=== PATIENT | male | born 1990 | race Caucasian/White ===

== ENCOUNTER 2025-08-14 14:52 | Outpatient (BNV) | payer OTHER, SELFPAY | END 2025-08-14 18:47 | PROVIDERS: Admitting Provider Psychiatry & Neurology Psychiatry; Visit Provider Internal Medicine Cardiovascular Disease | DX: R00.0 Tachycardia, unspecified (principal) | CPT/HCPCS: 93010 ==

== ENCOUNTER 2025-08-14 14:52 | Inpatient (IN) | payer OTHER, SELFPAY ==
--- OUTSIDE RECORDS SUMMARY | 2025-08-06 14:00 | XMS_ITS | Encounter Summary ---
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) Procedures ADMIT TO INPATIENT Surekha Hernandez MD [address] [place] [address] Phone: tel: fax: Referral ID Status Reason Start Date Expiration Date Visits Re quested Visits Authorized [id number] 1 1 Encounter Details Date Type Department Care Team (Late st Contact Info) Description 08/06/2025 3:00 PM EDT - 08/13/2025 1:00 PM [facility] [place] Hospital Encounter [facility] [address] [place] [phone] Americo Allred, [address] [place] [id number] Surekha Hernandez MD [address] [place] [address] Divina Mercer MD [address] [address] Shaquille Brooks MD [address] [place] [phone] Alcohol withdrawal (CMS/HCC) (Primary Dx); 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CMS/HCC) Discharge Disposition: Home or Self Care Social History Tobacco Use Types Packs/Day Years Used Date Smoking Tobacco: Every Day Cigarettes Tobacco Cessation:Ready to Q uit: Not Asked; Counseling Given: Not Answered Alcohol Use Standard Drinks/Week Comments Yes 0 (1 standard drink = 0.6 oz pur e alcohol) Vodka 1 L a day [facility] When You Wishities Answer Date Recorded In the past 12 months has e Lee Silber, oil, or water Thename.is threatened to shut off services in your home? Patient unable to answer 08/14/2025 Humiliation, Afraid, Rape, and Kick questionnair e Answer Date Recorded Within the last year, have y ou been afraid of your partner or ex-partner? No 08/14/2025 Emotionally Abused Not on file 08/14/2025 Physically Abused Not on file 08/14/2025 Sexually Abused Not on file 08/14/2025 AUDIT-C Answer Date Recorded Q1: How often do you have a drink containing alcohol? 4 or more times a week 08/07/2025 Q2: How many drinks containi ng alcohol do you have on a typical day when you are drinking? 10 or more Q3: How often do you have si x or more drinks on one occasion? Daily or almost daily 08/07/2025 Overall Financial Resource Strain (CARDIA) Answe r Date Recorded How hard is it for you to pa y for the very basics like food, housing, medical care, and heating? Hard 08/14/2025 PHQ-2 Answer Date Recorded Patient Health Questionnaire-2 Score for SDOH 2 08/07/2025 [facility] Occupat ional [facility] - Occupational Stress Questionnaire Answer Date Recorded Do you feel stress - tense, restless, nervous, or anxious, or unable to sleep at night because your mind is troubled all the time - these days? Patient declined 08/07/2025 Hunger Vital Sign Answer Date Recorded Within the past 12 months, y ou worried that your food would run out before you got the money to buy more. Often true 08/14/20 25 Ran Out of Food in the Last Year Not on file 08/14/2025 PRAPARE - Transportation Answer Date Re corded In the past 12 months, has l ack of transportation kept you from medical appointments or from getting medications? Yes 01/2025 In the past 12 months, has l ack of transportation kept you from meetings, work, or from getting things needed for daily living? Yes 08/14/2025 Housing Stability Vital Sign Answer Chaz e Recorded Unable to Pay for Housing in the Last Year Not o n file 08/14/2025 Number of Times Moved in the Last Year Not on fi le 08/14/2025 At any time in the past 12 m [facility], were you homeless or living in a care home (including now)? Yes 08/14/2025 Substance Use Answer Date Recorded Do you use marijuana, cannabis, or THC-containin g products? Yes 08/07/2025 Do you use medicine not pres cribed to you, or any other types of drugs (such as cocaine, heroin, fentanyl, or meth)? Yes Sex and Gender Information Value Date Recorded Sex Assigned at Not on file Legal Sex Male 5:29 PM EDT Gender Identity Not on file Sexual Orientation Not on file documented as of this encounter Last Filed Vital Signs Vital Sign Reading Time Taken Comments Blood Pressure 100/69 08/13/2025 8:42 AM EST Pulse 89 08/13/2025 8:41 AM EST Temperature 36.4 C (97.5 F) 08/13/2025 8:41 AM EST Respiratory Rate 20 08/13/2025 8:41 AM EST Oxygen Saturation 97% 08/13/2025 8:41 AM EST Inhaled Oxygen Concentration - - Weight 90.7 kg (200 lb) 08/06/2025 3:07 PM EDT Height 175.3 cm (5' 9 ) 08/06/2025 3:07 PM EDT Body Mass Index 29.53 08/06/2025 3:07 PM EDT documented in this encounter Mental Status * Question Answer Entry Date Author Patient Health Questionnaire -2 Score for SDOH 2 08/07/2025 12:13 AM EDT Traci Olmedo RN * Methodology and Total Score Answer Entry Date Author PHQ-2 2 08/07/2025 12:13 AM EDT Thanh Olmedo RN * Methodology and Total Score Answer Entry Date Author PHQ-2 2 08/07/2025 12:13 AM FABIANOT Thanh Olmedo RN documented in this encounter Discharge Summaries * Shaquille Brooks MD - 08/13/2025 10:16 AM EST Images from the original note were not included. 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 Anthony Fernandes is a 35 y.o. year old male with past medical history of EtOH abuse, seizures, anxiety, PTSD, depression, polysubstance abuse (cocaine and heroin in the past, meth and amphetamine), history of suicide and homicide ideation, he had a warrant over him, he claimed he had a seizure activity today when the police arrived and checked on him. He claims this is his first time use amphetamine, mistakenly given by acquaintance, he admitted he drinks alcohol daily, 1 L of vodka, last drink was a day and a half ago. He also has alcohol withdrawal seizure in the past. Currently he seems to hallucinating, says he sees black dots on the ceiling. He also claims he wants to kill himself, planning to cut himself, showed me a cut scar on his leg from before. I am called to admit this patient, because he is agitated, tremulous, concern for alcohol withdrawal. Urine toxic screen is positive for amphetamine, benzodiazepine, Buprenorphine and cannabinoids, he got 1 dose of benzo in ED, urine sample obtained afterward. He reports severe headache, feeling nausea, chills and abdominal pain. He also smokes 1-1/2 to 2 packs daily, has been smoking for a long time. He is a homeless, lives in the [facility]. Past Medical History: Diagnosis Date ADHD ADHD Asthma Bipolar disorder, unspecified (CMS/HCC) Depression Generalized anxiety disorder PTSD (post-traumatic stress disorder) Suicidal ideation Transaminitis WPW (Ayuya-Qprfmsnsr-Zqmcu syndrome) CARDIAC ELECTROPHYSIOLOGY MAPPING AND ABLATION No past surgical history on file. Social History Socioeconomic History Marital status: Single Spouse name: Not on file Number of children: Not on file Years of education: Not on file Highest education level: Not on file Occupational History Not on file Tobacco Use Smoking status: Every Day Current packs/day: 1.50 Types: Cigarettes Smokeless tobacco: Not on file Substance and Sexual Activity Alcohol use: Yes Comment: Vodka 1 L a day Drug use: Yes Types: Amphetamines, Methamphetamines, Cocaine, Heroin Comment: Cocaine and heroin in the past Sexual activity: Not on file Other Topics Concern Not on file Social History Narrative Not on file Social Drivers of Health Financial Resource Strain: High Risk (08/07/2025) Overall Financial Resource Strain (CARDIA) Difficulty of Paying Living Expenses: Very hard Food Insecurity: Food Insecurity Present (08/07/2025) Hunger Vital Sign Worried About Running Out of Food in the Last Year: Often true Ran Out of Food in the Last Year: Not on file Transportation Needs: Unmet Transportation Needs (08/07/2025) PRAPARE - Transportation Lack of Transportation (Medical): Yes Lack of Transportation (Non-Medical): Yes Physical Activity: Not on file Stress: Patient Declined (08/07/2025) [facility] [employer]ational Health - Occupational Stress Questionnaire Feeling of Stress : Patient declined Social Connections: Not on file Housing Stability: High Risk (08/07/2025) Housing Stability Vital Sign Unable to Pay for Housing in the Last Year: Not on file Number of Times Moved in the Last Year: Not on file Homeless in the Last Year: Yes Allergies Allergen Reactions Fish Containing Products Anaphylaxis Anaphylaxis Capsaicin Rash Quetiapine Rash and Swelling Anaphylaxis Hospital Course Anthony Fernandes is a 35 y.o. male with past medical history of EtOH abuse, seizures, anxiety, PTSD, depression, polysubstance abuse (cocaine and heroin in the past, meth and amphetamine), history of suicide and homicide ideation, he had a warrant over him, he claimed he had a seizure activity today when the police arrived and checked on him. He claims this is his first time use amphetamine, mistakenly given by acquaintance, he admitted he drinks alcohol daily, 1 L of vodka, last drink was a day and a half ago. He also has alcohol withdrawal seizure in the past , however verbalized suicidal ideation and hence was admitted to the hospitalist team with a sitter at bedside intractable headaches = Noncontrast CT head done during this admission negative for any intracranial hemorrhage focal mass or midline shift Neurology services consulted MRI brain ordered but the patient went down but MRI could not be completed in spite of him receiving premedication They recommended adding on Depacon IF HEADACHE WORSE PT IMPROVED NOT ADDED Tachycardia with history of WPW = Cardiology consulted They feel that episodes of tachycardia are likely related to alcohol withdrawal symptoms Suggest outpatient cardiology follow-up with his primary developer advocate Dr. Miller and primary manager stone at [facility] postdischarge Off telemetry History of seizure disorder He is on Keppra 500 mg twice a day which we are continuing per home regimen No breakthrough seizures reported in the hospital Suicidal ideation Seen by psychiatry, continue one-to-one observation Alcohol abuse with alcohol withdrawal OFF CIWA Reinforced the importance of complete EtOH abstinence again during bedside rounds Cigarette smoking Reinforced the importance of complete smoking cessation, he does not want nicotine patch but wants to use nicotine gum, he wants it every 1 hourly, Marijuana use disorder, mild Recommended complete marijuana abstinence Polysubstance abuse Urine drug screen positive for benzodiazepines amphetamine buprenorphine and cannabinoids Counseled regarding complete abstinence from illicit drugs during bedside rounds Bipolar disorder. Anxiety NOS. Polysubstance abuse. Alcohol abuse PER PSYCH Mr. Fernandes has been continuously denying any suicidal or assaultive ideation in hospital. I do not feel he is of imminent risk of suicide at this time. One-to-one may be discontinued. Suggest social work assist him with referral for partial hospital program for dual diagnosis treatment of his substance abuse and mood and anxiety disorder. He is interested in this referral. Suggest also social work assist with referral for outpatient psychiatry and psychotherapy for dual diagnosis treatment. Please reconsult psychiatry as needed. PT MEDICALLY CLEARED Pertinent Test Results: No results found for: [id number] , [id number] , TROPTHSBASE , TROPTHSRAN Results from last 7 days Lab Units 08/07/25 0209 CK TOTAL IU/L 155 Results from last 7 days Lab Units 08/12/25 0610 08/11/25 0725 08/10/25 0608 08/09/25 0830 08/08/25 0831 08/07/25 0556 08/06/25 1606 SODIUM mEq/L 138 142 140 < > 139 136 137 POTASSIUM mEq/L 3.9 4.1 4.0 < > 4.2 3.9 4.4 CHLORIDE mEq/L 103 107 103 < > 106 103 99 CO2 mEq/L 27 27 25 < > 24 24 25 BUN MG/DL 10 11 11 < > 11 12 14 CREATININE MG/DL 1.00 1.10 1.10 < > 1.00 0.80 1.00 CALCIUM MG/DL 8.3* 8.3* 8.3* < > 8.2* 8.4 9.1 BILIRUBIN TOTAL mg/dL -- -- -- -- <0.2 0.3 <0.2 ALK PHOS U/L -- -- -- -- 84 87 96 ALT U/L -- -- -- -- 48 52 63 AST U/L -- -- -- -- 60* 62* 79* < > = values in this interval not displayed. Results from last 7 days Lab Units 08/13/25 0830 08/12/25 0610 08/11/25 0725 WBC [id number]/L 7.7 5.8 6.3 HEMOGLOBIN g/dL 12.3* 11.8* 11.7* HEMATOCRIT % 37.2* 36.0* 36.4* PLATELETS [id number]/L 216 204 221 Physical Exam at Discharge Heart Rate: 89 Resp: 20 BP: 100/69 Temp: 97.5 ??F (36.4 ??C) Weight: 90.7 kg (200 lb) Body mass index is 29.53 kg/m??. General Appearance: Alert, cooperative, not in acute distress. Head: Normocephalic, without obvious abnormality, atraumatic Eyes: PERRL, conjunctiva/corneas clear, EOM's intact Back: Symmetric, no curvature, ROM normal, no CVA tenderness Lungs: Clear to auscultation bilaterally, respirations unlabored Chest wall: No tenderness or deformity Heart: Regular rate and rhythm, S1 and S2 normal, no murmur, rub or gallop Abdomen: Soft, non-tender, bowel sounds active all four quadrants, no masses, no organomegaly Extremities: atraumatic, no cyanosis or edema; Pulses: 2+ and symmetric all extremities Skin: Skin color, texture, turgor normal, no rashes or lesions Neurologic: CNII-XII intact. Imaging: ECG 12 Lead Result Date: 08/10/2025 SR Sinus rhythm normal P axis, V-rate 60-99 MRI Brain WO IV Contrast Result Date: 08/10/2025 HISTORY: Headache, new or worsening, neuro deficit (Age 18-49y) A brain MRI examination was performed without intravenous contrast according to standard departmental protocol. FINDINGS: There is no evidence of acute infarct, intracranial hemorrhage, mass or mass effect. Parsons-white matter differentiation is preserved. The ventricles and extra-axial spaces are within normal limits for patient age. The paranasal sinuses and mastoid air cells are normally pneumatized. Normal vascular flow voids are identified the skull base. The midline structures are normal. IMPRESSION: No MR evidence of acute intracranial process Signing Doctor: Damian Ghosh Contributing Doctor: Date Signed:08/10/2025 8:42 AM Patient DOS:08/09/2025 6:46 PM Exam:[id number] MRI BRAIN WO IV CONTRAST [facility] CT Brain WO IV Contrast Result Date: 08/06/2025 PROCEDURE INFORMATION: Exam: CT Head Without Contrast Exam date and time: 08/06/2025 5:48 PM Age: 35 years old Clinical indication: Pain; Seizure; Headache TECHNIQUE: Imaging protocol: Computed tomography of the head without contrast. Radiation optimization: All CT scans at this facility use at least one of these dose optimization techniques: automated exposure control; mA and/or kV adjustment per patient size (includes targeted exams where dose is matched to clinical indication); or iterative reconstruction. COMPARISON: CT head/brain wo con 01/14/2024 6:33 AM FINDINGS: Brain: Unremarkable for the patient's age. No hemorrhage or mass effect. Cerebral ventricles: No ventriculomegaly. Paranasal sinuses: Small retention cysts or polyps are noted within the maxillary sinuses. No fluid levels. Mastoid air cells: Visualized mastoid air cells are well aerated. Teeth: There appears to be an impacted upper left canine tooth. Bones: No acute bony pathology. Soft tissues: Unremarkable. IMPRESSION: No acute intracranial pathology. THIS DOCUMENT HAS BEEN ELECTRONICALLY SIGNED BY CATALINA MILLS MD on 08/06/2025 06:51 PM Micro: No results found for: BLOODCX1 , BLOODCX2 , BLOODCX3 , BLOODCX4 ECHO Results for orders placed or performed during the Hospital Encounter of 08/06/25. ECG 12-LEAD Medications on Discharge: Medication List START taking these medications nicotine 21 mg/24 hr 24 hr Patch Commonly known as: NICODERM CQ Place 1 (one) patch (21 mg total) on the skin once daily. CONTINUE taking these medications albuterol 90 mcg/actuation HFA inhaler Commonly known as: PROVENTIL HFA;VENTOLIN HFA;PROAIR HFA Buprenorphine-naloxone 8-2 mg sublingual film Commonly known as: SUBOXONE chlorproMAZINE 100 MG tablet Commonly known as: THORAZINE cloNIDine HCL 0.1 MG tablet Commonly known as: CATAPRES folic acid 1 MG tablet Commonly known as: FOLVITE gabapentin 400 MG capsule Commonly known as: NEURONTIN levETIRAcetam 500 MG tablet Commonly known as: KEPPRA melatonin 5 mg Cap multivitamin tablet Commonly known as: THERAGRAN nicotine polacrilex 4 MG gum Commonly known as: NICORETTE ondansetron 4 MG tablet Commonly known as: ZOFRAN pantoprazole 40 MG delayed release tablet Commonly known as: PROTONIX * prazosin 2 MG capsule Commonly known as: MINIPRESS * prazosin 1 MG capsule Commonly known as: MINIPRESS senna 8.6 mg tablet Commonly known as: SENOKOT Senna Plus 8.6-50 mg tablet Generic drug: senna-docusate thiamine HCl (vitamin B-1) 100 MG tablet * This list has 2 medication(s) that are the same as other medications prescribed for you. Read thedirections carefully, and ask your doctor or other care provider to review them with you. Where to Get Your Medications These medications were sent to [facility]/pharmacy #[id number] - [place], [place] - [address] [facility] [facility] [facility] [id number] nicotine 21 mg/24 hr 24 hr Patch Things you need to do Schedule an appointment with Maru Church NP as soon as possible for a visit in 1 week Where: [address] [facility] [address] Follow up with Maru Church NP in 1 week Where: [address] [facility] [address] I have sent a clinical message via tiger text to the patient's PCP, Maru Church NP for update. Time Spent for discharge and coordination of care is: 35 mintues Disclaimer: Please note that speech recognition angiography technologist software was used to create portions of this document. An attempt at proofreading has been made to minimize errors. Please call with any questions. documented in this encounter Discharge Instructions * Attachments The following attachments cannot be sent through Care Everywhere. * Alcohol Withdrawal Syndrome [employer]ev[place]-[employer] (Bangladeshi) documented in this encounter Medications at Time of Discharge albuterol (PROVENTIL HFA;VENTOLIN HFA;PROAIR HFA) 90 mcg/actuation HFA inhaler Inhale 1 (one) puff to 2 (two) puffs by mouth every 4 (four) hours as needed. 07/31/2025 Buprenorphine-nal oxone (SUBOXONE) 8-[address] 1 (one) Film (8 mg total) under the tongue 3 (three) times a day. 07/14/2024 chlorproMAZINE (THORAZINE) 100 MG tablet Take 3 (three) tablets (300 mg total) by mouth at bedtime. 12/06/2024 cloNIDine HCL (CATAPRES) 0.1 MG tablet Take 1 (one) tablet (0.1 mg total) by mouth 2 (two) times a day. 07/31/2025 folic acid (FOLVITE) 1 MG tablet Take 1 (one) tablet (1 mg total) by mouth once daily. 08/01/2025 gabapentin (NEURONTIN) 400 MG capsule Take 1 (one) capsule (400 mg total) by mouth 3 (three) times a day. 12/06/2024 levETIRAcetam (KEPPRA) 500 MG tablet Take 1 (one) tablet (500 mg total) by mouth 2 (two) times a day. 12/06/2024 melatonin 5 mg cap Take 1 capsule by mouth at bedtime. 02/20/2025 multivitamin (THERAGRAN) tablet Take 1 (one) tablet by mouth every morning. 08/01/2025 nicotine (NICODERM CQ) 21 mg/24 [address] 1 (one) patch (21 mg total) on the skin once daily. 14 patch 08/13/2025 nicotine polacrilex (NICORETTE) 4 MG gum Apply 2 mg to cheek every 2 (two) hours. 12/06/2024 ondansetron (ZOFRAN) 4 MG tablet Take 1 (one) tablet (4 mg total) by mouth every 8 (eight) hours as needed. pantoprazole (PROTONIX) 40 MG delayed release tablet Take 1 (one) tablet (40 mg total) by mouth once daily every morning before breakfast. 08/01/2025 prazosin (MINIPRESS) 1 MG capsule Take 1 (one) capsule (1 mg total) by mouth at bedtime. 12/06/2024 prazosin (MINIPRESS) 2 MG capsule Take 1 (one) capsule (2 mg total) by mouth at bedtime. senna (SENOKOT) 8.6 mg tablet Take 2 (two) tablets by mouth at bedtime. SENNA PLUS 8.6-50 mg tablet Take 2 (two) tablets by mouth at bedtime. 02/01/2025 thiamine HCl, vitamin B-1, 100 MG tablet Take 1 (one) tablet (100 mg total) by mouth once daily. 08/01/2025 documented as of this encounter Progress Notes Only the most recent of 9 notes is shown. * Shaquille Brooks MD - 08/12/2025 12:11 PM EST Interval hx Admitted 08/06/2025 3:00 PM Today is day 6 of hospital stay. Subjective: Patient sitting comfortably no complaints overnight no events Current Meds: Current Facility-Administered Medications Medication Dose Route Frequency albuterol (PROVENTIL) nebulizer solution 2.5 mg 2.5 mg Nebulization Q6H PRN Buprenorphine-naloxone (SUBOXONE) 8-2 mg SL film 8 mg 8 mg Sublingual 3 times daily qguvbkknkf-tatnejvryzqjd-gnjzfssc (FIORICET) 50-325-40 mg tablet 1 tablet 1 tablet Oral Q6H PRN calcium carbonate (dose based on calcium) (TUMS) chewable tablet 200 mg 1 tablet Oral 3 times dailyPRN chlorproMAZINE (THORAZINE) tablet 300 mg 300 mg Oral Bedtime cloNIDine HCL (CATAPRES) tablet 0.1 mg 0.1 mg Oral 2 times daily cyclobenzaprine (FLEXERIL) tablet 5 mg 5 mg Oral 2 times daily PRN diazePAM (VALIUM) tablet 10 mg 10 mg Oral Q2 H PRN Or diazePAM (VALIUM) injection 10 mg 10 mg Intravenous Q2 H PRN diazePAM (VALIUM) tablet 20 mg 20 mg Oral Q1H PRN Or diazePAM (VALIUM) injection 20 mg 20 mg Intravenous Q1H PRN diazePAM (VALIUM) tablet 5 mg 5 mg Oral Q2 H PRN Or diazePAM (VALIUM) injection 5 mg 5 mg Intravenous Q2 H PRN dicyclomine (BENTYL) tablet 10 mg 10 mg Oral 3 times daily PRN gabapentin (NEURONTIN) capsule 400 mg 400 mg Oral 3 times daily levETIRAcetam (KEPPRA) tablet 500 mg 500 mg Oral 2 times daily nicotine (NICODERM CQ) 21 mg/24 hr 1 patch 1 patch Transdermal Once Daily nicotine polacrilex (NICORETTE) gum 2 mg 2 mg Buccal Q1H PRN ondansetron (ZOFRAN) injection 4 mg 4 mg Intravenous Q6H PRN pantoprazole (PROTONIX) DR tablet 40 mg 40 mg Oral Daily before breakfast polyethylene glycol (MIRALAX) packet 17 g 1 packet Oral Once Daily prazosin (MINIPRESS) capsule 1 mg 1 mg Oral Bedtime prazosin (MINIPRESS) capsule 2 mg 2 mg Oral Bedtime senna-docusate (PERICOLACE) 8.6-50 mg 2 tablet 2 tablet Oral 2 times daily Intake/Output Summary (Last 24 hours) at 08/12/2025 1211 Last data filed at 08/12/2025 0254 Gross per 24 hour Intake 716 ml Output -- Net 716 ml Physical Exam Vital Signs: Vitals: 08/12/25 0820 BP: 141/77 Pulse: 100 Resp: 18 Temp: 97.8 ??F (36.6 ??C) SpO2: 95% Body mass index is 29.53 kg/m??. Gen: Alert, oriented, no distress HEENT: Anicteric sclera, MMM, no JVD, no conjunctival pallor Cardio: RRR, normal S1S2, no murmurs, rubs, or gallops Resp: CTAB, no wheezing, crackles or rhonchi GI: Nontender, nondistended, normoactive bowel sounds Ext: No cyanosis, clubbing or edema : No flank tenderness Neuro: CN II-XII grossly intact, 5/5 motor throughout, normal sensation throughout Skin: No rash Psych: Normal affect Labs: No results found for: [id number] , [id number] , TROPTHSBASE , TROPTHSRAN Results from last 7 days Lab Units 08/07/25 0209 CK TOTAL IU/L 155 Results from last 7 days Lab Units 08/12/25 0610 08/11/25 0725 08/10/25 0608 08/09/25 0830 08/08/25 0831 08/07/25 0556 08/06/25 1606 SODIUM mEq/L 138 142 140 < > 139 136 137 POTASSIUM mEq/L 3.9 4.1 4.0 < > 4.2 3.9 4.4 CHLORIDE mEq/L 103 107 103 < > 106 103 99 CO2 mEq/L 27 27 25 < > 24 24 25 BUN MG/DL 10 11 11 < > 11 12 14 CREATININE MG/DL 1.00 1.10 1.10 < > 1.00 0.80 1.00 CALCIUM MG/DL 8.3* 8.3* 8.3* < > 8.2* 8.4 9.1 BILIRUBIN TOTAL mg/dL -- -- -- -- <0.2 0.3 <0.2 ALK PHOS U/L -- -- -- -- 84 87 96 ALT U/L -- -- -- -- 48 52 63 AST U/L -- -- -- -- 60* 62* 79* < > = values in this interval not displayed. Results from last 7 days Lab Units 08/12/25 0610 08/11/25 0725 08/10/25 0608 WBC [id number] 5.8 6.3 5.7 HEMOGLOBIN g/dL 11.8* 11.7* 12.1* HEMATOCRIT % 36.0* 36.4* 37.2* PLATELETS [id number] 204 221 212 Imaging: ECG 12 Lead Result Date: 08/10/2025 SR Sinus rhythm normal P axis, V-rate 60-99 MRI Brain WO IV Contrast Result Date: 08/10/2025 HISTORY: Headache, new or worsening, neuro deficit (Age 18-49y) A brain MRI examination was performed without intravenous contrast according to standard departmental protocol. FINDINGS: There is no evidence of acute infarct, intracranial hemorrhage, mass or mass effect. Parsons-white matter differentiation is preserved. The ventricles and extra-axial spaces are within normal limits for patient age. The paranasal sinuses and mastoid air cells are normally pneumatized. Normal vascular flow voids are identified the skull base. The midline structures are normal. IMPRESSION: No MR evidence of acute intracranial process Signing Doctor: Damian Ghosh Contributing Doctor: Date Signed:08/10/2025 8:42 AM Patient DOS:08/09/2025 6:46 PM Exam:[id number] MRI BRAIN WO IV CONTRAST [facility] CT Brain WO IV Contrast Result Date: 08/06/2025 PROCEDURE INFORMATION: Exam: CT Head Without Contrast Exam date and time: 08/06/2025 5:48 PM Age: 35 years old Clinical indication: Pain; Seizure; Headache TECHNIQUE: Imaging protocol: Computed tomography of the head without contrast. Radiation optimization: All CT scans at this facility use at least one of these dose optimization techniques: automated exposure control; mA and/or kV adjustment per patient size (includes targeted exams where dose is matched to clinical indication); or iterative reconstruction. COMPARISON: CT head/brain wo con 01/14/2024 6:33 AM FINDINGS: Brain: Unremarkable for the patient's age. No hemorrhage or mass effect. Cerebral ventricles: No ventriculomegaly. Paranasal sinuses: Small retention cysts or polyps are noted within the maxillary sinuses. No fluid levels. Mastoid air cells: Visualized mastoid air cells are well aerated. Teeth: There appears to be an impacted upper left canine tooth. Bones: No acute bony pathology. Soft tissues: Unremarkable. IMPRESSION: No acute intracranial pathology. THIS DOCUMENT HAS BEEN ELECTRONICALLY SIGNED BY CATALINA MILLS MD on 08/06/2025 06:51 PM Micro: No results found for: BLOODCX1 , BLOODCX2 , BLOODCX3 , BLOODCX4 Patient's Hospital Problems There is no problem list on file for this patient. Assessment/Plan: Anthony Fernandes is a 35 y.o. male with past medical history of EtOH abuse, seizures, anxiety, PTSD, depression, polysubstance abuse (cocaine and heroin in the past, meth and amphetamine), history of suicide and homicide ideation, he had a warrant over him, he claimed he had a seizure activity today when the police arrived and checked on him. He claims this is his first time use amphetamine, mistakenly given by acquaintance, he admitted he drinks alcohol daily, 1 L of vodka, last drink was a day and a half ago. He also has alcohol withdrawal seizure in the past , however verbalized suicidal ideation and hence was admitted to the hospitalist team with a sitter at bedside Agitation/combativeness Continue one-to-one Symptomatic treatment Psych following intractable headaches = Noncontrast CT head done during this admission negative for any intracranial hemorrhage focal mass or midline shift Neurology services consulted MRI brain ordered but the patient went down but MRI could not be completed in spite of him receiving premedication They recommended adding on Depacon to his regimen however given the patient's on and off grogginessI will hold off on initiation of Depacon for now Tachycardia with history of WPW = Cardiology consulted They feel that episodes of tachycardia are likely related to alcohol withdrawal symptoms Suggest outpatient cardiology follow-up with his primary developer advocate Dr. Miller and primary manager stone at [facility] postdischarge Off telemetry History of seizure disorder He is on Keppra 500 mg twice a day which we are continuing per home regimen No breakthrough seizures reported in the hospital Suicidal ideation Seen by psychiatry, continue one-to-one observation Alcohol abuse with alcohol withdrawal CIWA's are today is day #5 of hospitalization, anticipate slow improvement in CIWA's Reinforced the importance of complete EtOH abstinence again during bedside rounds Cigarette smoking Reinforced the importance of complete smoking cessation, he does not want nicotine patch but wants to use nicotine gum, he wants it every 1 hourly, Generalized on wellbeing, abdominal cramps, muscle pains Improved with supportive therapy, continue as needed Bentyl for abdominal cramps Marijuana use disorder, mild Recommended complete marijuana abstinence Polysubstance abuse Urine drug screen positive for benzodiazepines amphetamine buprenorphine and cannabinoids Counseled regarding complete abstinence from illicit drugs during bedside rounds Nausea Ordered Zofran 4 mg IV every 6 as needed Patient does not want any information to be given to anybody including his sister/ hcp without his permission CODE STATUS full Signature: Shaquille Brooks MD Electronic Signature documented in this encounter H&P Notes * Surekha Hernandez MD - 08/06/2025 7:26 PM EDT Name: Anthony Fernandes Chief Complaint Patient presents with Psychiatric Evaluation HPI: Mr. Anthony Fernandes is a 35 y.o. year old male with past medical history of EtOH abuse, seizures, anxiety, PTSD, depression, polysubstance abuse (cocaine and heroin in the past, meth and amphetamine), history of suicide and homicide ideation, he had a warrant over him, he claimed he had a seizure activity today when the police arrived and checked on him. He claims this is his first time use amphetamine, mistakenly given by acquaintance, he admitted he drinks alcohol daily, 1 L of vodka, last drink was a day and a half ago. He also has alcohol withdrawal seizure in the past. Currently he seems to hallucinating, says he sees black dots on the ceiling. He also claims he wants to kill himself, planning to cut himself, showed me a cut scar on his leg from before. I am called to admit this patient, because he is agitated, tremulous, concern for alcohol withdrawal. Urine toxic screen is positive for amphetamine, benzodiazepine, Buprenorphine and cannabinoids, he got 1 dose of benzo in ED, urine sample obtained afterward. He reports severe headache, feeling nausea, chills and abdominal pain. He also smokes 1-1/2 to 2 packs daily, has been smoking for a long time. He is a homeless, lives in the [facility]. Past Medical / Past Surgical History: Past Medical History: Diagnosis Date ADHD Asthma Bipolar disorder, unspecified (CMS/HCC) Depression Generalized anxiety disorder PTSD (post-traumatic stress disorder) Suicidal ideation Transaminitis WPW (Qafcy-Icdruohaq-Vxhuz syndrome) CARDIAC ELECTROPHYSIOLOGY MAPPING AND ABLATION No past surgical history on file. ROS: 14 point review of systems otherwise negative except as stated in the HPI. Medications: Prior to Admission medications Medication Sig Dispense Refill albuterol (PROVENTIL HFA;VENTOLIN HFA;PROAIR HFA) 90 mcg/actuation HFA inhaler Inhale 1 (one) puff to 2 (two) puffs by mouth every 4 (four) hours as needed. Buprenorphine-naloxone (SUBOXONE) 8-[address] 1 (one) Film (8 mg total) under the tongue 3 (three) times a day. chlorproMAZINE (THORAZINE) 100 MG tablet Take 3 (three) tablets (300 mg total) by mouth at bedtime. cloNIDine HCL (CATAPRES) 0.1 MG tablet Take 1 (one) tablet (0.1 mg total) by mouth 2 (two) times a day. folic acid (FOLVITE) 1 MG tablet Take 1 (one) tablet (1 mg total) by mouth once daily. gabapentin (NEURONTIN) 400 MG capsule Take 1 (one) capsule (400 mg total) by mouth 3 (three) times a day. levETIRAcetam (KEPPRA) 500 MG tablet Take 1 (one) tablet (500 mg total) by mouth 2 (two) times a day. melatonin 5 mg cap Take 1 capsule by mouth at bedtime. multivitamin (THERAGRAN) tablet Take 1 (one) tablet by mouth every morning. nicotine polacrilex (NICORETTE) 4 MG gum Apply 2 mg to cheek every 2 (two) hours. pantoprazole (PROTONIX) 40 MG delayed release tablet Take 1 (one) tablet (40 mg total) by mouth once daily every morning before breakfast. prazosin (MINIPRESS) 1 MG capsule Take 1 (one) capsule (1 mg total) by mouth at bedtime. SENNA PLUS 8.6-50 mg tablet Take 2 (two) tablets by mouth at bedtime. thiamine HCl, vitamin B-1, 100 MG tablet Take 1 (one) tablet (100 mg total) by mouth once daily. prazosin (MINIPRESS) 2 MG capsule Take 1 (one) capsule (2 mg total) by mouth at bedtime. Current Facility-Administered Medications: [START ON 08/07/2025] folic acid 1 mg Oral Once Daily [START ON 08/07/2025] multivitamin w/minerals 1 tablet Oral Once Daily [START ON 08/07/2025] nicotine 1 patch Transdermal Once Daily [START ON 08/07/2025] polyethylene glycol 1 packet Oral Once Daily senna-docusate 2 tablet Oral 2 times daily [START ON 08/07/2025] thiamine mononitrate (vitamin B-1) 100 mg Oral Once Daily Or [START ON 08/07/2025] Thiamine IV 100 mg Intravenous Once Daily Allergies: Fish containing products, Capsaicin, and Quetiapine Social / Family Histories: Social History Tobacco Use Smoking status: Every Day Current packs/day: 1.50 Types: Cigarettes Smokeless tobacco: Not on file Substance Use Topics Alcohol use: Yes Comment: Vodka 1 L a day Family History Problem Relation Age of Onset Suicide Mother 35 Heart attack Father 60 Suicide Brother 45 Drug abuse Brother Physical Exam Vitals: 08/06/252001 BP: 135/82 Pulse: (!) 121 Resp: 22 Temp: 98.5 ??F (36.9 ??C) SpO2: 95% Gen: Alert, oriented x 3, appears quite anxious and jittery, obese, tremulous HEENT: PERRL, EOMI, anicteric sclera, no conjunctival pallor, MMM Neck: supple, no JVD, no LAD or thyromegaly Cardio: Regular, tachycardia, normal S1S2, no murmurs, rubs, or gallops Resp: Good effort, normal breathing sounds, CTAB GI: Nontender, nondistended, normoactive bowel sounds, no palpable mass, no guarding or rebound Ext: No cyanosis, clubbing or edema, DP(+) @B/L : No flank tenderness, deferred for inspection today Neuro: CN II-XII grossly intact, no focal deficit, speech clear, moves bilateral upper and lower extremities freely Skin: No rash, jaundice or pallor; low /normal turgor Psych: Anxious affect, cooperative Labs No results found for: CK , BNP No results found for: BNP , PROBNP No components found for: ALEXIS , TNI No results found for: CK , CKMB Lab Results Component Value Date WBC 8.2 08/06/2025 HGB 13.1 (L) 08/06/2025 HCT 41.2 08/06/2025 PLT 227 08/06/2025 Lab Results Component Value Date NA 137 08/06/2025 K 4.4 08/06/2025 CL 99 08/06/2025 CO2 25 08/06/2025 BUN 14 08/06/2025 Lab Results Component Value Date CALCIUM 9.1 08/06/2025 Lab Results Component Value Date AST 79 (H) 08/06/2025 ALT 63 08/06/2025 ALKPHOS 96 08/06/2025 BILITOT <0.2 08/06/2025 ALBUMIN 4.1 08/06/2025 Lab Results Component Value Date ALBUMIN 4.1 08/06/2025 Lab Results Component Value Date CALCIUM 9.1 08/06/2025 No results found for: MG No results found for: PHOS No results found for: PTT , LABPROT , INR Lab Results Component Value Date PHUA 7.5 08/06/2025 PROTEINUA negative 08/06/2025 BLOODUA negative 08/06/2025 UROBILINOGEN 0.2 08/06/2025 No results found for: HGBA1C No results found for: TSH No results found for: BEART , O2SAT No results found for: CHOL , TRIG , HDL No results found for: AMPHTQTU , COCAINE , OXYCODONE , PCP , LABPROP Urinalysis Lab Results Component Value Date KETONESU negative 08/06/2025 UROBILINOGEN 0.2 08/06/2025 No results found for: URNCX1 , URNCX2 , URNCX3 , URNCX4 Blood Cultures No results found for: BLOODCX1 , BLOODCX2 , BLOODCX3 , BLOODCX4 Imaging: CT Brain WO IV Contrast Result Date: 08/06/2025 IMPRESSION: No acute intracranial pathology. THIS DOCUMENT HAS BEEN ELECTRONICALLY SIGNED BY CATALINA MILLS MD on 08/06/2025 06:51 PM EKG: normal sinus rhythm, sinus tachycardia, HR 133, TN 133 ms No results found for this or any previous visit. Assessment and Plan: Mr. Anthony Fernandes is a 35 y.o. year old male with past medical history of EtOH abuse, seizures, anxiety, PTSD, depression, polysubstance abuse (cocaine and heroin in the past, meth and amphetamine currently), history of suicide and homicide ideation, claims he had a seizure activity today, apparently he smoked amphetamine, here he appears to be going through withdrawal, agitated, hallucination and tremulous. #. Alcohol abuse with impending withdrawal - Reportedly last drink was 2 days ago of 1 L of vodka, alcohol level 0 in ED this evening - Start patient with CIWA protocol and nutritional replacement, MVI/thiamine/folic acid - He has no known liver cirrhosis and portal hypertension, will place him/her on diazepam p.o. or IV withdrawal protocol #. Polysubstance abuse - Urine tox screen is positive for amphetamine - Supportive care #. Nicotine dependence - Monitor vital signs and for SOB - Importance of complete nicotine abstinence was discussed with him in detail - Smoking cessation counseling was done at bedside, time 3 minutes, offered nicotine replacement - Agrees with nicotine gum and patch replacement therapy #. Suicidal ideation - One-to-one observation - Psychiatrist evaluation DVT prophylaxis: Low risk GI prophylaxis: Continue PPI CODE STATUS: Full code/ Inpatient admission Patient declined having family called to discuss plan of care at this time. bisque brusher: Anthony Barnard DO Referring MD: No ref. provider found Phone: N/A Signature: Surekha Hernandez MD Electronic Signature documented in this encounter Consult Notes Only the most recent of 4 notes is shown. * Daiana Arreola NP - 08/10/2025 9:28 AM EDTAssociated Order(s): IP CONSULT TO CARDIOLOGY CARDIOLOGY CONSULTATION Date: 08/10/25 @ 9:28 AM Primary Care Physician: Maru Church NP Attending Physician: Divina Mercer MD Dictated By: Daiana Arreola NP Outpatient Building Contractor: Previously followed by Dr. Hathaway last seen 2018 Reason for Consult: Tachycardia, history of WPW with history of ablation HPI: Anthony Fernandes is an 35 y.o. male with past medical history of WPW status post bypass tract ablation in 2013 at [facility], SI, HI, seizures, anxiety, PTSD, depression polysubstance abuse (EtOH, cocaine, heroin, meth, amphetamine, marijuana), current smoker 1.5-2 packs per day. Presented on 08/06 to emergency room from a hotel he was staying at after someone called 911 due towatching patient buy meth. 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 Endorses drinking 1 L of vodka daily with last drink 1.5 days LOOP SEWER. Noted to be in sinus tachycardia and tremulous in the emergency room and complaint of headache.Twelve-lead EKG showed sinus tachycardia 133 bpm, no acute ST-T wave abnormalities. He was given IVVersed with improvement in heart rate. He was also scoring on CIWA protocol at that time. He was evaluated by psychiatry and later admitted to telemetry unit with one-to-one observation and being followed by adult psychiatry. Upon arrival labs significant for salicylate level 1.0, urine toxicology positive for amphetamines,benzodiazepine, buprenorphine, cannabinoid. TSH yesterday WNL. Review of Systems Constitutional: Negative. HENT: Negative. Eyes: Negative. Cardiovascular: Positive for palpitations. Respiratory: Negative. Endocrine: Negative. Skin: Negative. Musculoskeletal: Negative. Gastrointestinal: Negative. Genitourinary: Negative. Neurological: Negative. Medical / Surgical Problems: Active Problems: * No active hospital problems. * Past Medical History: Diagnosis Date ADHD ADHD Asthma Bipolar disorder, unspecified (CMS/HCC) Depression Generalized anxiety disorder PTSD (post-traumatic stress disorder) Suicidal ideation Transaminitis WPW (Hyues-Dnywwyxyu-Tezws syndrome) CARDIAC ELECTROPHYSIOLOGY MAPPING AND ABLATION No past surgical history on file. Prior to Admission medications Medication Sig Dispense Refill albuterol (PROVENTIL HFA;VENTOLIN HFA;PROAIR HFA) 90 mcg/actuation HFA inhaler Inhale 1 (one) puff to 2 (two) puffs by mouth every 4 (four) hours as needed. Buprenorphine-naloxone (SUBOXONE) 8-[address] 1 (one) Film (8 mg total) under the tongue 3 (three) times a day. chlorproMAZINE (THORAZINE) 100 MG tablet Take 3 (three) tablets (300 mg total) by mouth at bedtime. cloNIDine HCL (CATAPRES) 0.1 MG tablet Take 1 (one) tablet (0.1 mg total) by mouth 2 (two) times a day. folic acid (FOLVITE) 1 MG tablet Take 1 (one) tablet (1 mg total) by mouth once daily. gabapentin (NEURONTIN) 400 MG capsule Take 1 (one) capsule (400 mg total) by mouth 3 (three) times a day. levETIRAcetam (KEPPRA) 500 MG tablet Take 1 (one) tablet (500 mg total) by mouth 2 (two) times a day. melatonin 5 mg cap Take 1 capsule by mouth at bedtime. multivitamin (THERAGRAN) tablet Take 1 (one) tablet by mouth every morning. nicotine polacrilex (NICORETTE) 4 MG gum Apply 2 mg to cheek every 2 (two) hours. pantoprazole (PROTONIX) 40 MG delayed release tablet Take 1 (one) tablet (40 mg total) by mouth once daily every morning before breakfast. prazosin (MINIPRESS) 1 MG capsule Take 1 (one) capsule (1 mg total) by mouth at bedtime. SENNA PLUS 8.6-50 mg tablet Take 2 (two) tablets by mouth at bedtime. thiamine HCl, vitamin B-1, 100 MG tablet Take 1 (one) tablet (100 mg total) by mouth once daily. ondansetron (ZOFRAN) 4 MG tablet Take 1 (one) tablet (4 mg total) by mouth every 8 (eight) hours asneeded. prazosin (MINIPRESS) 2 MG capsule Take 1 (one) capsule (2 mg total) by mouth at bedtime. senna (SENOKOT) 8.6 mg tablet Take 2 (two) tablets by mouth at bedtime. albuterol Buprenorphine-naloxone rphqatqmki-soyjizzdzeurg-zbyjlpax chlorproMAZINE cloNIDine HCL cyclobenzaprine diazePAM OR diazePAM diazePAM OR diazePAM diazePAM OR diazePAM dicyclomine gabapentin levETIRAcetam nicotine nicotine polacrilex ondansetron pantoprazole polyethylene glycol prazosin prazosin senna-docusate Allergies Allergen Reactions Fish Containing Products Anaphylaxis Anaphylaxis Capsaicin Rash Quetiapine Rash and Swelling Anaphylaxis Family History Problem Relation Age of Onset Suicide Mother 35 Heart attack Father 60 Suicide Brother 45 Drug abuse Brother Social History Socioeconomic History Marital status: Single Spouse name: Not on file Number of children: Not on file Years of education: Not on file Highest education level: Not on file Occupational History Not on file Tobacco Use Smoking status: Every Day Current packs/day: 1.50 Types: Cigarettes Smokeless tobacco: Not on file Substance and Sexual Activity Alcohol use: Yes Comment: Vodka 1 L a day Drug use: Yes Types: Amphetamines, Methamphetamines, Cocaine, Heroin Comment: Cocaine and heroin in the past Sexual activity: Not on file Other Topics Concern Not on file Social History Narrative Not on file Social Drivers of Health Financial Resource Strain: High Risk (08/07/2025) Overall Financial Resource Strain (CARDIA) Difficulty of Paying Living Expenses: Very hard Food Insecurity: Food Insecurity Present (08/07/2025) Hunger Vital Sign Worried About Running Out of Food in the Last Year: Often true Ran Out of Food in the Last Year: Not on file Transportation Needs: Unmet Transportation Needs (08/07/2025) PRAPARE - Transportation Lack of Transportation (Medical): Yes Lack of Transportation (Non-Medical): Yes Physical Activity: Not on file Stress: Patient Declined (08/07/2025) [employer] - Occupational Stress Questionnaire Feeling of Stress : Patient declined Social Connections: Not on file Intimate Partner Violence: Unknown (08/07/2025) Humiliation, Afraid, Rape, and Kick questionnaire Fear of Current or Ex-Partner: Patient declined Emotionally Abused: Not on file Physically Abused: Not on file Sexually Abused: Not on file Housing Stability: High Risk (08/07/2025) Housing Stability Vital Sign Unable to Pay for Housing in the Last Year: Not on file Number of Times Moved in the Last Year: Not on file Homeless in the Last Year: Yes BP (!) 124/96 (BP Location: Left upper arm, Patient Position: Lying) Pulse 95 Temp 97.5 ??F (36.4 ??C) (Oral) Resp 18 Ht 1.753 m (5' 9 ) Wt 90.7 kg (200 lb) SpO2 97% BMI 29.53 kg/m?? Weight change: Ht Readings from Last 1 Encounters: 08/06/25 1.753 m (5' 9 ) Wt Readings from Last 1 Encounters: 08/06/25 90.7 kg (200 lb) Intake/Output Summary (Last 24 hours) at 08/10/2025 0928 Last data filed at 08/09/2025 1349 Gross per 24 hour Intake 2075 ml Output -- Net 2075 ml Body mass index is 29.53 kg/m??. Physical Exam Vitals reviewed. Constitutional: General: He is awake. He is not in acute distress. Cardiovascular: Rate and Rhythm: Regular rhythm. Heart sounds: Heart sounds not distant. No murmur heard. No friction rub. Comments: NSR Pulmonary: Effort: Pulmonary effort is normal. Breath sounds: Normal breath sounds. No decreased air movement. No decreased breath sounds, wheezing, rhonchi or rales. Musculoskeletal: Right lower leg: No edema. Left lower leg: No edema. Skin: General: Skin is warm and dry. Neurological: General: No focal deficit present. Mental Status: He is alert and oriented to person, place, and time. Mental status is at baseline. Psychiatric: Attention and Perception: Attention normal. Mood and Affect: Mood normal. Speech: Speech normal. Behavior: Behavior is cooperative. BP (!) 124/96 (BP Location: Left upper arm, Patient Position: Lying) Pulse 95 Temp 97.5 ??F (36.4 ??C) (Oral) Resp 18 Ht 1.753 m (5' 9 ) Wt 90.7 kg (200 lb) SpO2 97% BMI 29.53 kg/m?? LABS: Results from last 7 days Lab Units 08/07/25 0209 CK TOTAL IU/L 155 Results from last 7 days Lab Units 08/10/25 0608 08/09/25 0830 08/08/25 0831 08/07/25 0556 08/06/25 1606 SODIUM mEq/L 140 139 139 136 137 POTASSIUM mEq/L 4.0 4.2 4.2 3.9 4.4 CHLORIDE mEq/L 103 106 106 103 99 CO2 mEq/L 25 24 24 24 25 BUN MG/DL 11 10 11 12 14 CREATININE MG/DL 1.10 1.10 1.00 0.80 1.00 CALCIUM MG/DL 8.3* 8.1* 8.2* 8.4 9.1 BILIRUBIN TOTAL mg/dL -- -- <0.2 0.3 <0.2 ALK PHOS U/L -- -- 84 87 96 ALT U/L -- -- 48 52 63 AST U/L -- -- 60* 62* 79* Results from last 7 days Lab Units 08/10/25 0608 08/09/25 0830 08/08/25 0831 WBC [id number] 5.7 6.0 5.2 HEMOGLOBIN g/dL 12.1* 12.3* 11.7* HEMATOCRIT % 37.2* 36.8* 36.2* PLATELETS [id number] 212 204 204 Imaging MRI Brain WO IV Contrast Result Date: 08/10/2025 HISTORY: Headache, new or worsening, neuro deficit (Age 18-49y) A brain MRI examination was performed without intravenous contrast according to standard departmental protocol. FINDINGS: There is no evidence of acute infarct, intracranial hemorrhage, mass or mass effect. Parsons-white matter differentiation is preserved. The ventricles and extra-axial spaces are within normal limits for patient age. The paranasal sinuses and mastoid air cells are normally pneumatized. Normal vascular flow voids are identified the skull base. The midline structures are normal. IMPRESSION: No MR evidence of acute intracranial process Signing Doctor: Damian Ghosh Contributing Doctor: Date Signed:08/10/2025 8:42 AM Patient DOS:08/09/2025 6:46 PM Exam:[id number] MRI BRAIN WO IV CONTRAST [facility] CT Brain WO IV Contrast Result Date: 08/06/2025 PROCEDURE INFORMATION: Exam: CT Head Without Contrast Exam date and time: 08/06/2025 5:48 PM Age: 35 years old Clinical indication: Pain; Seizure; Headache TECHNIQUE: Imaging protocol: Computed tomography of the head without contrast. Radiation optimization: All CT scans at this facility use at least one of these dose optimization techniques: automated exposure control; mA and/or kV adjustment per patient size (includes targeted exams where dose is matched to clinical indication); or iterative reconstruction. COMPARISON: CT head/brain wo con 01/14/2024 6:33 AM FINDINGS: Brain: Unremarkable for the patient's age. No hemorrhage or mass effect. Cerebral ventricles: No ventriculomegaly. Paranasal sinuses: Small retention cysts or polyps are noted within the maxillary sinuses. No fluid levels. Mastoid air cells: Visualized mastoid air cells are well aerated. Teeth: There appears to be an impacted upper left canine tooth. Bones: No acute bony pathology. Soft tissues: Unremarkable. IMPRESSION: No acute intracranial pathology. THIS DOCUMENT HAS BEEN ELECTRONICALLY SIGNED BY CATALINA MILLS MD on 08/06/2025 06:51 PM Echocardiogram: Echocardiogram 2014: LVEF 60%, no significant structural abnormalities ASSESSMENT AND PLAN: # Tachycardia -Telemetry review shows sinus rhythm with one epeisode overnight of sinus tachycardia with HR as high as 130's. -Twelve-lead EKG upon arrival showed sinus tachycardia 133 bpm, no acute ST-T wave abnormalities. Did not appreciate short TN, wide QRS, secondary ST-T wave changes, or delta wave to support featuresof WPW on EKG. -Episodes of tachycardia most likely related to withdrawal symptoms -Please arrange for patient to follow-up with his outpatient developer advocate, Dr. Hathaway post discharge -No further inpatient cardiac testing or recommendations at this time # Polysubstance abuse -Ongoing use of multiple substances -Recommend cessation of EtOH, cannabis, amphetamines -Continue to monitor for withdrawal signs and continue CIWA protocol -Continue further management per hospitalist and psychiatry team #Tobacco abuse -Recommend complete cessation of tobacco products Cardiology will sign off Plan of care discussed with attending developer advocate Daiana Arreola NP Code Status: Full Code Please remember that medical charts are intended for communication between medical providers and may contain language that could be confusing and even alarming when taken out of context. The best source of information regarding your condition comes from direct communication with your providers. Please feel free to ask me should you have questions regarding your cardiac care. Please also note thatthe conditions, diagnoses and plans for patients who are hospitalized can change very quickly and this note may not reflect the most up to date information. Cosigned by Adrienne Harris MD at 08/10/2025 5:00 PM EDT Associated attestation - Adrienne Harris MD - 08/10/2025 5:00 PM EDT I personally saw the patient. I performed all aspects of the history, the exam, and the medical decision making. I have discussed and confirmed the physical exam findings and the evaluation, plan of care and disposition of the patient with the assigned BESSY. I agree with the BESSY's documented findings and plan of care for the patient. documented in this encounter ED Notes Only the most recent of 5 notes is shown. * Veronica Deshpande RN - 08/06/2025 10:26 PM EDT Exit of care, pt admitted to [facility] at this time Veronica Deshpande RN 08/06/252225 documented in this encounter Miscellaneous Notes Only the most recent note of each type is shown. * Plan of Care - Gregor Mosqueda - 08/13/2025 2:28 PM ESTOnly the most recent of 16 notes of type Plan of Care is shown. Problem: Discharge Planning Goal: Discharge to next level of care Outcome: Adequate for Discharge Note: Final discharge plan determined and confirmed. Discharge Planning Primary Caregiver: Self Living Arrangements: Other (Comment) (Homeless) Support Systems: Family members Final Discharge Info Patient Being Discharged To: 1 - Discharged to home/self care Discharge transportation method:: Walk Cost of Transport Discussed with Patient/Family (If applicable): No Patient/Family Notified and in Agreement with Discharge Plan: Yes DC Notification Details: Patient and family/personal chef notified and in agreement Medicare Discharge IM Signed: Not Applicable Pt discharged home self care. * Discharge Note - Ronda Solis RN - 08/13/2025 12:50 PM ESTOnly the most recent of 2 notes of type Discharge Note is shown. Patient discharged today. INSTRUCTIONS REVIEWED WITH PATIENT AND SIGNED THOUGH HE REFUSED TO TAKE INSTRUCTIONS UPON DISCHARGE. Large bag of home meds sealed handed back to patient upon leaving unit. Wheelchair transport refused and patient ambulated independently [facility] * Consult Followup - Siva Christine MD - 08/13/2025 9:33 AM EST Psychiatric Consult Follow Up Patient Name: Anthony Fernandes : 1990 Date of Consult: 08/13/25 Consulting MD: Christofer Christine MD Reason for Follow-Up Consult / HPI: Mr. Fernandes has been in good behavioral control. He has been denying any suicidal ideation with nursing staff. He is currently found resting. He awakens easily. He is oriented to person, place, and to situation. He denies depressed mood. He states he still has anxiety. He denies any suicidal or assaultive ideation. He is hopeful for the future. He reports good sleep and good appetite. He denies hallucinations and there are no delusions noted. His recent and remote memory appear intact. His grossattention and concentration appear intact. He has a flat affect. Speech is of normal rate, tone, and volume and is goal-directed. There are no abnormal movements or tremor noted. Lab: Lab Results Component Value Date NA 138 08/12/2025 K 3.9 08/12/2025 CO2 27 08/12/2025 CL 103 08/12/2025 BUN 10 08/12/2025 CREATININE 1.00 08/12/2025 Lab Results Component Value Date CALCIUM 8.3 (L) 08/12/2025 PHOS 3.7 08/08/2025 Lab Results Component Value Date WBC 7.7 08/13/2025 HGB 12.3 (L) 08/13/2025 HCT 37.2 (L) 08/13/2025 MCV 88.2 08/13/2025 PLT 216 08/13/2025 Lab Results Component Value Date ALT 48 08/08/2025 AST 60 (H) 08/08/2025 ALKPHOS 84 08/08/2025 BILITOT <0.2 08/08/2025 Medications: Inpatient Medications: Current Facility-Administered Medications Medication Dose Route Frequency albuterol (PROVENTIL) nebulizer solution 2.5 mg 2.5 mg Nebulization Q6H PRN Buprenorphine-naloxone (SUBOXONE) 8-2 mg SL film 8 mg 8 mg Sublingual 3 times daily idaguhzyzv-yljcpvjnxnuis-azcxhnmt (FIORICET) 50-325-40 mg tablet 1 tablet 1 tablet Oral Q6H PRN calcium carbonate (dose based on calcium) (TUMS) chewable tablet 200 mg 1 tablet Oral 3 times dailyPRN chlorproMAZINE (THORAZINE) tablet 300 mg 300 mg Oral Bedtime cloNIDine HCL (CATAPRES) tablet 0.1 mg 0.1 mg Oral 2 times daily cyclobenzaprine (FLEXERIL) tablet 5 mg 5 mg Oral 2 times daily PRN diazePAM (VALIUM) tablet 10 mg 10 mg Oral Q2 H PRN Or diazePAM (VALIUM) injection 10 mg 10 mg Intravenous Q2 H PRN diazePAM (VALIUM) tablet 20 mg 20 mg Oral Q1H PRN Or diazePAM (VALIUM) injection 20 mg 20 mg Intravenous Q1H PRN diazePAM (VALIUM) tablet 5 mg 5 mg Oral Q2 H PRN Or diazePAM (VALIUM) injection 5 mg 5 mg Intravenous Q2 H PRN dicyclomine (BENTYL) tablet 10 mg 10 mg Oral 3 times daily PRN gabapentin (NEURONTIN) capsule 400 mg 400 mg Oral 3 times daily levETIRAcetam (KEPPRA) tablet 500 mg 500 mg Oral 2 times daily nicotine (NICODERM CQ) 21 mg/24 hr 1 patch 1 patch Transdermal Once Daily nicotine polacrilex (NICORETTE) gum 2 mg 2 mg Buccal Q1H PRN ondansetron (ZOFRAN) injection 4 mg 4 mg Intravenous Q6H PRN pantoprazole (PROTONIX) DR tablet 40 mg 40 mg Oral Daily before breakfast polyethylene glycol (MIRALAX) packet 17 g 1 packet Oral Once Daily prazosin (MINIPRESS) capsule 1 mg 1 mg Oral Bedtime prazosin (MINIPRESS) capsule 2 mg 2 mg Oral Bedtime senna-docusate (PERICOLACE) 8.6-50 mg 2 tablet 2 tablet Oral 2 times daily traZODone (DESYREL) tablet 50 mg 50 mg Oral Once Allergies: Allergies Allergen Reactions Fish Containing Products Anaphylaxis Anaphylaxis Capsaicin Rash Quetiapine Rash and Swelling Anaphylaxis Vital Sign Ranges: Vitals: 08/13/25 0842 BP: 100/69 Pulse: Resp: Temp: SpO2: Patient's Hospital Problems: Active Problems: * No active hospital problems. * Assessment & Plan: Bipolar disorder. Anxiety NOS. Polysubstance abuse. Alcohol abuse Mr. Fernandes has been continuously denying any suicidal or assaultive ideation in hospital. I do not feel he is of imminent risk of suicide at this time. One-to-one may be discontinued. Suggest social work assist him with referral for partial hospital program for dual diagnosis treatment of his substance abuse and mood and anxiety disorder. He is interested in this referral. Suggest also social work assist with referral for outpatient psychiatry and psychotherapy for dual diagnosis treatment. Please reconsult psychiatry as needed. I spent > 35 minutes in otkl-wu-gbga and msg-pzuh-lh-face time addressing issues of neuropsychiatric (and related medical-surgical) diagnosis and treament during today's visit. Reviewed and discussed interval history and exam with the treatment team. Patient examined. Dx impressions and recommendations as above. Reviewed all relevant interval labwork, imaging, studies. Discussed with treatment team. Yours in Service, Christofer Christine M.D. Consultation Liaison Psychiatry Electronic Signature This note has been dictated using voice recognition software. Although an effort is made to correct any typographical errors, please forgive any that remain and recognize they may occasionally incorrectly change the apparent meaning of what is recorded. documented in this encounter Plan of Treatment Pending Results Name Type Priority Associated Diagnoses Date /Time ECG 12 Lead ECG STAT 08/06/2025 3: 49 PM EDT documented as of this encounter Procedures Procedure Name Priority Date/Time Associated Diagnosis Comments COMPREHENSIVE METABOLIC PANEL Routine 08/13/2025 8:30 AM EST CBC WITH DIFF Routine 08/13/2025 8:30 AM EST BASIC METABOLIC PANEL Routine 08/12/2025 6:10 AM EST HC AUTO CBC WITH DIFF Routine 08/12/2025 6:10 AM EST BASIC METABOLIC PANEL Routine 08/11/2025 7:25 AM EDT HC AUTO CBC WITH DIFF Routine 08/11/2025 7:25 AM EDT MAGNESIUM LEVEL, BLOOD Routine 6:08 AM EDT BASIC METABOLIC PANEL Routine 08/10/2025 6:08 AM EDT HC AUTO CBC WITH DIFF Routine 08/10/2025 6:08 AM EDT SED RATE Routine 08/10/2025 6:08 AM EDT ECG 12-LEAD Routine 08/10/2025 MRI BRAIN WO IV CONTRAST Routine 08/09/2025 7:38 PM EDT AMMONIA Routine 08/09/2025 5:05 PM EDT VITAMIN B12 Routine 08/09/2025 5:05 PM EDT BASIC METABOLIC PANEL Routine 08/09/2025 8:30 AM EDT HC AUTO CBC WITH DIFF Routine 08/09/2025 8:30 AM EDT TSH REFLEX Routine 08/09/2025 8:30 AM EDT MAGNESIUM LEVEL, BLOOD Routine 8:31 AM EDT COMPREHENSIVE METABOLIC PANEL Routine 08/08/2025 8:31 AM EDT HC AUTO CBC WITH DIFF Routine 08/08/2025 8:31 AM EDT PHOSPHORUS LEVEL Routine 08/08/2025 8:31 AM EDT MAGNESIUM LEVEL, BLOOD Routine 5:56 AM EDT COMPREHENSIVE METABOLIC PANEL Routine 08/07/2025 5:56 AM EDT HC AUTO CBC WITH DIFF Routine 08/07/2025 5:56 AM EDT PHOSPHORUS LEVEL Routine 08/07/2025 5:56 AM EDT CK Routine 08/07/2025 2:[address] BRAIN WO IV CONTRAST STAT 08/06/2025 5:53 PM EDT URINALYSIS WITH REFLEX TO CULTURE Routine 08/06/2025 5:16 PM EDT URINE DRUG SCREEN STAT 08/06/2025 5:1 6 PM EDT CONVERSION BUPRENORPHINE SUBOXONE SCREEN Routine 08/06/2025 5:16 PM EDT COMPREHENSIVE METABOLIC PANEL STAT 08/06/2025 4:06 PM EDT HC AUTO CBC WITH DIFF STAT 08/06/2025 4:06 PM EDT ETHANOL LEVEL STAT 08/06/2025 4:06 PM EDT ACETAMINOPHEN LEVEL STAT 08/06/2025 4 :06 PM EDT SALICYLATE LEVEL STAT 08/06/2025 4:06 PM EDT ECG 12-LEAD STAT 08/06/2025 3:49 PM EDT documented in this encounter Results * (ABNORMAL) Comprehensive Metabolic Panel (08/13/2025 8:30 AM EST) Glucose 112(H) 67 - 99 MG/DL 08/13/2025 1:21 PM [facility] BUN 9 6 - 24 MG/DL 08/13/2025 1:21 PM [facility] Creat Level 1.00 0.64 - 1.27 MG/DL 08/13/2025 1:21 PM [facility] eGFR 101 >90 mL/min/1.7 3m exp2 08/13/2025 1:21 PM [facility] Comment:Calculated using the CKD-epi 2020 race-free equation. BUN Creatinine Ratio 9 08/13/2025 1:21 PM [facility] Sodium 139 135 - 145 mEq/L 08/13/2025 1:21 PM [facility] Potassium 4.1 3.6 - 5.1 mEq/L 08/13/2025 1:21 PM [facility] Chloride 102 98 - 110 mEq/L 08/13/2025 1:21 PM [facility] CO2 24 20 - 29 mEq/L 08/13/2025 1:21 PM [facility] Anion Gap 13 3 - 13 08/13/2025 1:21 PM [facility] Albumin 3.6 3.4 - 5.1 G/DL 08/13/2025 1:21 PM [facility] Alkaline Phosphatase 97 40 - 129 U/L 08/13/2025 1:21 PM EST [facility] ALT 35 14 - 63 U/L 08/13/2025 1:21 PM [facility] AST (SGOT) 52(H) 15 - 41 U/L 08/13/2025 1:21 PM [facility] Bilirubin, Total <0.2 0.1 - 1.2 mg/dL 08/13/2025 1:21 PM [facility] Calcium 8.6 8.4 - 10.2 MG/DL 08/13/2025 1:21 PM [facility] Protein, Total 6.1 6.1 - 8.3 g/dL 08/13/2025 1:21 PM [facility] Blood 08/13/2025 8:30 AM EST 08/13/2025 9:09 AM EST us Shaquille Brooks MD LAB BLOOD ORDERABLES Final Resul t Performing Organization Address City/State/[facility] Co de Phone Number [facility] [address] [place] [id number], [facility] [address] [place] [address] * (ABNORMAL) CBC with Diff (08/13/2025 8:30 AM EST) WBC 7.7 4.2 - 10.0 o30kvd3/L 08/13/2025 9:16 AM [facility] RBC 4.22(L) 4.50 - 5.60 b37jvh86/ L 08/13/2025 9:16 AM [facility] Hemoglobin 12.3(L) 13.4 - 16.0 g/dL 08/13/2025 9:16 AM [facility] Hematocrit 37.2(L) 41.2 - 51.0 % 08/13/2025 9:16 AM [facility] MCV 88.2 85.2 - 100.2 fL 08/13/2025 9:16 AM [facility] MCH 29.1 27.0 - 32.4 pg 08/13/2025 9:16 AM [facility] MCHC 33.1 29.5 - 34.2 g/dL 08/13/2025 9:16 AM [facility] RDW 12.9 11.8 - 14.4 % 08/13/2025 9:16 AM [facility] Platelets 216 168 - 382 l46pwd9/L 08/13/2025 9:16 AM [facility] MPV 10.5 9.6 - 12.5 fL 08/13/2025 9:16 AM [facility] NRBC % 0.0 -1.0 - 0.0 % 08/13/2025 9:16 AM [facility] NRBC (absolute) 0.0 x03lss5/L 9:16 AM [facility] Immature Granulocytes % 0.4 % 08/13/2025 9:16 AM [facility] Immature Granulocytes (absolute) 0.0 0.0 - 0.1 w28tuz6/L 08/13/2025 9:16 AM [facility] Seg Neutrophil % 59.1 % 08/13/20 9:16 AM [facility] Seg Neutrophil (absolute) 4.5 1.9 - 6.7 r61net2/L 08/13/2025 9:16 AM [facility] Lymphocyte % 27.3 % 08/13/2025 9:16 AM [facility] Lymphocyte (absolute) 2.1 1.0 - 3.3 t74mgr9/L 08/13/2025 9:16 AM [facility] Monocyte % 6.5 % 08/13/2025 9:16 AM [facility] Monocyte (absolute) 0.5 0.3 - 0.9 t26pnk4/L 08/13/2025 9:16 AM [facility] Eosinophil % 6.3 % 08/13/2025 9:16 AM [facility] Eosinophil (absolute) 0.5(H) 0.0 - 0.4 c56jty3/L 08/13/2025 9:16 AM [facility] Basophil % 0.4 % 08/13/2025 9:16 AM [facility] Basophil (absolute) 0.0 0.0 - 0.1 o53mmo9/L 08/13/2025 9:16 AM [facility] 08/13/2025 8:30 AM EST 08/13/2025 9:07 AM EST us Shaquille Brooks MD LAB BLOOD ORDERABLES Final Resul t [facility] [address] [place] [address], [facility] [address] [place] [address] * (ABNORMAL) Basic Metabolic Panel (08/12/2025 6:10 AM EST) Glucose 123(H) 67 - 99 MG/DL 08/12/2025 8:02 AM [facility] BUN 10 6 - 24 MG/DL 08/12/2025 8:02 AM [facility] Creat Level 1.00 0.64 - 1.27 MG/DL 08/12/2025 8:02 AM [facility] eGFR 101 >90 mL/min/1.7 3m exp2 08/12/2025 8:02 AM [facility] Comment:Calculated using the CKD-epi 2020 race-free equation. BUN Creatinine Ratio 10 08/12/2025 8:02 AM [facility] Sodium 138 135 - 145 mEq/L 08/12/2025 8:02 AM [facility] Potassium 3.9 3.6 - 5.1 mEq/L 08/12/2025 8:02 AM [facility] Chloride 103 98 - 110 mEq/L 08/12/2025 8:02 AM [facility] CO2 27 20 - 29 mEq/L 08/12/2025 8:02 AM [facility] Anion Gap 8 3 - 13 08/12/2025 8:02 AM [facility] Calcium 8.3(L) 8.4 - 10.2 MG/DL 08/12/2025 8:02 AM [facility] Blood 08/12/2025 6:10 AM EST 08/12/2025 7:04 AM EST us Shaquille Brooks MD LAB BLOOD ORDERABLES Final Resul t [facility] [address] [place] [address], [facility] [address] [facility] [place] [address] * (ABNORMAL) CBC with Diff (08/12/2025 6:10 AM EST) WBC 5.8 4.2 - 10.0 e02dvq1/L 08/12/2025 7:34 AM [facility] RBC 4.10(L) 4.50 - 5.60 e20hgi60/ L 08/12/2025 7:34 AM [facility] Hemoglobin 11.8(L) 13.4 - 16.0 g/dL 08/12/2025 7:34 AM [facility] Hematocrit 36.0(L) 41.2 - 51.0 % 08/12/2025 7:34 AM [facility] MCV 87.8 85.2 - 100.2 fL 08/12/2025 7:34 AM [facility] MCH 28.8 27.0 - 32.4 pg 08/12/2025 7:34 AM [facility] MCHC 32.8 29.5 - 34.2 g/dL 08/12/2025 7:34 AM [facility] RDW 12.8 11.8 - 14.4 % 08/12/2025 7:34 AM [facility] Platelets 204 168 - 382 n59fwo7/L 08/12/2025 7:34 AM [facility] MPV 10.4 9.6 - 12.5 fL 08/12/2025 7:34 AM [facility] NRBC % 0.0 -1.0 - 0.0 % 08/12/2025 7:34 AM [facility] NRBC (absolute) 0.0 r32dve3/L 7:34 AM [facility] Immature Granulocytes % 0.7 % 08/12/2025 7:34 AM [facility] Immature Granulocytes (absolute) 0.0 0.0 - 0.1 h13did5/L 08/12/2025 7:34 AM [facility] Seg Neutrophil % 49.5 % 08/12/20 7:34 AM [facility] Seg Neutrophil (absolute) 2.9 1.9 - 6.7 m59jwn4/L 08/12/2025 7:34 AM [facility] Lymphocyte % 35.6 % 08/12/2025 7:34 AM [facility] Lymphocyte (absolute) 2.1 1.0 - 3.3 j67zpv2/L 08/12/2025 7:34 AM [facility] Monocyte % 6.6 % 08/12/2025 7:34 AM [facility] Monocyte (absolute) 0.4 0.3 - 0.9 y47bvk0/L 08/12/2025 7:34 AM [facility] Eosinophil % 7.3 % 08/12/2025 7:34 AM [facility] Eosinophil (absolute) 0.4 0.0 - 0.4 a05cbc8/L 08/12/2025 7:34 AM [facility] Basophil % 0.3 % 08/12/2025 7:34 AM [facility] Basophil (absolute) 0.0 0.0 - 0.1 n83jok5/L 08/12/2025 7:34 AM [facility] 08/12/2025 6:10 AM EST 08/12/2025 7:05 AM EST us Shaquille Brooks MD LAB BLOOD ORDERABLES Final Resul t [facility] [address] [place] [address], [facility] [address] [place] [address] * (ABNORMAL) Basic Metabolic Panel (08/11/2025 7:25 AM EDT) Pathologist [facility] Glucose 87 67 - 99 MG/DL 08/11/2025 8:29 AM EDT [facility] BUN 11 6 - 24 MG/DL 08/11/2025 8:29 AM EDT [facility] Creat Level 1.10 0.64 - 1.27 MG/DL 08/11/2025 8:29 AM EDT [facility] eGFR 90 >90 mL/min/1.7 3m exp2 08/11/2025 8:29 AM EDT [facility] Comment:Calculated using the CKD-epi 2020 race-free equation. BUN Creatinine Ratio 10 08/11/2025 8:29 AM EDT [facility] Sodium 142 135 - 145 mEq/L 08/11/2025 8:29 AM EDT [facility] Potassium 4.1 3.6 - 5.1 mEq/L 08/11/2025 8:29 AM EDT [facility] Comment:Specimen hemolyzed, results affected Chloride 107 98 - 110 mEq/L 08/11/2025 8:29 AM EDT [facility] CO2 27 20 - 29 mEq/L 08/11/2025 8:29 AM EDT [facility] Anion Gap 8 3 - 13 08/11/2025 8:29 AM EDT [facility] Calcium 8.3(L) 8.4 - 10.2 MG/DL 08/11/2025 8:29 AM EDT [facility] Blood 08/11/2025 7:25 AM EDT 08/11/2025 8:02 AM EDT Divina Mercer MD LAB BLOOD ORDERABLES Final Re sult [facility] [address] [place] [address], [facility] [address] [place] [address] * (ABNORMAL) CBC with Diff (08/11/2025 7:25 AM EDT) WBC 6.3 4.2 - 10.0 m46pib3/L 08/11/2025 8:14 AM EDT [facility] RBC 4.09(L) 4.50 - 5.60 e45ica97/ L 08/11/2025 8:14 AM EDT [facility] Hemoglobin 11.7(L) 13.4 - 16.0 g/dL 08/11/2025 8:14 AM EDT [facility] Hematocrit 36.4(L) 41.2 - 51.0 % 08/11/2025 8:14 AM EDT [facility] MCV 89.0 85.2 - 100.2 fL 08/11/2025 8:14 AM EDT [facility] MCH 28.6 27.0 - 32.4 pg 08/11/2025 8:14 AM EDT [facility] MCHC 32.1 29.5 - 34.2 g/dL 08/11/2025 8:14 AM EDT [facility] RDW 13.1 11.8 - 14.4 % 08/11/2025 8:14 AM EDT [facility] Platelets 221 168 - 382 o22crw3/L 08/11/2025 8:14 AM EDT [facility] MPV 10.4 9.6 - 12.5 fL 08/11/2025 8:14 AM EDT [facility] NRBC % 0.0 -1.0 - 0.0 % 08/11/2025 8:14 AM EDT [facility] NRBC (absolute) 0.0 k54fvd7/L 8:14 AM EDT [facility] Immature Granulocytes % 0.3 % 08/11/2025 8:14 AM EDT [facility] Immature Granulocytes (absolute) 0.0 0.0 - 0.1 n14kag9/L 08/11/2025 8:14 AM EDT [facility] Seg Neutrophil % 46.1 % 08/11/20 25 8:14 AM EDT [facility] Seg Neutrophil (absolute) 2.9 1.9 - 6.7 c79jej6/L 08/11/2025 8:14 AM EDT [facility] Lymphocyte % 37.6 % 08/11/2025 8:14 AM EDT [facility] Lymphocyte (absolute) 2.4 1.0 - 3.3 a54mpm7/L 08/11/2025 8:14 AM EDT [facility] Monocyte % 7.9 % 08/11/2025 8:14 AM EDT [facility] Monocyte (absolute) 0.5 0.3 - 0.9 f91itj8/L 08/11/2025 8:14 AM EDT [facility] Eosinophil % 7.6 % 08/11/2025 8:14 AM EDT [facility] Eosinophil (absolute) 0.5(H) 0.0 - 0.4 g36jjk0/L 08/11/2025 8:14 AM EDT [facility] Basophil % 0.5 % 08/11/2025 8:14 AM EDT [facility] Basophil (absolute) 0.0 0.0 - 0.1 p44iqp3/L 08/11/2025 8:14 AM EDT [facility] 08/11/2025 7:25 AM EDT 08/11/2025 8:02 AM EDT Divina Mercer MD LAB BLOOD ORDERABLES Final Re sult Performing Organization Address City/[facility]/ZIP Co de Phone Number [facility] [address] [place] [address], [facility] [address] [place] [address] * Erythrocyte Sedimentation Rate (ESR) (08/10/2025 6:08 AM EDT) Sed Rate 14 0 - 15 mm/h 08/10/2025 2:27 PM EDT [facility] 08/10/2025 6:08 AM EDT 08/10/2025 7:21 AM EDT Divina Mercer MD LAB BLOOD ORDERABLES Final Re sult [facility] [address] [place] [address], [facility] [address] [place] [address] * MAGNESIUM LEVEL, BLOOD (08/10/2025 6:08 AM EDT) MAGNESIUM LEVEL, BLOOD 1.9 1.6 - 2.3 mg/dL 08/10/2025 8:07 AM EDT [facility] 08/10/2025 6:08 AM EDT 08/10/2025 7:27 AM EDT Divina Mercer MD LAB BLOOD ORDERABLES Final Re sult [facility] [address] [place] [address], [facility] [address] [place] [address] * (ABNORMAL) Basic Metabolic Panel (08/10/2025 6:08 AM EDT) Pathologist [facility] Glucose 123(H) 67 - 99 MG/DL 08/10/2025 8:07 AM EDT [facility] BUN 11 6 - 24 MG/DL 08/10/2025 8:07 AM EDT [facility] Creat Level 1.10 0.64 - 1.27 MG/DL 08/10/2025 8:07 AM EDT [facility] eGFR 90 >90 mL/min/1.7 3m exp2 08/10/2025 8:07 AM EDT [facility] Comment:Calculated using the CKD-epi 2020 race-free equation. BUN Creatinine Ratio 10 08/10/2025 8:07 AM EDT [facility] Sodium 140 135 - 145 mEq/L 08/10/2025 8:07 AM EDT [facility] Potassium 4.0 3.6 - 5.1 mEq/L 08/10/2025 8:07 AM EDT [facility] Chloride 103 98 - 110 mEq/L 08/10/2025 8:07 AM EDT [facility] CO2 25 20 - 29 mEq/L 08/10/2025 8:07 AM EDT [facility] Anion Gap 12 3 - 13 08/10/2025 8:07 AM EDT [facility] Calcium 8.3(L) 8.4 - 10.2 MG/DL 08/10/2025 8:07 AM EDT [facility] Blood 08/10/2025 6:08 AM EDT 08/10/2025 7:27 AM EDT Divina Mercer MD LAB BLOOD ORDERABLES Final Re sult [facility] [address] [place] [address], [facility] [address] [place] [address] * (ABNORMAL) CBC with Diff (08/10/2025 6:08 AM EDT) WBC 5.7 4.2 - 10.0 b40ubr1/L 08/10/2025 7:39 AM EDT [facility] RBC 4.21(L) 4.50 - 5.60 j20nlf13/ L 08/10/2025 7:39 AM EDT [facility] Hemoglobin 12.1(L) 13.4 - 16.0 g/dL 08/10/2025 7:39 AM EDT [facility] Hematocrit 37.2(L) 41.2 - 51.0 % 08/10/2025 7:39 AM EDT [facility] MCV 88.4 85.2 - 100.2 fL 08/10/2025 7:39 AM EDT [facility] MCH 28.7 27.0 - 32.4 pg 08/10/2025 7:39 AM EDT [facility] MCHC 32.5 29.5 - 34.2 g/dL 08/10/2025 7:39 AM EDT [facility] RDW 12.9 11.8 - 14.4 % 08/10/2025 7:39 AM EDT [facility] Platelets 212 168 - 382 x05yjp5/L 08/10/2025 7:39 AM EDT [facility] MPV 10.3 9.6 - 12.5 fL 08/10/2025 7:39 AM EDT [facility] NRBC % 0.0 -1.0 - 0.0 % 08/10/2025 7:39 AM EDT [facility] NRBC (absolute) 0.0 j29wkf4/L 7:39 AM EDT [facility] Immature Granulocytes % 0.4 % 08/10/2025 7:39 AM EDT [facility] Immature Granulocytes (absolute) 0.0 0.0 - 0.1 r03qgn7/L 08/10/2025 7:39 AM EDT [facility] Seg Neutrophil % 52.5 % 08/10/20 7:39 AM EDT [facility] Seg Neutrophil (absolute) 3.0 1.9 - 6.7 z68dng0/L 08/10/2025 7:39 AM EDT [facility] Lymphocyte % 32.3 % 08/10/2025 7:39 AM EDT [facility] Lymphocyte (absolute) 1.8 1.0 - 3.3 s57pva1/L 08/10/2025 7:39 AM EDT [facility] Monocyte % 5.3 % 08/10/2025 7:39 AM EDT [facility] Monocyte (absolute) 0.3 0.3 - 0.9 o47irn2/L 08/10/2025 7:39 AM EDT [facility] Eosinophil % 8.8 % 08/10/2025 7:39 AM EDT [facility] Eosinophil (absolute) 0.5(H) 0.0 - 0.4 j04njg8/L 08/10/2025 7:39 AM EDT [facility] Basophil % 0.7 % 08/10/2025 7:39 AM EDT [facility] Basophil (absolute) 0.0 0.0 - 0.1 u37uij4/L 08/10/2025 7:39 AM EDT [facility] 08/10/2025 6:08 AM EDT 08/10/2025 7:21 AM EDT us Divina Mercer MD LAB BLOOD ORDERABLES Final Re sult [facility] [address] [place] [address], [facility] [address] [place] [address] * ECG 12 Lead (08/10/2025) RR Interval 760 ms [facility] Atrial Rate 79 ms [facility] P-R Interval 131 ms [facility] QRSD Interval 101 ms [facility] QT Interval 29 deg [facility] QTC Interval 33 deg [facility] P [place] 500 ms [facility] QRS [place] 92 ms [facility] T Wave [place] 379 ms [facility] QTcB 435 ms [facility] QTcF 415 ms [facility] QRS Horizontal [place] -25 deg [facility] QRS [place] 58 deg [facility] I-40 Horizontal [place] 69 deg [facility] C[facility] I-40 Front [place] 87 deg [facility] T-40 Horizontal [place] -51 deg [facility] C[facility] T-40 Front [place] 57 deg [facility] T Horizontal [place] 72 deg [facility] T Wave [place] 56 deg [facility] S-T Horizontal [place] 79 deg [facility] S-T Front [place] 59 deg [facility] ECG Impression - NORMAL ECG - [facility] 08/10/2025 Impressions [facility] - 08/10/2025 12:26 PM EDT SR Sinus rhythm normal P axis, V-rate 60-99 Narrative Procedure Note Adrienne Harris MD - 08/10/2025 SR Sinus rhythm normal P axis, V-rate 60-99 Daiana Arreola [employer] ECG ORDERABLES Edited Res ult - Final [facility] * MRI Brain WO IV Contrast (08/09/2025 7:38 PM EDT) Anatomical Region Laterality Modality Magnetic Resonan ce Impressions 08/10/2025 8:42 AM EDT IMPRESSION: No MR evidence of acute intracranial process Signing Doctor: Damian Ghosh Contributing Doctor: Date Signed:08/10/2025 8:42 AM Patient DOS:08/09/2025 6:46 PM Exam:[id number] MRI BRAIN WO IV CONTRAST [facility] Narrative 08/10/2025 8:42 AM EDT HISTORY: Headache, new or worsening, neuro deficit (Age 18-49y) A brain MRI examination was performed without intravenous contrast according to standard departmental protocol. FINDINGS: There is no evidence of acute infarct, intracranial hemorrhage, mass or mass effect. Parsons-white matter differentiation is preserved. The ventricles and extra-axial spaces are within normal limits for patient age. The paranasal sinuses and mastoid air cells are normally pneumatized. Normal vascular flow voids are identified the skull base. The midline structures are normal. Procedure Note Damian Ghosh MD - 08/10/2025 HISTORY: Headache, new or worsening, neuro deficit (Age 18-49y) A brain MRI examination was performed without intravenous contrastaccording to standard departmental protocol. FINDINGS: There is no evidence of acute infarct, intracranial hemorrhage, mass ormass effect. Parsons-white matter differentiation is preserved. The ventricles and extra-axial spaces are within normal limits for patientage. The paranasal sinuses and mastoid air cells are normally pneumatized. Normal vascular flow voids are identified the skull base. The midline structures are normal. IMPRESSION: No MR evidence of acute intracranial process Signing Doctor: Damian Ghosh Contributing Doctor:Date Signed:08/10/2025 8:42 AM Patient DOS:08/09/2025 6:46 PM Exam:[id number] MRI BRAIN WO IV CONTRAST [facility] us David Rajan MD IMG MRI ORDERABLES Final Resu lt * Ammonia (08/09/2025 5:05 PM EDT) NH3 Ammonia 57 16 - 60 umol/L 08/09/2025 5:43 PM EDT [facility] Blood 08/09/2025 5:05 PM EDT 08/09/2025 5:10 PM EDT us David Rajan MD LAB BLOOD ORDERABLES Final Re sult [facility] [address] [place] [address], [facility] [address] [place] [address] * Vitamin B12 (08/09/2025 5:05 PM EDT) Vitamin B-12 470 232 - 1,245 pg/mL 08/10/2025 8:53 AM EDT [facility] Blood 08/09/2025 5:05 PM EDT 08/09/2025 5:42 PM EDT David Rajan MD LAB BLOOD ORDERABLES Final Re sult Performing Organization Address City/[facility]/ZIP Co de Phone Number [facility] [address] [place] [address], [facility] [address] [place] [address] * TSH Reflex (08/09/2025 8:30 AM EDT) TSH, High Sensitivity 3.990 0.330 - 4.120 uIU/ML 08/09/2025 6:57 PM EDT [facility] 08/09/2025 8:30 AM EDT 08/09/2025 8:52 AM EDT Divina Mercer MD LAB BLOOD ORDERABLES Final Re sult Performing Organization Address City/[facility]/ZIP Co de Phone Number [facility] [address] [place] [address], [facility] [address] [place] [address] * (ABNORMAL) Basic Metabolic Panel (08/09/2025 8:30 AM EDT) Glucose 90 67 - 99 MG/DL 08/09/2025 9:23 AM EDT [facility] BUN 10 6 - 24 MG/DL 08/09/2025 9:23 AM EDT [facility] Creat Level 1.10 0.64 - 1.27 MG/DL 08/09/2025 9:23 AM EDT [facility] eGFR 90 >90 mL/min/1.7 3m exp2 08/09/2025 9:23 AM EDT [facility] Comment:Calculated using the CKD-epi 2020 race-free equation. BUN Creatinine Ratio 9 08/09/2025 9:23 AM EDT [facility] Sodium 139 135 - 145 mEq/L 08/09/2025 9:23 AM EDT [facility] Potassium 4.2 3.6 - 5.1 mEq/L 08/09/2025 9:23 AM EDT [facility] Chloride 106 98 - 110 mEq/L 08/09/2025 9:23 AM EDT [facility] CO2 24 20 - 29 mEq/L 08/09/2025 9:23 AM EDT [facility] Anion Gap 9 3 - 13 08/09/2025 9:23 AM EDT [facility] Calcium 8.1(L) 8.4 - 10.2 MG/DL 08/09/2025 9:23 AM EDT [facility] Blood 08/09/2025 8:30 AM EDT 08/09/2025 8:52 AM EDT us Divina Mercer MD LAB BLOOD ORDERABLES Final Re sult [facility] [address] [place] [address], [facility] [address] [place] [address] * (ABNORMAL) CBC with Diff (08/09/2025 8:30 AM EDT) WBC 6.0 4.2 - 10.0 m19bop9/L 08/09/2025 8:54 AM EDT [facility] RBC 4.20(L) 4.50 - 5.60 l93ogr69/ L 08/09/2025 8:54 AM EDT [facility] Hemoglobin 12.3(L) 13.4 - 16.0 g/dL 08/09/2025 8:54 AM EDT [facility] Hematocrit 36.8(L) 41.2 - 51.0 % 08/09/2025 8:54 AM EDT [facility] MCV 87.6 85.2 - 100.2 fL 08/09/2025 8:54 AM EDT [facility] MCH 29.3 27.0 - 32.4 pg 08/09/2025 8:54 AM EDT [facility] MCHC 33.4 29.5 - 34.2 g/dL 08/09/2025 8:54 AM EDT [facility] RDW 12.8 11.8 - 14.4 % 08/09/2025 8:54 AM EDT [facility] Platelets 204 168 - 382 u05bky5/L 08/09/2025 8:54 AM EDT [facility] MPV 10.2 9.6 - 12.5 fL 08/09/2025 8:54 AM EDT [facility] NRBC % 0.0 -1.0 - 0.0 % 08/09/2025 8:54 AM EDT [facility] NRBC (absolute) 0.0 d64thp7/L 8:54 AM EDT [facility] Immature Granulocytes % 0.3 % 08/09/2025 8:54 AM EDT [facility] Immature Granulocytes (absolute) 0.0 0.0 - 0.1 t62glk5/L 08/09/2025 8:54 AM EDT [facility] Seg Neutrophil % 45.6 % 08/09/20 8:54 AM EDT [facility] Seg Neutrophil (absolute) 2.7 1.9 - 6.7 i13qtp0/L 08/09/2025 8:54 AM EDT [facility] Lymphocyte % 38.0 % 08/09/2025 8:54 AM EDT [facility] Lymphocyte (absolute) 2.3 1.0 - 3.3 x96klb6/L 08/09/2025 8:54 AM EDT [facility] Monocyte % 7.8 % 08/09/2025 8:54 AM EDT [facility] Monocyte (absolute) 0.5 0.3 - 0.9 g75uyk2/L 08/09/2025 8:54 AM EDT [facility] Eosinophil % 8.0 % 08/09/2025 8:54 AM EDT [facility] Eosinophil (absolute) 0.5(H) 0.0 - 0.4 k69qbv7/L 08/09/2025 8:54 AM EDT [facility] Basophil % 0.3 % 08/09/2025 8:54 AM EDT [facility] Basophil (absolute) 0.0 0.0 - 0.1 d59awc8/L 08/09/2025 8:54 AM EDT [facility] 08/09/2025 8:30 AM EDT 08/09/2025 8:51 AM EDT us Divina Mercer MD LAB BLOOD ORDERABLES Final Re sult [facility] [address] [place] [address], [facility] [address] [place] [address] * MAGNESIUM LEVEL, BLOOD (08/08/2025 8:31 AM EDT) MAGNESIUM LEVEL, BLOOD 1.9 1.6 - 2.3 mg/dL 08/08/2025 9:02 AM EDT [facility] 08/08/2025 8:31 AM EDT 08/08/2025 8:37 AM EDT us Divina Mercer MD LAB BLOOD ORDERABLES Final Re sult [facility] [address] [place] [address], [facility] [address] [place] [address] * Phosphorus Level (08/08/2025 8:31 AM EDT) Phosphorus 3.7 2.4 - 4.8 MG/DL 08/08/2025 9:02 AM EDT [facility] Blood 08/08/2025 8:31 AM EDT 08/08/2025 8:37 AM EDT us Divina Mercer MD LAB BLOOD ORDERABLES Final Re sult [facility] [address] [place] [address], [facility] [address] [place] [address] * (ABNORMAL) CBC with Diff (08/08/2025 8:31 AM EDT) WBC 5.2 4.2 - 10.0 w57nlb9/L 08/08/2025 8:42 AM EDT [facility] RBC 4.06(L) 4.50 - 5.60 q65mau27/ L 08/08/2025 8:42 AM EDT [facility] Hemoglobin 11.7(L) 13.4 - 16.0 g/dL 08/08/2025 8:42 AM EDT [facility] Hematocrit 36.2(L) 41.2 - 51.0 % 08/08/2025 8:42 AM EDT [facility] MCV 89.2 85.2 - 100.2 fL 08/08/2025 8:42 AM EDT [facility] MCH 28.8 27.0 - 32.4 pg 08/08/2025 8:42 AM EDT [facility] MCHC 32.3 29.5 - 34.2 g/dL 08/08/2025 8:42 AM EDT [facility] RDW 13.0 11.8 - 14.4 % 08/08/2025 8:42 AM EDT [facility] Platelets 204 168 - 382 n96zoj8/L 08/08/2025 8:42 AM EDT [facility] MPV 9.9 9.6 - 12.5 fL 08/08/2025 8:42 AM EDT [facility] NRBC % 0.0 -1.0 - 0.0 % 08/08/2025 8:42 AM EDT [facility] NRBC (absolute) 0.0 y30gzc7/L 8:42 AM EDT [facility] Immature Granulocytes % 0.4 % 08/08/2025 8:42 AM EDT [facility] Immature Granulocytes (absolute) 0.0 0.0 - 0.1 z55uwd6/L 08/08/2025 8:42 AM EDT [facility] Seg Neutrophil % 45.1 % 08/08/20 8:42 AM EDT [facility] Seg Neutrophil (absolute) 2.3 1.9 - 6.7 s31wvg3/L 08/08/2025 8:42 AM EDT [facility] Lymphocyte % 39.7 % 08/08/2025 8:42 AM EDT [facility] Lymphocyte (absolute) 2.1 1.0 - 3.3 y73uyq9/L 08/08/2025 8:42 AM EDT [facility] Monocyte % 6.8 % 08/08/2025 8:42 AM EDT [facility] Monocyte (absolute) 0.4 0.3 - 0.9 r84bta8/L 08/08/2025 8:42 AM EDT [facility] Eosinophil % 7.4 % 08/08/2025 8:42 AM EDT [facility] Eosinophil (absolute) 0.4 0.0 - 0.4 q74rzd6/L 08/08/2025 8:42 AM EDT [facility] Basophil % 0.6 % 08/08/2025 8:42 AM EDT [facility] Basophil (absolute) 0.0 0.0 - 0.1 d81hhk6/L 08/08/2025 8:42 AM EDT [facility] 08/08/2025 8:31 AM EDT 08/08/2025 8:37 AM EDT us Divina Mercer MD LAB BLOOD ORDERABLES Final Re sult [facility] [address] [place] [address], [facility] [address] [place] [address] * (ABNORMAL) Comprehensive Metabolic Panel (08/08/2025 8:31 AM EDT) Glucose 107(H) 67 - 99 MG/DL 08/08/2025 9:02 AM EDT [facility] BUN 11 6 - 24 MG/DL 08/08/2025 9:02 AM EDT [facility] Creat Level 1.00 0.64 - 1.27 MG/DL 08/08/2025 9:02 AM EDT [facility] eGFR 101 >90 mL/min/1.7 3m exp2 08/08/2025 9:02 AM EDT [facility] Comment:Calculated using the CKD-epi 2020 race-free equation. BUN Creatinine Ratio 11 08/08/2025 9:02 AM EDT [facility] Sodium 139 135 - 145 mEq/L 08/08/2025 9:02 AM EDT [facility] Potassium 4.2 3.6 - 5.1 mEq/L 08/08/2025 9:02 AM EDT [facility] Chloride 106 98 - 110 mEq/L 08/08/2025 9:02 AM EDT [facility] CO2 24 20 - 29 mEq/L 08/08/2025 9:02 AM EDT [facility] Anion Gap 9 3 - 13 08/08/2025 9:02 AM EDT [facility] Albumin 3.3(L) 3.4 - 5.1 G/DL 08/08/2025 9:02 AM EDT [facility] Alkaline Phosphatase 84 40 - 129 U/L 08/08/2025 9:02 AM EDT [facility] ALT 48 14 - 63 U/L 08/08/2025 9:02 AM EDT [facility] AST (SGOT) 60(H) 15 - 41 U/L 08/08/2025 9:02 AM EDT [facility] Bilirubin, Total <0.2 0.1 - 1.2 mg/dL 08/08/2025 9:02 AM EDT [facility] Calcium 8.2(L) 8.4 - 10.2 MG/DL 08/08/2025 9:02 AM EDT [facility] Protein, Total 5.8(L) 6.1 - 8.3 g/dL 08/08/2025 9:02 AM EDT [facility] Blood 08/08/2025 8:31 AM EDT 08/08/2025 8:37 AM EDT Divina Mercer MD LAB BLOOD ORDERABLES Final Re sult [facility] [address] [place] [address], [facility] [address] [place] [address] * (ABNORMAL) CBC WITH DIFF (08/07/2025 5:56 AM EDT) [facility] WBC 7.5 4.2 - 10.0 h91aum1/L 08/07/2025 6:56 AM EDT [facility] RBC 4.22(L) 4.50 - 5.60 v69npb86/ L 08/07/2025 6:56 AM EDT [facility] Hemoglobin 11.9(L) 13.4 - 16.0 g/dL 08/07/2025 6:56 AM EDT [facility] Hematocrit 36.9(L) 41.2 - 51.0 % 08/07/2025 6:56 AM EDT [facility] MCV 87.4 85.2 - 100.2 fL 08/07/2025 6:56 AM EDT [facility] MCH 28.2 27.0 - 32.4 pg 08/07/2025 6:56 AM EDT [facility] MCHC 32.2 29.5 - 34.2 g/dL 08/07/2025 6:56 AM EDT [facility] RDW 13.2 11.8 - 14.4 % 08/07/2025 6:56 AM EDT [facility] Platelets 223 168 - 382 d33uvg5/L 08/07/2025 6:56 AM EDT [facility] MPV 10.4 9.6 - 12.5 fL 08/07/2025 6:56 AM EDT [facility] NRBC % 0.0 -1.0 - 0.0 % 08/07/2025 6:56 AM EDT [facility] NRBC (absolute) 0.0 i04ulo7/L 6:56 AM EDT [facility] Immature Granulocytes % 0.3 % 08/07/2025 6:56 AM EDT [facility] Immature Granulocytes (absolute) 0.0 0.0 - 0.1 z08rkf8/L 08/07/2025 6:56 AM EDT [facility] Seg Neutrophil % 64.6 % 08/07/20 6:56 AM EDT [facility] Seg Neutrophil (absolute) 4.9 1.9 - 6.7 n29zvu0/L 08/07/2025 6:56 AM EDT [facility] Lymphocyte % 25.2 % 08/07/2025 6:56 AM EDT [facility] Lymphocyte (absolute) 1.9 1.0 - 3.3 b42ejg8/L 08/07/2025 6:56 AM EDT [facility] Monocyte % 7.6 % 08/07/2025 6:56 AM EDT [facility] Monocyte (absolute) 0.6 0.3 - 0.9 g43smx9/L 08/07/2025 6:56 AM EDT [facility] Eosinophil % 2.0 % 08/07/2025 6:56 AM EDT [facility] Eosinophil (absolute) 0.2 0.0 - 0.4 g41iik4/L 08/07/2025 6:56 AM EDT [facility] Basophil % 0.3 % 08/07/2025 6:56 AM EDT [facility] Basophil (absolute) 0.0 0.0 - 0.1 b22haw7/L 08/07/2025 6:56 AM EDT [facility] 08/07/2025 5:56 AM EDT 08/07/2025 6:06 AM EDT us Surekha Hernandez MD LAB BLOOD ORDERABLES Final Resu lt [address] [address], [facility] [address] [place] [address] * Phosphorus (08/07/2025 5:56 AM EDT) Phosphorus 3.4 2.4 - 4.8 MG/DL 08/07/2025 6:32 AM EDT [facility] Blood 08/07/2025 5:56 AM EDT 08/07/2025 6:06 AM EDT us Surekha Hernandez MD LAB BLOOD ORDERABLES Final Resu lt [facility] [address] [place] [address], [facility] [address] [place] [address] * Magnesium Level, Blood (08/07/2025 5:56 AM EDT) MAGNESIUM LEVEL, BLOOD 2.1 1.6 - 2.3 mg/dL 08/07/2025 6:32 AM EDT [facility] 08/07/2025 5:56 AM EDT 08/07/2025 6:06 AM EDT us Surekha Hernandez MD LAB BLOOD ORDERABLES Final Resu lt [facility] [address] [place] [address], [facility] [address] [place] [address] * (ABNORMAL) Comprehensive Metabolic Panel (08/07/2025 5:56 AM EDT) Glucose 111(H) 67 - 99 MG/DL 08/07/2025 6:32 AM EDT [facility] BUN 12 6 - 24 MG/DL 08/07/2025 6:32 AM EDT [facility] Creat Level 0.80 0.64 - 1.27 MG/DL 08/07/2025 6:32 AM EDT [facility] eGFR 119 >90 mL/min/1.7 3m exp2 08/07/2025 6:32 AM EDT [facility] Comment:Calculated using the CKD-epi 2020 race-free equation. BUN Creatinine Ratio 15 08/07/2025 6:32 AM EDT [facility] Sodium 136 135 - 145 mEq/L 08/07/2025 6:32 AM EDT [facility] Potassium 3.9 3.6 - 5.1 mEq/L 08/07/2025 6:32 AM EDT [facility] Chloride 103 98 - 110 mEq/L 08/07/2025 6:32 AM EDT [facility] CO2 24 20 - 29 mEq/L 08/07/2025 6:32 AM EDT [facility] Anion Gap 9 3 - 13 08/07/2025 6:32 AM EDT [facility] Albumin 3.6 3.4 - 5.1 G/DL 08/07/2025 6:32 AM EDT [facility] Alkaline Phosphatase 87 40 - 129 U/L 08/07/2025 6:32 AM EDT [facility] ALT 52 14 - 63 U/L 08/07/2025 6:32 AM EDT [facility] AST (SGOT) 62(H) 15 - 41 U/L 08/07/2025 6:32 AM EDT [facility] Bilirubin, Total 0.3 0.1 - 1.2 mg/dL 08/07/2025 6:32 AM EDT [facility] Calcium 8.4 8.4 - 10.2 MG/DL 08/07/2025 6:32 AM EDT [facility] Protein, Total 6.2 6.1 - 8.3 g/dL 08/07/2025 6:32 AM EDT [facility] Blood 08/07/2025 5:56 AM EDT 08/07/2025 6:06 AM EDT us Surekha Hernandez MD LAB BLOOD ORDERABLES Final Resu lt [facility] [address] [place] [address], [facility] [address] [place] [address] * CK (08/07/2025 2:09 AM EDT) CK Total 155 22 - 247 IU/L 08/07/2025 2:57 AM EDT [facility] Blood 08/07/2025 2:09 AM EDT 08/07/2025 2:31 AM EDT us Surekha Hernandez MD LAB BLOOD ORDERABLES Final Resu lt [facility] [address] [place] [address], [facility] [address] [place] [address] * CT Brain WO IV Contrast (08/06/2025 5:53 PM EDT) Anatomical Region Laterality Modality Computed Tomogra phy 08/06/2025 5:48 PM EDT Impressions 08/06/2025 6:51 PM EDT IMPRESSION: No acute intracranial pathology. THIS DOCUMENT HAS BEEN ELECTRONICALLY SIGNED BY CATALINA MILLS MD on 08/06/2025 06:51 PM Narrative 08/06/2025 6:51 PM EDT PROCEDURE INFORMATION: Exam: CT Head Without Contrast Exam date and time: 08/06/2025 5:48 PM Age: 35 years old Clinical indication: Pain; Seizure; Headache TECHNIQUE: Imaging protocol: Computed tomography of the head without contrast. Radiation optimization: All CT scans at this facility use at least one of these dose optimization techniques: automated exposure control; mA and/or kV adjustment per patient size (includes targeted exams where dose is matched to clinical indication); or iterative reconstruction. COMPARISON: CT head/brain wo con 01/14/2024 6:33 AM FINDINGS: Brain: Unremarkable for the patient's age. No hemorrhage or mass effect. Cerebral ventricles: No ventriculomegaly. Paranasal sinuses: Small retention cysts or polyps are noted within the maxillary sinuses. No fluid levels. Mastoid air cells: Visualized mastoid air cells are well aerated. Teeth: There appears to be an impacted upper left canine tooth. Bones: No acute bony pathology. Soft tissues: Unremarkable. Procedure Note Catalina Mills - 08/06/2025 PROCEDURE INFORMATION: Exam: CT Head Without Contrast Exam date and time: 08/06/2025 5:48 PM Age: 35 years old Clinical indication: Pain; Seizure; Headache TECHNIQUE: Imaging protocol: Computed tomography of the head without contrast. Radiation optimization: All CT scans at this facility use at least one ofthese dose optimization techniques: automated exposure control; mA and/or kV adjustment per patient size (includes targeted exams where dose is matchedto clinical indication); or iterative reconstruction. COMPARISON: CT head/brain wo con 01/14/2024 6:33 AM FINDINGS: Brain: Unremarkable for the patient's age. No hemorrhage or mass effect. Cerebral ventricles: No ventriculomegaly. Paranasal sinuses: Small retention cysts or polyps are noted within the maxillary sinuses. No fluid levels. Mastoid air cells: Visualized mastoid air cells are well aerated. Teeth: There appears to be an impacted upper left canine tooth. Bones: No acute bony pathology. Soft tissues: Unremarkable. IMPRESSION: No acute intracranial pathology. THIS DOCUMENT HAS BEEN ELECTRONICALLY SIGNED BY CATALINA MILLS MD on08/06/2025 06:51 PM us Americo Allred DO IMG CT ORDERABLES Final Result * Urinalysis with reflex to culture (08/06/2025 5:16 PM EDT) Color, Ur Yellow yellow 08/06/2025 5:56 PM EDT [facility] Appearance, Ur Clear slightly cloudy 08/06/2025 5:56 PM EDT [facility] Glucose, Ur negative negative mg/dL 08/06/2025 5:56 PM EDT [facility] Bilirubin, Ur negative negative mg/dL 08/06/2025 5:56 PM EDT [facility] Ketones, Ur negative negative mg/dL 08/06/2025 5:56 PM EDT [facility] Specific [place], Ur 1.015 1.010 - 1.030 08/06/2025 5:56 PM EDT [facility] Blood, Ur negative negative mg/dL 08/06/2025 5:56 PM EDT [facility] pH, Ur 7.5 5.0 - 8.0 08/06/2025 5:56 PM EDT [facility] Protein, Ur negative negative mg/dL 08/06/2025 5:56 PM EDT [facility] Urobilinogen, Ur 0.2 normal E.U./dL 08/06/2025 5:56 PM EDT [facility] Nitrite Level, Ur negative negative 08/06/2025 5:56 PM EDT [facility] Leukocytes Est, Ur negative negative mg/dL 08/06/2025 5:56 PM EDT [facility] 08/06/2025 5:16 PM EDT 08/06/2025 5:20 PM EDT us Americo Allred DO URINE ORDERABLES Final Result Performing Organization Address City/[facility]/ZIP Co de Phone Number [facility] [address] [place] [address], [facility] [address] [place] [phone] * (ABNORMAL) Buprenorphine Suboxone Screen (08/06/2025 5:16 PM EDT) Buprenorphine Suboxone Scrn POSITIVE SCREEN(A) 08/06/2025 5:41 PM EDT [facility] 08/06/2025 5:16 PM EDT 08/06/2025 5:20 PM EDT Americo Allred DO LAB BLOOD ORDERABLES Final Res ult Performing Organization Address [facility]/ZIP Co de Phone Number [facility] [address] [place] [phone], [facility] [address] [place] [phone] * (ABNORMAL) Urine Drug Screen (08/06/2025 5:16 PM EDT) Amphetamine Scrn, Ur POSITIVE SCREEN(A) 08/06/2025 5:41 PM EDT [facility] Benzodiazepine Screen, Urine POSITIVE SCREEN(A) 08/06/2025 5:41 PM EDT [facility] Cannabinoid Screen, Urine POSITIVE SCREEN(A) 08/06/2025 5:41 PM EDT [facility] Cocaine Screen, Ur None Detected 08/06/2025 5:41 PM EDT [facility] Fentanyl Screen, Urine None Detected 08/06/2025 5:41 PM EDT [facility] Comment: This test was developed and its performance characteristics determined by the Clinical Biochemistry Lab. It has not been cleared or approved by the [place] Food and Drug Administration but the [place] regulations permit its development under the laboratory license. This test and method is defined in the clinical lab guide and should not be regarded as investigational or research use only. Methadone Screen, Urine None Detected 08/06/2025 5:41 PM EDT [facility] Opiate Screen, Urine None Detected 08/06/2025 5:41 PM EDT [facility] Comment: Note: Drug of abuse immunoassay results are from screening methods. Positive screening results that are not confirmed are reported as POSITIVE SCREEN. If confirmatory testing is desired, it must be requested as a separate order to the Toxicology Lab WITHIN 5 DAYS of sample collection. Unconfirmed screening results should only be used for medical purposes. Toxicology Drug Specimen Rec'd 08/06/2025 5:41 PM EDT [facility] Oxycodone Scrn, Ur None Detected 08/06/2025 5:41 PM EDT [facility] Urine 08/06/2025 5:16 PM EDT 08/06/2025 5:20 PM EDT Americo Allred DO URINE ORDERABLES Final Result Performing Organization Address City/[facility]/ZIP Co de Phone Number [facility] [address] [place] [address], [facility] [address] [place] [address] [place] [address] * Acetaminophen Level (08/06/2025 4:06 PM EDT) Acetaminophen Level <5 0 - 5 ug/mL 08/06/2025 4:47 PM EDT [facility] Comment:Acetaminophen Refere nce Range: Negative <5 ug/mL Blood 08/06/2025 4:06 PM EDT 08/06/2025 4:09 PM EDT Americo Allred DO LAB BLOOD ORDERABLES Final Res ult [facility] [address] [place] [phone], [facility] [address] [place] [phone] * (ABNORMAL) Salicylate Level (08/06/2025 4:06 PM EDT) Salicylate Level 1.0(A) MG/DL 08/06/2025 4:47 PM EDT [facility] Comment: Salicylate Reference Range: Negative <1.0 mg/dL Therapeutic Range: 2.0-20.0 mg/dL Blood 08/06/2025 4:06 PM EDT 08/06/2025 4:09 PM [facility] Final Res ult [facility] [address] [place] [phone], [facility] [address] [place] [address] * Ethanol Level (08/06/2025 4:06 PM EDT) Ethanol Level Not Detected Not Detected MG/DL 08/06/2025 4:47 PM EDT [facility] Blood 08/06/2025 4:06 PM EDT 08/06/2025 4:09 PM EDT Americo [facility] LAB BLOOD ORDERABLES Final Res ult Performing Organization Address City/[facility]/ZIP Co de Phone Number [facility] [address] [place] [phone], [facility] [address] [place] [phone] * (ABNORMAL) Comprehensive Metabolic Panel (08/06/2025 4:06 PM EDT) Glucose 175(H) 67 - 99 MG/DL 08/06/2025 4:47 PM EDT [facility] BUN 14 6 - 24 MG/DL 08/06/2025 4:47 PM EDT [facility] Creat Level 1.00 0.64 - 1.27 MG/DL 08/06/2025 4:47 PM EDT [facility] eGFR 101 >90 mL/min/1.7 3m exp2 08/06/2025 4:47 PM EDT [facility] Comment:Calculated using the CKD-epi 2020 race-free equation. BUN Creatinine Ratio 14 08/06/2025 4:47 PM EDT [facility] Sodium 137 135 - 145 mEq/L 08/06/2025 4:47 PM EDT [facility] Potassium 4.4 3.6 - 5.1 mEq/L 08/06/2025 4:47 PM EDT [facility] Comment:Specimen hemolyzed, results affected Chloride 99 98 - 110 mEq/L 08/06/2025 4:47 PM EDT [facility] CO2 25 20 - 29 mEq/L 08/06/2025 4:47 PM EDT [facility] Anion Gap 13 3 - 13 08/06/2025 4:47 PM EDT [facility] Albumin 4.1 3.4 - 5.1 G/DL 08/06/2025 4:47 PM EDT [facility] Alkaline Phosphatase 96 40 - 129 U/L 08/06/2025 4:47 PM EDT [facility] ALT 63 14 - 63 U/L 08/06/2025 4:47 PM EDT [facility] AST (SGOT) 79(H) 15 - 41 U/L 08/06/2025 4:47 PM EDT [facility] Bilirubin, Total <0.2 0.1 - 1.2 mg/dL 08/06/2025 4:47 PM EDT [facility] Calcium 9.1 8.4 - 10.2 MG/DL 08/06/2025 4:47 PM EDT [facility] Protein, Total 7.1 6.1 - 8.3 g/dL 08/06/2025 4:47 PM EDT [facility] Blood 08/06/2025 4:06 PM EDT 08/06/2025 4:09 PM EDT us Americo Chalino DO LAB BLOOD ORDERABLES Final Res ult [facility] [address] [place] [address], [facility] [address] [place] [address] * (ABNORMAL) CBC with Diff (08/06/2025 4:06 PM EDT) WBC 8.2 4.2 - 10.0 t47vnp4/L 08/06/2025 4:24 PM EDT [facility] RBC 4.63 4.50 - 5.60 q50rof99/ L 08/06/2025 4:24 PM EDT [facility] Hemoglobin 13.1(L) 13.4 - 16.0 g/dL 08/06/2025 4:24 PM EDT [facility] Hematocrit 41.2 41.2 - 51.0 % 08/06/2025 4:24 PM EDT [facility] MCV 89.0 85.2 - 100.2 fL 08/06/2025 4:24 PM EDT [facility] MCH 28.3 27.0 - 32.4 pg 08/06/2025 4:24 PM EDT [facility] MCHC 31.8 29.5 - 34.2 g/dL 08/06/2025 4:24 PM EDT [facility] RDW 13.0 11.8 - 14.4 % 08/06/2025 4:24 PM EDT [facility] Platelets 227 168 - 382 u20azm7/L 08/06/2025 4:24 PM EDT [facility] MPV 10.5 9.6 - 12.5 fL 08/06/2025 4:24 PM EDT [facility] NRBC % 0.0 -1.0 - 0.0 % 08/06/2025 4:24 PM EDT [facility] NRBC (absolute) 0.0 r91nsm1/L 4:24 PM EDT [facility] Immature Granulocytes % 0.4 % 08/06/2025 4:24 PM EDT [facility] Immature Granulocytes (absolute) 0.0 0.0 - 0.1 j63pbf9/L 08/06/2025 4:24 PM EDT [facility] Seg Neutrophil % 79.5 % 08/06/20 4:24 PM EDT [facility] Seg Neutrophil (absolute) 6.5 1.9 - 6.7 p17epo0/L 08/06/2025 4:24 PM EDT [facility] Lymphocyte % 13.6 % 08/06/2025 4:24 PM EDT [facility] Lymphocyte (absolute) 1.1 1.0 - 3.3 j89myw3/L 08/06/2025 4:24 PM EDT [facility] Monocyte % 4.9 % 08/06/2025 4:24 PM EDT [facility] Monocyte (absolute) 0.4 0.3 - 0.9 a57gbo2/L 08/06/2025 4:24 PM EDT [facility] Eosinophil % 1.2 % 08/06/2025 4:24 PM EDT [facility] Eosinophil (absolute) 0.1 0.0 - 0.4 w84gbv4/L 08/06/2025 4:24 PM EDT [facility] Basophil % 0.4 % 08/06/2025 4:24 PM EDT [facility] Basophil (absolute) 0.0 0.0 - 0.1 r94dgi7/L 08/06/2025 4:24 PM EDT [facility] 08/06/2025 4:06 PM EDT 08/06/2025 4:09 PM EDT Americo Allred DO LAB BLOOD ORDERABLES Final Res ult [facility] [address] [place] [address], [facility] [address] [place] [address] documented in this encounter Visit Diagnoses Diagnosis Alcohol withdrawal (CMS/HCC)- Primary Alcohol withdrawal 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CMS/HCC) documented in this encounter Administered Medications Inactive Administered Medications - up to 3 most recent administrations Medication Order MAR Action Action Date Dose Rate Site acetaminophen (TYLENOL) tablet 650 mg 650 mg, Oral, Once, On Wed08/06/25 at 1745, 1 dose, If ordered PRN for pain control, patient may request to receive this medication even if experiencing higher pain levels. Yes Given 08/06/2025 5:40 PM EDT 650 mg Buprenorphine-naloxone (SUBOXONE) 8-2 mg SL film 8 mg 8 mg, Sublingual, 3 times daily, First dose on Wed08/06/25 at 2315, Until Discontinued, Dose based on mg of buprenorphine component. Once film has fully dissolved, patient should be instructed to take a large sip of water, swish gently around teeth and gums, and swallow. Have patient wait one hour before brushing teeth. LOOK-ALIKE/SOUND-ALIKE MEDICATION: Use caution and follow appropriate policies for medication prescribing, dispensing and administration. Given 08/13/2025 8:42 AM EST 8 mg Given 08/12/2025 9:38 PM EST 8 mg Given 08/12/2025 5:28 PM EST 8 mg epnspvzpwi-xctydwlotogqo-tuogweyj (FIORICET) 50-325-40 mg tablet 1 tablet 1 tablet, Oral, Every 6 hours PRN, headaches, migraine, Starting on Wed08/09/25 at 1135, Until Wed08/13/25 at 1900, NTE 6 tablets per day. Given 08/12/2025 5:28 PM EST 1 tablet Given 08/12/2025 10:57 AM EST 1 tablet Given 08/11/2025 8:47 PM EDT 1 tablet icdwrbpibg-rgohvsndvszqx-vflkveqt (FIORICET) 50-325-40 mg tablet 2 tablet 2 tablet, Oral, Once, On Wed08/07/25 at 1700, 1 dose, NTE 6 tablets per day. Given 08/07/2025 5:10 PM EDT 2 table ts calcium carbonate (dose based on calcium) (TUMS) chewable tablet 200 mg 200 mg (1 tablet), Oral, 3 times daily PRN, indigestion, heartburn, Starting on Wed08/10/25 at 1059, Until Wed08/13/25 at 1900, 1 dgrbwe=803 mg elemental ptumnfb=905 mg calcium carbonate Given 08/10/2025 12:06 PM EDT 200 mg chlorproMAZINE (THORAZINE) tablet 300 mg 300 mg, Oral, Bedtime, First dose on Wed08/07/25 at 0015, Until Discontinued Given 08/12/2025 8:05 PM EST 300 mg Given 08/11/2025 9:28 PM EDT 300 mg Given 08/10/2025 11:30 PM EDT 300 mg cloNIDine HCL (CATAPRES) tablet 0.1 mg 0.1 mg, Oral, 2 times daily, Indications: anxiety, First dose on Wed08/06/25 at 2315, Until Discontinued, LOOK-ALIKE/SOUND-ALIKE MEDICATION: Use caution and follow appropriate policies for medication prescribing, dispensing and administration., CAUTION L ook-Alike/Sound-Alike risk acknowledged and confirm that I have made an accurate medication selection. YesIndications:anxiety Given 08/13/2025 8:42 AM EST 0.1 mg Given 08/12/2025 8:05 PM EST 0.1 mg Given 08/12/2025 8:20 AM EST 0.1 mg cyclobenzaprine (FLEXERIL) tablet 5 mg 5 mg, Oral, 2 times daily PRN, muscle spasms, Starting on Wed08/07/25 at 1736, Until Wed08/13/25 at 1900 Given 08/07/2025 5:44 PM EDT 5 mg diazePAM (VALIUM) injection 10 mg 10 mg, Intravenous, ORDER SET ONLY - every 2 hours PRN, CIWA-AR 15-19, Starting on Wed08/06/25 at 1957, Until Wed08/13/25 at 1012, If unable to take PO. Hold for RR < 10 Administer undiluted by slow IV push; do not mix with other solutions or medications. Rapid injection may cause respiratory depression or hypotension. In adults, maximum infusion rate is 5 mg/minute. Do not administer through small veins (eg, dorsum of hand/wrist). Avoid intra-arterial administration. Given 08/07/2025 8:24 PM EDT 10 mg Given 08/07/2025 1:24 AM EDT 10 mg diazePAM (VALIUM) injection 20 mg 20 mg, Intravenous, ORDER SET ONLY - every 1 hour prn, CIWA-AR 20 or greater, Starting on Wed08/06/25 at 1957, Until Wed08/13/25 at 1012, If unable to take PO. Hold for RR < 10 Administer undiluted by slow IV push; do not mix with other solutions or medications. Rapid injection may cause respiratory depression or hypotension. In adults, maximum infusion rate is 5 mg/minute. Do not administer through small veins (eg, dorsum of hand/wrist). Avoid intra-arterial administration. Given 08/06/2025 10:44 PM EDT 20 mg diazePAM (VALIUM) injection 5 mg 5 mg, Intravenous, ORDER SET ONLY - every 2 hours PRN, CIWA-AR 9-14, Starting on Wed08/06/25 at 1957, Until Wed08/13/25 at 1012, If unable to take PO. Hold for RR < 10 Administer undiluted by slow IV push; do not mix with other solutions or medications. Rapid injection may cause respiratory depression or hypotension. In adults, maximum infusion rate is 5 mg/minute. Do not administer through small veins (eg, dorsum of hand/wrist). Avoid intra-arterial administration. Given 08/10/2025 6:31 AM EDT 5 mg Given 08/09/2025 7:09 PM EDT 5 mg diazePAM (VALIUM) tablet 10 mg 10 mg, Oral, Once, On Wed08/06/25 at 2015, 1 dose Given 08/06/2025 8:20 PM EDT 10 mg diazePAM (VALIUM) tablet 10 mg 10 mg, Oral, ORDER SET ONLY - every 2 hours PRN, CIWA-AR 15-19, Starting on Wed08/06/25 at 1957, Until Wed08/13/25 at 1012, Hold for RR < 10 Given 08/11/2025 10:25 PM EDT 10 mg Given 08/11/2025 8:01 PM EDT 10 mg Given 08/11/2025 12:37 AM EDT 10 mg diazePAM (VALIUM) tablet 5 mg 5 mg, Oral, ORDER SET ONLY - every 2 hours PRN, CIWA -AR 9-14, Starting on Wed08/06/25 at 1957, Until Wed08/13/25 at 1012, Hold for RR < 10 Given 08/11/2025 2:48 PM EDT 5 mg Given 08/11/2025 8:38 AM EDT 5 mg Given 08/09/2025 3:49 PM EDT 5 mg dicyclomine (BENTYL) tablet 10 mg 10 mg, Oral, 3 times daily PRN, Abdominal cramps, Starting on Wed08/07/25 at 1736, Until Wed08/13/25 at 1900 Given 08/10/2025 1:21 PM EDT 10 mg Given 08/10/2025 8:21 AM EDT 10 mg Given 08/09/2025 2:13 PM EDT 10 mg folic acid (FOLVITE) tablet 1 mg 1 mg, Oral, Once Daily, First dose on Wed08/07/25 at 0800, 3 doses, Last dose on Wed08/09/25 at 0800 Given 08/09/2025 8:03 AM EDT 1 mg Given 08/08/2025 8:22 AM EDT 1 mg Given 08/07/2025 8:53 AM EDT 1 mg gabapentin (NEURONTIN) capsule 400 mg 400 mg, Oral, 3 times daily, First dose on Wed08/06/25 at 2315, Until Discontinued Given 08/13/2025 8:42 AM EST 400 mg Given 08/12/2025 9:38 PM EST 400 mg Given 08/12/2025 5:28 PM EST 400 mg ibuprofen (MOTRIN) tablet 400 mg 400 mg, Oral, Every 4 hours PRN, mild pain, Starting on Wed08/06/25 at 1959, Until Peggy 08/09/25 at 1135, If ordered PRN for pain control, patient may request to receive this medication even if experiencing higher pain levels. Yes Given 08/09/2025 8:03 AM EDT 400 mg Given 08/08/2025 7:45 PM EDT 400 mg Given 08/08/2025 11:08 AM EDT 400 mg lactated Ringers infusion 125 mL/hr, Intravenous, Continuous, Starting on Wed08/06/25 at 2015, Until Peggy 08/09/25 at 1135 Rate/Dose Verify 08/09/2025 6:33 AM EDT 125 mL/hr 125 mL/hr Rate/Dose Verify 08/09/2025 2:21 AM EDT 125 mL/hr 125 mL/ hr Rate/Dose Verify 08/08/2025 10:24 PM EDT 125 mL/hr 125 mL /hr levETIRAcetam (KEPPRA) injection 1,000 mg 1,000 mg, Intravenous, Once, On Wed08/06/25 at 1545, 1 dose, For all patients 18 years or older, give undiluted IV Push over 2-5 minutes. LOOK-ALIKE/SOUND-ALIKE MEDICATION: Use caution and follow appropriate policies for medication prescribing, dispensing and administration. Given 08/06/2025 4:05 PM EDT 1,000 mg levETIRAcetam (KEPPRA) tablet 500 mg 500 mg, Oral, 2 times daily, First dose on Wed08/06/25 at 2315, Until Discontinued, LOOK-ALIKE/SOUND-ALIKE MEDICATION: Use caution and follow appropriate policies for medication prescribing, dispensing and administration. Given 08/13/2025 8:42 AM EST 500 mg Given 08/12/2025 8:05 PM EST 500 mg Given 08/12/2025 8:20 AM EST 500 mg LORazepam (ATIVAN) tablet 0.5 mg 0.5 mg, Oral, Every 8 hours PRN, anxiety, agitation, Starting on Wed08/13/25 at 1014, Until Wed08/13/25 at 1900 midazolam (PF) 1 mg/mL injection 4 mg 4 mg, Intravenous, Once, On Wed08/06/25 at 1545, 1 dose Given 08/06/2025 3:58 PM EDT 4 mg midazolam (PF) 1 mg/mL injection 4 mg 4 mg, Intravenous, Once, On Wed08/06/25 at 1700, 1 dose Given 08/06/2025 5:04 PM EDT 4 mg multivitamin w/minerals (CENTRUM COMPLETE) tablet 1 tablet 1 tablet, Oral, Once Daily, First dose on Wed08/07/25 at 0800, 3 doses, Last dose on Wed08/09/25 at 0800, Crush tablet for patients with an ileostomy or history of bariatric surgery. Given 08/09/2025 8:02 AM EDT 1 tablet Given 08/08/2025 8:22 AM EDT 1 tablet Given 08/07/2025 8:53 AM EDT 1 tablet nicotine (NICODERM CQ) 21 mg/24 hr 1 patch 1 patch, Transdermal, Administer over 24 Hours, Once Daily, First dose on Wed08/07/25 at 0800, Until Discontinued, Do not cut patch. Apply a new patch every 24 hours to a clean, dry, hairless site on the upper arm or hip. nicotine polacrilex (NICORETTE) gum 2 mg 2 mg, Buccal, Every 2 hours scheduled, First dose on Wed08/06/25 at 2200, Until Discontinued, Chew slowly until tingle, then park gum between cheek and gum until tingle is gone; repeat process until most of tingle is gone (~30 minutes). Given 08/07/2025 6:13 AM EDT 2 mg Given 08/07/2025 1:18 AM EDT 2 mg Given 08/06/2025 11:31 PM EDT 2 mg nicotine polacrilex (NICORETTE) gum 2 mg 2 mg, Buccal, Every 2 hours PRN, smoking cessation, Starting on Wed08/07/25 at 0815, Until Wed08/10/25 at 2221, Chew slowly until tingle, then park gum between cheek and gum until tingle is gone; repeat process until most of tingle is gone (~30 minutes). Given 08/10/2025 10:10 PM EDT 2 mg Given 08/10/2025 6:22 PM EDT 2 mg Given 08/10/2025 5:05 PM EDT 2 mg nicotine polacrilex (NICORETTE) gum 2 mg 2 mg, Buccal, Every 1 hour prn, smoking cessation, Starting on Wed08/10/25 at 2221, Until Wed08/13/25 at 1900, Chew slowly until tingle, then park gum between cheek and gum until tingle is gone; repeat process until most of tingle is gone (~30 minutes). Given 08/13/2025 8:43 AM EST 2 mg Given 08/13/2025 5:44 AM EST 2 mg Given 08/12/2025 11:13 PM EST 2 mg ondansetron (ZOFRAN) injection 4 mg 4 mg, Intravenous, Every 6 hours PRN, nausea/vomiting (first line), Starting on Wed08/07/25 at 1633, Until Wed08/13/25 at 1900, For IM use, administer undiluted; for IV push, undiluted over 2 to 5 minutes; for IV infusion, dilute and administer over 15 to 30 minutes. Given 08/12/2025 7:47 PM EST 4 mg Given 08/11/2025 8:48 PM EDT 4 mg Given 08/11/2025 2:47 PM EDT 4 mg ondansetron (ZOFRAN) injection 4 mg 4 mg, Intravenous, Once, On Wed08/10/25 at 2230, 1 dose, For IM use, administer undiluted; for IV push, undiluted over 2 to 5 minutes; for IV infusion, dilute and administer over 15 to 30 minutes. Given 08/10/2025 10:48 PM EDT 4 mg oxyCODONE (ROXICODONE) immediate release tablet 5 mg 5 mg, Oral, Every 8 hours PRN, moderate pain, severe pain, Starting on Wed08/07/25 at 2025, Until Peggy 08/09/25 at 1135, LOOK-ALIKE/SOUND-ALIKE MEDICATION: Use caution and follow appropriate policies for medication prescribing, dispensing and administration., If ordered PRN for pain control, patient may request to receive this medication even if experiencing higher pain levels. Yes, Indications: pain, HeadacheIndications:pain,Headache Given 08/09/2025 10:23 AM EDT 5 mg Given 08/09/2025 1:32 AM EDT 5 mg Given 08/08/2025 5:28 PM EDT 5 mg pantoprazole (PROTONIX) DR tablet 40 mg 40 mg, Oral, Daily before breakfast, First dose on Wed08/07/25 at 0730, Until Discontinued, Do not crush/split/chew tablet. Given 08/13/2025 8:4 2 AM EST 40 mg Given 08/12/2025 8:20 AM EST 40 mg Given 08/11/2025 8:25 AM EDT 40 mg polyethylene glycol (MIRALAX) packet 17 g 17 g (1 packet), Oral, Once Daily, First dose on Wed08/07/25 at 0800, Until Discontinued, Occasional constipation: Stir powder in 4-8 ounces of water, juice, soda, coffee, or tea until dissolved and drink. prazosin (MINIPRESS) capsule 1 mg 1 mg, Oral, Bedtime, First dose on Wed08/06/25 at 2315, Until Discontinued Given 08/12/2025 8:04 PM EST 1 mg Given 08/11/2025 9:29 PM EDT 1 mg Given 08/10/2025 11:01 PM EDT 1 mg prazosin (MINIPRESS) capsule 2 mg 2 mg, Oral, Bedtime, First dose on Wed08/06/25 at 2315, Until Discontinued Given 08/12/2025 8:04 PM EST 2 mg Given 08/11/2025 9:27 PM EDT 2 mg Given 08/10/2025 10:50 PM EDT 2 mg prochlorperazine (COMPAZINE) injection 10 mg 10 mg, Intravenous, Every 6 hours PRN, nausea/vomiting (second line), Starting on Wed08/08/25 at 1904, 4 doses, Until Wed08/09/25 at 2037 Given 08/09/2025 8:37 PM EDT 10 mg Given 08/09/2025 12:47 PM EDT 10 mg Given 08/09/2025 6:29 AM EDT 10 mg senna-docusate (PERICOLACE) 8.6-50 mg 2 tablet 2 tablet, Oral, 2 times daily, First dose on Wed08/06/25 at 2015, Until Discontinued Given 08/13/2025 8:42 AM EST 2 tablets Given 08/12/2025 8:04 PM EST 2 tablets Given 08/12/2025 8:20 AM EST 2 tablets sodium chloride 0.9% bolus (NS) 1,000 mL 1,000 mL, Intravenous, Administer over 30 Minutes, Once, On Wed08/06/25 at 1700, 1 dose New Bag 08/06/2025 5:04 PM EDT 1,000 mL 2000 mL/hr thiamine mononitrate (vitamin B-1) tablet 100 mg 100 mg, Oral, Once Daily, First dose on Wed08/07/25 at 0800, 3 doses, Last dose on Wed08/09/25 at 0800 Given 08/09/2025 8:01 AM EDT 100 mg Given 08/08/2025 8:22 AM EDT 100 mg Given 08/07/2025 8:53 AM EDT 100 mg documented in this encounter Active and Recently Administered Medications Due to Daylight Saving Time, this section may contain times in both EDT and EST. Scheduled Medication Order 08/11/2025 08/12/2025 08/13/2025 Buprenorphine-naloxone (SUBOXONE) 8-2 mg SL film 8 mg 8 mg, Sublingual, 3 times daily, First dose on Wed08/06/25 at 2315, Until Discontinued, Dose based on mg of buprenorphine component. Once film has fully dissolved, patient should be instructed to take a large sip of water, swish gently around teeth and gums, and swallow. Have patient wait one hour before brushing teeth. LOOK-ALIKE/SOUND-ALIKE MEDICATION: Use caution and follow appropriate policies for medication prescribing, dispensing and administration. 0824 (Given - Provider: Idania Galindo RN)1644 (Given - Provider: Idania Galindo RN)2126 (Given - Provider: Dafne Boyer RN) 08 (Given - Provider: Idania Galindo RN)172 (Given - Provider: Idania Galindo RN)2137 (Given - Provider: More Chavez RN) 841 (Given - Provider: Idania Galindo RN) chlorproMAZINE (THORAZINE) tablet 300 mg 300 mg, Oral, Bedtime, First dose on Wed08/07/25 at 0015, Until Discontinued 2127 (Given - Provider: Dafne Boyer RN) 2004 (Given - Provider: More Chavez, RN) cloNIDine HCL (CATAPRES) tablet 0.1 mg 0.1 mg, Oral, 2 times daily, Indications: anxiety, First dose on Wed08/06/25 at 2315, Until Discontinued, LOOK-ALIKE/SOUND-ALIKE MEDICATION: Use caution and follow appropriate policies for medication prescribing, dispensing and administration., CAUTION L ook-Alike/Sound-Alike risk acknowledged and confirm that I have made an accurate medication selection. Yes 824 (Given - Provider: Idania Galindo RN)2028 (Given - Provider: Dafne Boyer RN) 08 (Given - Provider: Idania Galindo RN)2004 (Given - Provider: More Chavez RN) 08 (Given - Provider: Idania Galindo RN) gabapentin (NEURONTIN) capsule 400 mg 400 mg, Oral, 3 times daily, First dose on Wed08/06/25 at 2315, Until Discontinued 824 (Given - Provider: Idania Galindo RN)1644 (Given - Provider: Idania Galindo RN)2127 (Given - Provider: Dafne Boyer RN) 819 (Given - Provider: Idania Galindo RN)172 (Given - Provider: Idania Galindo RN)2137 (Given - Provider: More Chavze RN) 08 (Given - Provider: Idania Galindo RN) levETIRAcetam (KEPPRA) tablet 500 mg 500 mg, Oral, 2 times daily, First dose on Wed08/06/25 at 2315, Until Discontinued, LOOK-ALIKE/SOUND-ALIKE MEDICATION: Use caution and follow appropriate policies for medication prescribing, dispensing and administration. 08 (Given - Provider: Idania Galindo RN)2099 (Given - Provider: Dafne Boyer RN) 819 (Given - Provider: Idania Galindo RN)2004 (Given - Provider: More Chavez RN) 0842 (Given - Provider: Idania Galindo RN) nicotine (NICODERM CQ) 21 mg/24 hr 1 patch 1 patch, Transdermal, Administer over 24 Hours, Once Daily, First dose on Wed08/07/25 at 0800, Until Discontinued, Do not cut patch. Apply a new patch every 24 hours to a clean, dry, hairless site on the upper arm or hip. 0827 (Not Given - Provider: Idania Galindo RN - Reason: Patient refused ordered dose) 0821 (Not Given - Provider: Idania Galindo RN - Reason: Patient refused ordered dose) 0843 (Not Given - Provider: Idania Galindo RN - Reason: Patient refused ordered dose) pantoprazole (PROTONIX) DR tablet 40 mg 40 mg, Oral, Daily before breakfast, First dose on Wed08/07/25 at 0730, Until Discontinued, Do not crush/split/chew tablet. 0825 (Given - Provider: Idania Galindo RN) 0820 (Given - Provider: Idania Galindo RN) 0842 (Given - Provider: Idania Galindo RN) polyethylene glycol (MIRALAX) packet 17 g 17 g (1 packet), Oral, Once Daily, First dose on Wed08/07/25 at 0800, Until Discontinued, Occasional constipation: Stir powder in 4-8 ounces of water, juice, soda, coffee, or tea until dissolved and drink. 0826 (Not Given - Provider: Idania Galindo RN - Reason: Patient refused ordered dose) 0821 (Not Given - Provider: Idania Galindo RN - Reason: Patient refused ordered dose) 0843 (Not Given - Provider: Idania Galindo RN - Reason: Patient refused ordered dose) prazosin (MINIPRESS) capsule 1 mg 1 mg, Oral, Bedtime, First dose on Wed08/06/25 at 2315, Until Discontinued 2128 (Given - Provider: Dafne Boyer RN) 2003 (Given - Provider: More Chavez, JUVENTINO) prazosin (MINIPRESS) capsule 2 mg 2 mg, Oral, Bedtime, First dose on Wed08/06/25 at 2315, Until Discontinued 2126 (Given - Provider: Dafne Boyer, RN) 2003 (Given - Provider: More Chavez, JUVENTINO) senna-docusate (PERICOLACE) 8.6-50 mg 2 tablet 2 tablet, Oral, 2 times daily, First dose on Wed08/06/25 at 2015, Until Discontinued 08 (Given - Provider: Idania Galindo RN)2100 (Given - Provider: Dafne Boyer RN) 08 (Given - Provider: Idania Galindo RN)2003 (Given - Provider: More Chavez, RN) 0842 (Given - Provider: Idania Galindo RN) traZODone (DESYREL) tablet 50 mg 50 mg, Oral, Once, On Wed08/12/25 at 2145, 1 dose 2155 (Not Given - Provider: More Chavez, JUVENTINO - Reason: Patient refused ordered dose) PRN Medication Order 08/11/2025 08/12/2025 08/13/2025 albuterol (PROVENTIL) nebulizer solution 2.5 mg 2.5 mg, Nebulization, Every 6 hours PRN, wheezing, Starting on Wed08/06/25 at 2303, Until Wed08/13/25 at 1900, Respiratory to Administer? Yes butalbital-acetaminoph en-caffeine (FIORICET) 50-325-40 mg tablet 1 tablet 1 tablet, Oral, Every 6 hours PRN, headaches, migraine, Starting on Wed08/09/25 at 1135, Until Wed08/13/25 at 1900, NTE 6 tablets per day. 0838 (Given - Provider: Idania Galindo RN)1448 (Given - Provider: Idania Galindo RN)2047 (Given - Provider: Dafne Boyer RN) 1057 (Given - Provider: Idania Galindo RN)1728 (Given - Provider: Idania Galindo RN) calcium carbonate (dose based on calcium) (TUMS) chewable tablet 200 mg 200 mg (1 tablet), Oral, 3 times daily PRN, indigestion, heartburn, Starting on Wed08/10/25 at 1059, Until Wed08/13/25 at 1900, 1 [id number]=618 mg elemental whdtqcs=582 mg calcium carbonate cyclobenzaprine (FLEXERIL) tablet 5 mg 5 mg, Oral, 2 times daily PRN, muscle spasms, Starting on Wed08/07/25 at 1736, Until Wed08/13/25 at 1900 diazePAM (VALIUM) tablet 10 mg (CANCELED)(Linked Group 1) 10 mg, Oral, ORDER SET ONLY - every 2 hours PRN, CIWA-AR 15-19, Starting on Wed08/06/25 at 1957, Until Wed08/13/25 at 1012, Hold for RR < 10 0037 (Given - Provider: Dafne Boyer RN)2000 (Given - Provider: Dafne Boyer RN)222 (Given - Provider: Dafne Boyer RN) diazePAM (VALIUM) tablet 5 mg (CANCELED)(Linked Group 2) 5 mg, Oral, ORDER SET ONLY - every 2 hours PRN, CIWA -AR 9-14, Starting on Wed08/06/25 at 1957, Until Wed08/13/25 at 1012, Hold for RR < 10 0838 (Given - Provider: Idania Galindo RN)1448 (Given - Provider: Idania Galindo RN) dicyclomine (BENTYL) tablet 10 mg 10 mg, Oral, 3 times daily PRN, Abdominal cramps, Starting on Wed08/07/25 at 1736, Until Wed08/13/25 at 1900 LORazepam (ATIVAN) tablet 0.5 mg 0.5 mg, Oral, Every 8 hours PRN, anxiety, agitation, Starting on Wed08/13/25 at 1014, Until Wed08/13/25 at 1900 nicotine polacrilex (NICORETTE) gum 2 mg 2 mg, Buccal, Every 1 hour prn, smoking cessation, Starting on Wed08/10/25 at 2221, Until Wed08/13/25 at 1900, Chew slowly until tingle, then park gum between cheek and gum until tingle is gone; repeat process until most of tingle is gone (~30 minutes). 0028 (Given - Provider: Dafne Boyer RN)0839 (Given - Provider: Idanai Galindo RN)1117 (Given - Provider: Idania Galindo RN)1448 (Given - Provider: Idania Galindo RN)1644 (Given - Provider: Idania Galindo RN)1819 (Given - Provider: Idania Galindo RN)195 (Given - Provider: Dafne Boyer RN)2100 (Given - Provider: Dafne Boyer RN)2224 (Given - Provider: Dafne Boyer RN) 0018 (Given - Provider: Emily Klein RN)0145 (Given - Provider: More Chavez RN)0419 (Given - Provider: Emily Klein RN)0820 (Given - Provider: Idania Galindo RN)1057 (Given - Provider: Idania Galindo RN)1312 (Given - Provider: Idania Galindo RN)1447 (Given - Provider: Idania Galindo RN)1728 (Given - Provider: Idania Galindo RN)194 (Given - Provider: More Chavez RN)2204 (Given - Provider: More Chavez RN)2313 (Given - Provider: More Chavez RN) 0544 (Given - Provider: More Chavez RN)0843 (Given - Provider: Idania Galindo RN) ondansetron (ZOFRAN) injection 4 mg 4 mg, Intravenous, Every 6 hours PRN, nausea/vomiting (first line), Starting on Wed08/07/25 at 1633, Until Wed08/13/25 at 1900, For IM use, administer undiluted; for IV push, undiluted over 2 to 5 minutes; for IV infusion, dilute and administer over 15 to 30 minutes. 0838 (Given - Provider: Idania Galindo RN)1447 (Given - Provider: Idania Galindo RN)2048 (Given - Provider: Dafne Boyer RN) 1947 (Given - Provider: More Chavez RN) Linked Groups Order Group 1: diazePAM (VALIUM) tablet 10 mg (CANCELED)Jump to med 10 mg, Oral, ORDER SET ONLY - every 2 hours PRN, CIWA-AR 15-19, Starting on Wed08/06/25 at 1957, Until Wed08/13/25 at 1012, Hold for RR < 10 Or diazePAM (VALIUM) injection 10 mg (CANCELED) 10 mg, Intravenous, ORDER SET ONLY - every 2 hours PRN, CIWA-AR 15-19, Starting on Wed08/06/25 at 1957, Until Wed08/13/25 at 1012, If unable to take PO. Hold for RR < 10 Administer undiluted by slow IV push; do not mix with other solutions or medications. Rapid injection may cause respiratory depression or hypotension. In adults, maximum infusion rate is 5 mg/minute. Do not administer through small veins (eg, dorsum of hand/wrist). Avoid intra-arterial administration. Group 2: diazePAM (VALIUM) tablet 5 mg (CANCELED)Jump to med 5 mg, Oral, ORDER SET ONLY - every 2 hours PRN, CIWA -AR 9-14, Starting on Wed08/06/25 at 1957, Until Wed08/13/25 at 1012, Hold for RR < 10 Or diazePAM (VALIUM) injection 5 mg (CANCELED) 5 mg, Intravenous, ORDER SET ONLY - every 2 hours PRN, CIWA-AR 9-14, Starting on Wed08/06/25 at 1957, Until Wed08/13/25 at 1012, If unable to take PO. Hold for RR < 10 Administer undiluted by slow IV push; do not mix with other solutions or medications. Rapid injection may cause respiratory depression or hypotension. In adults, maximum infusion rate is 5 mg/minute. Do not administer through small veins (eg, dorsum of hand/wrist). Avoid intra-arterial administration. documented in this encounter Care Teams Zipper Trimmer Relationship Specialty Start Date End Date Anthony Barnard DO PCP - General 02/08/25 08/08/25 Maru Church NP [address] [place] [id number] PCP - General Family Medicine 08/09/25 documented as of this encounter
--- NOTE | 2025-08-14 | ECG_ITS ---
Test Reason : QTc monitoring Blood Pressure : */* mmHG Vent. Rate : 101 BPM Atrial Rate : 101 BPM P-R Int : 128 ms QRS Dur : 84 ms QT Int : 368 ms P-R-T Axes : * 152 122 degrees QTcB Int : 477 ms Suspect limb lead reversal, interpretation assumes no reversal Sinus tachycardia Right axis deviation Abnormal ECG No previous ECGs available Referred By: Wandy Thomas Electronically Signed By: Braulio Julian
--- OUTSIDE RECORDS SUMMARY | 2025-08-14 00:20 | XMS_ITS | Encounter Summary ---
Author Organization [facility] Address [address] [place] [address] Care Team Providers Care Chimney Construction Supervisor Name Role Phone RanjitCarmenMaru [place] WRITING MANAGER Primary Care Provider [phone] Reason for Visit * Reason Comments Suicidal Encounter Details Date Type Department Care Team (Late st Contact Info) Description 08/14/2025 12:20 AM EST - 08/14/2025 12:48 PM EST Emergency [facility] Emergency Medicine [address] [place] [id number] Sina Vizcaino MD [address] [place] [phone] Americo Allred [address] [address] Terrance Og [address] [address] Discharge Disposition: Discharged/Transferre d to a Designated Disaster Alternative Care Site Social History Tobacco Use Types Packs/Day Years Used Date Smoking Tobacco: Every Day Cigarettes Alcohol Use Standard Drinks/Week Comments Yes 0 (1 standard drink = 0.6 oz pur e alcohol) Vodka 1 L a day [facility] Utilities Answer Date Recorded In the past 12 months has [employer], gas, oil, or water [employer] threatened to shut off services in your [...] Health Questionnaire-2 Score for SDOH 2 08/07/2025 [facility] - Occupational Stress [...] any time in the past 12 m [facility], were you homeless or living in a group home (including now)? Yes 08/14/2025 Substance Use [...] Sign Reading Time Taken Comments Blood Pressure 124/87 08/14/2025 7:47 AM EST Pulse 93 08/14/2025 7:47 AM EST Temperature 36.4 C (97.5 F) 08/14/2025 7:47 AM EST Respiratory Rate 17 08/14/2025 7:47 AM EST Oxygen Saturation 98% 08/14/2025 7:47 AM EST Inhaled Oxygen Concentration - - Weight 81.6 kg (180 lb) 08/13/2025 11:57 PM EST Height 175.3 cm (5' 9 ) 08/13/2025 11:57 PM EST Body Mass Index 26.58 08/13/2025 11:57 PM EST documented in this encounter Medications at Time [...] Progress Notes Only the most recent of 2 notes is shown. * Aleja Hunter - 08/14/2025 9:05 AM EST [facility] requesting EKG and Utox EKG faxed at this time RN notified of need for utox, reports pt sleeping at this time will request when pt is awake. documented in this encounter ED Notes Only the most recent of 10 notes is shown. * Leda Zhu RN - 08/14/2025 12:47 PM EST Pt was transferred to [place] w/ all personal belongings and home medications. Report was given to JUVENTINO Bone. NAD Noted upon exit of ED. Leda Zhu RN 08/14/25 1248 Leda Zhu RN 08/14/25 1339 documented in this encounter Miscellaneous Notes * Discharge Note - Terrance Og DO - 08/14/2025 11:49 AM EST ED PROFESSIONAL / OBSERVATION DISCHARGE NOTE Anthony Fernandes is a 35 y.o. male who was placed into observation. Please refer to H&P from the date of observation initiation. ED Events Date/Time Event User Comments 08/14/25 0332 Behavioral Health Observation SINA VIZCAINO Place in ED Behavioral Health Observation - [[id number]] Family History Problem Relation Age of Onset Suicide Mother 35 Heart attack Father 60 Suicide Brother 45 Drug abuse Brother Discharge assessment: Resting comfortably in bed, no acute concerns Discharge exam: No acute distress, normal exam Plan: Follow-up instructions and findings during the observation stay have been communicated to thepatient. Based on the patient's assessment and response to treatment, arrangements have been made for the patient following the observation period as per selected ED disposition. Time spent managing discharge: 30 minutes or less. Patient will be transferred to [facility] * Admission - Aleja Hunter - 08/14/2025 10:54 AM EST Pt is accepted to [facility], unit M3, located at [address] in [place], [place] He is accepted by Dr. Thomas for 1:30PM arrival Facility will call [facility] for nurse to nurse shortly Please send on S12 * ED Professional Obs. Progress Note - Americo Allred DO - 08/14/2025 8:20 AM EST ED Professional / Observation Reassessment Note Anthony Fernandes is a 35 y.o. male who was placed into observation. Please refer to H&P from the date of observation initiation. ED Events Date/Time Event User Comments 08/14/25 0332 Behavioral Health Observation SINA VIZCAINO Place in ED Behavioral Health Observation - [[id number]] Family History Problem Relation Age of Onset Suicide Mother 35 Heart attack Father 60 Suicide Brother 45 Drug abuse Brother Patient reassessment: This patient was seen and assessed at bedside during morning psychiatric rounds. They are resting comfortably in no acute distress. No changes overnight per nursing staff. No acute complaints at the time of my examination. Labs and vitals reviewed. The patient has reconciliation of home medications and dietary orders in place. The patient was requesting nicotine gum. Orders have been placed for this. Reassessment exam: Constitutional: Alert, no acute distress Respiratory: No respiratory distress, breathing nonlabored Abdomen: Nondistended Psych: Calm Skin: [place], dry Plan: Patient continues to have diagnostic and dispositional uncertainty. We will continue monitoring in observation status. * Initial Evaluation - Aleja Hunter - 08/14/2025 7:39 AM EST Initial Evaluation [facility] Patient Name: Anthony Fernandes : 1990 Assessment Date: 08/14/25 Language: Guinean Means of Arrival: private/public transport Present in Session: patient Communication Factors: none Referral Source: Patient Referral Source Contact: Additional Sources of Information: EMR Chief Complaint: Pt presents to the ED several hours after being discharged from the medical floorendorsing SI, plan to OD. Daily ETOH. 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 Patient states that he was discharged from this hospital yesterday and reports feeling suicidal. He reports a plan to overdose and states that he has a past suicidal attempt. He states that he is currently homeless. He denies HI/AH/VH. He denies access to firearms. He reports mild abdominal pain for the last 2 days. He reports associated nausea, vomiting, and diarrhea. He denies known fevers or chills. He denies cough, shortness of breath, chest pain, or sore t hroat. He endorses drinking alcohol after leaving the hospital with last use being this evening. Hereports using cocaine today. Patient denies any other medical complaints at this time. On chart review, the patient was hospitalized from 08/06 until 08/13 in the setting of seizure activity and suicidal ideation. CT head was negative. Attempted to obtain a MRI of the brain but the patient was unable to tolerate the machine. Patient was tachycardic which was thought to be due to alcohol withdrawal. Patient was kept on his home Keppra medication for seizure disorder. Patient was seenby psychiatry for SI. There was a plan for a possible outpatient partial hospitalization and dual diagnosis treatment. Date Call Received: 08/14/25 Time Call Received: 0700 Date Call Responded To: 08/14/25 Time Call Responded To: 3359 Telepsych Eval?: Yes Did the patient engage in any behaviors that either had potential to, or did harm to themselves or someone else?: No Danger to Others Danger to Others: No Risk Event Assessment Plan Based on the SHREYA, has risk to self or others been identified?: Yes Patient agrees to engage in a plan to maintain safety?: Yes Interventions: Restriction to unit, Continuous supervision (EPB Only), Removal of objects which maybe used for self-harm, Safety linens/tear resistant coverlet, Search of patient's belongings/room, Suicide/self-injury precaution diet Name of Provider Notified: Dr. Allred Date Provider Notified: 08/14/25 Time Provider Notified: 0738 Risk Profile Risk Profile: Suicide/ Self Injury Precautions Precautions Initiated/Maintained: Suicide/self-injury, Moderate fall risk At any time in the past 12 months, were you homeless or living in a group home (including now)?: Yes Within the past 12 months, you worried that your food would run out before you got the money to buymore.: Often true How hard is it for you to pay for the very basics like food, housing, medical care, and heating?: Hard In the past 12 months, has lack of transportation kept you from medical appointments or from getting medications?: Yes In the past 12 months, has lack of transportation kept you from meetings, work, or from getting things needed for daily living?: Yes In the past 12 months has the electric, gas, oil, or water company threatened to shut off services in your home?: Patient unable to answer Intervention: Psychoeducation, Develop/enhance/review coping skills [place] Screen (C-SSRS) Risk Level: C-SSRS Risk Level: 15.5 Low Risk (0.5-1.5) Moderate Risk (2-4.5) High Risk (5+) Suicide Inquiry: Suicidal Thoughts (Frequency, Duration, Intensity/Controllability): Yes Suicide Plan (timing, location): Yes - plan to OD on a bunch of drugs Availability of Means: Yes Preparatory Acts/Behaviors: No Intent (lethality): Yes History of Attempts: Yes If Yes, Describe (type of attempt including interrupted, self-interrupted, when, precipitants, means, level of impulsivity, intent, outcome): Hx of suicidal gestures with street drugs Risk Behaviors: Past and Current Risk/Safety Assessment Behaviors Risk History and Active Aggressive/Assaultive Not active and denies history Homicidal Ideation/Attempts Past - 08/07 pt stated he wanted to kill the people who called police on him. He denies HI today. Self-Injurious Behavior Past cutting per EMR Sexualized Behavior Not active and denies history Elopement Not active and denies history Fire Setting Not active and denies history Property Destruction Not active and denies history Cruelty to Animals Not active and denies history Pica/Swallowing objects Not active and denies history Somatic Functioning Sleep: Decreased Weight: no change Appetite: decreased Eating Behaviors: unremarkable Energy: decreased Additional History Past Psychiatric Care Inpatient substance detox and treatment at [facility] a few months previous. Past inpatient psychiatric hospitalizations with substance abuse and suicidal ideation. Current Treatment for Psychiatric Care No ongoing Psychiatric care at this time. Trauma History Not discussed Social History Lives with: Homeless x2-3 years. Sister lives in [place], has been able to stay with her brieflyin the past. 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 Developmental History: Not discussed Preferred Learning Style: Unk Legal Issues: Pt was arrested on 08/06 when seen by a bystander at a hotel purchasing methamphetamines. He was supposed to be appear in court yesterday but reports I couldn't make it . Significant Substance Use History Pt admits to daily ETOH - approx 1 liter of vodka and some beers. He reports relapsing after 7 years of sobriety around 2020. Pt admits to using methamphetamines, cannabis, and he is prescribed suboxone. Reports cocaine, fentanyl, heroin in the past. Pt reports a hx of withdrawal seizures with last one reported on 08/06. Family Psychiatric History: Mother has history of depression and suicided. Brother suicided. Aunt attempted to jump from a bridge. Cousin suicided. Cousin overdosed. Sister has history of schizophrenia and bipolar disorder. Family History Problem Relation Age of Onset Suicide Mother 35 Heart attack Father 60 Suicide Brother 45 Drug abuse Brother Current Facility-Administered Medications Medication Dose Route Frequency Provider Last Rate Last Admin diazePAM (VALIUM) tablet 10 mg 10 mg Oral Q2 H PRN Sina Vizcaino MD Or diazePAM (VALIUM) injection 10 mg 10 mg Intravenous Q2 H PRN Sina Vizcaino MD diazePAM (VALIUM) tablet 20 mg 20 mg Oral Q1H PRN Sina Vizcaino MD Or diazePAM (VALIUM) injection 20 mg 20 mg Intravenous Q1H PRN Sina Vizcaino MD diazePAM (VALIUM) tablet 5 mg 5 mg Oral Q2 H PRN Sina Vizcaino MD Or diazePAM (VALIUM) injection 5 mg 5 mg Intravenous Q2 H PRN Sina Vizcaino MD folic acid (FOLVITE) tablet 1 mg 1 mg Oral Once Daily Sina Vizcaino MD multivitamin w/minerals (CENTRUM COMPLETE) tablet 1 tablet 1 tablet Oral Once Daily Sina Vizcaino MD 1 tablet at 08/14/25 0739 potassium chloride (K-DUR) CR tablet 30 mEq 30 mEq Oral Once Sina Vizcaino MD sodium chloride flush 3 mL 3 mL intra-catheter PRN Sina Vizcaino MD thiamine mononitrate (vitamin B-1) tablet 100 mg 100 mg Oral Once Daily Sina Vizcaino MD 100 mg at110/14/24 0739 Or thiamine (VITAMIN B-1) injection 100 mg 100 mg Intravenous Once Daily Sina Vizcaino MD Current Outpatient Medications Medication Sig Dispense Refill albuterol (PROVENTIL HFA;VENTOLIN [...] (one) tablet by mouth every morning. nicotine (NICODERM CQ) 21 mg/24 [address] 1 (one) patch (21 mg total) on the skin once daily. 14 patch 0 nicotine polacrilex (NICORETTE) 4 MG gum Apply 2 mg to cheek every 2 (two) hours. ondansetron (ZOFRAN) 4 MG tablet Take 1 (one) tablet (4 mg total) by mouth every 8 (eight) hours asneeded. pantoprazole (PROTONIX) 40 MG delayed release tablet Take 1 (one) tablet (40 mg total) by mouth once daily every morning before breakfast. prazosin (MINIPRESS) 1 MG capsule Take 1 (one) capsule (1 mg total) by mouth at bedtime. prazosin (MINIPRESS) 2 MG capsule Take 1 (one) capsule (2 mg total) by mouth at bedtime. senna (SENOKOT) 8.6 mg tablet Take 2 (two) tablets by mouth at bedtime. SENNA PLUS 8.6-50 mg tablet Take 2 (two) tablets by mouth at bedtime. thiamine HCl, vitamin B-1, 100 MG tablet Take 1 (one) tablet (100 mg total) by mouth once daily. Allergies: Allergies Allergen Reactions Fish Containing Products Anaphylaxis Anaphylaxis Fish Capsaicin Rash Quetiapine Rash and Swelling Anaphylaxis PCP: Maru Church NP There is no problem list on file for this patient. Past Medical History: Diagnosis Date ADHD ADHD Asthma Bipolar disorder, unspecified (CMS/HCC) Depression Generalized anxiety disorder PTSD (post-traumatic stress disorder) Suicidal ideation Transaminitis WPW (Cqkwr-Lnpqxkdpg-Hjhan syndrome) CARDIAC ELECTROPHYSIOLOGY MAPPING AND ABLATION Mental Status Examination Appearance/behavior: Appears stated age. Poor eye contact. Unkempt. Manner: Calm. Cooperative. Orientation: Oriented x 3. Musculoskeletal: Gait and station normal. Motor: Unremarkable. Speech: Normal volume. Normal rhythm Normal rate Language: Able to repeat words Able to name objects Mood: Suicidal Affect: Depressed. Flat. Thought process: Linear. Logical. Associations: Intact. Thought content: Suicidal ideation Perception: No hallucinations. Suicidal ideation: Active. Plan. Homicide ideation: Denies. Insight: Poor. Judgement: Poor. Recent and remote memory: Intact long and short term memory. Attention and concentration: Fair. Fund of knowledge: Limited. Risk/Protective Factors: General: Male, Active Substance Abuse, and homelessness Access to a Gun: No Psychiatric Symptoms: Depressed mood Suicidal Behavior: Lethal means available* and Family history of suicide or peer suicide Harm to Others: None Elopement Risk: None Protective Factors: None Adequacy of evaluation and feedback: Have you interviewed informant other than patient?: No* Are supportive adults available to watch carefully for 24 hours and ensure a follow-up appointment?: No* Is family prepared to remove or secure pills, guns, and other weapons from the home?: No* Suicide Risk Level: High Aggression Risk Level: Low Elopement Risk Level: Low Formulation/Rationale for Level of Care: Pt is a 35 year old male with history of ADHD, asthma, bipolar disorder, depression, anxiety, PTSD,seizure disorder, and WPW who presents to the ED for SI with a plan to OD several hours after beingdischarged from the medical floor. Pt had been admitted from 08/06-08/13 in the setting of seizure activity and suicidal ideation. CT head was negative. Attempted to obtain a MRI of the brain but the patient was unable to tolerate the machine. Pt was tachycardic which was thought to be due to alcohol withdrawal. Pt was kept on his home Keppra medication for seizure disorder and was seen by psychiatry for SI. There was a plan for a possible outpatient partial hospitalization and pt was discharged 08/13. Upon evaluation this morning pt is A&Ox3. He presents with depressed mood and he continues to endorse SI. He reports a plan to OD on a bunch of drugs . He reports drinking alcohol immediately upon leaving the hospital yesterday afternoon. He states he did not have anywhere to go after discharge and was on the street. He says he was still feeling suicidal at the time of discharge but chose to not report it. He acknowledges receipt of [facility] resource guide but did not follow up forany support or services after discharge. He denies HI/AH/VH at this time. Pt is not able to engage in safety planning at this time and will be referred for inpatient dual diagnosis treatment. *If you have picked any of the starred items above, and you plan to discharge patient, explain the reasons for your decision: N/A *I attest that in my suicide assessment of this patient I identified suicide risk and protective factors, conducted a suicide inquiry, determined the level of suicide risk and the intervention(s) to best address this risk: Yes Diagnoses: F33.2 Major depression, recurrent, severe F10.20 Alcohol use disorder, sev F19.20 Polysubstance abuse Initial Plan: Client meets level of care Pt will remain in the ED to await placement for further psychiatric evaluation, support, safety andstabilization. Disposition: ED board for inpatient psych, , Legal Status: Section 12 Authorization: none I have counseled the patient/family about: the need for supervision until the follow up Disposition and treatment plan options discussed with patient, parent, and/or legal guardian: Yes. Does the patient have any Advanced Psychiatric Directives? No Case, disposition and treatment plan discussed with supervisor garage: Yes, Dr. Allred Total Time: 1 hour Signature: Aleja Hunter Electronic Signature documented in this encounter Plan of Treatment Pending Results Name Type Priority Associated Diagnoses Date /Time ECG 12 Lead ECG STAT 08/14/2025 2: 11 AM EST Scheduled Orders Name Type Priority Associated Diagnoses Orde r Schedule Urine Drug Screen Lab Routine Once fo r 1 Occurrences starting 08/14/2025 until 08/14/2025 documented as of this encounter Procedures Procedure Name Priority Date/Time Associated Diagnosis Comments POTASSIUM LEVEL Routine 08/14/2025 2:51 AM EST COVID-19,INFLUENZA A/B & RSV,PCR STAT 08/14/2025 2:15 AM EST ECG 12-LEAD STAT 08/14/2025 2:11 AM EST MAGNESIUM LEVEL, BLOOD STAT 1:43 AM EST BASIC METABOLIC PANEL STAT 08/14/2025 1:43 AM EST CBC WITH DIFF STAT 08/14/2025 1:43 AM EST PHOSPHORUS LEVEL STAT 08/14/2025 1:43 AM EST LIPASE LEVEL STAT 08/14/2025 1:43 AM EST ETHANOL LEVEL STAT 08/14/2025 1:43 AM EST ACETAMINOPHEN LEVEL STAT 08/14/2025 1 :43 AM EST SALICYLATE LEVEL STAT 08/14/2025 1:43 AM EST HEPATIC FUNCTION PANEL STAT 1:43 AM EST documented in this encounter Results * (ABNORMAL) Potassium Level (08/14/2025 2:51 AM EST) Potassium 3.2(L) 3.6 - 5.1 mEq/L 08/14/2025 3:21 AM EST [facility] Comment:Specimen hemolyzed, results affected 08/14/2025 2:51 AM EST 08/14/2025 3:13 AM EST us Sina Vizcaino MD LAB BLOOD ORDERABLES Final Resu lt [facility] [address] [place] [address], [facility] [address] [place] [address] * COVID-19,Influenza A/B & RSV,PCR - 1hr turnaround time, limited testing supply: should be used only when rapid result is clinically necessary (08/14/2025 2:15 AM EST) Influenza-A PCR Not Detected 08/14/2025 3:10 AM EST [facility] Influenza-B PCR Not Detected 08/14/2025 3:10 AM EST [facility] RSV PCR Not Detected 08/14/2025 3:10 AM EST [facility] SARS-CoV-2 Not Detected 08/14/2025 3:10 AM EST [facility] COVID-19,Influenza A/B RSV Comment Footnote 08/14/2025 3:10 AM EST [facility] Comment: The COVID-19, Influenza A/B & RSV, PCR assay is only for use under a Food and Drug Administration Emergency Use Authorization. The performance characteristics of the assay were verified by the Clinical Microbiology Laboratory at [facility]. Results should be used in conjunction with the patient's clinical symptoms, medical history and other clinical/laboratory findings to determine an overall clinical diagnosis. Negative results do not preclude infection with SARS-CoV-2, Influenza A/B or RSV. Test parameters have not been validated for screening in asymptomatic patients. Swab NASOPHARYNGEAL STRUCTURE / Unknown 08/14/2025 2:15 AM EST 08/14/2025 2:22 AM EST Sina Vizcaino MD BODY FLUIDS AND STOOLS ORDERABL ES Final Result [facility] [address] [place] [phone], [facility] [address] [place] [phone] * (ABNORMAL) Hepatic Function Panel (08/14/2025 1:43 AM EST) Albumin 4.2 3.4 - 5.1 G/DL 08/14/2025 2:26 AM EST [facility] Bilirubin, Total 0.3 0.1 - 1.2 mg/dL 08/14/2025 2:26 AM Merged with [facility] Bilirubin, Direct <0.1 0.0 - 0.4 MG/DL 08/14/2025 2:26 AM Merged with [facility] Comment:Specimen hemolyzed, results affected, evaluate with caution. Alkaline Phosphatase 93 40 - 129 U/L 08/14/2025 2:26 AM Merged with [facility] Comment:Gross hemolysis, miguel angel luate with caution Protein, Total 7.7 6.1 - 8.3 g/dL 08/14/2025 2:26 AM Merged with [facility] ALT 51 14 - 63 U/L 08/14/2025 2:26 AM Merged with [facility] Comment:Gross hemolysis, miguel angel luate with caution AST (SGOT) 124(H) 15 - 41 U/L 08/14/2025 2:26 AM Merged with [facility] Blood 08/14/2025 1:43 AM EST 08/14/2025 1:48 AM EST us Sina Vizcaino MD LAB BLOOD ORDERABLES Final Resu lt [facility] [address] [place] [address], [facility] [address] [place] [phone] * Lipase Level (08/14/2025 1:43 AM EST) Lipase 24 13 - 55 IU/L 08/14/2025 2:26 AM Merged with [facility] Blood 08/14/2025 1:43 AM EST 08/14/2025 1:48 AM EST us Sina Vizcaino MD LAB BLOOD ORDERABLES Final Resu lt [facility] [address] [place] [address], [facility] [address] [place] [phone] * (ABNORMAL) Salicylate Level (08/14/2025 1:43 AM EST) Salicylate Level 1.0(A) MG/DL 08/14/2025 2:26 AM EST [facility] Comment: Salicylate Reference Range: Negative <1.0 mg/dL Therapeutic Range: 2.0-20.0 mg/dL Blood 08/14/2025 1:43 AM EST 08/14/2025 1:48 AM EST us Sina Vizcaino MD LAB BLOOD ORDERABLES Final Resu lt Performing Organization Address City/[facility]/ZIP Co de Phone Number [facility] [address] [place] [phone], [facility] [address] [place] [phone] * Acetaminophen Level (08/14/2025 1:43 AM EST) Acetaminophen Level <5 0 - 5 ug/mL 08/14/2025 2:26 AM EST [facility] Comment:Acetaminophen Refere nce Range: Negative <5 ug/mL Blood 08/14/2025 1:43 AM EST 08/14/2025 1:48 AM EST us Sina Vizcaino MD LAB BLOOD ORDERABLES Final Resu lt Performing Organization Address [facility] Co de Phone Number [facility] [address] [place] [phone], [facility] [address] [place] [phone] * (ABNORMAL) Ethanol Level (08/14/2025 1:43 AM EST) Ethanol Level 65(H) Not Detected MG/DL 08/14/2025 2:26 AM EST [facility] Comment:Gross hemolysis, miguel angel luate with caution Blood 08/14/2025 1:43 AM EST 08/14/2025 1:48 AM EST us Sina Vizcaino MD LAB BLOOD ORDERABLES Final Resu lt Performing Organization Address City/[facility]/ZIP Co de Phone Number [facility] [address] [place] [phone], [facility] [address] [place] [phone] * Phosphorus Level (08/14/2025 1:43 AM EST) Phosphorus 3.3 2.4 - 4.8 MG/DL 08/14/2025 2:26 AM EST [facility] Blood 08/14/2025 1:43 AM EST 08/14/2025 1:48 AM EST us Sina Vizcaino MD LAB BLOOD ORDERABLES Final Resu lt Performing Organization Address City/[facility]/ZIP Co de Phone Number [facility] [address] [place] [phone], [facility] [address] [place] [phone] * Magnesium Level, Blood (08/14/2025 1:43 AM EST) Pathologist [facility] MAGNESIUM LEVEL, BLOOD 1.8 1.6 - 2.3 mg/dL 08/14/2025 2:26 AM EST [facility] 08/14/2025 1:43 AM EST 08/14/2025 1:48 AM EST us Sina Vizcaino MD LAB BLOOD ORDERABLES Final Resu lt Performing Organization Address [facility] Co de Phone Number [facility] [address] [place] [phone], [facility] [address] [place] [phone] * (ABNORMAL) CBC WITH DIFF (08/14/2025 1:43 AM EST) Pathologist [facility] WBC 15.2(H) 4.2 - 10.0 [id number]/L 08/14/2025 1:56 AM Merged with [facility] RBC 4.63 4.50 - 5.60 [id number]/ L 08/14/2025 1:56 AM Merged with [facility] Hemoglobin 13.3(L) 13.4 - 16.0 g/dL 08/14/2025 1:56 AM Merged with [facility] Hematocrit 40.5(L) 41.2 - 51.0 % 08/14/2025 1:56 AM Merged with [facility] MCV 87.5 85.2 - 100.2 fL 08/14/2025 1:56 AM Merged with [facility] MCH 28.7 27.0 - 32.4 pg 08/14/2025 1:56 AM Merged with [facility] MCHC 32.8 29.5 - 34.2 g/dL 08/14/2025 1:56 AM Merged with [facility] RDW 13.3 11.8 - 14.4 % 08/14/2025 1:56 AM Merged with [facility] Platelets 238 168 - 382 [id number]/L 08/14/2025 1:56 AM Merged with [facility] MPV 10.6 9.6 - 12.5 fL 08/14/2025 1:56 AM Merged with [facility] NRBC % 0.0 -1.0 - 0.0 % 08/14/2025 1:56 AM Merged with [facility] NRBC (absolute) 0.0 [id number]/L 1:56 AM Merged with [facility] Immature Granulocytes % 0.8 % 08/14/2025 1:56 AM Merged with [facility] Immature Granulocytes (absolute) 0.1 0.0 - 0.1 [id number]/L 08/14/2025 1:56 AM Merged with [facility] Seg Neutrophil % 82.7 % 08/14/20 1:56 AM Merged with [facility] Seg Neutrophil (absolute) 12.5(H) 1.9 - 6.7 [id number]/L 08/14/2025 1:56 AM Merged with [facility] Lymphocyte % 9.3 % 08/14/2025 1:56 AM Merged with [facility] Lymphocyte (absolute) 1.4 1.0 - 3.3 [id number]/L 08/14/2025 1:56 AM Merged with [facility] Monocyte % 6.8 % 08/14/2025 1:56 AM Merged with [facility] Monocyte (absolute) 1.0(H) 0.3 - 0.9 c12miq7/L 08/14/2025 1:56 AM Merged with [facility] Eosinophil % 0.2 % 08/14/2025 1:56 AM Merged with [facility] Eosinophil (absolute) 0.0 0.0 - 0.4 f45yoo2/L 08/14/2025 1:56 AM Merged with [facility] Basophil % 0.2 % 08/14/2025 1:56 AM EST [facility] Basophil (absolute) 0.0 0.0 - 0.1 [id number]/L 08/14/2025 1:56 AM Merged with [facility] 08/14/2025 1:43 AM EST 08/14/2025 1:48 AM EST us Sina Vzicaino MD LAB BLOOD ORDERABLES Final Resu lt [facility] [address] [place] [phone], [facility] [address] [place] [address] * (ABNORMAL) Basic Metabolic Panel (08/14/2025 1:43 AM EST) Glucose 96 67 - 99 MG/DL 08/14/2025 2:26 AM Merged with [facility] BUN 12 6 - 24 MG/DL 08/14/2025 2:26 AM Merged with [facility] Creat Level 1.10 0.64 - 1.27 MG/DL 08/14/2025 2:26 AM Merged with [facility] eGFR 90 >90 mL/min/1. 73m exp2 08/14/2025 2:26 AM Merged with [facility] Comment:Calculated using the CKD-epi 2020 race-free equation. BUN Creatinine Ratio 11 08/14/2025 2:26 AM Merged with [facility] Sodium 134(L) 135 - 145 mEq/L 08/14/2025 2:26 AM Merged with [facility] Potassium HEMOLYZED 3.6 - 5.1 mEq/L 08/14/2025 2:26 AM Merged with [facility] Chloride 96(L) 98 - 110 mEq/L 08/14/2025 2:26 AM Merged with [facility] CO2 18(L) 20 - 29 mEq/L 08/14/2025 2:26 AM Merged with [facility] Anion Gap 20(H) 3 - 13 08/14/2025 2:[address] [facility] Calcium 9.3 8.4 - 10.2 MG/DL 08/14/2025 2:26 AM EST [facility] Blood 08/14/2025 1:43 AM EST 08/14/2025 1:48 AM EST Sina Vizcaino MD LAB BLOOD ORDERABLES Final Resu lt [facility] [address] [place] [address], [facility] [address] [place] [address] documented in this encounter Visit Diagnoses Not on filedocumented in this encounter Administered Medications Active Administered Medications - up to 3 most recent administrations Medication Order MAR Action Action Date Dose Rate Site diazePAM (VALIUM) injection 10 mg 10 mg, Intravenous, ORDER SET ONLY - every 2 hours PRN, CIWA-AR 15-19, Starting on Wed08/14/25 at 0138, Until Discontinued, If unable to take PO. Hold for RR < 10 Administer undiluted by slow IV push; do not mix with other solutions or medications. Rapid injection may cause respiratory depression or hypotension. In adults, maximum infusion rate is 5 mg/minute. Do not administer through small veins (eg, dorsum of hand/wrist). Avoid intra-arterial administration. diazePAM (VALIUM) injection 20 mg 20 mg, Intravenous, ORDER SET ONLY - every 1 hour prn, CIWA-AR 20 or greater, Starting on Wed08/14/25 at 0138, Until Discontinued, If unable to take PO. Hold for RR < 10 Administer undiluted by slow IV push; do not mix with other solutions or medications. Rapid injection may cause respiratory depression or hypotension. In adults, maximum infusion rate is 5 mg/minute. Do not administer through small veins (eg, dorsum of hand/wrist). Avoid intra-arterial administration. diazePAM (VALIUM) injection 5 mg 5 mg, Intravenous, ORDER SET ONLY - every 2 hours PRN, CIWA-AR 9-14, Starting on Wed08/14/25 at 0138, Until Discontinued, If unable to take PO. Hold for RR < 10 Administer undiluted by slow IV push; do not mix with other solutions or medications. Rapid injection may cause respiratory depression or hypotension. In adults, maximum infusion rate is 5 mg/minute. Do not administer through small veins (eg, dorsum of hand/wrist). Avoid intra-arterial administration. diazePAM (VALIUM) tablet 10 mg 10 mg, Oral, ORDER SET ONLY - every 2 hours PRN, CIWA-AR 15-19, Starting on Wed08/14/25 at 0138, Until Discontinued, Hold for RR < 10 Given 08/14/2025 7:43 AM EST 10 mg diazePAM (VALIUM) tablet 20 mg 20 mg, Oral, ORDER SET ONLY - every 1 hour prn, CIWA-AR 20 or greater, Starting on Wed08/14/25 at 0138, Until Discontinued, Hold for RR < 10 diazePAM (VALIUM) tablet 5 mg 5 mg, Oral, ORDER SET ONLY - every 2 hours PRN, CIWA -AR 9-14, Starting on Wed08/14/25 at 0138, Until Discontinued, Hold for RR < 10 Given 08/14/2025 12:10 PM EST 5 mg folic acid (FOLVITE) tablet 1 mg 1 mg, Oral, Once Daily, First dose on Wed08/14/25 at 0800, 3 doses, Last dose on Wed08/16/25 at 0800 Given 08/14/2025 7:39 AM EST 1 mg multivitamin w/minerals (CENTRUM COMPLETE) tablet 1 tablet 1 tablet, Oral, Once Daily, First dose on Wed08/14/25 at 0800, 3 doses, Last dose on Wed08/16/25 at 0800, Crush tablet for patients with an ileostomy or history of bariatric surgery. Given 08/14/2025 7:39 AM EST 1 tablet nicotine polacrilex (NICORETTE) gum 2 mg 2 mg, Buccal, Every 2 hours PRN, smoking cessation, Starting on Wed08/14/25 at 1220, Until Discontinued, May provide clinical reference handout on nicotine gum for education. Chew slowly until tingle, then park gum between cheek and gum until tingle is gone; repeat process until most of tingle is gone (~30 minutes). sodium chloride flush 3 mL 3 mL, intra-catheter, As needed, line care, Starting on Wed08/14/25 at 0120, Until Discontinued thiamine (VITAMIN B-1) injection 100 mg 100 mg, Intravenous, Once Daily, First dose on Wed08/14/25 at 0800, 3 doses, Last dose on Wed08/16/25 at 0800, IV push over 2 minutes, Indications: if NPOIndications:if NPO thiamine mononitrate (vitamin B-1) tablet 100 mg 100 mg, Oral, Once Daily, First dose on Wed08/14/25 at 0800, 3 doses, Last dose on Wed08/16/25 at 0800 Given 08/14/2025 7:39 AM EST 100 mg Inactive Administered Medications - up to 3 most recent administrations Medication Order MAR Action Action Date Dose Rate Site potassium chloride (K-DUR) CR tablet 30 mEq 30 mEq, Oral, Once, On Wed08/14/25 at 0345, 1 dose Given 08/14/2025 7:39 AM EST 30 mEq sodium chloride 0.9% bolus (NS) 1,000 mL 1,000 mL, Intravenous, Administer over 30 Minutes, Once, On Wed08/14/25 at 0130, 1 dose New Bag 08/14/2025 2:01 AM EST 1,000 mL 2000 mL/hr documented in this encounter Active and Recently Administered Medications Due to Daylight Saving Time, this section may contain times in both EDT and EST. Scheduled Medication Order 08/12/2025 08/13/2025 08/14/2025 folic acid (FOLVITE) tablet 1 mg 1 mg, Oral, Once Daily, First dose on Wed08/14/25 at 0800, 3 doses, Last dose on Wed08/16/25 at 0800 0739 (Given - Provid er: Leda Zhu RN) multivitamin w/minerals (CENTRUM COMPLETE) tablet 1 tablet 1 tablet, Oral, Once Daily, First dose on Wed08/14/25 at 0800, 3 doses, Last dose on Wed08/16/25 at 0800, Crush tablet for patients with an ileostomy or history of bariatric surgery. 0739 (Given - Provid er: Leda Zhu RN) potassium chloride (K-DUR) CR tablet 30 mEq (COMPLETED) 30 mEq, Oral, Once, On Wed08/14/25 at 0345, 1 dose 0739 (Given - Provid er: Leda Zhu RN - Comment: pt refused at the time) sodium chloride 0.9% bolus (NS) 1,000 mL (COMPLETED) 1,000 mL, Intravenous, Administer over 30 Minutes, Once, On Wed08/14/25 at 0130, 1 dose 0201 (New Bag - Prov ider: Nida Paz RN)0325 (Stopped - Provider: My Monten[place] RN) thiamine (VITAMIN B-1) injection 100 mg(Linked Group 1) 100 mg, Intravenous, Once Daily, First dose on Wed08/14/25 at 0800, 3 doses, Last dose on Wed08/16/25 at 0800, IV push over 2 minutes, Indications: if NPO 0739 (See Alternativ e - Provider: Leda Zhu RN) thiamine mononitrate (vitamin B-1) tablet 100 mg(Linked Group 1) 100 mg, Oral, Once Daily, First dose on Wed08/14/25 at 0800, 3 doses, Last dose on Wed08/16/25 at 0800 0739 (Given - Provid er: Leda Zhu RN) PRN Medication Order 08/12/2025 08/13/2025 08/14/2025 diazePAM (VALIUM) injection 10 mg(Linked Group 2) 10 mg, Intravenous, ORDER SET ONLY - every 2 hours PRN, CIWA-AR 15-19, Starting on Wed08/14/25 at 0138, Until Discontinued, If unable to take PO. Hold for RR < 10 Administer undiluted by slow IV push; do not mix with other solutions or medications. Rapid injection may cause respiratory depression or hypotension. In adults, maximum infusion rate is 5 mg/minute. Do not administer through small veins (eg, dorsum of hand/wrist). Avoid intra-arterial administration. 0743 (See Alternativ e - Provider: Leda Zhu RN) diazePAM (VALIUM) injection 20 mg(Linked Group 3) 20 mg, Intravenous, ORDER SET ONLY - every 1 hour prn, CIWA-AR 20 or greater, Starting on Wed08/14/25 at 0138, Until Discontinued, If unable to take PO. Hold for RR < 10 Administer undiluted by slow IV push; do not mix with other solutions or medications. Rapid injection may cause respiratory depression or hypotension. In adults, maximum infusion rate is 5 mg/minute. Do not administer through small veins (eg, dorsum of hand/wrist). Avoid intra-arterial administration. diazePAM (VALIUM) injection 5 mg(Linked Group 4) 5 mg, Intravenous, ORDER SET ONLY - every 2 hours PRN, CIWA-AR 9-14, Starting on Wed08/14/25 at 0138, Until Discontinued, If unable to take PO. Hold for RR < 10 Administer undiluted by slow IV push; do not mix with other solutions or medications. Rapid injection may cause respiratory depression or hypotension. In adults, maximum infusion rate is 5 mg/minute. Do not administer through small veins (eg, dorsum of hand/wrist). Avoid intra-arterial administration. 1210 (See Alternativ e - Provider: Leda Zhu RN) diazePAM (VALIUM) tablet 10 mg(Linked Group 2) 10 mg, Oral, ORDER SET ONLY - every 2 hours PRN, CIWA-AR 15-19, Starting on Wed08/14/25 at 0138, Until Discontinued, Hold for RR < 10 0743 (Given - Provid er: Leda Zhu RN) diazePAM (VALIUM) tablet 20 mg(Linked Group 3) 20 mg, Oral, ORDER SET ONLY - every 1 hour prn, CIWA-AR 20 or greater, Starting on Wed08/14/25 at 0138, Until Discontinued, Hold for RR < 10 diazePAM (VALIUM) tablet 5 mg(Linked Group 4) 5 mg, Oral, ORDER SET ONLY - every 2 hours PRN, CIWA -AR 9-14, Starting on Wed08/14/25 at 0138, Until Discontinued, Hold for RR < 10 1210 (Given - Provid er: Leda Zhu RN - Comment: CIWA score 12) nicotine polacrilex (NICORETTE) gum 2 mg 2 mg, Buccal, Every 4 hours PRN, smoking cessation, Starting on Wed08/14/25 at 0820, Until Discontinued, May provide clinical reference handout on nicotine gum for education. Chew slowly until tingle, then park gum between cheek and gum until tingle is gone; repeat process until most of tingle is gone (~30 minutes). nicotine polacrilex (NICORETTE) gum 2 mg 2 mg, Buccal, Every 2 hours PRN, smoking cessation, Starting on Wed08/14/25 at 1220, Until Discontinued, May provide clinical reference handout on nicotine gum for education. Chew slowly until tingle, then park gum between cheek and gum until tingle is gone; repeat process until most of tingle is gone (~30 minutes). sodium chloride flush 3 mL(Linked Group 5) 3 mL, intra-catheter, As needed, line care, Starting on Wed08/14/25 at 0120, Until Discontinued Linked Groups Order Group 1: thiamine mononitrate (vitamin B-1) tablet 100 mgJump to med 100 mg, Oral, Once Daily, First dose on Wed08/14/25 at 0800, 3 doses, Last dose on Wed08/16/25 at 0800 Or thiamine (VITAMIN B-1) injection 100 mgJump to med 100 mg, Intravenous, Once Daily, First dose on Wed08/14/25 at 0800, 3 doses, Last dose on Wed08/16/25 at 0800, IV push over 2 minutes, Indications: if NPO Group 2: diazePAM (VALIUM) tablet 10 mgJump to med 10 mg, Oral, ORDER SET ONLY - every 2 hours PRN, CIWA-AR 15-19, Starting on Wed08/14/25 at 0138, Until Discontinued, Hold for RR < 10 Or diazePAM (VALIUM) injection 10 mgJump to med 10 mg, Intravenous, ORDER SET ONLY - every 2 hours PRN, CIWA-AR 15-19, Starting on Wed08/14/25 at 0138, Until Discontinued, If unable to take PO. Hold for RR < 10 Administer undiluted by slow IV push; do not mix with other solutions or medications. Rapid injection may cause respiratory depression or hypotension. In adults, maximum infusion rate is 5 mg/minute. Do not administer through small veins (eg, dorsum of hand/wrist). Avoid intra-arterial administration. Group 3: diazePAM (VALIUM) tablet 20 mgJump to med 20 mg, Oral, ORDER SET ONLY - every 1 hour prn, CIWA-AR 20 or greater, Starting on Wed08/14/25 at 0138, Until Discontinued, Hold for RR < 10 Or diazePAM (VALIUM) injection 20 mgJump to med 20 mg, Intravenous, ORDER SET ONLY - every 1 hour prn, CIWA-AR 20 or greater, Starting on Wed08/14/25 at 0138, Until Discontinued, If unable to take PO. Hold for RR < 10 Administer undiluted by slow IV push; do not mix with other solutions or medications. Rapid injection may cause respiratory depression or hypotension. In adults, maximum infusion rate is 5 mg/minute. Do not administer through small veins (eg, dorsum of hand/wrist). Avoid intra-arterial administration. Group 4: diazePAM (VALIUM) tablet 5 mgJump to med 5 mg, Oral, ORDER SET ONLY - every 2 hours PRN, CIWA -AR 9-14, Starting on Wed08/14/25 at 0138, Until Discontinued, Hold for RR < 10 Or diazePAM (VALIUM) injection 5 mgJump to med 5 mg, Intravenous, ORDER SET ONLY - every 2 hours PRN, CIWA-AR 9-14, Starting on Wed08/14/25 at 0138, Until Discontinued, If unable to take PO. Hold for RR < 10 Administer undiluted by slow IV push; do not mix with other solutions or medications. Rapid injection may cause respiratory depression or hypotension. In adults, maximum infusion rate is 5 mg/minute. Do not administer through small veins (eg, dorsum of hand/wrist). Avoid intra-arterial administration. Group 5: Insert peripheral IV (COMPLETED) STAT, Once, On Wed08/14/25 at 0121, For 1 occurrence And Maintain IV access STAT, Until discontinued, Starting on Wed08/14/25 at 0121, Until Specified And Saline lock IV STAT, Once, On Wed08/14/25 at 0121, For 1 occurrence, INT once pt tolerating PO and with adequate urine output (300cc q8 hours minimum) And sodium chloride flush 3 mLJump to med 3 mL, intra-catheter, As needed, line care, Starting on Wed08/14/25 at 0120, Until Discontinued documented in this encounter Care Teams [employer] Supervisor Relationship Specialty Start Date End Date Maru Church NP [address] [place] [phone] PCP - General Family Medicine 08/09/25 documented as of this encounter
[2025-08-14 15:10] VITALS: BMI 32.1
[2025-08-14 15:11] VITALS: BP 134/102; PULSE 117; RESP 20; TEMP 36.9; O2SAT 99
--- NOTE | 2025-08-14 15:38 | P.HPPS_ITS ---
HPI Date of Service: 08/14/25 Chief Complaint: F33.2 Major depression recurrent severe F10.20; SI Sources of Information: patient interviewed, chart reviewed and crisis/core team assessment reviewed HPI Subjective Notes: Conditional Voluntary Narrative: Mr. Fernandes is a 35 yo M wit h/o ADHD, previous bipolar dx, anxiety, PTSD, epilepsy, ETOH use d/o, h/o ETOH w/d seizures, cocaine use d/o, opioid use d/o in remission on maintenance tx and WPW who presented to the [facility] ED due to SI. Per Crisis eval -pt was admitted to [facility] from 08/06-08/13/25 due to seizure activity and SI. -CT head was neg. Pt was unable to tolerate the MRI machine to get a brain MRI. - Had anion gap of 20 and was felt to be in alcoholic ketoacidosis. He had mild hypokalemia, which was repleted. BAL was 65 -He was tachycardic, thought to be in ETOH w/d. He was continued on his home Keppra for seizure d/o. -He was evaluated by psychiatry due to SI and potential referrals to PHP and dual dx tx were discussed -He presented back to the ED several hrs after d/c from the medical floor endorsing SI with plan to o/d. He reported that he had nowhere to go after d/c and was on the street. He was unable to engage in safety planning. -Pt was arrested on 08/06/25 after seen by a bystander purchasing methamphetamines. He was supposed to appear in court yesterday but reported 'I couldn't make it'. Pt reports that after the recent medical admission- I was with these people in a hotel. I left them in and smoked with them. I thought it was dabs but it was meth. I never smoked meth and had a seizure . He reports that the seizure was different than previous seizures-- he was still but his eyes were twitching. He reports that he's had a stomach ache, GALLARDO, blurry vision and increased anxiety since then. He reports that he also drank almost a handle of vodka that night and snorted 1 gram of cocaine. He reports that he had been medically admitted for tx of ETOH w/d seizures and that his friends snuck in alcohol at night when the nurses weren't around. Reports drinking 1 L of vodka/day in the hospital. Endorses depressed mood 'for a while in setting of homelessness and extensive trauma hx. He reportedly lived w/ his family until they could no longer take his ETOH two years ago. He endorses SI with a plan to overdose on aspirin prior to admission. Endorses ongoing SI but feels like he can keep himself safe here. Endorses anhedonia, poor appetite, feelings of hopelessness/helplessness Psychiatric ROS: -Denies HI/violent ideation. Reports h/o violence only when I needed to be . -Denies h/o AHVH, DTs -Reports being dx'd with bipolar d/o but unable to say if he's had episodes that looked like kei w/o influence of drugs -Endorses extensive trauma hx, flashbacks, chronic insomnia, nightmares, hypervigilance. Triggered by loud noises/yelling Current psychotropic meds: chlorpromazine 300 mg qhs- helps w/ sleep clonidine 0.1 mg bid- helps somewhat w/ anxiety gabapentin 400 mg tid melatonin 5 mg qhs prazosin 3 mg qhs- helps somewhat w/ nightmares buprenorphine-naloxone 8/2 mg tid (confirmed on [employer] and [facility] d/c summary) Past Psychiatric History: reportedly has an outpatient psychiatrist but doesn't remember her name. No current tx, saw therapists in the past h/o multiple inpt psych admissions for substance use and SI reports h/o multiple suicide attempts, most recently by overdosing on aspirin or tylenol 6-12 mos ago Prior Med Trials Clonazepam (last filled 05/24/25 per [employer]) and Ritalin (last filled in February 2025 per [employer]). He reports that he has a psych appt coming up and they are planning to refill these meds. Medical Evaluation Reviewed: Hospitalist Deborah Pending [facility] Narrative: ETOH w/d seizures Smith Parkinson White Syndrome Epilepsy Family History: Mother- committed suicide in front of pt and his siblings when he was young Brother committed suicide Other brother from drug o/d maternal aunt committed suicide by jumping from a bridge Cousin committed suicide Sister has h/o schizophrenia and bipolar d/o Other sister has depression Social History: single, no children currently homeless completed 9th grade Substance History: h/o multiple inpt detox admissions at [facility]- most recently a few months ago 1 L of vodka and some beers q day. Methamphetamines, cannabis use recently smokes 2 ppd H/O cocaine, fentanyl, heroin in the past. Relapsed on ETOH in 2019 after 7 yrs of sobriety. H/O ETOH w/d seizures, most recently 08/06 Trauma History: Loss of multiple family members to suicide Diagnostics Vital Signs (24Hr): Vital Signs - 24 hr 08/14/25 15:11 Temperature 98.5 F Pulse Rate 117 H Respiratory Rate 20 Blood Pressure 134/102 H Pulse Oximetry 99 Oxygen Delivery Method Room Air BMI result Body Mass Index 32.1 Meds/Allergies Meds Home Medications ?Medication ?Instructions ?Recorded ?Confirmed ?Type albuterol 90 mcg/actuation aerosol 2 mcg inhalation Q4 H PRN Shortness 08/14/25 08/14/25 History inhaler Of Breath Or Wheezing buprenorphine 8 mg-naloxone 2 mg 1 film buccal TID 02/0208/14/25 History sublingual film chlorpromazine 100 mg tablet 300 mg PO BEDTIME 5 08/14/25 History clonidine HCl 0.1 mg tablet 0.1 mg PO BID 08/14/2502/02 History folic acid 1 mg tablet 1 mg PO DAILY 08/14/2508/14 History gabapentin 400 mg capsule 400 mg PO TID 08/14/2508/14 History levetiracetam 500 mg tablet 500 mg PO BID 08/14/2502/02 History melatonin 5 mg tablet 5 mg PO BEDTIME 08/14/2502/02 History multivitamin 1 tab PO DAILY 08/14/2502/02 History nicotine (polacrilex) 4 mg gum 4 mg buccal Q2H 5 08/14/25 History (Nicorette) ondansetron 4 mg disintegrating 4 mg PO Q8H PRN Nausea And Vomiting 08/14/25 08/14/25 History tablet pantoprazole 40 mg tablet,delayed 40 mg PO DAILY 08/1408/14/25 History release prazosin 1 mg capsule 1 mg PO BEDTIME 08/14/2502/02 History prazosin 2 mg capsule 2 mg PO BEDTIME 08/14/2502/02 History sennosides 8.6 mg tablet (senna) 8.6 mg PO BEDTIME 02/0208/14/25 History thiamine HCl (vitamin B1) 100 mg 100 mg PO DAILY 08/1408/14/25 History tablet Allergies Allergies Allergy/AdvReac Type Severity Reaction Status Date / Time No Known Allergies Allergy Verified 08/14/25 16:11 Mental Status Exam Mental Status Exam Narrative: Appearance: Casually dressed. Grooming/hygiene wnl. Good eye contact Attitude:Cooperative Speech: Fluent and wnl in regard to volume, tone, prosody Motor activity: Calm and without any tics, tremors or dyskinesias. Steady gait Mood: as noted above Affect: appropriate, reactive, generally bright Thought process: goal directed and without evidence of formal thought disorder Thought content: as noted above. Future oriented Perception: Denies AH/VH and does not appear to respond to internal stimuli Alert/oriented in all spheres Cognition grossly intact Insight: intact Judgment: intact Assessment & Plan Assessment & Plan (1) Other bipolar disorder: Status: Acute Code(s): F31.89 - Other bipolar disorder (2) Alcohol use disorder, severe, dependence: Status: Acute Code(s): F10.20 - Alcohol dependence, uncomplicated (3) PTSD (post-traumatic stress disorder): Status: Acute Code(s): F43.10 - Post-traumatic stress disorder, unspecified (4) Opioid use disorder, severe, on maintenance therapy: Status: Acute Code(s): F11.20 - Opioid dependence, uncomplicated (5) Cocaine use disorder: Status: Acute Code(s): F14.10 - Cocaine abuse, uncomplicated (6) Methamphetamine abuse: Status: Acute Code(s): F15.10 - Other stimulant abuse, uncomplicated (7) Nicotine use disorder: Status: Acute Code(s): F17.200 - Nicotine dependence, unspecified, uncomplicated Plan Mr. Fernandes is a 35 yo M wit h/o ADHD, previous bipolar dx, anxiety, PTSD, epilepsy, ETOH use d/o, h/o ETOH w/d seizures, cocaine use d/o, opioid use d/o in remission on maintenance tx and WPW who presented to the [facility] ED due to SI. He was transferred to [facility] for tx of depression and SI. Pt was recently tx'd for ETOH w/d seizure activity per Crisis eval prior to re- presenting to the ED w/ SI one day later. Per his report, his friends brought in ETOH and he consumed 1 L of vodka every night in the hospital. It seems unlikely that this actually occurred in the hospital but will place on CIWA as a precaution, given that he has a h/o seizures. He also admits to smoking meth and cocaine use prior to admission. He reports a previous bipolar dx but was unable to say if he's had manic episodes w/o the influence of drug use. Plan: Admitted to [facility] for safety and stabilization Legal Status: CV 15 min safety checks CIWA monitoring, lorazepam prn per protocol Labs and EKG ordered Hospitalist consult pending for admission H&P Continue regular medications: Buprenorphine-Naloxone 8/2 mg TID Thorazine 300 mg qhs Clonidine 0.1 mg bid Gabapentin 400 mg tid Prazosin 3 mg qhs Keppra 500 mg bid Melatonin 6 mg qhs Zofran 4 mg q 8 hrs prn for nausea Thiamine, MVI Senna prn for constipation Albuterol inhaler prn for SOB Patient educated on: diagnosis, medication risk/benefits, substance abuse and medical condition Informed Consent: understands Reason for continued inpatient stay Substantial Risk for: harm to self and med/psych decompensation Statement Statement: I have reviewed the history and physical and performed a pertinent examination on my patient. No changes have occurred unless specified. If the History and Physical was not performed prior to admission, the Hospitalist's service will be consulted for completing the admission physical. Time Spent With Patient Time: Total time managing care of this patient today ____ minutes.
--- OUTSIDE RECORDS SUMMARY | 2025-08-14 17:58 | XMS_ITS | Encounter Summary ---
Author Organization [facility] Address [address] [place] [address] Care Team Providers Care Molecular Technologist Name Role Phone Maru Church NP Primary Care Provider [phone] Encounter Details Date Type Department Care Team (Latest Contact Info) Description 12/12/2024 Lab Requisition [address] [id number] Wes Chaney MD [address] [place] [phone] Alcohol abuse, uncomplicated; Bipolar disorder, unspecified (HCC); Opioid abuse, uncomplicated (HCC) Social History Tobacco Use Types Packs/Day Years Used Date Smoking Tobacco: Every Day Cigarettes 0.5 4 Smokeless Tobacco: Former Alcohol Use Standard Drinks/Week Comments Yes 0 (1 standard drink = 0.6 oz pur e alcohol) Sex and Gender Information Value Date Recorded Sex Assigned at Male 02/17/2023 8:17 PM EDT Legal Sex Male 11:04 AM EDT Gender Identity Male 02/17/2023 8:17 PM EDT Sexual Orientation Straight 12/17/2023 9: 17 PM EST documented as of this encounter Plan of Treatment Not on file documented as of this encounter Procedures Procedure Name Priority Date/Time Associated Diagnosis Comments COMP METABOLIC PANEL W/ LIPASE Routine 12/12/2024 6:35 AM EST CBC (NO DIFFERENTIAL) Routine 12/12/2024 6:35 AM EST Alcohol abuse, uncomplicated Bipolar disorder, unspecified (HCC) Opioid abuse, uncomplicated (HCC) documented in this encounter Results * (ABNORMAL) Comp Metabolic Panel W/ Lipase (12/12/2024 6:35 AM EST) Sodium 139 136 - 145 mEq/L 12/12/2024 10:58 AM [facility] Potassium 3.9 3.5 - 5.1 mEq/L 12/12/2024 10:58 AM [facility] Chloride 105 98 - 109 mEq/L 12/12/2024 10:58 AM [facility] CO2 31 20 - 31 mEq/L 12/12/2024 10:58 AM [facility] Anion Gap 3(L) 4 - 15 mEq/L 12/12/2024 10:58 AM [facility] Glucose 105(H) 70 - 100 mg/dL 12/12/2024 10:58 AM [facility] Creatinine 0.86 0.60 - 1.10 mg/dL 12/12/2024 10:58 AM [facility] eGFR (Male) >60 60 - 115 mL/min 12/12/2024 10:58 AM [facility] BUN <5(L) 9 - 23 mg/dL 12/12/2024 10:58 AM [facility] Calcium 8.0(L) 8.3 - 10.6 mg/dL 12/12/2024 10:58 AM [facility] Albumin 3.7 3.2 - 4.8 g/dL 12/12/2024 10:58 AM [facility] A/G Ratio 2.1 1.0 - 2.3 12/12/2024 10:58 AM [facility] Total Bilirubin 0.2 0.2 - 1.0 mg/dL 12/12/2024 10:58 AM [facility] AST 20 13 - 40 U/L 12/12/2024 10:58 AM [facility] Alkaline Phosphatase 75 46 - 116 IU/L 12/12/2024 10:58 AM [facility] ALT 18 7 - 40 U/L 12/12/2024 10:58 AM [facility] Lipase 26 12 - 53 U/L 12/12/2024 10:58 AM [facility] Total Protein 5.5(L) 5.7 - 8.2 g/dL 12/12/2024 10:58 AM [facility] Blood Venipuncture / Unknown 12/12/2024 6:35 AM EST 12/12/2024 10:20 AM EST [facility] - 12/12/2024 10:58 AM EST The calcium reference range has been changed as of 09/05/2024. us Wes Chaney MD LAB BLOOD ORDERABLES Final Resul t [facility] [address] [place] [address] * (ABNORMAL) CBC (No Differential) (12/12/2024 6:35 AM EST) WBC 5.1 4.8 - 11.2 10*3/ L 12/12/2024 10:52 AM [facility] RBC 4.08 4.00 - 5.90 10*6/ L 12/12/2024 10:52 AM [facility] HGB 12.3(L) 14.0 - 17.2 g/dL 12/12/2024 10:52 AM [facility] HCT 36.3(L) 40.0 - 52.0 % 12/12/2024 10:52 AM [facility] MCV 89.1 82.0 - 98.0 fL 12/12/2024 10:52 AM [facility] MCH 30.1 27.0 - 35.0 pg 12/12/2024 10:52 AM [facility] MCHC 33.8 32.0 - 37.0 g/dL 12/12/2024 10:52 AM [facility] RDW 13.0 12.0 - 15.0 % 12/12/2024 10:52 AM [facility] PLT 174 150 - 400 10*3/ L 12/12/2024 10:52 AM [facility] MPV 9.5 7.0 - 14.0 fL 12/12/2024 10:52 AM EST [facility] Blood Venipuncture / Unknown 12/12/2024 6:35 AM EST 12/12/2024 10:20 AM EST us Wes Chaney MD LAB BLOOD ORDERABLES Final Resul t [facility] [address] [place] [address] documented in this encounter Visit Diagnoses Diagnosis Alcohol abuse, uncomplicated Bipolar disorder, unspecified (HCC) Bipolar disorder, unspecified Opioid abuse, uncomplicated (HCC) documented in this encounter Care Teams Molecular Technologist Relationship Specialty Start Date End Date Maru Church YOUTH DIRECTOR [address] [place] [phone] PCP - General Pain Medicine 05/24/18 documented as of this encounter
--- OUTSIDE RECORDS SUMMARY | 2025-08-14 17:58 | XMS_ITS | Clinical Summary ---
Author Organization [facility] Address [address] [place] [address] Care Team Providers Care [employer] Specialist Name Role Phone Maru Church NP Primary Care Provider [phone] Allergies Active Allergy Reactions Criticality Noted Date Comments Capsaicin Rash Low 12/06/2024 Fish 08/13/2025 Fish Containing Products Anaphylaxis High 07/31/2025 Anaphylaxis Quetiapine Rash,Swelling Low 05/25/2018 Anaphylaxis Medications gabapentin (NEURONTIN) 400 MG capsule Take 1 (one) capsule (400 mg total) by mouth 3 (three) times a day. 12/06/2024 Active albuterol (PROVENTIL HFA;VENTOLIN HFA;PROAIR HFA) 90 mcg/actuation HFA inhaler Inhale 1 (one) puff to 2 (two) puffs by mouth every 4 (four) hours as needed. 07/31/2025 Active melatonin 5 mg cap Take 1 capsule by mouth at bedtime. 02/20/2025 Active prazosin (MINIPRESS) 2 MG capsule Take 1 (one) capsule (2 mg total) by mouth at bedtime. Active prazosin (MINIPRESS) 1 MG capsule Take 1 (one) capsule (1 mg total) by mouth at bedtime. 12/06/2024 Active SENNA PLUS 8.6-50 mg tablet Take 2 (two) tablets by mouth at bedtime. 02/01/2025 Active chlorproMAZINE (THORAZINE) 100 MG tablet Take 3 (three) tablets (300 mg total) by mouth at bedtime. 12/06/2024 Active folic acid (FOLVITE) 1 MG tablet Take 1 (one) tablet (1 mg total) by mouth once daily. 08/01/2025 Active multivitamin (THERAGRAN) tablet Take 1 (one) tablet by mouth every morning. 08/01/2025 Active levETIRAcetam (KEPPRA) 500 MG tablet Take 1 (one) tablet (500 mg total) by mouth 2 (two) times a day. 12/06/2024 Active nicotine polacrilex (NICORETTE) 4 MG gum Apply 2 mg to cheek every 2 (two) hours. 12/06/2024 Active thiamine HCl, vitamin B-1, 100 MG tablet Take 1 (one) tablet (100 mg total) by mouth once daily. 08/01/2025 Active pantoprazole (PROTONIX) 40 MG delayed release tablet Take 1 (one) tablet (40 mg total) by mouth once daily every morning before breakfast. 08/01/2025 Active cloNIDine HCL (CATAPRES) 0.1 MG tablet Take 1 (one) tablet (0.1 mg total) by mouth 2 (two) times a day. 07/31/2025 Active Buprenorphine-n aloxone (SUBOXONE) 8-[address] 1 (one) Film (8 mg total) under the tongue 3 (three) times a day. 07/14/2024 Active senna (SENOKOT) 8.6 mg tablet Take 2 (two) tablets by mouth at bedtime. Active ondansetron (ZOFRAN) 4 MG tablet Take 1 (one) tablet (4 mg total) by mouth every 8 (eight) hours as needed. Active nicotine (NICODERM CQ) 21 mg/24 [address] 1 (one) patch (21 mg total) on the skin once daily. 14 patch 08/13/2025 Active Encounters Date Type Department Care Team Description 08/14/2025 12:20 AM EST - 08/14/2025 12:48 PM EST Emergency [facility] Emergency Medicine [address] [place] [phone] Sina Franco MD Furtado, Curtis, DO Kratochvil, Matthew, DO Discharge Disposition: Discharged/Transferr ed to a Designated Disaster Alternative Care Site 08/06/2025 3:00 PM EDT - 08/13/2025 1:00 PM EST Hospital Encounter [address] [phone] Americo Allred DO Zhang, Lydia J, MD Dorai, Jaiganesh, MD Singla, Raju, MD Alcohol withdrawal ([facility]) (Primary Dx); 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[facility]) Discharge Disposition: Home or Self Care from Last 3 Months Family History Medical History Relation Name Comments Suicide Brother 1 Drug abuse Brother 2 Heart attack Father Suicide Mother Relation Name Status Comments Brother 1 Brother 2 Father Mother Social History Tobacco Use Types Packs/Day Years Used Date Smoking Tobacco: Every Day Cigarettes Tobacco Cessation:Ready to Q uit: Not Asked; Counseling Given: Not Answered Alcohol Use Standard Drinks/Week Comments Yes 0 (1 standard drink = 0.6 oz pur e alcohol) Vodka 1 L a day [facility] [employer] Answer Date Recorded In the past 12 months has th e ADTZ, gas, oil, or water [employer] threatened to shut off services in your [...] Health Questionnaire-2 Score for SDOH 2 08/07/2025 [facility] [place] of Occupat ional Health - Occupational Stress [...] any time in the past 12 m [facility], were you homeless or living in [...] on file Sexual Orientation Not on file Last Filed Vital Signs Vital Sign Reading [...] Mass Index 26.58 08/13/2025 11:57 PM EST Plan of Treatment Health Maintenance Due Date Last Done Comments HEPATITIS C SCREENING 2008 PNEUMOCOCCAL VACCINE (1 of 2 - PCV) 2010 DTAP/TDAP/TD VACCINES (1 - Tdap) 2020 INFLUENZA VACCINE (#1) 2025 COVID-19 IMMUNIZATION (1 - 2 024-25 season) 2025 ZOSTER VACCINE (1 of 2) 2041 RSV IMMUNIZATION (1 - 1-dose 75+ series) 2066 IPV VACCINES Aged Out No longer eligi ble based on patient's age to complete this topic MENINGOCOCCAL B VACCINE Aged Out No l onger eligible based on patient's age to complete this topic Procedures Procedure Name Priority Date/Time Associated Diagnosis Comments POTASSIUM LEVEL Routine 08/14/2025 2:51 AM EST COVID-19,INFLUENZA A/B & RSV,PCR STAT 08/14/2025 2:15 AM EST ECG 12-LEAD STAT 08/14/2025 2:11 AM EST HEPATIC FUNCTION PANEL STAT 1:43 AM EST LIPASE LEVEL STAT 08/14/2025 1:43 AM EST SALICYLATE LEVEL STAT 08/14/2025 1:43 AM EST ACETAMINOPHEN LEVEL STAT 08/14/2025 1 :43 AM EST ETHANOL LEVEL STAT 08/14/2025 1:43 AM EST PHOSPHORUS LEVEL STAT 08/14/2025 1:43 AM EST MAGNESIUM LEVEL, BLOOD STAT 1:43 AM EST CBC WITH DIFF STAT 08/14/2025 1:43 AM EST BASIC METABOLIC PANEL STAT 08/14/2025 1:43 AM EST COMPREHENSIVE METABOLIC PANEL Routine 08/13/2025 8:30 AM EST CBC WITH DIFF Routine 08/13/2025 8:30 AM EST BASIC METABOLIC PANEL Routine 08/12/2025 6:10 AM EST HC AUTO CBC WITH DIFF Routine 08/12/2025 6:10 AM EST BASIC METABOLIC PANEL Routine 08/11/2025 7:25 AM EDT HC AUTO CBC WITH DIFF Routine 08/11/2025 7:25 AM EDT SED RATE Routine 08/10/2025 6:08 AM EDT MAGNESIUM LEVEL, BLOOD Routine 6:08 AM EDT BASIC METABOLIC PANEL Routine 08/10/2025 6:08 AM EDT HC AUTO CBC WITH DIFF Routine 08/10/2025 6:08 AM EDT ECG 12-LEAD Routine 08/10/2025 MRI BRAIN WO IV CONTRAST Routine 08/09/2025 7:38 PM EDT AMMONIA Routine 08/09/2025 5:05 PM EDT VITAMIN B12 Routine 08/09/2025 5:05 PM EDT TSH REFLEX Routine 08/09/2025 8:30 AM EDT BASIC METABOLIC PANEL Routine 08/09/2025 8:30 AM EDT HC AUTO CBC WITH DIFF Routine 08/09/2025 8:30 AM EDT MAGNESIUM LEVEL, BLOOD Routine 8:31 AM EDT PHOSPHORUS LEVEL Routine 08/08/2025 8:31 AM EDT HC AUTO CBC WITH DIFF Routine 08/08/2025 8:31 AM EDT COMPREHENSIVE METABOLIC PANEL Routine 08/08/2025 8:31 AM EDT HC AUTO CBC WITH DIFF Routine 08/07/2025 5:56 AM EDT PHOSPHORUS LEVEL Routine 08/07/2025 5:56 AM EDT MAGNESIUM LEVEL, BLOOD Routine 5:56 AM EDT COMPREHENSIVE METABOLIC PANEL Routine 08/07/2025 5:56 AM EDT CK Routine 08/07/2025 2:[address] BRAIN WO IV CONTRAST STAT 08/06/2025 5:53 PM EDT URINALYSIS WITH REFLEX TO CULTURE Routine 08/06/2025 5:16 PM EDT CONVERSION BUPRENORPHINE SUBOXONE SCREEN Routine 08/06/2025 5:16 PM EDT URINE DRUG SCREEN STAT 08/06/2025 5:1 6 PM EDT ACETAMINOPHEN LEVEL STAT 08/06/2025 4 :06 PM EDT SALICYLATE LEVEL STAT 08/06/2025 4:06 PM EDT ETHANOL LEVEL STAT 08/06/2025 4:06 PM EDT COMPREHENSIVE METABOLIC PANEL STAT 08/06/2025 4:06 PM EDT HC AUTO CBC WITH DIFF STAT 08/06/2025 4:06 PM EDT ECG 12-LEAD STAT 08/06/2025 3:49 PM EDT from Last 3 Months Results * (ABNORMAL) Potassium Level (08/14/2025 2:51 AM EST) Potassium 3.2(L) 3.6 - 5.1 mEq/L 08/14/2025 3:21 AM EST [facility] Comment:Specimen hemolyzed, results affected 08/14/2025 2:51 AM EST 08/14/2025 3:13 AM EST us Sina Franco MD LAB BLOOD ORDERABLES Final Resu lt [facility] [address] [place] [address], [facility] [address] [place] [address] * COVID-19,Influenza A/B & RSV,PCR - 1hr turnaround time, limited testing supply: should be used only when rapid result is clinically necessary (08/14/2025 2:15 AM EST) Influenza-A PCR Not Detected 08/14/2025 3:10 AM Merged with [facility] Influenza-B PCR Not Detected 08/14/2025 3:10 AM Merged with [facility] RSV PCR Not Detected 08/14/2025 3:10 AM Merged with [facility] SARS-CoV-2 Not Detected 08/14/2025 3:10 AM Merged with [facility] COVID-19,Influenza A/B RSV Comment Footnote 08/14/2025 3:10 AM Merged with [facility] Comment: The COVID-19, Influenza A/B & RSV, PCR assay is only for use under a Food and Drug Administration Emergency Use Authorization. The performance characteristics of the assay were verified by the Clinical Microbiology Laboratory at [facility]. Results should be used in conjunction with the patient's clinical symptoms, medical history and other clinical/laboratory findings to determine an overall clinical diagnosis. Negative results do not preclude infection with SARS-CoV-2, Influenza A/B or RSV. Test parameters have not been validated for screening in asymptomatic patients. Swab NASOPHARYNGEAL STRUCTURE / Unknown 08/14/2025 2:15 AM EST 08/14/2025 2:22 AM EST us Sina Franco MD BODY FLUIDS AND STOOLS ORDERABL ES Final Result Performing Organization Address City/[facility]/ZIP Co de Phone Number [facility] [address] [place] [address], [facility] [address] [place] [address] * Magnesium Level, Blood (08/14/2025 1:43 AM EST) Only the most recent of4 resultswithin the time period is included. MAGNESIUM LEVEL, BLOOD 1.8 1.6 - 2.3 mg/dL 08/14/2025 2:26 AM EST [facility] 08/14/2025 1:43 AM EST 08/14/2025 1:48 AM EST us Sina Franco MD LAB BLOOD ORDERABLES Final Resu lt [facility] [address] [place] [address], [facility] [address] [place] [address] * (ABNORMAL) Basic Metabolic Panel (08/14/2025 1:43 AM EST) Only the most recent of5 resultswithin the time period is included. Glucose 96 67 - 99 MG/DL 08/14/2025 [...] 20(H) 3 - 13 08/14/2025 2:26 AM Merged with [facility] Calcium 9.3 8.4 - 10.2 MG/DL 08/14/2025 2:26 AM Merged with [facility] Blood 08/14/2025 1:43 AM EST 08/14/2025 1:48 AM EST us Sina Franco MD LAB BLOOD ORDERABLES Final Resu lt [facility] [address] [place] [address], [facility] [address] [place] [address] * (ABNORMAL) CBC WITH DIFF (08/14/2025 1:43 AM EST) Only the most recent of9 resultswithin the time period is included. WBC 15.2(H) 4.2 - 10.0 [id number]/L 08/14/2025 1:56 AM Merged with [facility] RBC 4.63 4.50 - 5.60 a93fpd49/ L 08/14/2025 1:56 AM [facility] Platelets 238 168 - 382 [id number]/L 08/14/2025 1:56 AM [facility] MPV 10.6 9.6 - 12.5 fL 08/14/2025 1:56 AM Merged with [facility] NRBC % 0.0 -1.0 - 0.0 % 08/14/2025 1:56 AM Merged with [facility] NRBC (absolute) 0.0 [id number]/L 1:56 AM Merged with [facility] Immature Granulocytes % 0.8 % 08/14/2025 1:56 AM [facility] Immature Granulocytes (absolute) 0.1 0.0 - 0.1 [id number]/L 08/14/2025 1:56 AM Merged [facility] Seg Neutrophil % 82.7 % 08/14/20 1:56 AM [facility] Seg Neutrophil (absolute) 12.5(H) 1.9 - 6.7 [id number]/L 08/14/2025 1:56 AM [facility] Lymphocyte % 9.3 % 08/14/2025 1:56 AM [facility]erged [facility] Lymphocyte (absolute) 1.4 1.0 - 3.3 [id number]/L 08/14/2025 1:56 AM Merged [facility] Monocyte % 6.8 % 08/14/2025 1:56 AM [facility]erg[facility] Monocyte (absolute) 1.0(H) 0.3 - 0.9 [id number]/L 08/14/2025 1:56 AM [facility]erg[facility] with [facility] Eosinophil % 0.2 % 08/14/2025 1:56 AM [facility]erged [facility] Eosinophil (absolute) 0.0 0.0 - 0.4 [id number]/L 08/14/2025 1:56 AM Merg[facility] Basophil % 0.2 % 08/14/2025 1:56 AM [facility]erg[facility] Basophil (absolute) 0.0 0.0 - 0.1 [id number]/L 08/14/2025 1:56 AM [facility] 08/14/2025 1:43 AM EST 08/14/2025 1:48 AM EST us Sina Franco MD LAB BLOOD ORDERABLES Final Resu lt Performing Organization Address [facility]/ZIP Co de Phone Number [facility] [address] [place] [address], [facility] [address] [place] [address] * Phosphorus Level (08/14/2025 1:43 AM EST) Only the most recent of3 resultswithin the time period is included. Phosphorus 3.3 2.4 - 4.8 MG/DL 08/14/2025 2:26 AM EST [facility] Blood 08/14/2025 1:43 AM EST 08/14/2025 1:48 AM EST us Sina Franco MD LAB BLOOD ORDERABLES Final Resu lt Performing Organization Address [facility]/RUST Co de Phone Number [facility] [address] [place] [address], [facility] [address] [place] [address] * Lipase Level (08/14/2025 1:43 AM EST) Lipase 24 13 - 55 IU/L 08/14/2025 2:26 AM EST [facility] Blood 08/14/2025 1:43 AM EST 08/14/2025 1:48 AM EST us Sina Franco MD LAB BLOOD ORDERABLES Final Resu lt Performing Organization Address City/[facility]/RUST Co de Phone Number [facility] [address] [place] [address], [facility] [address] [place] [phone] * (ABNORMAL) Ethanol Level (08/14/2025 1:43 AM EST) Only the most recent of2 resultswithin the time period is included. Ethanol Level 65(H) Not Detected MG/DL 08/14/2025 2:26 AM EST [facility] Comment:Gross hemolysis, miguel angel luate with caution Blood 08/14/2025 1:43 AM EST 08/14/2025 1:48 AM EST us Sina Franco MD LAB BLOOD ORDERABLES Final Resu lt Performing Organization Address City/[facility]/ZIP Co de Phone Number [facility] [address] [place] [address], [facility] [address] [place] [address] * Acetaminophen Level (08/14/2025 1:43 AM EST) Only the most recent of2 resultswithin the time period is included. Acetaminophen Level <5 0 - 5 ug/mL 08/14/2025 2:26 AM EST [facility] Comment:Acetaminophen Refere nce Range: Negative <5 ug/mL Blood 08/14/2025 1:43 AM EST 08/14/2025 1:48 AM EST us Sina Franco MD LAB BLOOD ORDERABLES Final Resu lt Performing Organization Address [facility]/RUST Co de Phone Number [facility] [address] [place] [address], [facility] [address] [place] [phone] * (ABNORMAL) Salicylate Level (08/14/2025 1:43 AM EST) Only the most recent of2 resultswithin the time period is included. Salicylate Level 1.0(A) MG/DL 08/14/2025 2:26 AM EST [facility] Comment: Salicylate Reference Range: Negative <1.0 mg/dL Therapeutic Range: 2.0-20.0 mg/dL Blood 08/14/2025 1:43 AM EST 08/14/2025 1:48 AM EST us Sina Franco MD LAB BLOOD ORDERABLES Final Resu lt Performing Organization Address [facility]/RUST Co de Phone Number [facility] [address] [place] [phone], [facility] [address] [place] [phone] * (ABNORMAL) Hepatic Function Panel (08/14/2025 1:43 AM EST) Albumin 4.2 3.4 - 5.1 G/DL 08/14/2025 2:26 AM EST [facility] Bilirubin, Total 0.3 0.1 - 1.2 mg/dL 08/14/2025 2:26 AM Merged [facility] Bilirubin, Direct <0.1 0.0 - 0.4 MG/DL 08/14/2025 2:26 AM EST [facility] Comment:Specimen hemolyzed, results affected, evaluate with caution. Alkaline Phosphatase 93 40 - 129 U/L 08/14/2025 2:26 AM EST [facility] Comment:Gross hemolysis, miguel angel luate with caution Protein, Total 7.7 6.1 - 8.3 g/dL 08/14/2025 2:26 AM EST [facility] ALT 51 14 - 63 U/L 08/14/2025 2:26 AM Merged with [facility] Comment:Gross hemolysis, miguel angel luate with caution AST (SGOT) 124(H) 15 - 41 U/L 08/14/2025 2:26 AM Merged with [facility] Blood 08/14/2025 1:43 AM EST 08/14/2025 1:48 AM EST us Sina Franco MD LAB BLOOD ORDERABLES Final Resu lt [facility] [address] [place] [address], [facility] [address] [place] [address] * (ABNORMAL) Comprehensive Metabolic Panel (08/13/2025 8:30 AM EST) Only the most recent of4 resultswithin the time period is included. Pathologist [facility] Glucose 112(H) 67 - 99 MG/DL 08/13/2025 1:21 PM EST [facility] BUN 9 6 - 24 MG/DL 08/13/2025 1:21 PM Merged with [facility] Creat Level 1.00 0.64 - 1.27 MG/DL 08/13/2025 1:21 PM Merged [facility] eGFR 101 >90 mL/min/1.7 3m exp2 08/13/2025 1:21 PM Merged with [facility] Comment:Calculated using the CKD-epi 2020 race-free equation. BUN Creatinine Ratio 9 08/13/2025 1:21 PM Merged with [facility] Sodium 139 135 - 145 mEq/L 08/13/2025 1:21 PM Merged with [facility] Potassium 4.1 3.6 - 5.1 mEq/L 08/13/2025 1:21 PM Merged with [facility] Chloride 102 98 - 110 mEq/L 08/13/2025 1:21 PM [facility]erged [facility] CO2 24 20 - 29 mEq/L 08/13/2025 1:21 PM Merged with [facility] Anion Gap 13 3 - 13 08/13/2025 1:21 PM Merged with [facility] Albumin 3.6 3.4 - 5.1 G/DL 08/13/2025 1:21 PM Merged with [facility] Alkaline Phosphatase 97 40 - 129 U/L 08/13/2025 1:21 PM Merged with [facility] ALT 35 14 - 63 U/L 08/13/2025 1:21 PM Merged with [facility] AST (SGOT) 52(H) 15 - 41 U/L 08/13/2025 1:21 PM [facility]erged with [facility] Bilirubin, Total <0.2 0.1 - 1.2 mg/dL 08/13/2025 1:21 PM Merged with [facility] Calcium 8.6 8.4 - 10.2 MG/DL 08/13/2025 1:21 PM [facility]erged with [facility] Protein, Total 6.1 6.1 - 8.3 g/dL 08/13/2025 1:21 PM [facility] Blood 08/13/2025 8:30 AM EST 08/13/2025 9:09 AM EST us Shaquille Brooks MD LAB BLOOD ORDERABLES Final Resul t [facility] [address] [place] [address], [facility] [address] [place] [address] * Erythrocyte Sedimentation Rate (ESR) (08/10/2025 6:08 AM EDT) Sed Rate 14 0 - 15 mm/h 08/10/2025 2:27 PM EDT [facility] 08/10/2025 6:08 AM EDT 08/10/2025 7:21 AM EDT Divina Mercer MD LAB BLOOD ORDERABLES Final Re sult Performing Organization Address [facility]/RUST Co de Phone Number [facility] [address] [place] [address], [facility] [address] [place] [address] * ECG 12 Lead (08/10/2025) RR Interval 760 ms [facility] Atrial Rate 79 ms [facility] P-R Interval 131 ms [facility] QRSD Interval 101 ms [facility] QT Interval 29 deg [facility] QTC Interval 33 deg [facility] P [place] 500 ms [facility] QRS [place] 92 ms [facility] T Wave [place] 379 ms [facility] QTcB 435 ms [facility] QTcF 415 ms [facility] QRS Horizontal [place] -25 deg [facility] QRS [place] 58 deg [facility] I-40 Horizontal [place] 69 deg [facility] C[facility] I-40 Front [place] 87 deg [facility] T-40 Horizontal [place] -51 deg [facility] C[facility] T-40 Front [place] 57 deg [facility] T Horizontal [place] 72 deg [facility] T Wave [place] 56 deg [facility] S-T Horizontal [place] 79 deg [facility] S-T Front [place] 59 deg [facility] ECG Impression - NORMAL ECG - [facility] 08/10/2025 Impressions [facility] - 08/10/2025 12:26 PM EDT SR Sinus rhythm normal P axis, V-rate 60-99 Narrative Procedure Note Adrienne Harris MD - 08/10/2025 SR Sinus rhythm normal P axis, V-rate 60-99 us Daiana Arreola [employer] ECG ORDERABLES Edited Res ult - Final Performing Organization Address City/[facility]/ZIP Co de Phone Number [facility] * MRI Brain WO IV Contrast (08/09/2025 7:38 PM EDT) Anatomical Region Laterality Modality Magnetic Resonan ce Impressions 08/10/2025 8:42 AM EDT IMPRESSION: No MR evidence of acute intracranial process Signing Doctor: Damian Ghosh Contributing Doctor: Date Signed:08/10/2025 8:42 AM Patient DOS:08/09/2025 6:46 PM Exam:[id number] MRI BRAIN WO IV CONTRAST [facility] Narrative 08/10/2025 8:42 AM EDT HISTORY: Headache, [...] Signed:08/10/2025 8:42 AM Patient DOS:08/09/2025 6:46 PM Exam:[id number] MRI BRAIN WO IV CONTRAST [facility] David Rajan MD [facility] MRI ORDERABLES Final Resu lt * Ammonia (08/09/2025 5:05 PM EDT) NH3 Ammonia 57 16 - 60 umol/L 08/09/2025 5:43 PM EDT [facility] Blood 08/09/2025 5:05 PM EDT 08/09/2025 5:10 PM EDT David Rajan MD LAB BLOOD ORDERABLES Final Re sult [facility] [address] [place] [address], [facility] [address] [place] [address] * Vitamin B12 (08/09/2025 5:05 PM EDT) [facility] Vitamin B-12 470 232 - 1,245 pg/mL 08/10/2025 8:53 AM EDT [facility] Blood 08/09/2025 5:05 PM EDT 08/09/2025 5:42 PM EDT David Rajan MD LAB BLOOD ORDERABLES Final Re sult [facility] [address] [place] [address], [facility] [address] [place] [address] * TSH Reflex (08/09/2025 8:30 AM EDT) [facility] TSH, High Sensitivity 3.990 0.330 - 4.120 uIU/ML 08/09/2025 6:57 PM EDT [facility] 08/09/2025 8:30 AM EDT 08/09/2025 8:52 AM EDT Divina Mercer MD LAB BLOOD ORDERABLES Final Re sult [facility] [address] [place] [address], [facility] [address] [place] [address] * CK (08/07/2025 2:09 AM EDT) [facility] CK Total 155 22 - 247 IU/L 08/07/2025 2:57 AM EDT [facility] Blood 08/07/2025 2:09 AM EDT 08/07/2025 2:31 AM EDT Surekha Hernandez MD LAB BLOOD ORDERABLES Final Resu lt [facility] [address] [place] [address], [facility] [address] [place] [address] * CT Brain WO IV Contrast (08/06/2025 5:53 PM EDT) Anatomical Region Laterality Modality Computed Tomogra phy 08/06/2025 5:48 PM EDT Impressions 08/06/2025 6:51 PM EDT IMPRESSION: No acute intracranial pathology. THIS DOCUMENT HAS BEEN ELECTRONICALLY SIGNED BY GERHARD MILLS MD on 08/06/2025 06:51 PM Narrative [...] bony pathology. Soft tissues: Unremarkable. Procedure Note Gerhard Mills - 08/06/2025 PROCEDURE INFORMATION: Exam: CT [...] THIS DOCUMENT HAS BEEN ELECTRONICALLY SIGNED BY GERHARD MILLS MD on08/06/2025 06:51 PM Americo Allred DO [facility] ORDERABLES Final Result * Urinalysis with reflex to culture (08/06/2025 5:16 PM EDT) Color, Ur Yellow yellow 08/06/2025 5:56 PM EDT [facility] Appearance, Ur Clear slightly cloudy 08/06/2025 5:56 PM EDT [facility] Glucose, Ur negative negative mg/dL 08/06/2025 5:56 PM EDT [facility] Bilirubin, Ur negative negative mg/dL 08/06/2025 5:56 PM EDT [facility] Ketones, Ur negative negative mg/dL 08/06/2025 5:56 PM EDT [facility] Specific [place], Ur 1.015 1.010 - 1.030 08/06/2025 5:56 PM EDT [facility] Blood, Ur negative negative mg/dL 08/06/2025 5:56 PM EDT [facility] pH, Ur 7.5 5.0 - 8.0 08/06/2025 5:56 PM EDT [facility] Protein, Ur negative negative mg/dL 08/06/2025 5:56 PM EDT [facility] Urobilinogen, Ur 0.2 normal E.U./dL 08/06/2025 5:56 PM EDT [facility] Nitrite Level, Ur negative negative 08/06/2025 5:56 PM EDT [facility] Leukocytes Est, Ur negative negative mg/dL 08/06/2025 5:56 PM EDT [facility] 08/06/2025 5:16 PM EDT 08/06/2025 5:20 PM EDT Americo Allrde DO URINE ORDERABLES Final Result [facility] [address] [place] [id number], [facility] [address] [place] [address] * (ABNORMAL) Urine Drug Screen (08/06/2025 5:16 PM EDT) Amphetamine Scrn, Ur POSITIVE SCREEN(A) 08/06/2025 5:41 PM EDT [facility] Benzodiazepine Screen, Urine POSITIVE SCREEN(A) 08/06/2025 5:41 PM EDT [facility] Cannabinoid Screen, Urine POSITIVE SCREEN(A) 08/06/2025 5:41 PM EDT [facility] Cocaine Screen, Ur None Detected 08/06/2025 5:41 PM EDT [facility] Fentanyl Screen, Urine None Detected 08/06/2025 5:41 PM EDT [facility] Comment: This test was developed and [...] Urine None Detected 08/06/2025 5:41 PM EDT [facility] Opiate Screen, Urine None Detected 08/06/2025 5:41 PM EDT [facility] Comment: Note: Drug of abuse immunoassay [...] Drug Specimen Rec'd 08/06/2025 5:41 PM EDT [facility] Oxycodone Scrn, Ur None Detected 08/06/2025 5:41 PM EDT [facility] Urine 08/06/2025 5:16 PM EDT 08/06/2025 5:20 PM EDT Americo Chalino DO URINE ORDERABLES Final Result Performing Organization Address City/[facility]/ZIP Co de Phone Number [facility] [address] [place] [phone], [facility] [address] [place] [id number] [facility] [address] [place] [address] * (ABNORMAL) Buprenorphine Suboxone Screen (08/06/2025 5:16 PM EDT) Buprenorphine Suboxone Scrn POSITIVE SCREEN(A) 08/06/2025 5:41 PM EDT [facility] 08/06/2025 5:16 PM EDT 08/06/2025 5:20 PM EDT us Americo Chalino DO LAB BLOOD ORDERABLES Final Res ult [facility] [address] [place] [id number], [facility] [address] [place] [phone] from Last 3 Months Insurance Advance Directives For more information, please contact: [phone] * Full Code (Latest Code Status on File) Date Activated Date Inactivated Comments 08/06/2025 8:00 PM 08/13/2025 11:48 PM 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
--- OUTSIDE RECORDS SUMMARY | 2025-08-14 17:58 | XMS_ITS | Clinical Summary ---
Author Organization [facility] Address [address] [place] [address] Care Team Providers Care Product Development Ecologist Name Role Phone Maru Church NP Primary Care Provider [phone] Allergies Active Allergy Reactions Criticality Noted Date Comments Quetiapine Rash Low 05/25/2018 Medications acetaminophen 325 MG tablet take 2 tablets every 6 hours as needed for pain/fever 240 tablet 11/11/2023 9:37 AM EST 4 Active escitalopram 20 MG tablet Take 1 tablet ONCE A DAY for Depression 30 tablet 11/11/2023 9:37 AM EST 4 Active multivitamin with minerals (ONE-DAILY MULTI-VITAMIN) tablet Take 1 tablet ONCE A DAY for Supplement 30 tablet 4 Active melatonin 10 MG capsule Take 1 capsule AT BEDTIME As Needed for Sleeplessness 30 capsule 11/11/2023 9:37 AM EST 4 Active benzocaine-ment hol (CEPACOL EXTRA STRENGTH) 15-2.6 MG per lozenge Dissolve 1 lozenge in mouth every 2 hours 17 lozenge 11/11/2023 9:37 AM EST 4 Active chlorproMAZINE 100 MG tablet take 3 tablets at bedtime for sleeplessness 90 tablet 11/11/2023 9:37 AM EST 4 Active docusate sodium (DOCU SOFT) 100 MG capsule Take 1 capsule TWICE A DAY As Needed for Constipation 60 capsule 11/11/2023 9:37 AM EST 4 Active levETIRAcetam 500 MG tablet Take 1 tablet TWICE A DAY for Seizure Disorder 60 tablet 11/11/2023 9:37 AM EST 4 Active buprenorphine-n aloxone (SUBOXONE) 8-2 MG per sublingual film Take 1 film Sublingual TWICE A DAY for Opioid dependence,uncomp licated 60 each 11/11/2023 9:37 AM EST 4 Active Additional Information Patient taking differently: 1 Film Sublingual Daily, Reported on 10/18/2024 ibuprofen (IBU) 600 MG tablet Take 1 tablet EVERY 6 HOURS As Needed for Pain 120 tablet 11/11/2023 9:37 AM EST 4 Active cyclobenzaprine (FLEXERIL) 10 MG tablet take 1 tablet twice a day as needed for pain 60 tablet 11/11/2023 9:37 AM EST 4 Active dicyclomine (BENTYL) 10 MG capsule Take 1 capsule (10 mg total) by mouth 3 (three) times a day as needed (stomach cramps) Active ondansetron (ZOFRAN) 4 MG tablet Take 1 tablet (4 mg total) by mouth every 8 (eight) hours as needed for nausea or vomiting Active cloNIDine (CATAPRES) 0.1 MG tablet 1 tablet (0.1 mg total) 3 (three) times a day as needed for anxiety Active famotidine 20 MG tablet Take 1 tablet (20 mg total) by mouth daily as needed for heartburn Active buprenorphine (SUBLOCADE) 300 MG/1.5ML extended release injection prefilled syringe Inject 1.5 mL (300 mg total) under the skin every 30 (thirty) days 4 Active clonazePAM (KlonoPIN) 1 MG tablet Take 1 tablet (1 mg total) by mouth daily 4 Active methylphenidate (RITALIN) 10 MG tablet Take 2 tablets (20 mg total) by mouth 2 (two) times a day before breakfast and lunch Max Daily Amount: 40 mg Active nicotine 21 MG/24HR transdermal system patch Place 1 patch on the skin daily 3 Active buPROPion (WELLBUTRIN XL) 300 MG extended release 24 hr tablet (XL) Take 1 tablet (300 mg total) by mouth daily Active gabapentin (NEURONTIN) 400 MG capsule Take 1 capsule (400 mg total) by mouth 3 (three) times a day Active nicotine polacrilex 4 MG gum Chew 1 gum (4 mg total) slowly in mouth every hour as needed for smoking cessation Active Active Problems Problem Noted Date Diagnosed Date Suicidal ideation 01/16/2024 Altered mental state 12/17/2023 Depression 06/28/2023 Paranoid behavior 02/17/2023 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 Tylenol overdose 05/08/2017 Acetaminophen overdose, inte ntional self-harm, initial encounter 04/30/2017 Severe alcohol withdrawal delirium 09/16/2015 Alcohol withdrawal delirium 09/16/2015 Immunizations Immunization Administration Dates Next Due TDAP 06/17/2021 Family History Medical History Relation Name Comments No Known Problems Father No Known Problems Mother Relation Name Status Comments Father Mother Social History Tobacco Use Types Packs/Day Years Used Date Smoking Tobacco: Every Day Cigarettes 0.5 4 Smokeless Tobacco: Former Tobacco Cessation:Ready to Q uit: Not Asked; Counseling Given: Not Answered Alcohol Use Standard Drinks/Week Comments Yes 0 (1 standard drink = 0.6 oz pur e alcohol) Sex and Gender Information Value Date Recorded Sex Assigned at Male 02/17/2023 8:17 PM EDT Legal Sex Male 11:04 AM EDT Gender Identity Male 02/17/2023 8:17 PM EDT Sexual Orientation Straight 12/17/2023 9: 17 PM EST Last Filed Vital Signs Vital Sign Reading Time Taken Comments Blood Pressure 126/67 10/18/2024 4:19 PM EST Pulse 80 10/18/2024 4:19 PM EST Temperature 36.6 C (97.8 F) 10/18/2024 1:20 AM EST Respiratory Rate 12 10/18/2024 4:19 PM EST Oxygen Saturation 99% 10/18/2024 4:19 PM EST Inhaled Oxygen Concentration - - Weight 90.7 kg (200 lb) 10/17/2024 9:27 PM EST Height 175.3 cm (5' 9 ) 10/17/2024 9:27 PM EST Body Mass Index 29.53 10/17/2024 9:27 PM EST Plan of Treatment Health Maintenance Due Date Last Done Comments Annual Physical 1994 Hepatitis B Screening 2009 Hepatitis A Vaccine (1 of 2 - Risk 2-dose series) 2010 Pneumococcal Vaccines 0-49 y rs (includes High Risk) (2 of 2 - PCV) 04/12/2016 04/12/2015 COVID-19 Vaccine (1 - 2023-2 5 season) 2025 Influenza Vaccine (#1) 2025 DTaP,Tdap,and Td Vaccines (2 - Td or Tdap) 06/17/2031 06/17/2021 HIB Vaccines Aged Out No longer eligi ble based on patient's age to complete this topic Insurance [facility] Advance Directives For more information, please contact: [phone] * Full Code (Latest Code Status on File) Date Activated Date Inactivated Comments 01/16/2024 11:21 PM 01/18/2024 1:04 PM * Full Code Date Activated Date Inactivated Comments 12/18/2023 1:28 AM 12/18/2023 8:20 AM * Full Code Date Activated Date Inactivated Comments 02/17/2023 9:43 PM 02/19/2023 12:32 PM * Full Code Date Activated Date Inactivated Comments 04/30/2017 8:27 PM 05/10/2017 10:13 PM * Full Code Date Activated Date Inactivated Comments 09/16/2015 6:46 AM 09/18/2015 5:30 PM Care Teams Product Development Ecologist Relationship Specialty Start Date End Date Maru Church NP [address] [place] [id number] PCP - General Pain Medicine 05/24/18
--- OUTSIDE RECORDS SUMMARY | 2025-08-14 17:59 | XMS_ITS | Encounter Summary ---
Author Organization [facility] Address [address] [place] [address] Care Team Providers Care Cloth Finisher Name Role Phone Maru Church NP Primary Care Provider [phone] Encounter Details Date Type Department Care Team (Late st Contact Info) Description 12/17/2023 Procedure Pass [facility] [address] [place] [address] Social History Tobacco Use Types Packs/Day Years [...] on file documented as of this encounter Visit Diagnoses Not on filedocumented in this encounter Care Teams Cloth Finisher Relationship Specialty Start Date End Date Maru Church NP [address] [place] [address] PCP - General Pain Medicine 05/24/18 documented as of this encounter
--- OUTSIDE RECORDS SUMMARY | 2025-08-14 17:59 | XMS_ITS | Encounter Summary ---
Author Organization [facility] Address [address] [place] [address] Care Team Providers Care Behavioral Health Case Manager Name Role Phone Omid Rivera MD Unavailable Omid Rivera MD Primary Care Provider [phone] Jhonny Quarles MD Primary Care Provider [phone] Pcp, Betzaida Primary Care Provider Maru Lynne NP Primary Care Provider [phone] Encounter Details Date Type Department Care Team (Late st Contact Info) Description 05/15/2016 Lab Requisition [facility] [address] [place] [address] Cira Andino NP [address] [place] [address] Encounter for general adult medical examination without abnormal findings Social History Tobacco Use Types Packs/Day Years Used Date Smoking Tobacco: Every Day Cigarettes 0.5 4 Alcohol Use Standard Drinks/Week Comments Yes 0 [...] Procedure Name Priority Date/Time Associated Diagnosis Comments HEPATITIS C RNA QUANTITATIVE PCR Routine 05/15/2016 2:33 PM EDT Encounter for general adult medical examination without abnormal findings HEMOGLOBIN A1C Routine 05/15/2016 2:33 PM EDT Encounter for general adult medical examination without abnormal findings HEPATIC FUNCTION PANEL Routine 05/15/2016 2:33 PM EDT Encounter for general adult medical examination without abnormal findings documented in this encounter Results * (ABNORMAL) Hepatitis C RNA, quantitative, PCR (05/15/2016 2:33 PM EDT) HCV Quantitative (PCR) 45,800(H) <15 IU/mL 05/24/2016 1:41 PM EDT [facility] HCV (Log) 4.66(H) <1.18 log (10) 05/24/2016 1:41 PM EDT [facility] Blood specimen (specimen) Venipuncture / Unknown 05/15/2016 2:33 PM EDT 05/15/2016 2:33 PM EDT Narrative [facility] - 05/24/2016 1:41 PM EDT This test was performed using KEISHA Ampliprep/Taqman HCV Test Kit ([employer] which is FDA approved and employs real time PCR methodology. Cira Andino NP LAB BLOOD ORDERABLES Final Res ult [facility] [address] [place] [address] * (ABNORMAL) Hepatic function panel (05/15/2016 2:33 PM EDT) Albumin 4.4 3.4 - 4.8 g/dL 05/15/2016 4:38 PM EDT [facility] Total Bilirubin 0.3 0.2 - 1.2 mg/dL 05/15/2016 4:38 PM EDT [facility] Bilirubin, Direct 0.1 0.0 - 0.3 mg/dL 05/15/2016 4:38 PM EDT [facility] AST 50(H) 0 - 40 U/L 05/15/2016 4:38 PM EDT [facility] ALT 40 0 - 45 U/L 05/15/2016 4:38 PM EDT [facility] Total Protein 6.8 6.4 - 8.6 g/dL 05/15/2016 4:38 PM EDT [facility] Alkaline Phosphatase 103 40 - 150 IU/L 05/15/2016 4:38 PM EDT [facility] Blood specimen (specimen) Venipuncture / Unknown 05/15/2016 2:33 PM EDT 05/15/2016 2:33 PM EDT Cira Andino TIRE CURER LAB BLOOD ORDERABLES Final Res ult Performing Organization Address [facility]/ZIP Co de Phone Number [facility] [address] [place] [phone] * Hemoglobin A1c (05/15/2016 2:33 PM EDT) Hemoglobin A1C 5.6 4.6 - 6.0 % 05/15/2016 7:37 PM EDT [facility] Estimated Average Glucose eAG 114.0 85.0 - 126.0 mg/dL 05/15/2016 7:37 PM EDT [facility] Blood specimen (specimen) 05/15/2016 2:33 PM EDT 05/15/2016 2:33 PM EDT Cira Andino TIRE CURER LAB BLOOD ORDERABLES Final Res ult [facility] [address] [place] [address] documented in this encounter Visit Diagnoses Diagnosis Encounter for general adult medical examination without abnormal findings documented in this encounter Care Teams Behavioral Health Case Manager Relationship Specialty Start Date End Date Omid Rivera MD PCP - Family Medicine 12/31/14 01/07/18 Omid Rivera MD PCP - General 12/31/14 01/07/18 Jhonny Quarles MD PCP - General Internal Medicine 01/08/18 04/09/18 [place] [id number] PCP - General 04/10/18 05/23/18 Maru Church NP [address] [place] [id number] PCP - General Pain Medicine 05/24/18 documented as of this encounter
--- OUTSIDE RECORDS SUMMARY | 2025-08-14 17:59 | XMS_ITS | Encounter Summary ---
Author Organization [facility] Address [address] [place] [address] Care Team Providers Care Pellet Machine Operator Name Role Phone Pcp, Betzaida Primary Care Provider Maru Lynne MEDICAL TECHNOLOGIST HEMATOLOGY Primary Care Provider [phone] Encounter Details Date Type Department Care Team (Latest Contact Info) Description 04/22/2018 Lab Requisition [facility] [address] [place] [phone] Maru Church, MEDICAL TECHNOLOGIST HEMATOLOGY [address] [place] [address] Encounter for screening for diabetes mellitus; Cocaine abuse with intoxication, uncomplicated (HCC); Viral hepatitis C without hepatic coma Social History Tobacco Use Types Packs/Day Years Used Date Smoking Tobacco: Every Day Cigarettes 0.5 4 Alcohol Use Standard Drinks/Week Comments No 0 (1 standard drink = 0.6 oz [...] Procedure Name Priority Date/Time Associated Diagnosis Comments HIV 1/2 AG+AB (4TH GEN) W/ REFLEX Routine 04/22/2018 2:03 PM EDT Encounter for screening for diabetes mellitus Cocaine abuse with intoxication, uncomplicated (HCC) Viral hepatitis C without hepatic coma HEPATITIS C RNA QUANTITATIVE PCR Routine 04/22/2018 2:03 PM EDT Encounter for screening for diabetes mellitus Cocaine abuse with intoxication, uncomplicated (HCC) Viral hepatitis C without hepatic coma CBC AND AUTO DIFFERENTIAL Routine 04/22/2018 2:03 PM EDT Encounter for screening for diabetes mellitus Cocaine abuse with intoxication, uncomplicated (HCC) Viral hepatitis C without hepatic coma HEMOGLOBIN A1C Routine 04/22/2018 2:03 PM EDT Encounter for screening for diabetes mellitus Cocaine abuse with intoxication, uncomplicated (HCC) Viral hepatitis C without hepatic coma documented in this encounter Results * Hemoglobin A1c (04/22/2018 2:03 PM EDT) Pathologist [facility] Hemoglobin A1C 5.8 4.6 - 6.0 % 04/24/2018 11:23 AM EDT [facility] Estimated Average Glucose eAG 119.8 85.0 - 126.0 mg/dL 04/24/2018 11:23 AM EDT [facility] Blood specimen (specimen) 04/22/2018 2:03 PM EDT 04/22/2018 2:03 PM EDT us Maru Church MEDICAL TECHNOLOGIST HEMATOLOGY LAB BLOOD ORDERABLES Final Re sult [facility] [address] [place] [address] * CBC and Auto Differential (04/22/2018 2:03 PM EDT) Pathologist [facility] WBC 6.7 4.8 - 11.2 10*3/ L 04/22/2018 6:01 PM EDT [facility] RBC 5.13 4.00 - 5.90 10*6/ L 04/22/2018 6:01 PM EDT [facility] HGB 15.2 14.0 - 17.2 g/dL 04/22/2018 6:01 PM EDT [facility] HCT 45.0 40.0 - 52.0 % 04/22/2018 6:01 PM EDT [facility] MCV 87.7 82.0 - 98.0 fL 04/22/2018 6:01 PM EDT [facility] MCH 29.6 27.0 - 35.0 pg 04/22/2018 6:01 PM EDT [facility] MCHC 33.8 32.0 - 37.0 g/dL 04/22/2018 6:01 PM EDT [facility] RDW 13.5 12.0 - 15.0 % 04/22/2018 6:01 PM EDT [facility] PLT 173 150 - 400 10*3/ L 04/22/2018 6:01 PM EDT [facility] MPV 9.3 7.0 - 14.0 fL 04/22/2018 6:01 PM EDT [facility] Neut % 67.3 45.0 - 85.0 % 04/22/2018 6:01 PM EDT [facility] Lymph % 25.1 15.0 - 45.0 % 04/22/2018 6:01 PM EDT [facility] [place] % 4.4 0.0 - 12.0 % 04/22/2018 6:01 PM EDT [facility] Eos % 3.0 0.0 - 7.0 % 04/22/2018 6:01 PM EDT [facility] Baso % 0.2 0.0 - 3.0 % 04/22/2018 6:01 PM EDT [facility] NRBC% 0 0 /100 WBC /100 WBC 04/22/2018 6:01 PM EDT [facility] Neut # 4.5 2.2 - 9.5 10*3/ L 04/22/2018 6:01 PM EDT [facility] Lym # 1.7 0.7 - 5.0 10*3/ L 04/22/2018 6:01 PM EDT [facility] [place] # 0.3 0.0 - 1.3 10*3/ L 04/22/2018 6:01 PM EDT [facility] Eos # 0.2 0.0 - 0.4 10*3/ L 04/22/2018 6:01 PM EDT [facility] Baso # 0.0 0.0 - 0.3 10*3/ L 04/22/2018 6:01 PM EDT [facility] Blood specimen (specimen) Venipuncture / Unknown 04/22/2018 2:03 PM EDT 04/22/2018 2:03 PM EDT us Maru Church MEDICAL TECHNOLOGIST HEMATOLOGY LAB BLOOD ORDERABLES Final Re sult Performing Organization Address [facility] Co de Phone Number [facility] [address] [place] [phone] * Hepatitis C RNA Quantitative PCR (04/22/2018 2:03 PM EDT) HCV Quantitative (PCR) <15 <15 IU/mL 04/28/2018 9:07 AM EDT [facility] Blood specimen (specimen) Venipuncture / Unknown 04/22/2018 2:03 PM EDT 04/22/2018 2:03 PM EDT Narrative [facility] - 04/28/2018 9:07 AM EDT This test was performed using KEISHA Ampliprep/Taqman HCV Test Kit ([employer] which is FDA approved and employs real time PCR methodology. us Maru Church MEDICAL TECHNOLOGIST HEMATOLOGY LAB BLOOD ORDERABLES Final Re sult Performing Organization Address [facility] Co de Phone Number [facility] [address] [place] [address] * HIV 1/2 AG+AB (4th Gen) w/Reflex (04/22/2018 2:03 PM EDT) Pathologist [facility] HIV 1-2 AG/AB (4th Gen) Nonreactive Nonreactive 04/23/2018 12:50 PM EDT [facility] Blood specimen (specimen) Venipuncture / Unknown 04/22/2018 2:03 PM EDT 04/22/2018 2:03 PM EDT us Maru Church NP LAB BLOOD ORDERABLES Final Re sult Performing Organization Address [facility] Co de Phone Number [facility] [address] [place], [place] documented in this encounter Visit Diagnoses Diagnosis Encounter for screening for diabetes mellitus Cocaine abuse with intoxication, uncomplicated (HCC) Viral hepatitis C without hepatic coma documented in this encounter Care Teams Pellet Machine Operator Relationship Specialty Start [place] [id number] PCP - General 04/10/18 05/23/18 Maru Church MEDICAL TECHNOLOGIST HEMATOLOGY [address] [place] [address] PCP - General Pain Medicine 05/24/18 documented as of this encounter
--- OUTSIDE RECORDS SUMMARY | 2025-08-14 17:59 | XMS_ITS | Encounter Summary ---
Author Organization [facility] Address [address] [place] [address] Care Team Providers Care Beam House Inspector Name Role Phone Omid Rivera MD Unavailable Omid Rivera MD Primary Care Provider [phone] Jhonny Quarles MD Primary Care Provider [phone] Pcp, Betzaida Primary Care Provider Maru Lynne NP Primary Care Provider [phone] Encounter Details Date Type Department Care Team (Latest Contact Info) Description 02/17/2016 Lab Requisition [facility] [address] [place] [address] Cira Andino NP [address] [place] [address] Encounter for screening for infections with predominantly sexual mode of transmission Social History Tobacco Use Types Packs/Day Years [...] 1/2 AG+AB (4TH GEN) W/ REFLEX Routine 02/17/2016 10:45 AM EDT Encounter for screening for infections with predominantly sexual mode of transmission HEPATITIS B CORE ANTIBODY TOTAL Routine 02/17/2016 10:45 AM EDT Encounter for screening for infections with predominantly sexual mode of transmission HEPATITIS C RNA QUANTITATIVE PCR Routine 02/17/2016 10:45 AM EDT Encounter for screening for infections with predominantly sexual mode of transmission CBC AND AUTO DIFFERENTIAL Routine 02/17/2016 10:45 AM EDT Encounter for screening for infections with predominantly sexual mode of transmission LIPID PANEL Routine 02/17/2016 10:45 AM EDT Encounter for screening for infections with predominantly sexual mode of transmission COMPREHENSIVE METABOLIC PANEL Routine 02/17/2016 10:45 AM EDT Encounter for screening for infections with predominantly sexual mode of transmission documented in this encounter Results * Hepatitis B core antibody, total (02/17/2016 10:45 AM EDT) Hep B Core Total Ab Nonreactive Nonreactive 02/18/2016 9:00 AM EDT [facility] Blood specimen (specimen) Venipuncture / Unknown 02/17/2016 10:45 AM EDT 02/17/2016 10:45 AM EDT us Cira Andino NP LAB BLOOD ORDERABLES Final Res ult [facility] [address] [place] [address] * (ABNORMAL) Hepatitis C RNA, quantitative, PCR (02/17/2016 10:45 AM EDT) HCV Quantitative (PCR) 95,900(H) 0 - 15 IU/mL 02/20/2016 10:45 AM EDT [facility] HCV (Log) 4.98 log (10) 02/20/2016 10:45 AM EDT [facility] Blood specimen (specimen) Venipuncture / Unknown 02/17/2016 10:45 AM EDT 02/17/2016 10:45 AM EDT Narrative [facility] - 02/20/2016 10:45 AM EDT This test was performed using KEISHA Ampliprep/Taqman HCV Test Kit ([employer] which is FDA approved and employs real time PCR methodology. Cira Andino NP LAB BLOOD ORDERABLES Final Res ult [facility] [address] [place], [place] * (ABNORMAL) Comprehensive metabolic panel (02/17/2016 10:45 AM EDT) Sodium 140 137 - 147 mEq/L 02/17/2016 1:49 PM [facility] Potassium 5.3 3.5 - 5.4 mEq/L 02/17/2016 1:49 PM [facility] Chloride 105 96 - 107 mEq/L 02/17/2016 1:49 PM [facility] CO2 25 24 - 34 mEq/L 02/17/2016 1:49 PM [facility] Anion Gap 10 4 - 15 mEq/L 02/17/2016 1:49 PM [facility] Glucose 108(H) 70 - 100 mg/dL 02/17/2016 1:49 PM [facility] Creatinine 0.88 0.60 - 1.50 mg/dL 02/17/2016 1:49 PM [facility] eGFR >60 60 - 115 mL/min 02/17/2016 1:49 PM [facility] BUN 10 6 - 26 mg/dL 02/17/2016 1:49 PM [facility] Calcium 9.1 8.7 - 10.5 mg/dL 02/17/2016 1:49 PM [facility] Total Protein 7.0 6.4 - 8.6 g/dL 02/17/2016 1:49 PM [facility] Albumin 4.5 3.4 - 4.8 g/dL 02/17/2016 1:49 PM [facility] A/G Ratio 1.8 1.0 - 2.3 02/17/2016 1:49 PM EDT [facility] Total Bilirubin 0.3 0.2 - 1.2 mg/dL 02/17/2016 1:49 PM EDT [facility] AST 51(H) 0 - 40 U/L 02/17/2016 1:49 PM EDT [facility] Alkaline Phosphatase 118 40 - 150 IU/L 02/17/2016 1:49 PM EDT [facility] ALT 46(H) 0 - 45 U/L 02/17/2016 1:49 PM EDT [facility] Blood specimen (specimen) Venipuncture / Unknown 02/17/2016 10:45 AM EDT 02/17/2016 10:45 AM EDT us Cira Andino NP LAB BLOOD ORDERABLES Final Res ult Performing Organization Address City/[facility]/ZIP Co de Phone Number [facility] [address] [place] [phone] * HIV 1/2 AG+AB (4th Gen) w/Reflex (02/17/2016 10:45 AM EDT) HIV 1-2 AG/AB (4th Gen) Nonreactive Nonreactive 02/17/2016 5:28 PM EDT [facility] Blood specimen (specimen) Venipuncture / Unknown 02/17/2016 10:45 AM EDT 02/17/2016 10:45 AM EDT Cira Andino NP LAB BLOOD ORDERABLES Final Res ult [facility] [address] [place], [place] * CBC and Auto Differential (02/17/2016 10:45 AM EDT) WBC 6.4 4.8 - 11.2 10*3/ L 02/17/2016 1:05 PM EDT [facility] RBC 5.25 4.00 - 5.90 10*6/ L 02/17/2016 1:05 PM [facility] HGB 14.6 14.0 - 17.2 g/dL 02/17/2016 1:05 PM [facility] HCT 44.3 40.0 - 52.0 % 02/17/2016 1:05 PM [facility] MCV 84.4 82.0 - 98.0 fL 02/17/2016 1:05 PM [facility] MCH 27.8 27.0 - 35.0 pg 02/17/2016 1:05 PM [facility] MCHC 32.9 32.0 - 37.0 g/dL 02/17/2016 1:05 PM [facility] RDW 13.9 9.0 - 17.9 % 02/17/2016 1:05 PM [facility] PLT 174 150 - 400 10*3/ L 02/17/2016 1:05 PM [facility] MPV 9.0 7.0 - 14.0 fL 02/17/2016 1:05 PM [facility] Neut % 62.8 45.0 - 85.0 % 02/17/2016 1:05 PM [facility] Lymph % 29.0 15.0 - 45.0 % 02/17/2016 1:05 PM [facility] Esmeralda % 4.6 0.0 - 12.0 % 02/17/2016 1:05 PM [facility] Eos % 3.3 0.0 - 7.0 % 02/17/2016 1:05 PM [facility] Baso % 0.3 0.0 - 3.0 % 02/17/2016 1:05 PM [facility] Neut # 4.0 10*3/ L 02/17/2016 1:05 PM [facility] NRBC% 0 0 /100 WBC /100 WBC 02/17/2016 1:05 PM [facility] Blood specimen (specimen) Venipuncture / Unknown 02/17/2016 10:45 AM EDT 02/17/2016 10:45 AM EDT Cira Andino FLOOR INSPECTOR LAB BLOOD ORDERABLES Final Res ult Performing Organization Address [facility]/ZIP Co de Phone Number [facility] [address] [place] [phone] * (ABNORMAL) Lipid panel (02/17/2016 10:45 AM EDT) Cholesterol 178 0 - 199 mg/dL 02/17/2016 1:49 PM EDT [facility] Triglycerides 72 10 - 200 mg/dL 02/17/2016 1:49 PM EDT [facility] HDL 37.1 35.0 - 70.0 mg/dL 02/17/2016 1:49 PM EDT [facility] LDL Calculated 127(H) 0 - 100 mg/dL 02/17/2016 1:49 PM EDT [facility] Cardiac Risk Factor 4.8 0.0 - 5.0 02/17/2016 1:49 PM EDT [facility] Blood specimen (specimen) Venipuncture / Unknown 02/17/2016 10:45 AM EDT 02/17/2016 10:45 AM EDT Narrative [facility] - 02/17/2016 1:49 PM EDT CARDIAC RISK FACTOR: Males Females 2X Average Risk 9.6 7.1 3X Average Risk 23.4 11.0 Cira Andino FLOOR INSPECTOR LAB BLOOD ORDERABLES Final Res ult Performing Organization Address City/[facility]/ZIP Co de Phone Number [facility] [address] [place] [phone] documented in this encounter Visit Diagnoses Diagnosis Encounter for screening for infections with predominantly sexual mode of transmission documented in this encounter Care Teams Beam House Inspector Relationship Specialty Start Date End Date Omid Rivera MD PCP - Family Medicine 12/31/14 01/07/18 Omid Rivera MD PCP - General 12/31/14 01/07/18 Jhonny Quarles MD PCP - General Internal Medicine 01/08/18 04/09/18 Pcp, Betzaida [id number] PCP - General 04/10/18 05/23/18 Maru Church NP [address] [place] [address] PCP - General Pain Medicine 05/24/18 documented as of this encounter
--- OUTSIDE RECORDS SUMMARY | 2025-08-14 17:59 | XMS_ITS | Encounter Summary ---
Author Organization [facility] Address [address] [place] [address] Care Team Providers Care Copper Etcher Name Role Phone Maru Church NP Primary Care Provider [phone] Encounter Details Date Type Department Care Team (Late st Contact Info) Description 11/11/2023 Pharmacy Visit [facility] [address] [place] [address] Social History Tobacco Use Types [...] on filedocumented in this encounter Care Teams Copper Etcher Relationship Specialty Start Date End Date Maru Church NP [address] [place] [address] PCP - General Pain Medicine 05/24/18 documented as of this encounter
--- OUTSIDE RECORDS SUMMARY | 2025-08-14 17:59 | XMS_ITS | Encounter Summary ---
Author Organization [facility] Address [address] [place] [address] Care Team Providers Care Geophysical E Logger Name Role Phone Maru Church NP Primary Care Provider [phone] Encounter Details Date Type Department Care Team (Late st Contact Info) Description 12/17/2023 Procedure Pass [facility] [address] [place] [address] Social History Tobacco Use Types [...] on filedocumented in this encounter Care Teams Geophysical E Logger Relationship Specialty Start Date End Date Maru Church NP [address] [place] [address] PCP - General Pain Medicine 05/24/18 documented as of this encounter
--- OUTSIDE RECORDS SUMMARY | 2025-08-14 17:59 | XMS_ITS | Encounter Summary ---
Author Organization [facility] Address [address] [place] [address] Care Team Providers Care Blind Teacher Name Role Phone Maru Church NP Primary Care Provider [phone] Encounter Details Date Type Department Care Team (Late st Contact Info) Description 06/17/2021 Procedure Pass [facility] - [address] [address] Social History Tobacco Use Types Packs/Day Years Used Date Smoking Tobacco: Every Day Cigarettes 0.5 4 Smokeless Tobacco: Former Alcohol Use Standard Drinks/Week Comments No 0 [...] on filedocumented in this encounter Care Teams Blind Teacher Relationship Specialty Start Date End Date Maru Church NP [address] [place] [address] PCP - General Pain Medicine 05/24/18 documented as of this encounter
--- OUTSIDE RECORDS SUMMARY | 2025-08-14 17:59 | XMS_ITS | Encounter Summary ---
Author Organization [facility] Address [address] [place] [address] Care Team Providers Care Foreign Policy Officer Name Role Phone Maru Church NP Primary Care Provider [phone] Encounter Details Date Type Department Care Team (Late st Contact Info) Description 06/17/2021 Procedure Pass [facility] - [address] [address] Social History Tobacco Use Types [...] on filedocumented in this encounter Care Teams Foreign Policy Officer Relationship Specialty Start Date End Date Maru Church NP [address] [place] [address] PCP - General Pain Medicine 05/24/18 documented as of this encounter
--- OUTSIDE RECORDS SUMMARY | 2025-08-14 17:59 | XMS_ITS | Encounter Summary ---
Author Organization [facility] Address [address] [place] [address] Care Team Providers Care Electrician Apprentice Powerhouse Name Role Phone Omid Rivera MD Unavailable Omid Rivera MD Primary Care Provider [phone] Jhonny Quarles MD Primary Care Provider [phone] Pcp, Betzaida Primary Care Provider Maru Lynne NP Primary Care Provider [phone] Encounter Details Date Type Department Care Team (Late st Contact Info) Description 10/29/2015 Lab Requisition [address] [address] Ana Madrigal [address] [place], [place] Encounter for long-term (current) use of medications Social History Tobacco Use Types Packs/Day Years [...] Procedure Name Priority Date/Time Associated Diagnosis Comments TOXICOLOGY SCREEN, URINE Routine 10/29/2015 6:25 PM EST Encounter for long-term (current) use of medications [ICD-10-CM] documented in this encounter Results * (ABNORMAL) Toxicology screen, urine (10/29/2015 6:25 PM EST) Amphetamine Qualitative, Ur None Detected Detected, None Detected 10/29/2015 7:58 PM [facility] Barbiturates Qualitative, Ur Detected(A) None Detected 10/29/2015 7:58 PM [facility] Benzodiazepines Qualitative, Ur Detected(A) None Detected 10/29/2015 7:58 PM [facility] Methadone Qualitative, Ur None Detected None Detected 10/29/2015 7:58 PM [facility] Opiates Qualitative, Ur None Detected None Detected 10/29/2015 7:58 PM [facility] Creatinine, Urine 144.3 20.0 - 400.0 mg/dL 10/29/2015 7:58 PM [facility] Cannabinoids Qualitative, Ur None Detected None Detected 10/29/2015 7:58 PM [facility] Cocaine Qualitative, Ur None Detected None Detected 10/29/2015 7:58 PM [facility] Urine specimen (specimen) 10/29/2015 6:25 PM EST 10/29/2015 7:45 PM EST [facility] - 10/29/2015 7:58 PM EST This urine immunoassay drug method is for medical SCREENING only and should not be used for non-medical (employment,legal) purposes. The test result(s) may be affected by dietary and over the counter medications. Negative cut-offs for these tests are set to detect DRUG ABUSE. Therapeutic levels of these drugs may not be detected. (The negative cut-offs for the drug classes are: Benzodiazepines, Cocaine and Methadone 300 ng/ml; Barbituates 200 ng/ml; Opiates 2000 ng/ml; Amphetamines 1000 ng/ml; Cannabinoids 50 ng/ml). As this is a screening methodology, any positive results are UNCONFIRMED. Confirmation of positive results may be requested from the laboratory within 7 days. All test results should be interpreted in context of the patient's clinical condition. Ana Paniagua Kaitlin URINE ORDERABLES Final Result [facility] [address] [place] [address] documented in this encounter Visit Diagnoses Diagnosis Encounter for long-term (current) use of medications Encounter for long-term (current) use of other medications documented in this encounter Care Teams Electrician Apprentice Powerhouse Relationship Specialty Start Date End Date Omid Rivera MD PCP - Family Medicine 12/31/14 01/07/18 Omid Rivera MD PCP - General 12/31/14 01/07/18 Jhonny Quarles MD PCP - General Internal Medicine 01/08/18 04/09/18 [place] [id number] PCP - General 04/10/18 05/23/18 Maru Church NP [address] [place] [address] PCP - General Pain Medicine 05/24/18 documented as of this encounter
--- OUTSIDE RECORDS SUMMARY | 2025-08-14 17:59 | XMS_ITS | Clinical Summary ---
Author Organization [facility] Address [address] [place] [address] Care Team Providers Care Drug Inspector Name Role Phone No Pcp, Per Patient Primary Care Provider Franco barbosa Allergies Active Allergy Reactions Criticality Noted Date Comments Quetiapine 02/24/2025 Medications nicotine polacrilex (Nicorette) 4 mg gum Take 4 mg by mouth every 2 (two) hours if needed for smoking cessation. Active gabapentin (Neurontin) 400 mg capsule Take 400 mg by mouth three times daily. Last filled 02/20/25 Active cloNIDine (Catapres) 0.1 mg tablet Take 0.1 mg by mouth twice daily. Last filled 02/20/25 Active buprenorphine-na loxone (Suboxone) 8-[address] Film under the tongue once daily. 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 02/25/2025 4 Active chlorproMAZINE (Thorazine) 100 mg tablet Take 3 tablets by mouth at bedtime. Last filled 02/20 4 Active levETIRAcetam (Keppra) 500 mg tablet Take 500 mg by mouth twice daily. 4 Active methylphenidate (Ritalin) 10 mg tablet Take 20 mg by mouth twice daily. Last filled 02/20/25 Active prazosin (Minipress) 1 mg capsule Take 1 mg by mouth at bedtime. Last filled 02/20 Active prazosin (Minipress) 2 mg capsule Take 2 mg by mouth at bedtime. Total 3mg last filled 02/20/25 Active melatonin 5 mg tablet Take 5 mg by mouth at bedtime. Active sennosides (Senokot) 8.6 mg tablet Take 2 tablets by mouth at bedtime. Active escitalopram (Lexapro) 20 mg tabletIndication s:Current moderate episode of major depressive disorder, unspecified whether recurrent Take 1 tablet (20 mg) by mouth at bedtime. Date filled 02/20/25, take 1/2 tab nightly x 1 week then 10 mg nightly ( per pharmacy pt was on 20mg in November) 30 tablet 5 Active Active Problems Problem Noted Date Diagnosed Date Benzodiazepine overdose of u ndetermined intent, initial encounter 02/24/2025 Social History Tobacco Use Types Packs/Day Years Used Date Smoking Tobacco: Every Day Cigarettes Smokeless Tobacco: Never Tobacco Cessation:Ready to Q uit: No Alcohol Use Standard Drinks/Week Comments Yes 0 (1 standard drink = 0.6 oz pur e alcohol) [facility] Utilities Answer Date Recorded In the past 12 months has e [employer], gas, oil, or water [employer] threatened to shut off services in your home? Patient unable to answer 02/24/2025 AUDIT-C Answer Date Recorded Q1: How often do you have a drink containing alc ohol? 2-3 times a week 02/24/2025 Q2: How many drinks containi ng alcohol do you have on a typical day when you are drinking? 1 or 2 02/24/2025 Q3: How often do you have si x or more drinks on one occasion? Weekly 02/24/2025 Overall Financial Resource Strain (CARDIA) Answe r Date Recorded How hard is it for you to pa y for the very basics like food, housing, medical care, and heating? Patient unable to answer 02/24/2025 Hunger Vital Sign Answer Date Recorded Within the past 12 months, y ou worried that your food would run out before you got the money to buy more. Patient unable to answer 02/24/2025 Ran Out of Food in the Last Year Not on file 02/24/2025 PRAPARE - Transportation Answer Date Re corded In the past 12 months, has l ack of transportation kept you from medical appointments or from getting medications? Patient unable to answer 02/24/2025 In the past 12 months, has l ack of transportation kept you from meetings, work, or from getting things needed for daily living? Patient unable to answer 02/24/2025 Housing Stability Vital Sign Answer Chaz e Recorded Unable to Pay for Housing in the Last Year Not o n file 02/24/2025 Number of Times Moved in the Last Year Not on fi le 02/24/2025 At any time in the past 12 m [facility], were you homeless or living in a halfway (including now)? Patient unable to answer 02/24/2025 Sex and Gender Information Value Date Recorded Sex Assigned at Male 02/24/2025 6:30 AM EDT Legal Sex Male 2:07 AM EDT Gender Identity Male 02/24/2025 6:42 PM EDT Sexual Orientation Straight 02/24/2025 6: 42 PM EDT Last Filed Vital Signs Vital Sign Reading Time Taken Comments Blood Pressure 102/55 02/28/2025 7:46 AM EDT Pulse 72 02/28/2025 7:46 AM EDT Temperature 36.6 C (97.8 F) 02/28/2025 7:46 AM EDT Respiratory Rate 20 02/27/2025 4:00 PM EDT Oxygen Saturation 96% 02/28/2025 7:46 AM EDT Inhaled Oxygen Concentration - - Weight 104.4 kg (230 lb 2.6 oz) 02/24/2025 6:11 PM EDT Height 175.3 cm (5' 9 ) 02/24/2025 6:11 PM EDT Body Mass Index 33.99 02/24/2025 6:11 PM EDT Plan of Treatment Health Maintenance Due Date Last Done Comments Depression Monitoring 1991 MMR Vaccines (1 of 1 - Standard series) 1992 Varicella Vaccines (1 of 2 - 13+ 2-dose series) 2004 Hepatitis A Vaccines (1 of 2 - Risk 2-dose series) 2010 Hepatitis B Vaccines (1 of 3 - 19+ 3-dose series) 2010 Pneumococcal Vaccine: Pediatrics (0 to 5 Years) and At-Risk Patients (6 to 49 Years) (1 of 2 - PCV) 2010 HPV Vaccines (1 - 3-dose SCD M series) 2018 COVID-19 Vaccine (1 - 2024-2 6 season) 2025 Influenza Vaccine (#1) 2025 Tobacco Cessation Counseling 02/24/2026 02/24/2025 Lipid Panel 04/29/2028 04/29/2023 DTaP/Tdap/Td Vaccines (2 - T d or Tdap) 06/17/2031 06/17/2021 HIV Screening Completed 04/29/2023 Hepatitis C Screening Completed 02/27/2025 , 02/24/2025 HIB Vaccines Aged Out No longer eligi ble based on patient's age to complete this topic IPV Vaccines Aged Out No longer eligi ble based on patient's age to complete this topic Meningococcal B Vaccine Aged Out No l onger eligible based on patient's age to complete this topic Meningococcal Vaccine Aged Out No nadia gin eligible based on patient's age to complete this topic Rotavirus Vaccines Aged Out No longer eligible based on patient's age to complete this topic Procedures Procedure Name Priority Date/Time Associated Diagnosis Comments HCV RNA, QUANTITATIVE, PCR (MONITORING) Routine 02/27/2025 6:32 AM EDT from Last 3 Months or Most Recently Relevant to Health Maintenance Results * HCV RNA, quantitative, PCR (monitoring) (02/27/2025 6:32 AM EDT) [facility] 02/28/2025 12:46 PM EDT [facility] Comment:Not Detected HCV RNA Viral Load, log [facility] 02/28/2025 12:46 PM EDT [facility] Comment:Not Detected HCV RNA Viral Load, Interp Not Detected Not Detected [facility] 02/28/2025 12:46 PM EDT [facility] Blood Venous blood specimen / Unknown Venipuncture / Unknown 02/27/2025 6:32 AM EDT 02/27/2025 6:58 AM EDT Narrative [facility] - 02/28/2025 12:46 PM EDT This test was performed using the [employer] HCV assay, performed on the [employer] instrument. The lower limit of quantification is 12 IU/mL. us Lucia Ambrosio MD LAB BLOOD ORDERABLES Final Resul t [facility] [address] [place] [address], from Last 3 Months or Most Recently Relevant to Health Maintenance Insurance [facility] Advance Directives Documents on File Type Date Recorded Patient Life Management Teacher [facility] Proxy 02/27/2025 * Full Code (Latest Code Status on File) Date Activated Date Inactivated Comments 02/24/2025 4:06 PM Care Teams Drug Inspector Relationship Specialty Start Date End Date No Pcp, Per Patient INE[facility] PCP - General Pile Operator 02/24/25
--- OUTSIDE RECORDS SUMMARY | 2025-08-14 17:59 | XMS_ITS | Clinical Summary ---
Author Organization Chasidy Mcgill [facility] Address [address] [place] [address] Care Team Providers Care Floor Layer Apprentice Name Role Phone Maru Church NP Unavailable [phone] Allergies Active Allergy Reactions Criticality Noted Date Comments Fish Containing Products Anaphylaxis High 07/31/2025 Anaphylaxis Quetiapine Swelling 07/31/2025 Anaphylaxis Medications * This document contains information received from the source organization and may not represent a complete record from that organization. chlorproMAZINE (THORAZINE) 100 MG tablet Take 3 tablets (300 mg total) by mouth at bedtime. 5 Active levETIRAcetam (KEPPRA) 500 MG tablet Take 1 tablet (500 mg total) by mouth in the morning and 1 tablet (500 mg total) before bedtime. 5 Active buprenorphine- naloxone (SUBOXONE) 8-[address] 1 Film under the tongue in the morning and 1 Film in the evening and 1 Film before bedtime. 5 Active cloNIDine (CATAPRES) 0.1 MG tablet Take 1 tablet (0.1 mg total) by mouth in the morning and 1 tablet (0.1 mg total) before bedtime. 5 Active melatonin 5 mg Tab Take 1 tablet (5 mg total) by mouth at bedtime. 5 Active escitalopram oxalate (LEXAPRO) 20 MG tablet Take 1 tablet (20 mg total) by mouth every morning. 5 Active multivitamin per tablet Take 1 tablet by mouth in the morning. 5 Active prazosin (MINIPRESS) 1 MG capsule Take 3 capsules (3 mg total) by mouth at bedtime. Active thiamine (vitamin B-1) 100 MG tablet Take 1 tablet (100 mg total) by mouth in the morning. Active pantoprazole (PROTONIX) [address] tablet Take 1 tablet (40 mg total) by mouth in the morning. Active gabapentin (NEURONTIN) 400 MG capsule Take 1 capsule (400 mg total) by mouth in the morning and 1 capsule (400 mg total) in the evening and 1 capsule (400 mg total) before bedtime. Active folic acid (FOLVITE) 1 MG tablet Take 1 tablet (1 mg total) by mouth in the morning. Active albuterol HFA (VENTOLIN HFA) 90 mcg/actuation aerosol inhaler Inhale 1-2 puffs every 4 hours as needed for wheezing or shortness of breath. Active nicotine polacrilex (NICORETTE) 4 MG gum Apply 1 each (4 mg total) to the mouth or throat as needed for smoking cessation. Active acetaminophen (TylenoL) 325 MG tablet Take 2 tablets (650 mg total) by mouth every 4 hours as needed for pain. Active diphenhydrAMIN E (BENADRYL) 25 mg capsule Take 1 capsule (25 mg total) by mouth every 4 hours as needed for insomnia. Active nicotine polacrilex (NICORETTE) 4 MG gum Apply 1 each (4 mg total) to the mouth or throat every 1 hour. Active ibuprofen (ADVIL,MOTRIN) 200 MG tablet Take 4 tablets (800 mg total) by mouth every 8 hours as needed for pain. Active ibuprofen (Motrin) 200 MG tablet Take 2 tablets (400 mg total) by mouth every 8 hours as needed for pain or headache. 08/04/20 Discontinu ed(Ineffec tive (Pharmacy will be notified)) buprenorphine- naloxone (SUBOXONE) 2-0.5 mg FilmIndication s:Opioid dependence in remission ([facility]) Place 1 Film under the tongue in the morning and 1 Film at noon and 1 Film before bedtime. 21 Film 10/26/08/05/20 Discontinu ed(Stop taking at Discharge) naloxone (NARCAN) 4 mg/actuation Halma nasal sprayIndicatio ns:opioid overdose 1 spray (4 mg total) by Intranasal route once for 1 dose. as needed for opioid overdose. Give CPR and contact 911. May give 2nd dose 2-3 minutes later with the second device into the other nostril if no or minimal response. 1 each 5 08/05/20 25 buprenorphine- naloxone (SUBOXONE) 8-2 mg FilmIndication s:opioid use disorder Place 1 Film under the tongue in the morning and 1 Film at noon and 1 Film before bedtime. Do all this for 7 days. 21 Film 5 08/12/20 25 buprenorphine- naloxone (SUBOXONE) 8-2 mg FilmIndication s:Opioid use disorder Place 1 Film under the tongue in the morning and 1 Film at noon and 1 Film before bedtime. Do all this for 7 days. 21 Film 5 08/12/20 25 naloxone (NARCAN) 4 mg/actuation Halma nasal spray 1 spray (4 mg total) by Intranasal route once for 1 dose. as needed for opioid overdose. Give CPR and contact 911. May give 2nd dose 2-3 minutes later with the second device into the other nostril if no or minimal response. 1 each 5 08/05/20 Active Problems Problem Noted Date Diagnosed Date Recurrent major depressive disorder 08/01/2025 Opioid use disorder 08/01/2025 Opioid dependence in remission 06/03/2024 Alcohol withdrawal delirium 09/16/2015 Encounters * This document contains information received from the source organization and may not represent a complete record from that organization. Date Type Department Care Team Description 08/02/2025 Telephone [facility] Psychiatry [address] [place] [id number] Jama Brock from Last 3 Months Social History Tobacco Use Types Packs/Day Years Used Date Smoking Tobacco: Every Day Cigarettes Vaping Tobacco Cessation:Ready to Q uit: Not Asked; Counseling Given: Not Answered Humiliation, Afraid, Rape, and Kick questionnair e Answer Date Recorded Within the last year, have y ou been afraid of your partner or ex-partner? No 07/31/2025 Emotionally Abused Not on file 07/31/2025 Physically Abused Not on file 07/31/2025 Sexually Abused Not on file 07/31/2025 Hunger Vital Sign Answer Date Recorded Within the past 12 months, y ou worried that your food would run out before you got the money to buy more. Often true 07/31/20 25 Ran Out of Food in the Last Year Not on file 07/31/2025 PRAPARE - Transportation Answer Date Re corded In the past 12 months, has l ack of transportation kept you from medical appointments or from getting medications? Yes 07/12 In the past 12 months, has l ack of transportation kept you from meetings, work, or from getting things needed for daily living? Yes 07/31/2025 Housing Stability Vital Sign Answer Chaz e Recorded In the last 12 months, was t here a time when you were not able to pay the mortgage or rent on time? Yes 07/31/2025 Number of Times Moved in the Last Year Not on fi le 07/31/2025 At any time in the past 12 m [facility], were you homeless or living in a custodial (including now)? Yes 07/31/2025 [facility] Utilities Answer Date Recorded In the past 12 months has th e [employer], gas, oil, or water company threatened to shut off services in your home? No 07/31/2025 Food Insecurity Answer Date Recorded Within the past 12 months, y ou worried that your food would run out before you got the money to buy more. Often true 07/31/20 25 Ran Out of Food in the Last Year Not on file 07/31/2025 Intimate Partner Violence Answer Date R ecorded Emotionally Abused Not on file 07/31/2025 Within the last year, have y ou been afraid of your partner or ex-partner? No 07/31/2025 Physically Abused Not on file 07/31/2025 Sexually Abused Not on file 07/31/2025 Housing Stability Answer Date Recorded Unstable Housing in the Last Year Not on file 07/31/2025 In the last 12 months, was t here a time when you were not able to pay the mortgage or rent on time? Yes 07/31/2025 [address] Lived in the Last Year Not on f ile 07/31/2025 AUDIT C Answer Date Recorded How often have you had a dri nk containing alcohol, in the past year? 4 07/31/2025 How many standard drinks con taining alcohol have you had on a typical day when you are drinking, in the past year? 1 1 How often have you had six o r more drinks on one occasion, in the past year? 3 07/31/2025 Sex and Gender Information Value Date Recorded Sex Assigned at Male 03/28/2024 2:12 PM EDT Legal Sex Male 4:42 PM EST Gender Identity Male 03/28/2024 2:12 PM EDT Sexual Orientation Not on file Last Filed Vital Signs Vital Sign Reading Time Taken Comments Blood Pressure 122/90 08/05/2025 12:42 PM EDT Pulse 100 08/05/2025 12:42 PM EDT Temperature 36 C (96.8 F) 08/04/2025 8:56 AM EDT Respiratory Rate 16 08/05/2025 12:42 PM EDT Oxygen Saturation 94% 08/05/2025 12:42 PM EDT Inhaled Oxygen Concentration - - Weight 101 kg (222 lb) 07/31/2025 5:42 PM EDT Height 177.8 cm (5' 10 ) 07/31/2025 5:42 PM EDT Body Mass Index 31.85 07/31/2025 5:42 PM EDT Plan of Treatment Health Maintenance Due Date Last Done Comments Depression Screening 1995 Pneumococcal Vaccine (1 of 2 - PCV) 2010 COVID-19 Vaccine ( - 2023-2 5 season) 2025 Influenza Vaccine (#1) 2025 Blood Pressure 08/05/2026 08/05/2025 DTaP,Tdap,and Td Vaccines (2 - Td or Tdap) 06/17/2031 06/17/2021 Hepatitis C Screening Completed 02/27/2025 Meningococcal B Vaccines Aged Out No longer eligible based on patient's age to complete this topic Meningococcal Vaccines Aged Out No lo nger eligible based on patient's age to complete this topic Insurance [facility] [place] [address] [address] [place] [phone] [facility] Care Teams Floor Layer Apprentice Relationship Specialty Start Date End Date Maru Church NP [address] [place] [id number] PCP - Insurance Assigned PCP 07/31/25
--- OUTSIDE RECORDS SUMMARY | 2025-08-14 17:59 | XMS_ITS | Encounter Summary ---
Author Organization [facility] Address [address] [place] [address] Care Team Providers Care Box Strapper Name Role Phone Maru Church NP Primary Care Provider [phone] Encounter Details Date Type Department Care Team (Late st Contact Info) Description 06/17/2021 Procedure Pass [facility] - [address] [address] Social History Tobacco Use Types [...] on filedocumented in this encounter Care Teams Box Strapper Relationship Specialty Start Date End Date Maru Church NP [address] [place] [address] PCP - General Pain Medicine 05/24/18 documented as of this encounter
--- OUTSIDE RECORDS SUMMARY | 2025-08-14 17:59 | XMS_ITS | Encounter Summary ---
Author Organization [facility] Address [address] [place] [address] Care Team Providers Care Port Warden Name Role Phone Maru Church NP Primary Care Provider [phone] Encounter Details Date Type Department Care Team (Late st Contact Info) Description 11/10/2023 Pharmacy Visit [facility] [address] [place] [address] Social History Tobacco Use Types [...] on filedocumented in this encounter Care Teams Port Warden Relationship Specialty Start Date End Date Maru Church NP [address] [place] [address] PCP - General Pain Medicine 05/24/18 documented as of this encounter
--- OUTSIDE RECORDS SUMMARY | 2025-08-14 17:59 | XMS_ITS | Encounter Summary ---
Author Organization [facility] Address [address] [place] [address] Care Team Providers Care Transplanter Orchid Name Role Phone Pcp, Betzaida Primary Care Provider Maru Lynne LIFE SCIENCE TECHNICIAN Primary Care Provider Encounter Details Date Type Department Care Team (Late st Contact Info) Description 04/22/2018 Lab Requisition [facility] [address] [place] [phone] Maru Church, LIFE SCIENCE TECHNICIAN [address] [place] [address] Encounter for screening for infectious and parasitic diseases, unspecified Social History Tobacco Use Types Packs/Day Years [...] Procedure Name Priority Date/Time Associated Diagnosis Comments C. TRACHOMATIS/N. GONORRHOEAE TMA Routine 04/22/2018 1:20 PM EDT Encounter for screening for infectious and parasitic diseases, unspecified documented in this encounter Results * C.Trachomatis/N.Gonnorrhea DNA probe (04/22/2018 1:20 PM EDT) Chlamydia trachomatis DNA Negative Negative 04/25/2018 1:08 PM EDT [facility] Neisseria gonorrhoeae DNA Negative Negative 04/25/2018 1:08 PM EDT [facility] Urine specimen (specimen) Collection / Unknown 04/22/2018 1:20 PM EDT 04/22/2018 2:25 PM EDT us Maru Church NP LAB BLOOD ORDERABLES Final Re sult [facility] [address] [place], [place] documented in this encounter Visit Diagnoses Diagnosis Encounter for screening for infectious and parasitic diseases, unspecified documented in this encounter Care Teams Transplanter Orchid Relationship Specialty [place] [id number] PCP - General 04/10/18 05/23/18 Maru Church NP [address] [place] [address] PCP - General Pain Medicine 05/24/18 documented as of this encounter
--- OUTSIDE RECORDS SUMMARY | 2025-08-14 17:59 | XMS_ITS | Encounter Summary ---
Author Organization [facility] Address [address] [place] [address] Care Team Providers Care Abrasive Mixer Name Role Phone Omid Rivera MD Unavailable Omid Rivera MD Primary Care Provider [phone] Jhonny Quarles MD Primary Care Provider [phone] Pcp, Betzaida Primary Care Provider Maru Lynne NP Primary Care Provider [phone] Encounter Details Date Type Department Care Team (Late st Contact Info) Description 10/24/2015 Lab Requisition [facility] [address] [place] [address] Darek Oquendo MD [address] [place], [place] Encounter for general adult medical examination without [...] Associated Diagnosis Comments COMPREHENSIVE METABOLIC PANEL Routine 10/24/2015 9:28 AM EST Encounter for general adult medical examination without abnormal findings CBC AND AUTO DIFF CLOZARIL PT Routine 10/24/2015 9:05 AM EST Encounter for general adult medical examination without abnormal findings TOXICOLOGY SCREEN, URINE Routine 10/24/2015 9:05 AM EST Encounter for general adult medical examination without abnormal findings TSH WITH REFLEX TO FREE T4 Routine 10/24/2015 9:05 AM EST Encounter for general adult medical examination without abnormal findings documented in this encounter Results * (ABNORMAL) Comprehensive metabolic panel (10/24/2015 9:28 AM EST) Sodium 140 135 - 145 mEq/L 10/24/2015 11:54 AM [facility] Potassium 4.9 3.3 - 5.2 mEq/L 10/24/2015 11:54 AM [facility] Chloride 104 96 - 107 mEq/L 10/24/2015 11:54 AM [facility] CO2 17(L) 24 - 34 mEq/L 10/24/2015 11:54 AM [facility] Anion Gap 19(H) 4 - 14 mEq/L 10/24/2015 11:54 AM [facility] Glucose 98 70 - 100 mg/dL 10/24/2015 11:54 AM [facility] Creatinine 0.80 0.60 - 1.50 mg/dL 10/24/2015 11:54 AM [facility] eGFR >60 60 - 115 mL/min 10/24/2015 11:54 AM [facility] BUN 18 6 - 26 mg/dL 10/24/2015 11:54 AM [facility] Calcium 9.4 8.7 - 10.5 mg/dL 10/24/2015 11:54 AM [facility] Total Protein 7.0 6.4 - 8.6 g/dL 10/24/2015 11:54 AM [facility] Albumin 4.3 3.4 - 4.8 g/dL 10/24/2015 11:54 AM [facility] A/G Ratio 1.6 1.0 - 2.3 10/24/2015 11:54 AM [facility] Total Bilirubin 0.2 0.2 - 1.2 mg/dL 10/24/2015 11:54 AM [facility] AST 55(H) 0 - 40 U/L 10/24/2015 11:54 AM [facility] Alkaline Phosphatase 118 40 - 150 IU/L 10/24/2015 11:54 AM [facility] ALT 54(H) 0 - 45 U/L 10/24/2015 11:54 AM [facility] Blood specimen (specimen) Venipuncture / Unknown 10/24/2015 9:28 AM EST 10/24/2015 9:28 AM EST us Darek Oquendo MD LAB BLOOD ORDERABLES Final Resul t [facility] [address] [place] [phone] * (ABNORMAL) Toxicology screen urine (catheter) (10/24/2015 9:05 AM EST) Amphetamine Qualitative, Ur None Detected Detected, None Detected 10/24/2015 11:53 AM [facility] Barbiturates Qualitative, Ur Detected(A) None Detected 10/24/2015 11:53 AM [facility] Benzodiazepines Qualitative, Ur Detected(A) None Detected 10/24/2015 11:53 AM [facility] Methadone Qualitative, Ur None Detected None Detected 10/24/2015 11:53 AM [facility] Opiates Qualitative, Ur None Detected None Detected 10/24/2015 11:53 AM [facility] Creatinine, Urine 196.3 20.0 - 400.0 mg/dL 10/24/2015 11:53 AM [facility] Cannabinoids Qualitative, Ur None Detected None Detected 10/24/2015 11:53 AM [facility] Cocaine Qualitative, Ur None Detected None Detected 10/24/2015 11:53 AM [facility] Urine specimen (specimen) 10/24/2015 9:05 AM EST 10/24/2015 9:30 AM EST Narrative [facility] - 10/24/2015 11:53 AM EST This urine immunoassay drug method is [...] in context of the patient's clinical condition. us Darek Oquendo MD URINE ORDERABLES Final Result Performing Organization Address [facility]/ZIP Co de Phone Number [facility] [address] [place] [phone] * TSH (10/24/2015 9:05 AM EST) TSH 2.360 0.350 - 5.500 uIU/mL 10/24/2015 11:04 AM EST [facility] Blood specimen (specimen) Venipuncture / Unknown 10/24/2015 9:05 AM EST 10/24/2015 9:30 AM EST us Darek Oquendo MD LAB BLOOD ORDERABLES Final Resul t Performing Organization Address [facility]/ZIP Co de Phone Number [facility] [address] [place] [phone] * CBC and Auto Differential, Clozaril Pt (10/24/2015 9:05 AM EST) WBC 6.2 4.8 - 11.2 10*3/mL 10/24/2015 10:32 AM EST [facility] RBC 4.95 4.00 - 5.90 10*6/ L 10/24/2015 10:32 AM [facility] HGB 14.4 14.0 - 17.2 g/dL 10/24/2015 10:32 AM [facility] HCT 43.6 40.0 - 52.0 % 10/24/2015 10:32 AM [facility] MCV 88.2 82.0 - 98.0 fL 10/24/2015 10:32 AM [facility] MCH 29.1 27.0 - 35.0 uug 10/24/2015 10:32 AM [facility] MCHC 33.0 32.0 - 37.0 g/dL 10/24/2015 10:32 AM [facility] RDW 13.6 9.0 - 17.9 % 10/24/2015 10:32 AM [facility] PLT 199 150 - 400 10*3/mL 10/24/2015 10:32 AM [facility] MPV 8.9 fL 10/24/2015 10:32 AM [facility] Neut % 47.0 45.0 - 85.0 % 10/24/2015 10:32 AM [facility] Lymph % 39.9 15.0 - 45.0 % 10/24/2015 10:32 AM [facility] Weston % 6.4 0.0 - 12.0 % 10/24/2015 10:32 AM [facility] Eos % 6.3 0.0 - 7.0 % 10/24/2015 10:32 AM [facility] Baso % 0.4 0.0 - 3.0 % 10/24/2015 10:32 AM [facility] Neut # 2.9 10*3 10/24/2015 10:32 AM [facility] Neutrophils Absolute Count 2,900 1,200 - 8,500 mm3 10/24/2015 10:32 AM [facility] NRBC% 0 0 /100 WBC /100 WBC 10/24/2015 10:32 AM [facility] Blood specimen (specimen) Venipuncture / Unknown 10/24/2015 9:05 AM EST 10/24/2015 9:28 AM EST us Darek Oquendo MD LAB BLOOD ORDERABLES Final Resul t [facility] [address] [place] [address] documented in this encounter Visit Diagnoses Diagnosis Encounter for general adult medical examination without abnormal findings documented in this encounter Care Teams Abrasive Mixer Relationship Specialty Start Date End Date Omid Rivera MD PCP - Family Medicine 12/31/14 01/07/18 Omid Rivera MD PCP - General 12/31/14 01/07/18 Jhonny Quarles MD PCP - General Internal Medicine 01/08/18 04/09/18 [place] [id number] PCP - General 04/10/18 05/23/18 Maru Church NP [address] [place] [address] PCP - General Pain Medicine 05/24/18 documented as of this encounter
--- OUTSIDE RECORDS SUMMARY | 2025-08-14 17:59 | XMS_ITS | Encounter Summary ---
Author Organization [facility] Address [address] [place] [address] Care Team Providers Care Events Specialist Name Role Phone Omid Rivera MD Unavailable Omid Rivera MD Primary Care Provider [phone] Jhonny Quarles MD Primary Care Provider [phone] Pcp, Betzaida Primary Care Provider Maru Lynne NP Primary Care Provider [phone] Encounter Details Date Type Department Care Team (Late st Contact Info) Description 05/20/2016 Lab Requisition [facility] [address] [place] [address] Cira Andino NP [address] [place] [address] Hyperlipidemia Social History Tobacco Use Types Packs/Day Years [...] Procedure Name Priority Date/Time Associated Diagnosis Comments LIPID PANEL Routine 05/20/2016 10:54 AM EDT Hyperlipidemia documented in this encounter Results * (ABNORMAL) Lipid panel (05/20/2016 10:54 AM EDT) Cholesterol 167 0 - 199 mg/dL 05/20/2016 2:29 PM EDT [facility] Triglycerides 74 10 - 200 mg/dL 05/20/2016 2:29 PM EDT [facility] HDL 35.6 35.0 - 70.0 mg/dL 05/20/2016 2:29 PM EDT [facility] LDL Calculated 117(H) 0 - 100 mg/dL 05/20/2016 2:29 PM EDT [facility] Cardiac Risk Factor 4.7 0.0 - 5.0 05/20/2016 2:29 PM EDT [facility] Blood specimen (specimen) Venipuncture / Unknown 05/20/2016 10:54 AM EDT 05/20/2016 10:54 AM EDT Narrative [facility] - 05/20/2016 2:29 PM EDT CARDIAC RISK FACTOR: Males Females 2X Average Risk 9.6 7.1 3X Average Risk 23.4 11.0 us Cira Andino WEB CONTENT WRITER LAB BLOOD ORDERABLES Final Res ult Performing Organization Address City/State/[facility] Co de Phone Number [facility] [address] [place] [phone] documented in this encounter Visit Diagnoses Diagnosis Hyperlipidemia Other and unspecified hyperlipidemia documented in this encounter Care Teams Events Specialist Relationship Specialty Start Date End Date Omid Rivera MD PCP - Family Medicine 12/31/14 01/07/18 Omid Rivera MD PCP - General 12/31/14 01/07/18 Jhonny Quarles MD PCP - General Internal Medicine 01/08/18 04/09/18 [place] [id number] PCP - General 04/10/18 05/23/18 Maru Church NP [address] [place] [address] PCP - General Pain Medicine 05/24/18 documented as of this encounter
--- OUTSIDE RECORDS SUMMARY | 2025-08-14 17:59 | XMS_ITS | Patient Health Record ---
Author Organization [facility] Address [address] [place] [address] Care Team Providers Care Egg Processor Name Role Phone Maru Church Primary Care Provider Shea Cheung Unavailable [phone] Allergies Allergen (clinical drug ingredient) Drug/Non Drug Allergy documented on EMR Reaction Allergy Type Onset Date Status quetiapine seroquel (uncoded) Unknown Allergy Active Reason For Referral No Information Medications Medication SIG (Take, Route, Frequency, Duration) Notes Start Date End Date Status Suboxone 8-2 MG 2application under t he tongue and allow to dissolve Sublingual Once a day Clean slate Active Proctosol HC 2.5 % 1 application to affected area Rectal Twice a day; Duration: 30 day(s) 12/07/2016 Active Milk of Magnesia 400 MG/5ML 5 ml as needed Orally Four times a day Active Pantoprazole Sodium 40 MG 1 tablet Orally Once a day Active Ativan 1 MG 1 tablet at bedtime as needed Orally Once a day Active DocQLace 100 MG 1 capsule as needed Orally Once a day Active Senexon 8.6 MG 1 tablets at bedtime as needed Orally Once a day Active Ritalin 10 MG 1 .5 tablet Orally Twice a day Dr Oquendo Active Suboxone 12-3 MG 1 film under the tongue and allow to dissolve Sublingual Once a day Unknown Keppra 500 mg Orally every 12 hrs Active Harvoni 90-400 MG 1 tablet Orally Once a day; Duration: 28 days 01/13/2017 Unknown Ibuprofen 600 MG TAKE 1 TABLET BY HIRO TH EVERY 6 HOURS WITH FOOD OR MILK NEEDED FOR PAIN; Duration: 23 Active Prazosin HCl 5 MG 1 capsule at bedtime Orally Once a day Dr Oquendo Active Polyethylene Glycol 3350 - Active Doxepin HCl 100 MG 1 capsule at bedtime Orally Once a day Dr Oquendo Active Senna Concentrate 8.6 MG 1 tab Orally Once a day prn Active Social History Tobacco Use: Social History Observation Description Date Details (start date - stop date) Current Smoker NA - NA Tobacco Use/Smoking Question Answer Notes Patient is a: current smoker How often do you smoke? every day How many cigarettes a day do you smoke? 11-20 Problems Problem Type SNOMED Code ICD Code Onset Dates Problem Status W/U Status Risk Notes Problem Chronic hepatitis C (335955097) Hep C w/o coma, chronic (B18.2) Active confirmed Problem Smoker (09750839) Smoker (F17.200) Active confirmed Problem Viral hepatitis type C (08566711) HCV (hepatitis C virus) (B19.20) Active confirmed Problem Tobacco dependence (47026111) Tobacco dependence (F17.200) Active confirmed Problem Substance abuse (1937609157) Substance abuse (F19.10) Active confirmed Problem Hypocalcemia (5354361) Hypocalcemia (E83.51) Active confirmed Problem Anxiety (08230416) Anxiety (F41.9) Active confi rmed Problem Thrombocytopenia (299432020) Thrombocytopeni a, unspecified (D69.6) Active confirmed Problem History of cocaine abuse (824524768929802) History of cocaine abuse (Z87.898) Active confirmed Problem Ilglv-Wzqerulxf-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 Problem Tobacco user (754654169) Cigarette nicotine dependence (F17.210) Active confirmed Plan Of Treatment Pending Test Test Name Order Date EKG 09/29/2017 EKG 04/01/2017 EKG 06/08/2015 CBC with Differential (AUTO) 08/03/2017 Future Test Test Name Order Date EKG 10/15/2016 Insurance Providers Payer Name Payer Address Payer Phone Subscriber Number Group Number Insured Name Patient Relationship to Insured Coverage Start Date Coverage End Date Prabhu RANDHAWA Queryly Plan [address] [address] [place], [place] [id number] Anthony Costa Self - patient is the insured 0 Prabhu hoff [employer] t Plan [address] [address] [place], [place] [id number] [phone] [id number] DomAnthony Self - patient is the insured Medicaid [address] [place] [address] 290 [id number] KATELYN Morel Anthony Fernandes Self - patient is the insured Medicaid [address] [place] [address] [id number] DomAnthony Self - patient is the insured Medical (General) History Medical History History ICD Code HCV Surgical History Surgery Date(Month/Year) HEART SURGERY
--- OUTSIDE RECORDS SUMMARY | 2025-08-14 17:59 | XMS_ITS | Encounter Summary ---
Author Organization [facility] Address [address] [place] [address] Care Team Providers Care Ceramic Engineer Name Role Phone Maru Church NP Unavailable [phone] Encounter Details Date Type Department Care Team (Late st Contact Info) Description 08/02/2025 Telephone [facility] Psychiatry [address] [address] Jama Brock [address] [place] [phone] Social History Tobacco Use Types Packs/Day Years Used Date Smoking Tobacco: Every Day Cigarettes Vaping Humiliation, Afraid, Rape, and Kick questionnair e [...] any time in the past 12 m [facility], were you homeless or living in a [facility] (including now)? Yes 07/31/2025 [facility] Utilities Answer Date Recorded In the past 12 months has th e electric, gas, oil, or water company threatened [...] PM EDT Sexual Orientation Not on file documented as of this encounter Functional Status * Are you deaf or do you have serious difficulty hearing? Answer Date of Assessment Author No 07/31/2025 5:44 PM EDT Angeles Jamison LPN * Are you blind or do you have serious difficulty seeing, even when wearing glasses? Answer Date of Assessment Author No 07/31/2025 5:44 PM EDT Angeles Jamison LPN * Do you have serious difficulty walking or climbing stairs? Answer Date of Assessment Author No 07/31/2025 5:44 PM EDT Angeles Jamison LPN * Do you have difficulty dressing or bathing? Answer Date of Assessment Author No 07/31/2025 5:44 PM EDT Angeles Jamison LPN * Because of a physical, mental, or emotional condition, do you have difficulty doing errands alone such as visiting the doctor? Answer Date of Assessment Author No 07/31/2025 5:44 PM EDT Angeles Jamison LPN * Actual/Potential Lethality (Most Lethal Attempt) Question Answer Date of Assessment Author Actual Lethality/Medical Dam age Code (Most Lethal Attempt) 0 08/04/2025 8:40 AM EDT Elissa Andrews RN documented as of this encounter Mental Status * Because of a physical, mental, or emotional condition, do you have serious difficulty concentrating, remembering, or making decisions? Answer Entry Date Author No 07/31/2025 5:44 PM EDT Angeles Jamison LPN documented in this encounter Plan of Treatment Not on file documented as of this encounter Visit Diagnoses Not on filedocumented in this encounter Care Teams Ceramic Engineer Relationship Specialty Start Date End Date Maru Church NP [address] [place] [phone] PCP - Insurance Assigned PCP 07/31/25 documented as of this encounter
--- OUTSIDE RECORDS SUMMARY | 2025-08-14 17:59 | XMS_ITS | Encounter Summary ---
Author Organization [facility] Address [address] [place] [address] Care Team Providers Care Beader Name Role Phone Omid Rivera MD Unavailable Omid Rivera MD Primary Care Provider [phone] Jhonny Quarles MD Primary Care Provider [phone] Pcp, Betzaida Primary Care Provider Maru Lynne NP Primary Care Provider [phone] Encounter Details Date Type Department Care Team (Late st Contact Info) Description 10/30/2015 Lab Requisition [facility] [address] [place] [phone] Ana Madrigal [address] [place], [place] Encounter for general adult medical examination [...] Procedure Name Priority Date/Time Associated Diagnosis Comments LEVETIRACETAM LEVEL Routine 10/30/2015 2 :02 PM EST Encounter for general adult medical examination without abnormal findings documented in this encounter Results * Levetiracetam level (10/30/2015 2:02 PM EST) Levetiracetam 13 mcg/mL 11/02/2015 3:30 PM EST [facility] Comment:Therapeutic Levels: Drug Dosage Trough (mcg/mL) Peak (mcg/mL) 500 mg BID 3.1 - 10.0 10.0 - 25.0 1000 mg BID 4.9 - 37.1 30.0 - 40.0 1500 mg BID 7.0 - 34.0 36.1 - 70.0 Toxic level not established Blood specimen (specimen) Venipuncture / Unknown 10/30/2015 2:02 PM EST 10/30/2015 2:02 PM EST Ana Madrigal LAB BLOOD ORDERABLES Final Resu lt Performing Organization Address City/State/[facility] Co de Phone Number [facility] [address] [place] [address] documented in this encounter Visit Diagnoses Diagnosis Encounter for general adult medical examination without abnormal findings documented in this encounter Care Teams Beader Relationship Specialty Start Date End Date Omid Rivera MD PCP - Family Medicine 12/31/14 01/07/18 Omid Rivera MD PCP - General 12/31/14 01/07/18 Jhonny Quarles MD PCP - General Internal Medicine 01/08/18 04/09/18 [place] [id number] PCP - General 04/10/18 05/23/18 Maru Church ADMINISTRATIVE HEARING OFFICER [address] [place] [id number] PCP - General Pain Medicine 05/24/18 documented as of this encounter
--- NOTE | 2025-08-14 18:04 | PC.ADMIT ---
This is the 1st admission for this 35 y.o. male to [facility] at [facility]. Arrived on unit at 1500 via ambulance from [facility] ED on [address] with Dx: Major Depression, recurrent, severe, Alcohol Use Disorder, severe, Polysubstance abuse. Placed on 15 min safety checks. Skin check/change control coordinator done upon admisson with 2 staff present. Hospitalized at [facility] from 08/06/25-08/13/25 in setting of seizure activity and SI. Discharged yesterday and returned to their ED with SI. Reports thoughts of hurting others in last 6 months. Denies current SI/HI, denies AH/VH. Declined tox screen at [facility]. Potassium 3.2 at [facility], Potassium 30meq given this am at 0740; refused repeat Potassium level. Reports use of etoh daily and cocaine occasionally. States last use for both was yesterday. States he had been using etoh while hospitalized at [facility]. Reports drinking 1 liter of vodka daily. CIWA ordered to monitor withdrawal. CIWA 12 at 1208 at [facility], medicated with Diazepam 5mg po. Medical issues:Seizure D/O Dx at 16 y.o. with last pt reported seizure 1 wk ago, Smith Marc White Syndrome dx 10 years ago, Asthma, Upper GI problems unknown by pt what it is. Reported completed suicides by multiple family members: mother, 2 brothers, aunt and cousin. Restless during admission process, legs moving rapidly. Low frustration tolerance noted. Able to complete assessments. Meds verified with [facility] medical records. Arrived on unit with multiple unopened med containers. States he has been in and out of hospital. Reports stressor as homelessness x2 yrs. States he currently has bench warrant out for him due to not showing up for court while he was hospitalized. Signed CV after meeting with Dr Thomas.
[2025-08-14 20:00] VITALS: BP 161/98; PULSE 118; RESP 16; TEMP 36.1; O2SAT 96
[2025-08-14 20:06] VITALS: BP 161/98
[2025-08-14] MEDS: Buprenorphine/Naloxone 8/2 mg TAB.SUBL 1 TAB SUBLINGUAL (20:06)
[2025-08-14 20:08] VITALS: BP 161/98
[2025-08-15 08:30] VITALS: BP 168/96
--- NOTE | 2025-08-15 08:31 | P.CONHOSP_ITS ---
History of Present Illness Data of Consult Service Date: 08/15/25 Primary Care Provider: Unknown Physician HPI Reason for consult: Medical consult 35-year-old male with past medical history of ADHD, asthma, bipolar disorder, depression, anxiety, PTSD, seizure disorder and Etrvt-Vcqbygwus-Qhaze syndrome presented to the emergency department with suicidal ideation. Patient with a recent hospitalization from 08/06-08/13 for seizure activity and suicide ideation. At that time his CT was negative, they were unable to obtain MRI due to him being unable to tolerate the machine. He was kept in his home Keppra medication for seizure activity and then he was discharge was possible outpatient partial hospitalization and dual diagnosis treatment. He presented to the ED with suicidal ideation several hours after being discharged from the medical floor, he was evaluated by crisis and felt to be appropriate for inpatient level of care for stabilization. On admit his EKG demonstrated sinus tach, workup revealed mild hypokalemia anion gap of 20, slightly elevated BAL of 65 and moderate leukocytosis of 15.2. He was felt to be in alcoholic ketoacidosis, his hypokalemia was repleted, Tylenol levels were unremarkable. He was felt to be an alcohol withdrawal and placed on a CIWA scale. Subsequently evaluated by crisis team and now admitted for further care and treatment. Patient reports that he is feeling signs of withdrawal, patient is having GI symptoms. Requesting Bentyl. Otherwise has no medical concerns. Review of Systems 2 Review of Systems: Denies any shortness of breath, chest pain, headaches, dysuria, abdominal pain or discomfort, nausea, vomiting. +diarrhea and upset stomach. Denies fever or chills. PMFSH Social History Household Members: None Housing: Homeless Do you presently have visiting nurse or other home services: No Patient Tobacco Use Status: Current everyday Tobacco user Tobacco use type: Cigarette and Smokeless Tobacco Cigarette Packs Per Day: 2 Cigarettes Per Day: 40.0 Years Smoked: 13 years Smoked in Last 30 Days: Yes e-Cigarette/Vaping Use: Currently Using Frequency of e-Cigarette/Vaping Use: Frequent Patient Interested in Nicotine Replacement: Yes (Requests Nicorette gum 4mg) Patient Given Instructions on How to Stop Smoking: No (declined) Second Hand Smoke Exposure: Yes Currently Displaying Signs/Symptoms of Drug Intoxication Withdrawal: No Have you been hit, kicked, punched, or otherwise hurt by someone within the past year? If so, by whom?: No Do you feel safe in your current relationship?: No Current Relationship Is there a partner from a previous relationship who is making you feel unsafe now?: No Are you made to feel afraid or neglected: No Advance Directives: No Advance Directives Information Provided: No Do you have thoughts of harming others: None Do you have a plan to hurt others: No Plan Recently lost weight without trying: No Eating poorly because of decreased appetite: No Nutrition Risks: No Nutritional Risk Poor oral hygiene: No Meds Allergies Allergy/AdvReac Type Severity Reaction Status Date / Time capsaicin Allergy Rash Verified 08/14/25 18:24 Fish Containing Products Allergy Anaphylaxis Verified 08/14/25 18:24 fish derived (fish) Allergy Anaphylaxis Verified 08/14/25 18:24 quetiapine Allergy Rash Verified 08/14/25 18:24 Active Medications: Current Medications Acetaminophen (Acetaminophen 325 Mg Tablet) 650 mg PO Q6H PRN PRN Reason: Headache/Pain, Scale 1-10 Last Admin: 08/14/25 21:06 Dose: 650 mg Al Hydroxide/Mg Hydroxide (Magnesium Hydrox/Alum Hydrox 30 Ml Oral.Susp) 30 ml PO Q6H PRN PRN Reason: Heartburn Albuterol Sulfate (Albuterol Sulfate 90 Mcg 8 Gm Inhaler) 2 puff INHALE RQ4H PRN PRN Reason: Shortness of Breath/Wheezing Buprenorphine/Naloxone (Buprenorphine/Naloxone 8/2 Mg Tab.Subl) 1 tab SUBLINGUAL TID [facility] Last Admin: 08/14/25 20:06 Dose: 1 tab Chlorpromazine HCl (Chlorpromazine Hcl 100 Mg Tablet) 300 mg PO BEDTIME [facility] Last Admin: 08/14/25 20:07 Dose: 300 mg Chlorpromazine HCl (Chlorpromazine Hcl 100 Mg Tablet) 100 mg PO BID PRN PRN Reason: agitation Clonidine HCl (Clonidine Hcl 0.1 Mg Tablet) 0.1 mg PO BID [facility]; Protocol Last Admin: 08/14/25 20:08 Dose: 0.1 mg Folic Acid (Folic Acid 1 Mg Tablet) 1 mg PO DAILY [facility] Gabapentin (Gabapentin 400 Mg Capsule) 400 mg PO TID [facility] Last Admin: 08/14/25 20:09 Dose: 400 mg Hydroxyzine HCl (Hydroxyzine Hcl 25 Mg Tablet) 25 mg PO Q6H PRN PRN Reason: mild anxiety Levetiracetam (Levetiracetam 500 Mg Tablet) 500 mg PO BID [facility] Last Admin: 08/14/25 20:05 Dose: 500 mg Lorazepam (Lorazepam 1 Mg Tablet) 1 mg PO Q2H PRN PRN Reason: CIWA 8-11 Last Admin: 08/14/25 21:07 Dose: 1 mg Lorazepam (Lorazepam 1 Mg Tablet) 2 mg PO Q2H PRN PRN Reason: CIWA 12-15 Lorazepam (Lorazepam 1 Mg Tablet) 3 mg PO Q2H PRN PRN Reason: CIWA > 15, and call Lorazepam (Lorazepam 1 Mg Tablet) 1 mg PO Q2H PRN PRN Reason: CIWA 8-11 Lorazepam (Lorazepam 1 Mg Tablet) 2 mg PO Q2H PRN PRN Reason: CIWA 12-15 Lorazepam (Lorazepam 1 Mg Tablet) 3 mg PO Q2H PRN PRN Reason: CIWA > 15, and call Magnesium Hydroxide (Milk Of Magnesia 30 Ml Oral.Susp) 30 ml PO DAILY PRN PRN Reason: Constipation Melatonin (Melatonin 3 Mg Tablet) 6 mg PO BEDTIME [facility] Last Admin: 08/14/25 20:07 Dose: 6 mg Multivitamins/Vitamin C (Multivitamin Tablet) 1 tab PO DAILY [facility] Nicotine Polacrilex (Nicotine Polacrilex 2 Mg Gum) 4 mg BUCCAL Q2H PRN PRN Reason: Nicotine Cravings Last Admin: 08/14/25 22:05 Dose: 4 mg Nicotine Polacrilex (Nicotine Polacrilex Lozenge 2 Mg Lozenge) 2 mg BUCCAL Q2H PRN PRN Reason: Nicotine Cravings Omeprazole (Omeprazole 20 Mg Capsule.Dr) 20 mg PO DAILY@0630 [facility] Last Admin: 08/15/25 06:56 Dose: Not Given Ondansetron HCl (Ondansetron Odt 4 Mg Tab.Rapdis) 4 mg TRANSLINGU Q8H PRN PRN Reason: Nausea and Vomiting Last Admin: 08/15/25 02:26 Dose: 4 mg Prazosin HCl (Prazosin Hcl 1 Mg Capsule) 3 mg PO BEDTIME [facility]; Protocol Last Admin: 08/14/25 20:06 Dose: 3 mg Senna (Sennosides 8.6 Mg Tablet) 17.2 mg PO BEDTIME PRN PRN Reason: Constipation Thiamine HCl (Thiamine Hcl 100 Mg Tablet) 100 mg PO DAILY MIKAELA Thiamine HCl (Thiamine Hcl 100 Mg Tablet) 100 mg PO DAILY MIKAELA Trazodone HCl (Trazodone Hcl 50 Mg Tablet) 50 mg PO BEDTIME MRX1 PRN PRN Reason: Insomnia Home Medications ?Medication ?Instructions ?Recorded ?Confirmed ?Last Taken ?Type albuterol 90 mcg/actuation aerosol 2 mcg inhalation Q4 H PRN Shortness 08/14/25 08/14/25 Unknown History inhaler Of Breath Or Wheezing buprenorphine 8 mg-naloxone 2 mg 1 film buccal TID 02/0208/14/25 Unknown History sublingual film chlorpromazine 100 mg tablet 300 mg PO BEDTIME 5 08/14/25 Unknown History clonidine HCl 0.1 mg tablet 0.1 mg PO BID 08/14/2502/02 Unknown History folic acid 1 mg tablet 1 mg PO DAILY 08/14/2508/14 Unknown History gabapentin 400 mg capsule 400 mg PO TID 08/14/2508/14 Unknown History levetiracetam 500 mg tablet 500 mg PO BID 08/14/2502/02 Unknown History melatonin 5 mg tablet 5 mg PO BEDTIME 08/14/2502/02 Unknown History multivitamin 1 tab PO DAILY 08/14/2502/02 Unknown History nicotine (polacrilex) 4 mg gum 4 mg buccal Q2H 5 08/14/25 Unknown History (Nicorette) ondansetron 4 mg disintegrating 4 mg PO Q8H PRN Nausea And Vomiting 08/14/25 08/14/25 Unknown History tablet pantoprazole 40 mg tablet,delayed 40 mg PO DAILY 08/1408/14/25 Unknown History release prazosin 1 mg capsule 1 mg PO BEDTIME 08/14/2502/02 Unknown History prazosin 2 mg capsule 2 mg PO BEDTIME 08/14/2502/02 Unknown History sennosides 8.6 mg tablet (senna) 8.6 mg PO BEDTIME 02/0208/14/25 Unknown History thiamine HCl (vitamin B1) 100 mg 100 mg PO DAILY 08/1408/14/25 Unknown History tablet Physical Exam 2 Vital Signs and Narrative: Vital Signs: Last Vital Signs Temp 97 F 08/14/25 20:00 Pulse 118 H 08/14/25 20:00 Resp 16 08/14/25 20:00 BP 161/98 H 08/14/25 20:08 Pulse Ox 96 08/14/25 20:00 O2 Del Method Room Air 08/14/25 20:00 BMI result Body Mass Index 32.1 Alert and oriented X3, calm and cooperative. Head covered over with a blanket. Neuro: CN II-X11 intact, no deficits, visual acuity intact EYES: PERRLA, EOM intact ENT: Hearing intact, MMM Cardiac: S1 S2 RRR, No ectopy Pulmonary: lungs clear to auscultation, No increased WOB. Abdominal: BS active in all 4 quadrants, no guarding or tenderness MSK: Strength 5/5 upper and lower extremities. Steady gait : Deferred Extremities: No edema in lower extremities Psych: Slightly sedated, quiet cooperative Skin: Warm and dry, Intact Results Labs 08/15/25 12:35 Assessment and Plan (1) Uxxkx-Hwnxfsxpv-Ecgah (WPW) syndrome: Status: Acute (2) Asthma: Status: Acute (3) Seizure disorder: Status: Acute Plan 35-year-old male with past medical history listed below presented to the hospital with suicidal ideation. Now admitted here for further care. ADHD/bipolar/depression/anxiety/PTSD/alcohol use disorder/substance use disorder Treatment per psychiatric team CIWA scale Asthma Stable not in acute exacerbation Seizure disorder Continue Keppra b.i.d. History of alcohol withdrawal seizures Tikih-Ddbmaolby-Oocyt syndrome Status post ablation 7 years ago. Not followed by Cardiology Outpatient. Unclear if he has lost to follow up. Recommend follow up with outpatient Cardiology. Thank you for allowing me to participate in the care of this patient. Will follow with you, please notify medical provider with any changes in condition or concerns.
[2025-08-15 08:40] VITALS: BP 168/96
[2025-08-15] MEDS: Buprenorphine/Naloxone 8/2 mg TAB.SUBL 1 TAB SUBLINGUAL ×3 (08:41→20:50)
[2025-08-15] MEDS: Nicotine Polacrilex Lozenge 2 MG LOZENGE BUCCAL ×4 (12:39→22:36)
[2025-08-15 13:06] LABS: Alanine Aminotransferase 63 U/L (0-40); Albumin Level 4.2 g/dL (3.5-5.0); Alkaline Phosphatase 84 U/L (39-117); Anion Gap 11 (12-20); Aspartate Amino Transferase 138 U/L (5-37); Blood Urea Nitrogen 14 mg/dL (9-16); Calcium 8.6 mg/dL (8.4-10.2); Carbon Dioxide 25 mmol/L (22-29); Chloride 105 mmol/L (96-108); Cholesterol 199 mg/dL (<200); Creatinine Clr Calc Pharmacy 126.8; Estimated Glomerular Filt Rate > 60; HDL Cholesterol 50 mg/dL (>40); Potassium 4.0 mmol/L (3.3-5.1); Sodium 137 mmol/L (135-145); Total Protein 6.8 g/dL (6.5-8.0); Triglycerides 84 mg/dL (<150)
[2025-08-15 20:00] VITALS: BP 136/80; PULSE 124; RESP 16; TEMP 36.9; O2SAT 98
--- NOTE | 2025-08-15 20:35 | P.PNPSI_ITS ---
Subjective Subjective Date of Service: 08/15/25 Reason For Visit: Depression, SI Subjective Notes: Conditional Voluntary Interim History: Chart reviewed, case discussed w/ team Per nursing report- Endorses every sx on CIWA, not c/w his presentation. total of 5 mg ativan yesterday per CIWA protocol prns- zofran x 2, tylenol, bentyl, atarax, thorazine Endorses SI w/o plan/intent Slept off/on Vital signs wnl today T/W d/c'd CIWA and ordered lorazepam 1 mg tid standing dose Pt was in the common area watching tv next to peers and did not appear to be in distres when t/w approached him to meet. Pt reports he was upset that his meds were adjusted, reports I feel like shit 2/2 ETOH and benzo w/d sx including diarrhea/vomiting, blurry vision, headache, stomach ache shit like that . He again tells t/w that he was drinking ETOH in the hospital. States that he was given oxycodone then Fioricet for HAs there, which still didn't help. T/W asked why he would drink ETOH in the hospital and he replied because I'm an alcoholic. Have you ever gone through alcohol withdrawal? . T/W reflected that he has good insight into having an addiction, noted that SW had referred him to a program but he declined it since he can't smoke. Pt confirmed this and stated he also doesn't want to go b/c they put you in a room with 50 people. I've heard it's not a good place to go from multiple people . T/W asked pt if he would be willing to go to a different program if they didn't allow smoking and he stated I would like to smoke . He reports that his [facility] and other worker is also looking into programs for him. Pt endorses SI w/o plan/intent T/W asked if pt is interested in taking any medications for depression and he stated that he doesn't want to be a guinea pig and that doctors rx a bunch of meds for pts so they get paid more. Pt ultimately reported that Wellbutrin previously helped but he d/c'd it. He denies that it exacerbated his sz d/o (and he is on Keppra and gabapentin). lexapro helped but was d/c'd 2/2 cardiac concerns. He reports that he stopped a lot of meds [place] living [address] Mental Status Exam Mental Status Exam Narrative: Appearance: Casually dressed. Grooming/hygiene wnl. Good eye contact, glazed expression Attitude: Cooperative generally, antagonist at times Speech: Fluent and wnl in regard to volume, tone, prosody Motor activity: Calm and without any tics, tremors or dyskinesias. Steady gait Mood: anxious, depressed Affect: appropriate, irritable, constricted Thought process: goal directed and without evidence of formal thought disorder Thought content: endorses SI w/o plan/intent. No violent ideation reported Perception: Denies AH/VH and does not appear to respond to internal stimuli Insight: intact Judgment: poor Diagnostics Vital Signs (24Hr): Vital Signs - 24 hr 08/15/25 08:30 08/15/25 08:40 Blood Pressure 168/96 H 168/96 H BMI result Body Mass Index 32.1 Labs 08/15/25 12:35 Labs: Laboratory Results - last 48 hr 08/15/25 12:35 Sodium 137 Potassium 4.0 Chloride 105 Carbon Dioxide 25 Anion Gap 11 L BUN 14 Creatinine 0.95 Estim Creat Clear Calc 126.8 Estimated GFR > 60 Random Glucose 130 H Estimat Average Glucose 111 Hemoglobin A1c % 5.5 Calcium 8.6 Total Bilirubin 0.3 AST 138 H ALT 63 H Alkaline Phosphatase 84 Total Protein 6.8 Albumin 4.2 Triglycerides 84 Cholesterol 199 LDL Cholesterol, Calc 133 H HDL Cholesterol 50 Medications Medications Current Medications Acetaminophen (Acetaminophen 325 Mg Tablet) 650 mg PO Q6H PRN PRN Reason: Headache/Pain, Scale 1-10 Last Admin: 08/15/25 16:15 Dose: 650 mg Al Hydroxide/Mg Hydroxide (Magnesium Hydrox/Alum Hydrox 30 Ml Oral.Susp) 30 ml PO Q6H PRN PRN Reason: Heartburn Albuterol Sulfate (Albuterol Sulfate 90 Mcg 8 Gm Inhaler) 2 puff INHALE RQ4H PRN PRN Reason: Shortness of Breath/Wheezing Buprenorphine/Naloxone (Buprenorphine/Naloxone 8/2 Mg Tab.Subl) 1 tab SUBLINGUAL TID MIKAELA Last Admin: 08/15/25 15:04 Dose: 1 tab Chlorpromazine HCl (Chlorpromazine Hcl 100 Mg Tablet) 300 mg PO BEDTIME MIKAELA Last Admin: 08/14/25 20:07 Dose: 300 mg Chlorpromazine HCl (Chlorpromazine Hcl 100 Mg Tablet) 100 mg PO BID PRN PRN Reason: agitation Last Admin: 08/15/25 16:15 Dose: 100 mg Clonidine HCl (Clonidine Hcl 0.1 Mg Tablet) 0.1 mg PO BID [facility]; Protocol Last Admin: 08/15/25 08:40 Dose: 0.1 mg Dicyclomine HCl (Dicyclomine Hcl 10 Mg Capsule) 10 mg PO TIDAC PRN PRN Reason: Diarrhea, abdominal discomfort Last Admin: 08/15/25 16:15 Dose: 10 mg Folic Acid (Folic Acid 1 Mg Tablet) 1 mg PO DAILY [facility] Last Admin: 08/15/25 08:40 Dose: 1 mg Gabapentin (Gabapentin 400 Mg Capsule) 400 mg PO TID [facility] Last Admin: 08/15/25 15:04 Dose: 400 mg Hydroxyzine HCl (Hydroxyzine Hcl 25 Mg Tablet) 25 mg PO Q6H PRN PRN Reason: mild anxiety Last Admin: 08/15/25 16:15 Dose: 25 mg Ibuprofen (Ibuprofen 600 Mg Tablet) 600 mg PO Q6H PRN PRN Reason: Pain, Moderate(Pain Scale 4-6) Levetiracetam (Levetiracetam 500 Mg Tablet) 500 mg PO BID [facility] Last Admin: 08/15/25 08:40 Dose: 500 mg Lorazepam (Lorazepam 1 Mg Tablet) 1 mg PO Q2H PRN PRN Reason: CIWA 8-11 Lorazepam (Lorazepam 1 Mg Tablet) 2 mg PO Q2H PRN PRN Reason: CIWA 12-15 Lorazepam (Lorazepam 1 Mg Tablet) 3 mg PO Q2H PRN PRN Reason: CIWA > 15, and call Magnesium Hydroxide (Milk Of Magnesia 30 Ml Oral.Susp) 30 ml PO DAILY PRN PRN Reason: Constipation Melatonin (Melatonin 3 Mg Tablet) 6 mg PO BEDTIME [facility] Last Admin: 08/14/25 20:07 Dose: 6 mg Multivitamins/Vitamin C (Multivitamin Tablet) 1 tab PO DAILY [facility] Last Admin: 08/15/25 08:41 Dose: 1 tab Nicotine Polacrilex (Nicotine Polacrilex 2 Mg Gum) 4 mg BUCCAL Q2H PRN PRN Reason: Nicotine Cravings Last Admin: 08/15/25 17:34 Dose: 4 mg Nicotine Polacrilex (Nicotine Polacrilex Lozenge 2 Mg Lozenge) 2 mg BUCCAL Q2H PRN PRN Reason: Nicotine Cravings Last Admin: 08/15/25 19:23 Dose: 2 mg Omeprazole (Omeprazole 20 Mg Capsule.Dr) 20 mg PO DAILY@0630 MIKAELA Last Admin: 08/15/25 08:40 Dose: 20 mg Ondansetron HCl (Ondansetron Odt 4 Mg Tab.Rapdis) 4 mg TRANSLINGU Q8H PRN PRN Reason: Nausea and Vomiting Last Admin: 08/15/25 20:24 Dose: 4 mg Prazosin HCl (Prazosin Hcl 1 Mg Capsule) 3 mg PO BEDTIME MIKAELA; Protocol Last Admin: 08/14/25 20:06 Dose: 3 mg Senna (Sennosides 8.6 Mg Tablet) 17.2 mg PO BEDTIME PRN PRN Reason: Constipation Thiamine HCl (Thiamine Hcl 100 Mg Tablet) 100 mg PO DAILY MIKAELA Last Admin: 08/15/25 10:25 Dose: Not Given Trazodone HCl (Trazodone Hcl 50 Mg Tablet) 50 mg PO BEDTIME MRX1 PRN PRN Reason: Insomnia Allergies Allergies Allergy/AdvReac Type Severity Reaction Status Date / Time capsaicin Allergy Rash Verified 08/14/25 18:24 Fish Containing Products Allergy Anaphylaxis Verified 08/14/25 18:24 fish derived (fish) Allergy Anaphylaxis Verified 08/14/25 18:24 quetiapine Allergy Rash Verified 08/14/25 18:24 Assessment & Plan Assessment & Plan (1) Ioomx-Zcrcooqeg-Rjxcm (WPW) syndrome: Status: Acute Code(s): I45.6 - Pre-excitation syndrome (2) Asthma: Status: Acute Code(s): J45.909 - Unspecified asthma, uncomplicated (3) Seizure disorder: Status: Acute Code(s): G40.909 - Epilepsy, unspecified, not intractable, without status epilepticus Plan Mr. 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 He was transferred to [facility] M3 for tx of depression and SI. Pt was recently tx'd for ETOH w/d seizure activity (no mention of an EEG being done) per Crisis eval prior to re-presenting to the ED w/ SI one day later. Per his report, his friends brought in ETOH and he consumed 1 L of vodka every night in the hospital. It seems unlikely that this actually occurred in the hospital but will place on CIWA as a precaution, given that he has a h/o seizures. He also admits to smoking meth and cocaine use prior to admission. He reports a previous bipolar dx but was unable to say if he's had manic episodes w/o the influence of drug use. Plan: Admitted to for safety and stabilization Legal Status: CV 15 min safety checks CIWA monitoring, lorazepam prn per protocol Labs and EKG ordered Hospitalist consult pending for admission H&P Continue regular medications: Buprenorphine-Naloxone 8/2 mg TID Thorazine 300 mg qhs Clonidine 0.1 mg bid Gabapentin 400 mg tid Prazosin 3 mg qhs Keppra 500 mg bid Melatonin 6 mg qhs Zofran 4 mg q 8 hrs prn for nausea Thiamine, MVI Senna prn for constipation Albuterol inhaler prn for SOB 08/17: CIWA d/c'd since pt's subjective sx report is not c/w objective signs. Received 5 mg lorazepam yesterday. Switched to standing dose of 1 mg tid today. He is on Keppra and gabapentin, so risk of ETOH w/d seizure is low. VS are wnl today. Will monitor VS per unit standards. Pt has requested oxycodone for GALLARDO r/t ETOH w/d and t/w told him that is not an appropriate med for that indication. He has bentyl and Zofran ordered for GI issues and states they don't help. Declined offer to order imodium for diarrhea. -Will start Campral 333 mg tid, as pt requested a med to reduce ETOH cravings. Can't take naltrexone w/ the Suboxone. Patient educated on: medication risk/benefits, substance abuse and therapeutic strategies Informed Consent: further education needed Reason for continued inpatient stay Substantial Risk for: harm to self Time Spent With Patient Time: Total time managing care of this patient today ____ minutes.
[2025-08-15 20:47] VITALS: BP 136/80
[2025-08-15 20:49] VITALS: BP 136/80
[2025-08-16 00:05] VITALS: BP 120/66; PULSE 96; RESP 16; TEMP 36.4; O2SAT 96
[2025-08-16 04:15] VITALS: BP 115/63; PULSE 100; RESP 16; TEMP 36.4; O2SAT 95
[2025-08-16 07:00] VITALS: BMI 32.8
[2025-08-16 08:00] VITALS: BP 114/56; PULSE 94; RESP 16; TEMP 36.4; O2SAT 96
[2025-08-16] MEDS: Buprenorphine/Naloxone 8/2 mg TAB.SUBL 1 TAB SUBLINGUAL ×3 (09:04→20:59)
[2025-08-16] MEDS: Nicotine Polacrilex Lozenge 2 MG LOZENGE BUCCAL ×3 (13:37→22:03)
--- NOTE | 2025-08-16 15:06 | P.PNPSI_ITS ---
Subjective Subjective Date of Service: 08/16/25 Reason For Visit: Depression, SI Diagnostics Vital Signs (24Hr): BMI result Body Mass Index 32.8 Labs 08/15/25 12:35 Medications Allergies Allergies Allergy/AdvReac Type Severity Reaction Status Date / Time capsaicin Allergy Rash Verified 08/14/25 18:24 Fish Containing Products Allergy Anaphylaxis Verified 08/14/25 18:24 fish derived (fish) Allergy Anaphylaxis Verified 08/14/25 18:24 quetiapine Allergy Rash Verified 08/14/25 18:24 Assessment & Plan Assessment & Plan (1) Other bipolar disorder: Status: Acute Code(s): F31.89 - Other bipolar disorder (2) PTSD (post-traumatic stress disorder): Status: Acute Code(s): F43.10 - Post-traumatic stress disorder, unspecified (3) Alcohol use disorder, severe, dependence: Status: Acute Code(s): F10.20 - Alcohol dependence, uncomplicated (4) Opioid use disorder, severe, on maintenance therapy: Status: Acute Code(s): F11.20 - Opioid dependence, uncomplicated (5) Cocaine use disorder: Status: Acute Code(s): F14.10 - Cocaine abuse, uncomplicated (6) Methamphetamine abuse: Status: Acute Code(s): F15.10 - Other stimulant abuse, uncomplicated (7) Asthma: Status: Acute Code(s): J45.909 - Unspecified asthma, uncomplicated (8) Seizure disorder: Status: Acute Code(s): G40.909 - Epilepsy, unspecified, not intractable, without status epilepticus (9) Undtv-Mqaylxeam-Yummg (WPW) syndrome: Status: Acute Code(s): I45.6 - Pre-excitation syndrome Plan Mr. Fernandes is a 35 yo M wit h/o ADHD, previous bipolar dx, anxiety, PTSD, epilepsy, ETOH use d/o, h/o ETOH w/d seizures, cocaine use d/o, opioid use d/o in remission on maintenance tx and WPW who presented to the [facility] ED due to SI. He was transferred to [facility] for tx of depression and SI. Pt was recently tx'd for ETOH w/d seizure activity (no mention of an EEG being done) per Crisis eval prior to re-presenting to the ED w/ SI one day later. Per his report, his friends brought in ETOH and he consumed 1 L of vodka every night in the hospital. It seems unlikely that this actually occurred in the hospital but will place on CIWA as a precaution, given that he has a h/o seizures. He also admits to smoking meth and cocaine use prior to admission. He reports a previous bipolar dx but was unable to say if he's had manic episodes w/o the influence of drug use. Plan: Admitted to M3 for safety and stabilization Legal Status: CV 15 min safety checks CIWA monitoring, lorazepam prn per protocol Labs and EKG ordered Hospitalist consult pending for admission H&P Continue regular medications: Buprenorphine-Naloxone 8/2 mg TID Thorazine 300 mg qhs Clonidine 0.1 mg bid Gabapentin 400 mg tid Prazosin 3 mg qhs Keppra 500 mg bid Melatonin 6 mg qhs Zofran 4 mg q 8 hrs prn for nausea Thiamine, MVI Senna prn for constipation Albuterol inhaler prn for SOB 08/17: CIWA d/c'd since pt's subjective sx report is not c/w objective signs. Received 5 mg lorazepam yesterday. Switched to standing dose of 1 mg tid today. He is on Keppra and gabapentin, so risk of ETOH w/d seizure is low. VS are wnl today. Will monitor VS per unit standards. Pt has requested oxycodone for GALLARDO r/t ETOH w/d and t/w told him that is not an appropriate med for that indication. He has bentyl and Zofran ordered for GI issues and states they don't help. Declined offer to order imodium for diarrhea. -Will start Campral 333 mg tid, as pt requested a med to reduce ETOH cravings. Can't take naltrexone w/ the Suboxone. 08/18: Pt has declined 2 referrals for recovery programs made by [facility]. Reports he will call programs on his own. Will continue current tx plan for now 08/18/25: Patient and this provider pacing the larios during 1-1 assessment. Report passive SI without plan/intent but will OD if he is out in community. Report hearing people calling my name and seeing black and white spot as well as spider when asked he experiences AVH. Denies SIB/HI. Patient is irritable toward one of [facility] who redirected and asks patient to leave group as patient was disrespectful. Per nursing, patient resisted to care, refused VS but Vs last night was elevated. Will continue to monitor. 08/19/25: Patient is visible, around the clock on Nicotine gum. There are two orders for nicotine gums but not sure it is intended to be that way by attending. Educate patient not to use it at night as it can affect his sleep. Report he feels less irritable today. Report passive SI with voices of someone calling my name . Denies plan/intent here but if he is outside in community he would do something. Per nursing, patient slept for only 2 hours last night. Reviewed with patient regarding some med changes to help with sleep. Patient asks for Benadryl at night for insomnia. Patient also takes PRN Thorazine for voices. 08/20: Pt endorses chronic SI without plan/intent and states that he can keep himself safe in the community if he is d/c'd tomorrow. He is agreeable w/ plan to d/c to [facility] tomorrow. BP has been wnl all day today. Will lower the lorazepam (started for CIWA) from 1 mg tid to 0.5 mg tid. He is covered for seizure prophylaxis on gabapentin and Keppra Time Spent With Patient Time: Total time managing care of this patient today ____ minutes.
[2025-08-16 20:00] VITALS: BP 124/92; PULSE 121; RESP 18; TEMP 36.6; O2SAT 97
[2025-08-16 20:57] VITALS: BP 124/92
--- NOTE | 2025-08-17 09:01 | HO.PSYCHPN ---
Subjective Subjective Date of Service: 08/17/25 Reason For Visit: Depression, SI Interim History: Chart reviewed, case discussed w/ team Met w/ pt along w/ EDDIE and TELE[employer] TECHNICIAN student in his room, where he was lying in bed. He reports feeling 'alright I guess'. Reports passive SI, which he states is a chronic issue. Denies intent/plant to harm himself Endorses upset stomach, poor appetite. He drank coffee while we met w/ him Discussed d/c planning. He states that he called a program but was told it's a Women's program and he was given a different # to try (which was for [place]). Again expressed a preference to go to a program where he can smoke and states that he'll continue to work on calling. SW referred pt to [facility] in fall after our mtg, informed pt of the referral and he said he wouldn't return there. Pt denied attending grps today. Medication Compliance: Yes Mental Status Exam Mental Status Exam Narrative: Appearance: casual, grooming/hygiene wnl. eye contact wnl Attitude: Cooperative Speech: Fluent and wnl in regard to volume, tone, prosody Motor activity: Calm and without any tics, tremors or dyskinesias. Mood: 'alright I guess Affect: constricted Thought process: goal directed and without evidence of formal thought disorder Thought content: endorses SI w/o plan/intent. No violent ideation reported Perception: does not appear to respond to internal stimuli Insight: intact Judgment: poor Diagnostics Vital Signs (24Hr): Vital Signs - 24 hr 08/16/25 20:00 08/16/25 20:57 Temperature 97.8 F Pulse Rate 121 H Respiratory Rate 18 Blood Pressure 124/92 H 124/92 H Pulse Oximetry 97 Oxygen Delivery Method Room Air BMI result Body Mass Index 32.8 Labs 08/15/25 12:35 Labs: Laboratory Results - last 48 hr 08/15/25 12:35 Sodium 137 Potassium 4.0 Chloride 105 Carbon Dioxide 25 Anion Gap 11 L BUN 14 Creatinine 0.95 Estim Creat Clear Calc 126.8 Estimated GFR > 60 Random Glucose 130 H Estimat Average Glucose 111 Hemoglobin A1c % 5.5 Calcium 8.6 Total Bilirubin 0.3 AST 138 H ALT 63 H Alkaline Phosphatase 84 Total Protein 6.8 Albumin 4.2 Triglycerides 84 Cholesterol 199 LDL Cholesterol, Calc 133 H HDL Cholesterol 50 Medications Medications Current Medications Acamprosate (Acamprosate Calcium 333 Mg Tablet.) 333 mg PO TID [facility] Last Admin: 08/16/25 20:58 Dose: 333 mg Acetaminophen (Acetaminophen 325 Mg Tablet) 650 mg PO Q6H PRN PRN Reason: Headache/Pain, Scale 1-10 Last Admin: 08/16/25 10:41 Dose: 650 mg Al Hydroxide/Mg Hydroxide (Magnesium Hydrox/Alum Hydrox 30 Ml Oral.Susp) 30 ml PO Q6H PRN PRN Reason: Heartburn Albuterol Sulfate (Albuterol Sulfate 90 Mcg 8 Gm Inhaler) 2 puff INHALE RQ4H PRN PRN Reason: Shortness of Breath/Wheezing Buprenorphine/Naloxone (Buprenorphine/Naloxone 8/2 Mg Tab.Subl) 1 tab SUBLINGUAL TID [facility] Last Admin: 08/16/25 20:59 Dose: 1 tab Chlorpromazine HCl (Chlorpromazine Hcl 100 Mg Tablet) 300 mg PO BEDTIME [facility] Last Admin: 08/16/25 20:58 Dose: 300 mg Chlorpromazine HCl (Chlorpromazine Hcl 100 Mg Tablet) 100 mg PO BID PRN PRN Reason: agitation Last Admin: 08/15/25 16:15 Dose: 100 mg Clonidine HCl (Clonidine Hcl 0.1 Mg Tablet) 0.1 mg PO BID [facility]; Protocol Last Admin: 08/16/25 20:58 Dose: 0.1 mg Dicyclomine HCl (Dicyclomine Hcl 10 Mg Capsule) 10 mg PO TIDAC PRN PRN Reason: Diarrhea, abdominal discomfort Last Admin: 08/16/25 16:29 Dose: 10 mg Folic Acid (Folic Acid 1 Mg Tablet) 1 mg PO DAILY [facility] Last Admin: 08/16/25 08:14 Dose: 1 mg Gabapentin (Gabapentin 400 Mg Capsule) 400 mg PO TID [facility] Last Admin: 08/16/25 20:58 Dose: 400 mg Hydroxyzine HCl (Hydroxyzine Hcl 25 Mg Tablet) 25 mg PO Q6H PRN PRN Reason: mild anxiety Last Admin: 08/15/25 16:15 Dose: 25 mg Ibuprofen (Ibuprofen 800 Mg Tablet) 800 mg PO Q6H PRN PRN Reason: Pain, Moderate(Pain Scale 4-6) Levetiracetam (Levetiracetam 500 Mg Tablet) 500 mg PO BID [facility] Last Admin: 08/16/25 20:58 Dose: 500 mg Lorazepam (Lorazepam 1 Mg Tablet) 1 mg PO TID [facility] Last Admin: 08/16/25 20:59 Dose: 1 mg Magnesium Hydroxide (Milk Of Magnesia 30 Ml Oral.Susp) 30 ml PO DAILY PRN PRN Reason: Constipation Melatonin (Melatonin 3 Mg Tablet) 6 mg PO BEDTIME [facility] Last Admin: 08/16/25 20:58 Dose: 6 mg Multivitamins/Vitamin C (Multivitamin Tablet) 1 tab PO DAILY [facility] Last Admin: 08/16/25 08:15 Dose: 1 tab Nicotine Polacrilex (Nicotine Polacrilex 2 Mg Gum) 4 mg BUCCAL Q2H PRN PRN Reason: Nicotine Cravings Last Admin: 08/16/25 19:12 Dose: 4 mg Nicotine Polacrilex (Nicotine Polacrilex Lozenge 2 Mg Lozenge) 2 mg BUCCAL Q2H PRN PRN Reason: Nicotine Cravings Last Admin: 08/16/25 22:03 Dose: 2 mg Omeprazole (Omeprazole 20 Mg Capsule.Dr) 20 mg PO DAILY@0630 [facility] Last Admin: 08/17/25 06:30 Dose: Not Given Ondansetron HCl (Ondansetron Odt 4 Mg Tab.Rapdis) 4 mg TRANSLINGU Q8H PRN PRN Reason: Nausea and Vomiting Last Admin: 08/16/25 10:41 Dose: 4 mg Prazosin HCl (Prazosin Hcl 1 Mg Capsule) 3 mg PO BEDTIME [facility]; Protocol Last Admin: 08/16/25 20:57 Dose: 3 mg Senna (Sennosides 8.6 Mg Tablet) 17.2 mg PO BEDTIME PRN PRN Reason: Constipation Thiamine HCl (Thiamine Hcl 100 Mg Tablet) 100 mg PO DAILY [facility] Last Admin: 08/16/25 08:14 Dose: 100 mg Trazodone HCl (Trazodone Hcl 50 Mg Tablet) 50 mg PO BEDTIME MRX1 PRN PRN Reason: Insomnia Allergies Allergies Allergy/AdvReac Type Severity Reaction Status Date / Time capsaicin Allergy Rash Verified 08/14/25 18:24 Fish Containing Products Allergy Anaphylaxis Verified 08/14/25 18:24 fish derived (fish) Allergy Anaphylaxis Verified 08/14/25 18:24 quetiapine Allergy Rash Verified 08/14/25 18:24 Assessment & Plan Assessment & Plan (1) Other bipolar disorder: Status: Acute Code(s): F31.89 - Other bipolar disorder (2) PTSD (post-traumatic stress disorder): Status: Acute Code(s): F43.10 - Post-traumatic stress disorder, unspecified (3) Alcohol use disorder, severe, dependence: Status: Acute Code(s): F10.20 - Alcohol dependence, uncomplicated (4) Opioid use disorder, severe, on maintenance therapy: Status: Acute Code(s): F11.20 - Opioid dependence, uncomplicated (5) Cocaine use disorder: Status: Acute Code(s): F14.10 - Cocaine abuse, uncomplicated (6) Methamphetamine abuse: Status: Acute Code(s): F15.10 - Other stimulant abuse, uncomplicated (7) Asthma: Status: Acute Code(s): J45.909 - Unspecified asthma, uncomplicated (8) Seizure disorder: Status: Acute Code(s): G40.909 - Epilepsy, unspecified, not intractable, without status epilepticus (9) Bwhvj-Bohkjaqcs-Pxahr (WPW) syndrome: Status: Acute Code(s): I45.6 - Pre-excitation syndrome Plan Mr. Fernandes is a 35 yo M wit h/o ADHD, previous bipolar dx, anxiety, PTSD, epilepsy, ETOH use d/o, h/o ETOH w/d seizures, cocaine use d/o, opioid use d/o in remission on maintenance tx and WPW who presented to the [facility] ED due to SI. He was transferred to [facility] for tx of depression and SI. Pt was recently tx'd for ETOH w/d seizure activity (no mention of an EEG being done) per Crisis eval prior to re-presenting to the ED w/ SI one day later. Per his report, his friends brought in ETOH and he consumed 1 L of vodka every night in the hospital. It seems unlikely that this actually occurred in the hospital but will place on CIWA as a precaution, given that he has a h/o seizures. He also admits to smoking meth and cocaine use prior to admission. He reports a previous bipolar dx but was unable to say if he's had manic episodes w/o the influence of drug use. Plan: Admitted to for safety and stabilization Legal Status: CV 15 min safety checks CIWA monitoring, lorazepam prn per protocol Labs and EKG ordered Hospitalist consult pending for admission H&P Continue regular medications: Buprenorphine-Naloxone 8/2 mg TID Thorazine 300 mg qhs Clonidine 0.1 mg bid Gabapentin 400 mg tid Prazosin 3 mg qhs Keppra 500 mg bid Melatonin 6 mg qhs Zofran 4 mg q 8 hrs prn for nausea Thiamine, MVI Senna prn for constipation Albuterol inhaler prn for SOB 08/17: CIWA d/c'd since pt's subjective sx report is not c/w objective signs. Received 5 mg lorazepam yesterday. Switched to standing dose of 1 mg tid today. He is on Keppra and gabapentin, so risk of ETOH w/d seizure is low. VS are wnl today. Will monitor VS per unit standards. Pt has requested oxycodone for GALLARDO r/t ETOH w/d and t/w told him that is not an appropriate med for that indication. He has bentyl and Zofran ordered for GI issues and states they don't help. Declined offer to order imodium for diarrhea. -Will start Campral 333 mg tid, as pt requested a med to reduce ETOH cravings. Can't take naltrexone w/ the Suboxone. 08/18: Pt has declined 2 referrals for recovery programs made by EDDIE. Reports he will call programs on his own. Will continue current tx plan for now Reason for continued inpatient stay Substantial Risk for: med/psych decompensation Time Spent With Patient Time: Total time managing care of this patient today ____ minutes.
[2025-08-17 09:16] VITALS: BP 103/65
[2025-08-17] MEDS: Buprenorphine/Naloxone 8/2 mg TAB.SUBL 1 TAB SUBLINGUAL ×3 (09:17→20:14)
[2025-08-17] MEDS: Nicotine Polacrilex Lozenge 2 MG LOZENGE BUCCAL ×5 (12:39→22:44)
[2025-08-17 20:00] VITALS: BP 180/100; PULSE 115; RESP 16; TEMP 36.2; O2SAT 96
[2025-08-17 20:08] VITALS: BP 180/100
[2025-08-17 20:15] VITALS: BP 180/100
[2025-08-17 21:18] VITALS: BP 151/97; PULSE 114; RESP 16; TEMP 36.1; O2SAT 95
[2025-08-18] MEDS: Nicotine Polacrilex Lozenge 2 MG LOZENGE BUCCAL ×6 (09:54→20:51)
[2025-08-18 10:09] VITALS: BP 115/76
[2025-08-18] MEDS: Buprenorphine/Naloxone 8/2 mg TAB.SUBL 1 TAB SUBLINGUAL ×3 (10:09→19:50)
[2025-08-18 10:10] VITALS: BP 115/76; PULSE 113; RESP 20; TEMP 36.2; O2SAT 97
[2025-08-18 19:50] VITALS: BP 165/93
[2025-08-18 19:53] VITALS: BP 165/93
[2025-08-18 20:00] VITALS: BP 165/93; PULSE 109; RESP 16; TEMP 36.4; O2SAT 96
[2025-08-18 22:20] VITALS: BP 138/85
--- NOTE | 2025-08-18 23:34 | P.PNPSI_ITS ---
Subjective Subjective Date of Service: 08/18/25 Reason For Visit: Depression, SI Subjective Notes: Conditional Voluntary Healthcare Proxy: No Guardianship: No Medical Problems Affecting Mental Status: No Interim History: Medical record and nursing notes reviewed; case discussed during rounds with team/nursing staff, and met with patient for supportive therapy/psychoeducation, as well as medication management. Patient and this provider pacing the larios during 1-1 assessment. Report passive SI without plan/intent but will OD if he is out in community. Report hearing people calling my name and seeing black and white spot as well as spider when asked he experiences AVH. Denies SIB/HI. Patient is irritable toward one of [facility] who redirected and asks patient to leave group as patient was disrespectful. Per nursing, patient resisted to care, refused VS but Vs last night was elevated. Will continue to monitor. Medication Compliance: Yes Side effects from medications: No Attending Groups: Intermittent Review of Systems Acute medical concerns: No Medical Review of Systems: unchanged Review of Systems Review of Systems Denies any shortness of breath, chest pain, headaches, dysuria, abdominal pain or discomfort, nausea, vomiting. Denies fever or chills. Yes all other systems are reviewed and are negative Mental Status Exam Mental Status Exam Narrative: Appearance: casual, grooming/hygiene wnl. eye contact wnl Attitude: Cooperative Speech: Fluent and wnl in regard to volume, tone, prosody Motor activity: irritable and without any tics, tremors or dyskinesias. Mood: 'irritated Affect: constricted Thought process: goal directed and without evidence of formal thought disorder Thought content: endorses SI w/o plan/intent. No violent ideation reported Perception: does not appear to respond to internal stimuli. However report AVH hearing people calling his name, seeing spider and black/white spots. Insight: intact Judgment: poor Diagnostics Vital Signs (24Hr): Vital Signs - 24 hr 08/18/25 10:09 08/18/25 10:10 08/18/25 19:50 Temperature 97.1 F Pulse Rate 113 H Respiratory Rate 20 Blood Pressure 115/76 115/76 165/93 H Pulse Oximetry 97 Oxygen Delivery Method Room Air 08/18/25 19:53 08/18/25 20:00 08/18/25 22:20 Temperature 97.6 F Pulse Rate 109 H Respiratory Rate 16 Blood Pressure 165/93 H 165/93 H 138/85 Pulse Oximetry 96 Oxygen Delivery Method Room Air BMI result Body Mass Index 32.8 Labs 08/15/25 12:35 Medications Medications Current Medications Acamprosate (Acamprosate Calcium 333 Mg Tablet.Dr) 333 mg PO TID [facility] Last Admin: 08/18/25 19:52 Dose: 333 mg Acetaminophen (Acetaminophen 325 Mg Tablet) 650 mg PO Q6H PRN PRN Reason: Headache/Pain, Scale 1-10 Last Admin: 08/16/25 10:41 Dose: 650 mg Al Hydroxide/Mg Hydroxide (Magnesium Hydrox/Alum Hydrox 30 Ml Oral.Susp) 30 ml PO Q6H PRN PRN Reason: Heartburn Albuterol Sulfate (Albuterol Sulfate 90 Mcg 8 Gm Inhaler) 2 puff INHALE RQ4H PRN PRN Reason: Shortness of Breath/Wheezing Buprenorphine/Naloxone (Buprenorphine/Naloxone 8/2 Mg Tab.Subl) 1 tab SUBLINGUAL TID [facility] Last Admin: 08/18/25 19:50 Dose: 1 tab Chlorpromazine HCl (Chlorpromazine Hcl 100 Mg Tablet) 300 mg PO BEDTIME [facility] Last Admin: 08/18/25 19:51 Dose: 300 mg Chlorpromazine HCl (Chlorpromazine Hcl 100 Mg Tablet) 100 mg PO BID PRN PRN Reason: agitation Last Admin: 08/15/25 16:15 Dose: 100 mg Clonidine HCl (Clonidine Hcl 0.1 Mg Tablet) 0.1 mg PO BID [facility]; Protocol Last Admin: 08/18/25 19:53 Dose: 0.1 mg Dicyclomine HCl (Dicyclomine Hcl 10 Mg Capsule) 10 mg PO TIDAC PRN PRN Reason: Diarrhea, abdominal discomfort Last Admin: 08/16/25 16:29 Dose: 10 mg Folic Acid (Folic Acid 1 Mg Tablet) 1 mg PO DAILY [facility] Last Admin: 08/18/25 10:11 Dose: 1 mg Gabapentin (Gabapentin 400 Mg Capsule) 400 mg PO TID [facility] Last Admin: 08/18/25 19:52 Dose: 400 mg Hydroxyzine HCl (Hydroxyzine Hcl 25 Mg Tablet) 25 mg PO Q6H PRN PRN Reason: mild anxiety Last Admin: 08/15/25 16:15 Dose: 25 mg Ibuprofen (Ibuprofen 800 Mg Tablet) 800 mg PO Q6H PRN PRN Reason: Pain, Moderate(Pain Scale 4-6) Last Admin: 08/17/25 20:12 Dose: 800 mg Levetiracetam (Levetiracetam 500 Mg Tablet) 500 mg PO BID [facility] Last Admin: 08/18/25 19:53 Dose: 500 mg Lorazepam (Lorazepam 1 Mg Tablet) 1 mg PO TID [facility] Last Admin: 08/18/25 19:54 Dose: 1 mg Magnesium Hydroxide (Milk Of Magnesia 30 Ml Oral.Susp) 30 ml PO DAILY PRN PRN Reason: Constipation Melatonin (Melatonin 3 Mg Tablet) 6 mg PO BEDTIME [facility] Last Admin: 08/18/25 19:53 Dose: 6 mg Multivitamins/Vitamin C (Multivitamin Tablet) 1 tab PO DAILY [facility] Last Admin: 08/18/25 10:11 Dose: 1 tab Nicotine Polacrilex (Nicotine Polacrilex 2 Mg Gum) 4 mg BUCCAL Q2H PRN PRN Reason: Nicotine Cravings Last Admin: 08/18/25 21:45 Dose: 4 mg Nicotine Polacrilex (Nicotine Polacrilex Lozenge 2 Mg Lozenge) 2 mg BUCCAL Q2H PRN PRN Reason: Nicotine Cravings Last Admin: 08/18/25 20:51 Dose: 2 mg Omeprazole (Omeprazole 20 Mg Capsule.Dr) 20 mg PO DAILY@0630 [facility] Last Admin: 08/18/25 10:11 Dose: 20 mg Ondansetron HCl (Ondansetron Odt 4 Mg Tab.Rapdis) 4 mg TRANSLINGU Q8H PRN PRN Reason: Nausea and Vomiting Last Admin: 08/16/25 10:41 Dose: 4 mg Prazosin HCl (Prazosin Hcl 1 Mg Capsule) 3 mg PO BEDTIME [facility]; Protocol Last Admin: 08/18/25 19:50 Dose: 3 mg Senna (Sennosides 8.6 Mg Tablet) 17.2 mg PO BEDTIME PRN PRN Reason: Constipation Thiamine HCl (Thiamine Hcl 100 Mg Tablet) 100 mg PO DAILY [facility] Last Admin: 08/18/25 10:11 Dose: 100 mg Trazodone HCl (Trazodone Hcl 50 Mg Tablet) 50 mg PO BEDTIME MRX1 PRN PRN Reason: Insomnia Allergies Allergies Allergy/AdvReac Type Severity Reaction Status Date / Time capsaicin Allergy Rash Verified 08/14/25 18:24 Fish Containing Products Allergy Anaphylaxis Verified 08/14/25 18:24 fish derived (fish) Allergy Anaphylaxis Verified 08/14/25 18:24 quetiapine Allergy Rash Verified 08/14/25 18:24 Assessment & Plan Assessment & Plan (1) Other bipolar disorder: Status: Acute Code(s): F31.89 - Other bipolar disorder (2) PTSD (post-traumatic stress disorder): Status: Acute Code(s): F43.10 - Post-traumatic stress disorder, unspecified (3) Alcohol use disorder, severe, dependence: Status: Acute Code(s): F10.20 - Alcohol dependence, uncomplicated (4) Opioid use disorder, severe, on maintenance therapy: Status: Acute Code(s): F11.20 - Opioid dependence, uncomplicated (5) Cocaine use disorder: Status: Acute Code(s): F14.10 - Cocaine abuse, uncomplicated (6) Methamphetamine abuse: Status: Acute Code(s): F15.10 - Other stimulant abuse, uncomplicated (7) Asthma: Status: Acute Code(s): J45.909 - Unspecified asthma, uncomplicated (8) Seizure disorder: Status: Acute Code(s): G40.909 - Epilepsy, unspecified, not intractable, without status epilepticus (9) Uczgj-Mswochsxx-Eepnr (WPW) syndrome: Status: Acute Code(s): I45.6 - Pre-excitation syndrome Plan Mr. Fernandes is a 35 yo M wit h/o ADHD, previous bipolar dx, anxiety, PTSD, epilepsy, ETOH use d/o, h/o ETOH w/d seizures, cocaine use d/o, opioid use d/o in remission on maintenance tx and WPW who presented to the [facility] ED due to SI. He was transferred to [facility] for tx of depression and SI. Pt was recently tx'd for ETOH w/d seizure activity (no mention of an EEG being done) per Crisis eval prior to re-presenting to the ED w/ SI one day later. Per his report, his friends brought in ETOH and he consumed 1 L of vodka every night in the hospital. It seems unlikely that this actually occurred in the hospital but will place on CIWA as a precaution, given that he has a h/o seizures. He also admits to smoking meth and cocaine use prior to admission. He reports a previous bipolar dx but was unable to say if he's had manic episodes w/o the influence of drug use. Plan: Admitted to [facility] for safety and stabilization Legal Status: CV 15 min safety checks CIWA monitoring, lorazepam prn per protocol Labs and EKG ordered Hospitalist consult pending for admission H&P Continue regular medications: Buprenorphine-Naloxone 8/2 mg TID Thorazine 300 mg qhs Clonidine 0.1 mg bid Gabapentin 400 mg tid Prazosin 3 mg qhs Keppra 500 mg bid Melatonin 6 mg qhs Zofran 4 mg q 8 hrs prn for nausea Thiamine, MVI Senna prn for constipation Albuterol inhaler prn for SOB 08/17: CIWA d/c'd since pt's subjective sx report is not c/w objective signs. Received 5 mg lorazepam yesterday. Switched to standing dose of 1 mg tid today. He is on Keppra and gabapentin, so risk of ETOH w/d seizure is low. VS are wnl today. Will monitor VS per unit standards. Pt has requested oxycodone for GALLARDO r/t ETOH w/d and t/w told him that is not an appropriate med for that indication. He has bentyl and Zofran ordered for GI issues and states they don't help. Declined offer to order imodium for diarrhea. -Will start Campral 333 mg tid, as pt requested a med to reduce ETOH cravings. Can't take naltrexone w/ the Suboxone. 08/18: Pt has declined 2 referrals for recovery programs made by EDDIE. Reports he will call programs on his own. Will continue current tx plan for now 08/18/25: Patient and this provider pacing the larios during 1-1 assessment. Report passive SI without plan/intent but will OD if he is out in community. Report hearing people calling my name and seeing black and white spot as well as spider when asked he experiences AVH. Denies SIB/HI. Patient is irritable toward one of [facility] who redirected and asks patient to leave group as patient was disrespectful. Per nursing, patient resisted to care, refused VS but Vs last night was elevated. Will continue to monitor. Patient educated on: diagnosis, medication risk/benefits and therapeutic strategies Informed Consent: understands and further education needed Reason for continued inpatient stay Substantial Risk for: med/psych decompensation Time Spent With Patient Time: Total time managing care of this patient today ____ minutes.
[2025-08-19] MEDS: Nicotine Polacrilex Lozenge 2 MG LOZENGE BUCCAL ×8 (00:37→22:36)
[2025-08-19 10:00] VITALS: BP 127/75; PULSE 110; RESP 16; O2SAT 100
[2025-08-19] MEDS: Buprenorphine/Naloxone 8/2 mg TAB.SUBL 1 TAB SUBLINGUAL ×3 (10:18→20:31)
[2025-08-19] MEDS: Magnesium Hydrox/Alum Hydrox 30 ML ORAL.SUSP PO (17:26)
[2025-08-19] MEDS: Milk of Magnesia 30 ML ORAL.SUSP PO (18:42)
[2025-08-19 19:49] VITALS: BP 132/85
[2025-08-19 19:53] VITALS: BP 132/85
[2025-08-19 20:00] VITALS: BP 132/85; PULSE 117; RESP 16; TEMP 36.6; O2SAT 97
--- NOTE | 2025-08-19 22:26 | HO.PSYCHPN ---
Subjective Subjective Date of Service: 08/19/25 Reason For Visit: Depression, SI Subjective Notes: Conditional Voluntary Healthcare Proxy: No Guardianship: No Medical Problems Affecting Mental Status: No Interim History: Medical record and nursing notes reviewed; case discussed during rounds with team/nursing staff, and met with patient for supportive therapy/psychoeducation, as well as medication management. Patient is visible, around the clock on Nicotine gum. There are two orders for nicotine gums but not sure it is intended to be that way by attending. Educate patient not to use it at night as it can affect his sleep. Report he feels less irritable today. Report passive SI with voices of someone calling my name . Denies plan/intent here but if he is outside in community he would do something. Per nursing, patient slept for only 2 hours last night. Reviewed with patient regarding some med changes to help with sleep. Patient asks for Benadryl at night for insomnia. Patient also takes PRN Thorazine for voices. Medication Compliance: Yes Side effects from medications: No Attending Groups: No Review of Systems Acute medical concerns: No Medical Review of Systems: unchanged Review of Systems Review of Systems Denies any shortness of breath, chest pain, headaches, dysuria, abdominal pain or discomfort, nausea, vomiting. Denies fever or chills. Yes all other systems are reviewed and are negative Mental Status Exam Mental Status Exam Narrative: Appearance: casual, grooming/hygiene wnl. eye contact wnl Attitude: Cooperative Speech: Fluent and wnl in regard to volume, tone, prosody Motor activity: irritable and without any tics, tremors or dyskinesias. Mood: less 'irritated Affect: constricted Thought process: goal directed and without evidence of formal thought disorder Thought content: endorses SI w/o plan/intent. No violent ideation reported Perception: does not appear to respond to internal stimuli. However report AVH hearing people calling his name, seeing spider and black/white spots. Insight: intact Judgment: poor Diagnostics Vital Signs (24Hr): Vital Signs - 24 hr 08/19/25 10:00 08/19/25 19:49 08/19/25 19:53 Temperature Pulse Rate 110 H Respiratory Rate 16 Blood Pressure 127/75 132/85 132/85 Pulse Oximetry 100 Oxygen Delivery Method Room Air 08/19/25 20:00 Temperature 97.9 F Pulse Rate 117 H Respiratory Rate 16 Blood Pressure 132/85 Pulse Oximetry 97 Oxygen Delivery Method Room Air BMI result Body Mass Index 32.8 Labs 08/15/25 12:35 Medications Medications Current Medications Acamprosate (Acamprosate Calcium 333 Mg Tablet.Dr) 333 mg PO TID [facility] Last Admin: 08/19/25 19:52 Dose: 333 mg Acetaminophen (Acetaminophen 325 Mg Tablet) 650 mg PO Q6H PRN PRN Reason: Headache/Pain, Scale 1-10 Last Admin: 08/16/25 10:41 Dose: 650 mg Al Hydroxide/Mg Hydroxide (Magnesium Hydrox/Alum Hydrox 30 Ml Oral.Susp) 30 ml PO Q6H PRN PRN Reason: Heartburn Last Admin: 08/19/25 17:26 Dose: 30 ml Albuterol Sulfate (Albuterol Sulfate 90 Mcg 8 Gm Inhaler) 2 puff INHALE RQ4H PRN PRN Reason: Shortness of Breath/Wheezing Buprenorphine/Naloxone (Buprenorphine/Naloxone 8/2 Mg Tab.Subl) 1 tab SUBLINGUAL TID [facility] Last Admin: 08/19/25 20:31 Dose: 1 tab Chlorpromazine HCl (Chlorpromazine Hcl 100 Mg Tablet) 300 mg PO BEDTIME [facility] Last Admin: 08/19/25 19:51 Dose: 300 mg Chlorpromazine HCl (Chlorpromazine Hcl 100 Mg Tablet) 100 mg PO BID PRN PRN Reason: agitation Last Admin: 08/19/25 12:22 Dose: 100 mg Clonidine HCl (Clonidine Hcl 0.1 Mg Tablet) 0.1 mg PO BID [facility]; Protocol Last Admin: 08/19/25 19:53 Dose: 0.1 mg Dicyclomine HCl (Dicyclomine Hcl 10 Mg Capsule) 10 mg PO TIDAC PRN PRN Reason: Diarrhea, abdominal discomfort Last Admin: 08/16/25 16:29 Dose: 10 mg Diphenhydramine HCl (Diphenhydramine Hcl 25 Mg Capsule) 50 mg PO BEDTIME [facility] Last Admin: 08/19/25 19:50 Dose: 50 mg Folic Acid (Folic Acid 1 Mg Tablet) 1 mg PO DAILY [facility] Last Admin: 08/19/25 10:27 Dose: 1 mg Gabapentin (Gabapentin 400 Mg Capsule) 400 mg PO TID [facility] Last Admin: 08/19/25 19:50 Dose: 400 mg Hydroxyzine HCl (Hydroxyzine Hcl 25 Mg Tablet) 25 mg PO Q6H PRN PRN Reason: mild anxiety Last Admin: 08/15/25 16:15 Dose: 25 mg Ibuprofen (Ibuprofen 800 Mg Tablet) 800 mg PO Q6H PRN PRN Reason: Pain, Moderate(Pain Scale 4-6) Last Admin: 08/17/25 20:12 Dose: 800 mg Levetiracetam (Levetiracetam 500 Mg Tablet) 500 mg PO BID [facility] Last Admin: 08/19/25 19:53 Dose: 500 mg Lorazepam (Lorazepam 1 Mg Tablet) 1 mg PO TID [facility] Last Admin: 08/19/25 19:53 Dose: 1 mg Magnesium Hydroxide (Milk Of Magnesia 30 Ml Oral.Susp) 30 ml PO DAILY PRN PRN Reason: Constipation Last Admin: 08/19/25 18:42 Dose: 30 ml Melatonin (Melatonin 3 Mg Tablet) 9 mg PO BEDTIME [facility] Last Admin: 08/19/25 19:52 Dose: 9 mg Multivitamins/Vitamin C (Multivitamin Tablet) 1 tab PO DAILY [facility] Last Admin: 08/19/25 10:19 Dose: 1 tab Nicotine Polacrilex (Nicotine Polacrilex 2 Mg Gum) 4 mg BUCCAL Q2H PRN PRN Reason: Nicotine Cravings Last Admin: 08/19/25 21:28 Dose: 4 mg Nicotine Polacrilex (Nicotine Polacrilex Lozenge 2 Mg Lozenge) 2 mg BUCCAL Q2H PRN PRN Reason: Nicotine Cravings Last Admin: 08/19/25 19:47 Dose: 2 mg Omeprazole (Omeprazole 20 Mg Capsule.Dr) 20 mg PO DAILY@0630 [facility] Last Admin: 08/19/25 10:18 Dose: 20 mg Ondansetron HCl (Ondansetron Odt 4 Mg Tab.Rapdis) 4 mg TRANSLINGU Q8H PRN PRN Reason: Nausea and Vomiting Last Admin: 08/16/25 10:41 Dose: 4 mg Prazosin HCl (Prazosin Hcl 1 Mg Capsule) 3 mg PO BEDTIME [facility]; Protocol Last Admin: 08/19/25 19:49 Dose: 3 mg Senna (Sennosides 8.6 Mg Tablet) 17.2 mg PO BEDTIME PRN PRN Reason: Constipation Thiamine HCl (Thiamine Hcl 100 Mg Tablet) 100 mg PO DAILY [facility] Last Admin: 08/19/25 10:18 Dose: 100 mg Trazodone HCl (Trazodone Hcl 50 Mg Tablet) 50 mg PO BEDTIME MRX1 PRN PRN Reason: Insomnia Allergies Allergies Allergy/AdvReac Type Severity Reaction Status Date / Time capsaicin Allergy Rash Verified 08/14/25 18:24 Fish Containing Products Allergy Anaphylaxis Verified 08/14/25 18:24 fish derived (fish) Allergy Anaphylaxis Verified 08/14/25 18:24 quetiapine Allergy Rash Verified 08/14/25 18:24 Assessment & Plan Assessment & Plan (1) Other bipolar disorder: Status: Acute Code(s): F31.89 - Other bipolar disorder (2) PTSD (post-traumatic stress disorder): Status: Acute Code(s): F43.10 - Post-traumatic stress disorder, unspecified (3) Alcohol use disorder, severe, dependence: Status: Acute Code(s): F10.20 - Alcohol dependence, uncomplicated (4) Opioid use disorder, severe, on maintenance therapy: Status: Acute Code(s): F11.20 - Opioid dependence, uncomplicated (5) Cocaine use disorder: Status: Acute Code(s): F14.10 - Cocaine abuse, uncomplicated (6) Methamphetamine abuse: Status: Acute Code(s): F15.10 - Other stimulant abuse, uncomplicated (7) Asthma: Status: Acute Code(s): J45.909 - Unspecified asthma, uncomplicated (8) Seizure disorder: Status: Acute Code(s): G40.909 - Epilepsy, unspecified, not intractable, without status epilepticus (9) Belzx-Llsgugseh-Tdakd (WPW) syndrome: Status: Acute Code(s): I45.6 - Pre-excitation syndrome Plan Mr. Fernandes is a 35 yo M wit h/o ADHD, previous bipolar dx, anxiety, PTSD, epilepsy, ETOH use d/o, h/o ETOH w/d seizures, cocaine use d/o, opioid use d/o in remission on maintenance tx and WPW who presented to the [facility] ED due to SI. He was transferred to [facility] for tx of depression and SI. Pt was recently tx'd for ETOH w/d seizure activity (no mention of an EEG being done) per Crisis eval prior to re-presenting to the ED w/ SI one day later. Per his report, his friends brought in ETOH and he consumed 1 L of vodka every night in the hospital. It seems unlikely that this actually occurred in the hospital but will place on CIWA as a precaution, given that he has a h/o seizures. He also admits to smoking meth and cocaine use prior to admission. He reports a previous bipolar dx but was unable to say if he's had manic episodes w/o the influence of drug use. Plan: Admitted to [facility] for safety and stabilization Legal Status: CV 15 min safety checks CIWA monitoring, lorazepam prn per protocol Labs and EKG ordered Hospitalist consult pending for admission H&P Continue regular medications: Buprenorphine-Naloxone 8/2 mg TID Thorazine 300 mg qhs Clonidine 0.1 mg bid Gabapentin 400 mg tid Prazosin 3 mg qhs Keppra 500 mg bid Melatonin 6 mg qhs Zofran 4 mg q 8 hrs prn for nausea Thiamine, MVI Senna prn for constipation Albuterol inhaler prn for SOB 08/17: CIWA d/c'd since pt's subjective sx report is not c/w objective signs. Received 5 mg lorazepam yesterday. Switched to standing dose of 1 mg tid today. He is on Keppra and gabapentin, so risk of ETOH w/d seizure is low. VS are wnl today. Will monitor VS per unit standards. Pt has requested oxycodone for GALLARDO r/t ETOH w/d and t/w told him that is not an appropriate med for that indication. He has bentyl and Zofran ordered for GI issues and states they don't help. Declined offer to order imodium for diarrhea. -Will start Campral 333 mg tid, as pt requested a med to reduce ETOH cravings. Can't take naltrexone w/ the Suboxone. 08/18: Pt has declined 2 referrals for recovery programs made by [facility]. Reports he will call programs on his own. Will continue current tx plan for now 08/18/25: Patient and this provider pacing the larios during 1-1 assessment. Report passive SI without plan/intent but will OD if he is out in community. Report hearing people calling my name and seeing black and white spot as well as spider when asked he experiences AVH. Denies SIB/HI. Patient is irritable toward one of [facility] who redirected and asks patient to leave group as patient was disrespectful. Per nursing, patient resisted to care, refused VS but Vs last night was elevated. Will continue to monitor. 08/19/25: Patient is visible, around the clock on Nicotine gum. There are two orders for nicotine gums but not sure it is intended to be that way by attending. Educate patient not to use it at night as it can affect his sleep. Report he feels less irritable today. Report passive SI with voices of someone calling my name . Denies plan/intent here but if he is outside in community he would do something. Per nursing, patient slept for only 2 hours last night. Reviewed with patient regarding some med changes to help with sleep. Patient asks for Benadryl at night for insomnia. Patient also takes PRN Thorazine for voices. Patient educated on: diagnosis, medication risk/benefits, substance abuse and therapeutic strategies Informed Consent: understands and further education needed Reason for continued inpatient stay Substantial Risk for: med/psych decompensation Time Spent With Patient Time: Total time managing care of this patient today ____ minutes.
[2025-08-20] MEDS: Buprenorphine/Naloxone 8/2 mg TAB.SUBL 1 TAB SUBLINGUAL ×3 (08:59→20:06)
[2025-08-20 10:20] VITALS: BP 123/78; PULSE 100; O2SAT 98
[2025-08-20 10:22] VITALS: BP 128/78
--- NOTE | 2025-08-20 10:43 | PC.NURSE ---
Dr. Thomas authorized late administration of morning medications.
[2025-08-20] MEDS: Nicotine Polacrilex Lozenge 2 MG LOZENGE BUCCAL ×6 (11:33→23:06)
--- NOTE | 2025-08-20 18:52 | P.PNPSI_ITS ---
Subjective Subjective Date of Service: 08/20/25 Reason For Visit: Depression, SI Subjective Notes: Conditional Voluntary Interim History: Chart reviewed. Case discussed with tx team SW received a message that pt was accepted to [facility] in [place]. We met w/ pt together to update him w/ this news. He accepted the placement but noted that [place] is where he used to use. He has either declined or was not accepted to other programs that SW referred him to. Pt reports feeling okay I guess . He endorses SI, which is a chronic issue, but denies intent/plan to harm himself. Reports seeing spiders, both out of his peripheral vision and in his direct vision, which don't disappear when he focuses on them. Also reports seeing black and white spots in his vision. He denies feeling dizzy. VS are stable Mental Status Exam Mental Status Exam Narrative: Appearance: casual, grooming/hygiene wnl. eye contact wnl Attitude: Cooperative Speech: Fluent and wnl in regard to volume, tone, prosody Motor activity: calm and without any tics, tremors or dyskinesias. Mood: as noted above Affect: generally blunted Thought process: goal directed and without evidence of formal thought disorder Thought content: as noted above Perception: as noted above. Does not appear to respond to internal stim Insight: intact Judgment:fair Diagnostics Vital Signs (24Hr): Vital Signs - 24 hr 08/19/25 19:49 08/19/25 19:53 08/19/25 20:00 Temperature 97.9 F Pulse Rate 117 H Respiratory Rate 16 Blood Pressure 132/85 132/85 132/85 Pulse Oximetry 97 Oxygen Delivery Method Room Air 08/20/25 10:20 08/20/25 10:22 Temperature Pulse Rate 100 Respiratory Rate Blood Pressure 123/78 128/78 Pulse Oximetry 98 Oxygen Delivery Method Room Air BMI result Body Mass Index 32.8 Labs 08/15/25 12:35 Medications Medications Current Medications Acamprosate (Acamprosate Calcium 333 Mg Tablet.) 333 mg PO TID [facility] Last Admin: 08/20/25 15:14 Dose: 333 mg Acetaminophen (Acetaminophen 325 Mg Tablet) 650 mg PO Q6H PRN PRN Reason: Headache/Pain, Scale 1-10 Last Admin: 08/16/25 10:41 Dose: 650 mg Al Hydroxide/Mg Hydroxide (Magnesium Hydrox/Alum Hydrox 30 Ml Oral.Susp) 30 ml PO Q6H PRN PRN Reason: Heartburn Last Admin: 08/19/25 17:26 Dose: 30 ml Albuterol Sulfate (Albuterol Sulfate 90 Mcg 8 Gm Inhaler) 2 puff INHALE RQ4H PRN PRN Reason: Shortness of Breath/Wheezing Buprenorphine/Naloxone (Buprenorphine/Naloxone 8/2 Mg Tab.Subl) 1 tab SUBLINGUAL TID [facility] Last Admin: 08/20/25 15:14 Dose: 1 tab Chlorpromazine HCl (Chlorpromazine Hcl 100 Mg Tablet) 300 mg PO BEDTIME [facility] Last Admin: 08/19/25 19:51 Dose: 300 mg Chlorpromazine HCl (Chlorpromazine Hcl 100 Mg Tablet) 100 mg PO BID PRN PRN Reason: agitation Last Admin: 08/19/25 12:22 Dose: 100 mg Clonidine HCl (Clonidine Hcl 0.1 Mg Tablet) 0.1 mg PO BID [facility]; Protocol Last Admin: 08/20/25 10:22 Dose: 0.1 mg Dicyclomine HCl (Dicyclomine Hcl 10 Mg Capsule) 10 mg PO TIDAC PRN PRN Reason: Diarrhea, abdominal discomfort Last Admin: 08/16/25 16:29 Dose: 10 mg Diphenhydramine HCl (Diphenhydramine Hcl 25 Mg Capsule) 50 mg PO BEDTIME [facility] Last Admin: 08/19/25 19:50 Dose: 50 mg Folic Acid (Folic Acid 1 Mg Tablet) 1 mg PO DAILY [facility] Last Admin: 08/20/25 10:21 Dose: 1 mg Gabapentin (Gabapentin 400 Mg Capsule) 400 mg PO TID [facility] Last Admin: 08/20/25 15:14 Dose: 400 mg Hydroxyzine HCl (Hydroxyzine Hcl 25 Mg Tablet) 25 mg PO Q6H PRN PRN Reason: mild anxiety Last Admin: 08/15/25 16:15 Dose: 25 mg Ibuprofen (Ibuprofen 800 Mg Tablet) 800 mg PO Q6H PRN PRN Reason: Pain, Moderate(Pain Scale 4-6) Last Admin: 08/17/25 20:12 Dose: 800 mg Levetiracetam (Levetiracetam 500 Mg Tablet) 500 mg PO BID [facility] Last Admin: 08/20/25 10:21 Dose: 500 mg Magnesium Hydroxide (Milk Of Magnesia 30 Ml Oral.Susp) 30 ml PO DAILY PRN PRN Reason: Constipation Last Admin: 08/19/25 18:42 Dose: 30 ml Melatonin (Melatonin 3 Mg Tablet) 9 mg PO BEDTIME [facility] Last Admin: 08/19/25 19:52 Dose: 9 mg Multivitamins/Vitamin C (Multivitamin Tablet) 1 tab PO DAILY [facility] Last Admin: 08/20/25 10:21 Dose: 1 tab Nicotine Polacrilex (Nicotine Polacrilex 2 Mg Gum) 4 mg BUCCAL Q2H PRN PRN Reason: Nicotine Cravings Last Admin: 08/20/25 17:33 Dose: 4 mg Nicotine Polacrilex (Nicotine Polacrilex Lozenge 2 Mg Lozenge) 2 mg BUCCAL Q2H PRN PRN Reason: Nicotine Cravings Last Admin: 08/20/25 18:30 Dose: 2 mg Omeprazole (Omeprazole 20 Mg Capsule.Dr) 20 mg PO DAILY@0630 [facility] Last Admin: 08/20/25 10:22 Dose: 20 mg Ondansetron HCl (Ondansetron Odt 4 Mg Tab.Rapdis) 4 mg TRANSLINGU Q8H PRN PRN Reason: Nausea and Vomiting Last Admin: 08/16/25 10:41 Dose: 4 mg Prazosin HCl (Prazosin Hcl 1 Mg Capsule) 3 mg PO BEDTIME [facility]; Protocol Last Admin: 08/19/25 19:49 Dose: 3 mg Senna (Sennosides 8.6 Mg Tablet) 17.2 mg PO BEDTIME PRN PRN Reason: Constipation Thiamine HCl (Thiamine Hcl 100 Mg Tablet) 100 mg PO DAILY [facility] Last Admin: 08/20/25 10:21 Dose: 100 mg Trazodone HCl (Trazodone Hcl 50 Mg Tablet) 50 mg PO BEDTIME MRX1 PRN PRN Reason: Insomnia Allergies Allergies Allergy/AdvReac Type Severity Reaction Status Date / Time capsaicin Allergy Rash Verified 08/14/25 18:24 Fish Containing Products Allergy Anaphylaxis Verified 08/14/25 18:24 fish derived (fish) Allergy Anaphylaxis Verified 08/14/25 18:24 quetiapine Allergy Rash Verified 08/14/25 18:24 Assessment & Plan Assessment & Plan (1) Other bipolar disorder: Status: Acute Code(s): F31.89 - Other bipolar disorder (2) PTSD (post-traumatic stress disorder): Status: Acute Code(s): F43.10 - Post-traumatic stress disorder, unspecified (3) Alcohol use disorder, severe, dependence: Status: Acute Code(s): F10.20 - Alcohol dependence, uncomplicated (4) Opioid use disorder, severe, on maintenance therapy: Status: Acute Code(s): F11.20 - Opioid dependence, uncomplicated (5) Cocaine use disorder: Status: Acute Code(s): F14.10 - Cocaine abuse, uncomplicated (6) Methamphetamine abuse: Status: Acute Code(s): F15.10 - Other stimulant abuse, uncomplicated (7) Asthma: Status: Acute Code(s): J45.909 - Unspecified asthma, uncomplicated (8) Seizure disorder: Status: Acute Code(s): G40.909 - Epilepsy, unspecified, not intractable, without status epilepticus (9) Ppbyq-Wyivjisqn-Cvqli (WPW) syndrome: Status: Acute Code(s): I45.6 - Pre-excitation syndrome Plan Mr. Fernandes is a 35 yo M wit h/o ADHD, previous bipolar dx, anxiety, PTSD, epilepsy, ETOH use d/o, h/o ETOH w/d seizures, cocaine use d/o, opioid use d/o in remission on maintenance tx and WPW who presented to the [facility] ED due to SI. He was transferred to [facility] for tx of depression and SI. Pt was recently tx'd for ETOH w/d seizure activity (no mention of an EEG being done) per Crisis eval prior to re-presenting to the ED w/ SI one day later. Per his report, his friends brought in ETOH and he consumed 1 L of vodka every night in the hospital. It seems unlikely that this actually occurred in the hospital but will place on CIWA as a precaution, given that he has a h/o seizures. He also admits to smoking meth and cocaine use prior to admission. He reports a previous bipolar dx but was unable to say if he's had manic episodes w/o the influence of drug use. Plan: Admitted to for safety and stabilization Legal Status: CV 15 min safety checks CIWA monitoring, lorazepam prn per protocol Labs and EKG ordered Hospitalist consult pending for admission H&P Continue regular medications: Buprenorphine-Naloxone 8/2 mg TID Thorazine 300 mg qhs Clonidine 0.1 mg bid Gabapentin 400 mg tid Prazosin 3 mg qhs Keppra 500 mg bid Melatonin 6 mg qhs Zofran 4 mg q 8 hrs prn for nausea Thiamine, MVI Senna prn for constipation Albuterol inhaler prn for SOB 08/17: CIWA d/c'd since pt's subjective sx report is not c/w objective signs. Received 5 mg lorazepam yesterday. Switched to standing dose of 1 mg tid today. He is on Keppra and gabapentin, so risk of ETOH w/d seizure is low. VS are wnl today. Will monitor VS per unit standards. Pt has requested oxycodone for GALLARDO r/t ETOH w/d and t/w told him that is not an appropriate med for that indication. He has bentyl and Zofran ordered for GI issues and states they don't help. Declined offer to order imodium for diarrhea. -Will start Campral 333 mg tid, as pt requested a med to reduce ETOH cravings. Can't take naltrexone w/ the Suboxone. 08/18: Pt has declined 2 referrals for recovery programs made by [facility]. Reports he will call programs on his own. Will continue current tx plan for now 08/18/25: Patient and this provider pacing the larios during 1-1 assessment. Report passive SI without plan/intent but will OD if he is out in community. Report hearing people calling my name and seeing black and white spot as well as spider when asked he experiences AVH. Denies SIB/HI. Patient is irritable toward one of [facility] who redirected and asks patient to leave group as patient was disrespectful. Per nursing, patient resisted to care, refused VS but Vs last night was elevated. Will continue to monitor. 08/19/25: Patient is visible, around the clock on Nicotine gum. There are two orders for nicotine gums but not sure it is intended to be that way by attending. Educate patient not to use it at night as it can affect his sleep. Report he feels less irritable today. Report passive SI with voices of someone calling my name . Denies plan/intent here but if he is outside in community he would do something. Per nursing, patient slept for only 2 hours last night. Reviewed with patient regarding some med changes to help with sleep. Patient asks for Benadryl at night for insomnia. Patient also takes PRN Thorazine for voices. 08/20: Pt endorses chronic SI without plan/intent and states that he can keep himself safe in the community if he is d/c'd tomorrow. He is agreeable w/ plan to d/c to [facility] tomorrow. BP has been wnl all day today. Will lower the lorazepam (started for CIWA) from 1 mg tid to 0.5 mg tid. He is covered for seizure prophylaxis on gabapentin and Keppra Reason for continued inpatient stay Substantial Risk for: stable for discharge Time Spent With Patient Time: Total time managing care of this patient today ____ minutes.
[2025-08-20 20:00] VITALS: BP 127/80; PULSE 113; RESP 17; TEMP 36.2; O2SAT 97
[2025-08-20 20:01] VITALS: BP 127/80
[2025-08-20 20:03] VITALS: BP 127/80
[2025-08-21] MEDS: Nicotine Polacrilex Lozenge 2 MG LOZENGE BUCCAL ×2 (03:29→10:20)
[2025-08-21] MEDS: Buprenorphine/Naloxone 8/2 mg TAB.SUBL 1 TAB SUBLINGUAL (08:40)
[2025-08-21 09:38] VITALS: BP 114/74; PULSE 107; RESP 18; TEMP 36.6; O2SAT 98
--- NOTE | 2025-08-21 11:55 | PC.NURSE ---
Patient engages easily. Reports feeling anxious. Reports no change in mental status. Continues depressed with chronic SI. Denies plan or intent at this time. Reports A/V hallucinations persist. Hears name being called, sees spots and spiders. Declined to review discharge paperwork. Discharging from unit to [facility] in fall. All belongings taken with patient. All medications returned to patient. Discharge packet provided, crisis numbers provided, resource booklet provided.
--- NOTE | 2025-08-21 15:07 | P.DS_ITS ---
DS: Providers Provider Date of Service: 08/21/25 Date of admission: 08/14/25 14:52 Date of discharge: 08/21/25 Primary care physician: Unknown Physician Attending physician on admission: Wandy Thomas Consults: 08/14/25 16:53 Consult to Hospitalist Routine Comment: Consulting Provider: [facility] Reason For Exam: Admission physical Attending physician on discharge: Wandy Thomas DS: Diagnosis Discharge Diagnosis (1) Other bipolar disorder: Status: Acute (2) PTSD (post-traumatic stress disorder): Status: Acute (3) Alcohol use disorder, severe, dependence: Status: Acute (4) Opioid use disorder, severe, on maintenance therapy: Status: Acute (5) Cocaine use disorder: Status: Acute (6) Methamphetamine abuse: Status: Acute (7) Asthma: Status: Acute (8) Seizure disorder: Status: Acute (9) Aveup-Zujeqduyw-Zpgup (WPW) syndrome: Status: Acute DS: Medications Discharge Medications Home Medications: Previous Rx's ?Medication ?Instructions ?Recorded acamprosate 333 mg tablet,delayed 333 mg PO TID 30 day s #90 tabs 08/21/25 release albuterol sulfate 90 mcg/actuation 2 puff inhalation R Q4H PRN 08/21/25 aerosol inhaler (Ventolin HFA) Shortness Of Breath/Whe ezing 30 days #8.5 grams aluminum-magnesium hydroxide 200 30 ml PO Q6H PRN Hear tburn 30 days 08/21/25 mg-200 mg/5 mL oral suspension #3,000 mL (MAG-AL) buprenorphine 8 mg-naloxone 2 mg 1 tab sublingual TID 30 days #90 08/21/25 sublingual tablet tabs chlorpromazine 100 mg tablet See Rx Instructions .Fernando hoff 08/21/25 .COMPLEX PRN agitation 30 days #60 tabs chlorpromazine 200 mg tablet See Rx Instructions .Fernando hoff 08/21/25 .COMPLEX 30 days #30 tabs clonidine HCl 0.1 mg tablet 0.1 mg PO BID 30 days #60 tabs 08/21/25 dicyclomine 10 mg capsule 10 mg PO TIDAC PRN Diarrhea, 08/21/25 abdominal discomfort 30 days #90 caps diphenhydramine HCl 25 mg capsule 50 mg (2 x 25 mg) PO BEDTIME 30 08/21/25 (Banophen) days #60 caps folic acid 1 mg tablet 1 mg PO DAILY 30 days #30 ta bs 08/21/25 gabapentin 400 mg capsule 400 mg PO TID 30 days #90 ca ps 08/21/25 hydroxyzine HCl 25 mg tablet 25 mg PO TID PRN mild anx iety 30 08/21/25 days #90 tabs ibuprofen 800 mg tablet 800 mg PO Q8H PRN Pain, 08/11 11/04 Moderate(Pain Scale 4-6) 30 days #90 tabs levetiracetam 500 mg tablet 500 mg PO BID 30 days #60 tabs 08/21/25 lorazepam 0.5 mg tablet See Rx Instructions .Route 1 10/21/24 .COMPLEX 12 days #24 tabs magnesium hydroxide 400 mg/5 mL 30 ml PO DAILY PRN Con stipation 30 08/21/25 oral suspension (Milk of Magnesia) days #355 mL melatonin 10 mg capsule 10 mg PO BEDTIME PRN insomni a 30 08/21/25 days #30 caps multivitamin (Daily-Teresa tablet) 1 tab PO DAILY 30 day s #30 tabs 08/21/25 naloxone 4 mg/actuation nasal 4 mg intranasal Q2M PRN opioid 08/21/25 spray (Narcan) overdose 30 days #2 ea nicotine (polacrilex) 2 mg gum 4 mg buccal Q1-2H PRN N icotine 08/21/25 Cravings 30 days #120 ea omeprazole 20 mg capsule,delayed 20 mg PO DAILY@0630 3 0 days #30 08/21/25 release caps ondansetron 4 mg disintegrating 4 mg translingual Q8H PRN Nausea 08/21/25 tablet And Vomiting 30 days #30 tab s prazosin 1 mg capsule 3 mg PO BEDTIME 30 days #90 caps 08/21/25 sennosides 8.6 mg tablet (Senna 17.2 mg (2 x 8.6 mg) P O BEDTIME 08/21/25 Lax) PRN Constipation 30 days #60 tabs thiamine mononitrate (vit B1) 100 100 mg PO DAILY 30 d ays #30 tabs 08/21/25 mg tablet Mental Status Exam Mental Status Exam Narrative: Appearance: casual, grooming/hygiene wnl. eye contact wnl Attitude: Cooperative Speech: Fluent and wnl in regard to volume, tone, prosody Motor activity: calm and without any tics, tremors or dyskinesias. Mood: anxious Affect: generally blunted Thought process: goal directed and without evidence of formal thought disorder Thought content: Endorses chronic SI but denies plan or intent to harm himself. Denies violent ideatoin Perception: Denies current AH/VH. Does not appear to respond to internal stim Insight: intact Judgment:fair DS: Summary Hospital Course Hospital Course: Mr. Fernandes is a 35 yo M wit h/o ADHD, previous bipolar dx, anxiety, PTSD, epilepsy, ETOH use d/o, h/o ETOH w/d seizures, cocaine use d/o, opioid use d/o in remission on maintenance tx and WPW who presented to the [facility] ED due to SI. Per Crisis eval -pt was admitted to [facility] from 08/06-08/13/25 due to seizure activity and SI. -CT head was neg. Pt was unable to tolerate the MRI machine to get a brain MRI. - Had anion gap of 20 and was felt to be in alcoholic ketoacidosis. He had mild hypokalemia, which was repleted. BAL was 65 -He was tachycardic, thought to be in ETOH w/d. He was continued on his home Keppra for seizure d/o. -He was evaluated by psychiatry due to SI and potential referrals to PHP and dual dx tx were discussed -He presented back to the ED several hrs after d/c from the medical floor endorsing SI with plan to o/d. He reported that he had nowhere to go after d/c and was on the street. He was unable to engage in safety planning. -Pt was arrested on 08/06/25 after seen by a bystander purchasing meth amphetamines. He was supposed to appear in court yesterday but reported 'I couldn't make it'. Pt reports that after the recent medical admission- I was with these people in a hotel. I left them in and smoked with them. I thought it was dabs but it was meth. I never smoked meth and had a seizure . He reports that the seizure was different than previous seizures-- he was still but his eyes were twitching. He reports that he's had a stomach ache, GALLARDO, blurry vision and increased anxiety since then. He reports that he also drank almost a handle of vodka that night and snorted 1 gram of cocaine. He reports that he had been medically admitted for tx of ETOH w/d seizures and that his friends snuck in alcohol at night when the nurses weren't around. Reports drinking 1 L of vodka/day in the hospital. Endorses depressed mood 'for a while in setting of homelessness and extensive trauma hx. He reportedly lived w/ his family until they could no longer take his ETOH two years ago. He endorses SI with a plan to overdose on aspirin prior to admission. Endorses ongoing SI but feels like he can keep himself safe here. Endorses anhedonia, poor appetite, feelings of hopelessness/helplessness Psychiatric ROS: -Denies HI/violent ideation. Reports h/o violence only when I needed to be . -Denies h/o AHVH, DTs -Reports being dx'd with bipolar d/o but unable to say if he's had episodes that looked like kei w/o influence of drugs -Endorses extensive trauma hx, flashbacks, chronic insomnia, nightmares, hypervigilance. Triggered by loud noises/yelling Current psychotropic meds: chlorpromazine 300 mg qhs- helps w/ sleep clonidine 0.1 mg bid- helps somewhat w/ anxiety gabapentin 400 mg tid melatonin 5 mg qhs prazosin 3 mg qhs- helps somewhat w/ nightmares buprenorphine-naloxone 8/2 mg tid (confirmed on [facility] and [facility] d/c summary) Admitted to [facility] for safety and stabilization Legal Status: CV 15 min safety checks While his report of drinking 1 L of vodka/day, at the hospital was doubtful, he was starting on CIWA monitoring, lorazepam prn per protocol as a precaution Labs and EKG ordered Hospitalist consult pending for admission H&P Continue regular medications: Buprenorphine-Naloxone 8/2 mg TID Thorazine 300 mg qhs Clonidine 0.1 mg bid Gabapentin 400 mg tid Prazosin 3 mg qhs Keppra 500 mg bid Melatonin 6 mg qhs Zofran 4 mg q 8 hrs prn for nausea Thiamine, MVI Senna prn for constipation Albuterol inhaler prn for SOB 08/17: CIWA d/c'd since pt's subjective sx report is not c/w objective signs. Received 5 mg lorazepam yesterday. Switched to standing dose of 1 mg tid today. He is on Keppra and gabapentin, so risk of ETOH w/d seizure is low. VS are wnl today. Will monitor VS per unit standards. Pt has requested oxycodone for GALLARDO r/t ETOH w/d and t/w told him that is not an appropriate med for that indication. He has bentyl and Zofran ordered for GI issues and states they don't help. Declined offer to order imodium for diarrhea. -Will start Campral 333 mg tid, as pt requested a med to reduce ETOH cravings. Can't take naltrexone w/ the Suboxone. Pt has declined 2 referrals for recovery programs made by [facility]. Reports he will call programs on his own. Will continue current tx plan for now 08/18/25: . Report passive SI without plan/intent but will OD if he is out in community. Report hearing people calling my name and seeing black and white spot as well as spider when asked he experiences AVH. Denies SIB/HI. Patient is irritable toward one of [facility] who redirected and asks patient to leave group as patient was disrespectful. Per nursing, patient resistant to care, refused VS but Vs last night was elevated. Will continue to monitor. 08/19/25: Patient is visible, around the clock on Nicotine gum. Educated patient not to use it at night as it can affect his sleep. Report he feels less irritable today. Report passive SI with voices of someone calling my name . Denies plan/intent here but if he is outside in community he would do something. Per nursing, patient slept for only 2 hours last night. Patient asks for Benadryl at night for insomnia. Patient also takes PRN Thorazine for voices. 08/20: Pt endorses chronic SI without plan/intent and states that he can keep himself safe in the community if he is d/c'd tomorrow. He is agreeable w/ plan to d/c to [facility] tomorrow. BP has been wnl all day today. Will lower the lorazepam (started for CIWA) from 1 mg tid to 0.5 mg tid and send an rx to continue to taper off upon d/c. He is covered for seizure prophylaxis on gabapentin and Keppra Status at Discharge Functional status at discharge: independent ambulation Overall status at discharge: patient is progressing back to baseline Time Spent with Patient Time attestation: Total time managing care of this patient today ____ minutes. Discharge Plan Discharge Anticipated Discharge Date/Time: 08/21/25 10:57 Patient Disposition: Xfer Other Discharge Diagnosis: Bipolar disorder, other (r/o substance induced) Alcohol use disorder, severe Cocaine use disorder Opioid use disorder, severe, on maintenance tx Methamphetamine use disorder Posttraumatic stress disorder Seizure disorder Referrals: [facility] [Provider Group] - 1 Week Referral Note: 08-21-25 [facility] was added to patients chart. Please call [phone] to schedule a follow up appt within 7-10 days of discharge. Discharge Medications: New acamprosate 333 mg Tablet,Delayed Release (Dr/Ec) 333 mg PO TID 30 Days Qty: 90 0RF diphenhydramine HCl [Banophen] 25 mg Capsule 50 mg PO BEDTIME 30 Days Qty: 60 0RF albuterol sulfate [Ventolin HFA] 90 mcg/actuation Hfa Aerosol Inhaler 2 puff inhalation RQ4H PRN (Reason: Shortness Of Breath/Wheezing) 30 Days Qty: 8.5 0RF dicyclomine 10 mg Capsule 10 mg PO TIDAC PRN (Reason: Diarrhea, abdominal discomfort) 30 Days Qty: 90 0RF nicotine (polacrilex) 2 mg Gum 4 mg buccal Q1-2H PRN (Reason: Nicotine Cravings) 30 Days Qty: 120 0RF clonidine HCl 0.1 mg Tablet 0.1 mg PO BID 30 Days Qty: 60 0RF Protocol: Hold for SBP< HOLD for SBP < : 90 prazosin 1 mg Capsule 3 mg PO BEDTIME 30 Days Qty: 90 0RF Protocol: Hold for SBP< HOLD for SBP < : 90 buprenorphine-naloxone 8-2 mg Tablet, Sublingual 1 tab sublingual TID 30 Days Qty: 90 0RF Rx Instructions: [facility] reviewed chlorpromazine 100 mg Tablet See Rx Instructions .ROUTE .COMPLEX PRN (Reason: agitation) 30 Days Qty: 60 0RF Rx Instructions: Take one tab qhs with one 200 mg tab for total of 300 mg qhs. Take one tab po qd prn for agitation and/or insomnia chlorpromazine 200 mg tablet See Rx Instructions .ROUTE .COMPLEX 30 Days Qty: 30 0RF Rx Instructions: Take one 200 mg tab with one 100 mg tab po qhs for total of 300 mg qhs. gabapentin 400 mg Capsule 400 mg PO TID 30 Days Qty: 90 0RF hydroxyzine HCl 25 mg Tablet 25 mg PO TID PRN (Reason: mild anxiety) 30 Days Qty: 90 0RF ibuprofen 800 mg Tablet 800 mg PO Q8H PRN (Reason: Pain, Moderate(Pain Scale 4-6)) 30 Days Qty: 90 0RF levetiracetam 500 mg Tablet 500 mg PO BID 30 Days Qty: 60 0RF lorazepam 0.5 mg Tablet See Rx Instructions .ROUTE .COMPLEX 12 Days Qty: 24 0RF Rx Instructions: Take 1 tab po tid x 4 days then take 1 tab bid x 4 days then take 1 tab po qam x 4 days then d/c lorazepam MAG-AL 200-200 mg/5 mL Suspension 30 ml PO Q6H PRN (Reason: Heartburn) 30 Days Qty: 3000 0RF magnesium hydroxide [Milk of Magnesia] 400 mg/5 mL Suspension 30 ml PO DAILY PRN (Reason: Constipation) 30 Days Qty: 355 0RF omeprazole 20 mg Capsule,Delayed Release(Dr/Ec) 20 mg PO DAILY@0630 30 Days Qty: 30 0RF ondansetron 4 mg Tablet,Disintegrating 4 mg translingual Q8H PRN (Reason: Nausea And Vomiting) 30 Days Qty: 30 0RF sennosides [Senna Lax] 8.6 mg Tablet 17.2 mg PO BEDTIME PRN (Reason: Constipation) 30 Days Qty: 60 0RF folic acid 1 mg Tablet 1 mg PO DAILY 30 Days Qty: 30 0RF melatonin 10 mg capsule 10 mg PO BEDTIME PRN (Reason: insomnia) 30 Days Qty: 30 0RF multivitamin [Daily-Teresa] Tablet 1 tab PO DAILY 30 Days Qty: 30 0RF thiamine mononitrate (vit B1) 100 mg Tablet 100 mg PO DAILY 30 Days Qty: 30 0RF naloxone [Narcan] 4 mg/actuation spray,non-aerosol 4 mg intranasal Q2M PRN (Reason: opioid overdose) 30 Days Qty: 2 0RF Rx Instructions: spray 1 dose into ONE nostril; alternate nostrils w each dose until help arri ves Discontinued multivitamin Tablet 1 tab PO DAILY sennosides [senna] 8.6 mg Tablet 8.6 mg PO BEDTIME Rx Instructions: take 2 tabs po at bedtime clonidine HCl 0.1 mg Tablet 0.1 mg PO BID levetiracetam 500 mg Tablet 500 mg PO BID chlorpromazine [Thorazine] 100 mg Tablet 300 mg PO BEDTIME prazosin 1 mg Capsule 1 mg PO BEDTIME gabapentin 400 mg Capsule 400 mg PO TID thiamine HCl (vitamin B1) 100 mg Tablet 100 mg PO DAILY nicotine (polacrilex) [Nicorette] 4 mg Gum 4 mg BUCCAL Q2H pantoprazole 40 mg Tablet,Delayed Release (Dr/Ec) 40 mg PO DAILY folic acid 1 mg Tablet 1 mg PO DAILY albuterol 90 mcg/actuation Aerosol 2 mcg INHALATION Q4H PRN (Reason: Shortness Of Breath Or Wheezing) ondansetron 4 mg Tablet,Disintegrating 4 mg PO Q8H PRN (Reason: Nausea And Vomiting) prazosin 2 mg Capsule 2 mg PO BEDTIME melatonin 5 mg Tablet 5 mg PO BEDTIME buprenorphine-naloxone 8-2 mg Film 1 film BUCCAL TID Discharge Orders: Discharge Order (Routine); Ordered 08/21/25 Ordered By: Wandy Thomas Diet: Regular diet Activity on Discharge: No Restrictions Stand Alone Forms: Patient Portal Discharge page, Community Support Print Language: Moldovan Care Plan Goals: Maintain safe behaviors Practice coping skills Take medications as prescribed Continue to pursue sobriety Maintain regular follow-ups with your outpatient providers Health Concerns: Mood stability and behaviors Substance use Plan of Treatment: Follow up with your psychiatric provider, PCP and other outpatient providers Take your medication as prescribed Assessment: Risk assessment at the time of discharge: Patient endorses chronic SI but denies current plan or intent to harm himself. He is not currently at imminent risk of harm to self. He denies violent ideation and is at low risk of harm to others. Pt has improved insight and judgment and plans to continue treatment Pt has a safety plan that includes presenting to the closest ER or calling 911 if feeling unsafe. Pt has been observed closely by unit staff and has not engaged in any behaviors that suggest dangerous to self or others and has demonstrated appropriate bheaviors and impulse control. Discharge Date/Time: 08/21/25 11:42
== END 2025-08-21 11:42 | disposition other institution (70) | DRG 753 ==
PROVIDERS: Admitting Provider Psychiatry & Neurology Psychiatry; Visit Provider Psychiatry & Neurology Psychiatry
DX: F31.89 Other bipolar disorder (principal); R45.851 Suicidal ideations; G40.909 Epilepsy, unspecified, not intractable, without status epilepticus; F11.20 Opioid dependence, uncomplicated; F43.10 Post-traumatic stress disorder, unspecified; F10.20 Alcohol dependence, uncomplicated; F14.10 Cocaine abuse, uncomplicated; J45.909 Unspecified asthma, uncomplicated; F15.10 Other stimulant abuse, uncomplicated; I45.6 Pre-excitation syndrome; F90.9 Attention-deficit hyperactivity disorder, unspecified type; F17.210 Nicotine dependence, cigarettes, uncomplicated; Z71.6 Tobacco abuse counseling; Z59.02 Unsheltered homelessness; Z79.899 Other long term (current) drug therapy
CPT/HCPCS: 36415; 80053; 80061; 83036; 93005

== ENCOUNTER → 2025-08-14 14:52 | Outpatient (BNV) | payer OTHER, SELFPAY | PROVIDERS: Admitting Provider Psychiatry & Neurology Psychiatry; Visit Provider Nurse Practitioner Family | DX: I45.6 Pre-excitation syndrome (principal); J45.909 Unspecified asthma, uncomplicated; G40.909 Epilepsy, unspecified, not intractable, without status epilepticus | CPT/HCPCS: 99221 ==

== ENCOUNTER → 2025-08-14 14:52 | Outpatient (BNV) | payer OTHER, SELFPAY | PROVIDERS: Admitting Provider Psychiatry & Neurology Psychiatry; Visit Provider Psychiatry & Neurology Psychiatry | DX: F31.4 Bipolar disorder, current episode depressed, severe, without psychotic features (principal); I45.6 Pre-excitation syndrome; J45.909 Unspecified asthma, uncomplicated; G40.909 Epilepsy, unspecified, not intractable, without status epilepticus | CPT/HCPCS: 90792; 99232 ==